=== PATIENT | female | born 1965 | race Caucasian/White ===

== ENCOUNTER 2022-08-28 08:54 | Outpatient (CLI) | payer OTHER, SELFPAY | END 2022-08-28 08:55 | disposition home or self-care (01) | LOC: AMB 09-09 13:42 | PROVIDERS: Visit Provider Family Medicine | DX: S09.90XA Unspecified injury of head, initial encounter (principal); S89.90XA Unspecified injury of unspecified lower leg, initial encounter; W01.0XXA Fall on same level from slipping, tripping and stumbling without subsequent striking against object, initial encounter | CPT/HCPCS: A0425; A0427 ==

== ENCOUNTER 2022-08-28 09:12 | Emergency (ER) | payer OTHER, SELFPAY ==
[2022-08-28] VITALS (8 sets, daily range): BP systolic 113–147; BP diastolic 84–103; PULSE 66–75; RESP 18; TEMP 36; O2SAT 93–97; BMI 40.2
--- NOTE | 2022-08-28 09:45 | ED_ITS ---
HPI - Fall General Time Seen by Provider: 09:45 Date Seen: 08/28/22 Chief Complaint: Fall/Minor Trauma Stated Complaint: fell, knee/hip pain Time Seen by Provider: 08/28/22 09:45 Source: patient and RN notes reviewed Mode of arrival: EMS Limitations: no limitations History of Present Illness HPI Narrative: Martine is a very pleasant 57-year-old female with history of traumatic brain injury, restless legs, obesity, fibromyalgia, chronic neck and back pain who comes to the emergency room for evaluation of right-sided body pain after a fall. Patient notes that she had just been to the dentist this morning. She notes that she and her son were going to go to breakfast and she was walking on the sidewalk without her walker and got her toe caught and fell forward. Her son states that he fell forward onto her knees and right side and her cane which she was using. He did not see her strike her head. She notes that after she fell forward she fell back onto her right buttock. EMS was called and she was given 25 mcg of fentanyl and brought here to the emergency room. Martine notes that she has had chronic concussions over her life and she does have hardware in the cervical spine. She notes no new pain with her head and neck today. He is not currently on any blood thinners. Initially she thought she must have hit her head and we discussed need for CT but her son states that she did not hit her head nor did she have any loss of consciousness. She is fine that we continue to monitor and do not put her through the CT scanner for head or neck. Martine complains of right elbow pain but is able to move her elbow without difficulty. She does not think it needs an x-ray. Martine complains of right hip pain but states that she is able to move her leg and does not think she needs an x-ray of her hip. Martine complains of right knee pain and states that hurts to flex and extend it. She has quite a big abrasion in this area. She thinks her tetanus is u p-to-date. She requests an x-ray. Martine come notes that she had an ankle injury when she tripped. She demonstrates with her ankle inversion as to will where it hurts mostly. She has not noted any swelling in this area but is worried that she has an underlying injury and request an x-ray. Upon her arrival Martine states she is a diabetic and has not had breakfast. When I enter the room she is eating her breakfast moving her right arm without difficulty. Related Data Home Medications Medication Instructions Recorded Confirmed albuterol sulfate 2.5 mg/3 mL 2.5 mg QID PRN 08/28/22 (0.083 %) solution for nebulization albuterol sulfate 90 mcg/actuation 2 puff inhalation Q6H PRN 08/28/22 08/28/22 aerosol inhaler budesonide 3 mg 9 mg PO DAILY 08/28/22 08/28/22 capsule,delayed,extended release buspirone 15 mg tablet 15 mg PO BID 08/28/22 08/28/22 cholecalciferol (vitamin D3) 50 50 mcg PO DAILY 08/28/22 08/28/22 mcg (2,000 unit) capsule cyclobenzaprine 10 mg tablet 10 mg PO BID PRN 08/28/22 08/28/22 docusate sodium 100 mg capsule 100 mg PO 3XD PRN 08/28/22 08/28/22 duloxetine 60 mg capsule,delayed 60 mg PO DAILY 08/28/22 08/28/22 release gabapentin 600 mg tablet 600 mg PO 3XD 08/28/22 08/28/22 meloxicam 15 mg tablet 15 mg PO DAILY 08/28/22 08/28/22 metformin 1,000 mg tablet 1,000 mg PO BID 08/28/22 08/28/22 mirtazapine 7.5 mg tablet 7.5 mg PO QPM 08/28/22 08/28/22 nicotine 10 mg inhalation inhalation 08/28/22 cartridge (Nicotrol) ondansetron HCl 4 mg tablet 4 mg PO Q8H PRN 08/28/22 08/28/22 pravastatin 40 mg tablet 40 mg PO DAILY 08/28/22 08/28/22 propranolol 60 mg capsule,24 60 mg PO DAILY 08/28/22 08/28/22 hr,extended release simvastatin 20 mg tablet 20 mg PO QPM 08/28/22 08/28/22 topiramate 100 mg tablet 100 mg PO BID 08/28/22 08/28/22 trazodone 100 mg tablet 100 mg PO QPM 08/28/22 08/28/22 Allergies Allergy/AdvReac Type Severity Reaction Status Date / Time latex Allergy Intermediate Hives Verified 08/28/22 09:30 adhesive Allergy Mild Rash Verified 08/28/22 09:30 Epideral Allergy Intermediate severe Uncoded 09/03/21 10:22 hives Erythromycin Allergy Intermediate severe Uncoded 09/03/21 10:22 rash, diarrhea Review of Systems Status of ROS: Reports: 10 or more systems reviewed and unremarkable except as noted in History and below Const: Denies: fever or chills Eyes: Denies: change in vision or blurry vision ENMT: Reports: neck pain (Chronic nothing new) Cardio: Denies: chest pain, swelling of feet/ankles or lightheadedness GI: Denies: nausea Musculo: Reports: neck pain (Chronic nothing new) and extremity pain (Right knee and ankle) Neuro: Denies: headache Psych: Reports: anxiety PFSH PFSH Surgical History History of total hysterectomy with bilateral salpingo-oophorectomy (BSO) (09/21/14) ?Z90.710 - Acquired absence of both cervix and uterus (ICD-10) ?Z90.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, bilateral (ICD-10) ?Z90.79 - Acquired absence of other genital organ(s) (ICD-10) History of section ?Z98.891 - History of uterine scar from previous surgery (ICD-10) History of cervical spinal arthrodesis (08/04/17) ?Z98.1 - Arthrodesis status (ICD-10) History of carpal tunnel release (08/2018) ?Z98.890 - Other specified postprocedural states (ICD-10) Family History Other Colon cancer Social History Smoking Status: Former smoker Do you use any of these nicotine containing products: None Second hand tobacco smoke exposure: No How often do you have a drink containing alcohol: 2-4 times a month How many standard drinks containing alcohol do you have on a typical day: 1 or 2 How often do you have six or more drinks on one occasion: Never AUDIT-C Alcohol total score: 2 Non-prescribed substance use: denies use service: No Exam Narrative: Exam Narrative: Martine is alert and oriented. She is very detailed in her history and appears to have good memory and recall. GCS of 15 EOM is full. Head is atraumatic normocephalic. Neck is with full range of motion in my observation. Upper extremity strength and motor is intact. Heart with a regular rate and rhythm and lungs are clear. Abdomen soft. Moving her upper extremities without difficulty. Examination of her right arm shows large bruise on the posterior lateral upper forearm. No pain with palpation over the olecranon or the radial head. Full flexion extension intact. Distally she has superficial scratches in various stages of healing. She notes this is from a pet. Examination of the right buttock and hip show no bruising at this time. Palpation over the greater trochanter without discomfort. Patient is able to flex extend at the hip without difficulty. She has a circular area of superficial abrasion on the right knee. She has really no lateral or medial joint pain. Distally she has has discomfort when moving her ankle but there is no evidence of edema. Const: Vital Signs, click to edit/add: Vital Signs - 24 hr 08/28/22 09:25 08/28/22 09:30 08/28/22 10:00 Temperature 96.8 F L Pulse Rate Pulse Rate [Right Pulse Oximeter] 66 73 Respiratory Rate 18 18 Blood Pressure Blood Pressure [Le ft Upper Arm] 147/94 H 131/103 H 113/88 Pulse Oximetry 95 95 Oxygen Delivery Me thod Room Air Room Air 08/28/22 10:30 08/28/22 10:50 08/28/22 11:00 Temperature Pulse Rate 70 75 Pulse Rate [Right Pulse Oximeter] Respiratory Rate Blood Pressure Blood Pressure [Le ft Upper Arm] 116/84 Pulse Oximetry 97 93 Oxygen Delivery Me thod 08/28/22 11:02 08/28/22 11:15 Temperature Pulse Rate 75 73 Pulse Rate [Right Pulse Oximeter] Respiratory Rate Blood Pressure 132/98 H Blood Pressure [Le ft Upper Arm] Pulse Oximetry 96 93 Oxygen Delivery Me thod Documenting provider has reviewed patient's vital signs: yes Course Course Hospital Course: At this time Martine son is sure that she did not strike her head. She really has no new complaints and she is not on a blood thinner and thus will continue to monitor but not have her go through with head or cervical spine CT at this time as she does not appear to have any new discomfort or symptoms. Patient initially thought that she would want a hip x-ray but there is no bruising and she is able to move this area and thus she is declining. She also declines an x-ray for her right arm. She is requesting x-ray of the right knee and right ankle which will be ordered. Vital Signs Vital signs: Initial Vital Signs Temperature 96.8 F L 08/28/22 09:25 Temperature Source Temporal Artery Scan 08/28/22 09:25 Pulse Rate 66 08/28/22 09:25 Respiratory Rate 18 08/28/22 09:25 Blood Pressure 147/94 H 08/28/22 09:25 Blood Pressure Mean 111 H 08/28/22 09:25 Blood Pressure Position Supine 08/28/22 09:25 Pulse Oximetry 95 08/28/22 09:25 Oxygen Delivery Method Room Air 08/28/22 09:25 Vital Signs Temperature 96.8 F L 08/28/22 09:25 Pulse Rate 66 08/28/22 09:25 Respiratory Rate 18 08/28/22 09:25 Blood Pressure 147/94 H 08/28/22 09:25 Pulse Oximetry 95 08/28/22 09:25 Oxygen Delivery Method Room Air 08/28/22 09:25 Temperature 96.8 F L 08/28/22 09:25 Pulse Rate 73 08/28/22 11:15 Respiratory Rate 18 08/28/22 09:30 Blood Pressure 132/98 H 08/28/22 11:02 Pulse Oximetry 93 08/28/22 11:15 Oxygen Delivery Method Room Air 08/28/22 09:30 MDM - Fall MDM Narrative Medical decision making narrative: 1. Right knee abrasion-no evidence of underlying fracture fortunately. Will cover with bacitracin after cleansing. Recommend monitoring for infection over the next few days. Use walker for assistance. Martine initially thought she would be able to obtain her walker which is stored at her ex-'s house but now is requesting prescription which I do give her. 2. Right ankle injury-no evidence of fracture-we put her in an Elias wrap for support. Her son did talk about a cam walker or boot but I feel that this would likely raise possibility of tripping or fall for this patient. Tylenol may be used for discomfort. Suggest icing of the area as well. 3. Disposition-home at this time. Return as needed. Light activity. Avoid prolonged bed rest or heavy activity. Return to the emergency room as needed. Medical Records Attestation: I reviewed the patient's medical records. Imaging Data Right knee x-ray: Attestation: I have reviewed the pertinent imaging results. My impression: I do not note any acute findings Radiologist's impression: : Alignment is normal. No fractures or bone lesions. Joint spaces: No joint effusion. Joint spaces are well maintained. No degenerative changes. Soft tissues: Unremarkable. Impression: No evidence of fracture. Right ankle x-ray: Attestation: I have reviewed the pertinent imaging results. My impression: I do not note any acute fractures. Radiologist's impression: Alignment is normal. No fractures or bone lesions. Small calcaneal bone spur. Joint spaces: Unremarkable. Soft tissues: Unremarkable. Impression: No evidence of right ankle fracture. Discharge Plan Discharge Clinical Impression: Fall Qualifiers: Encounter type: initial encounter Qualified Code(s): W19.XXXA - Unspecified fall, initial encounter Right ankle sprain Qualifiers: Encounter type: initial encounter Involved ligament of ankle: unspecified ligament Qualified Code(s): S93.401A - Sprain of unspecified ligament of right ankle, initial encounter Abrasion, knee Qualifiers: Encounter type: initial encounter Laterality: right Qualified Code(s): S80.211A - Abrasion, right knee, initial encounter Patient Disposition: Home, Self-Care Condition: Improved Additional Instructions: Tylenol as needed for discomfort. Ice to areas of discomfort. Use your walker when ambulating. Follow-up with your primary MD for ongoing problems. Elias wrap to right ankle. Recommend bacitracin and Band-Aid for right knee. Return to the emergency room for onset of new symptoms. Prescriptions: No Action cyclobenzaprine 10 mg tablet 10 mg PO BID PRN gabapentin 600 mg tablet 600 mg PO 3XD albuterol sulfate 2.5 mg /3 mL (0.083 %) solution for nebulization 2.5 mg QID PRN pravastatin 40 mg tablet 40 mg PO DAILY meloxicam 15 mg tablet 15 mg PO DAILY ondansetron HCl 4 mg tablet 4 mg PO Q8H PRN propranolol 60 mg capsule,extended release 24 hr 60 mg PO DAILY Nicotrol 10 mg cartridge inhalation trazodone 100 mg tablet 100 mg PO QPM simvastatin 20 mg tablet 20 mg PO QPM metformin 1,000 mg tablet 1,000 mg PO BID docusate sodium 100 mg capsule 100 mg PO 3XD PRN budesonide 3 mg capsule,delayed,extend.release 9 mg PO DAILY albuterol sulfate 90 mcg/actuation HFA aerosol inhaler 2 puff INHALATION Q6H PRN topiramate 100 mg tablet 100 mg PO BID buspirone 15 mg tablet 15 mg PO BID mirtazapine 7.5 mg tablet 7.5 mg PO QPM duloxetine 60 mg capsule,delayed release(DR/EC) 60 mg PO DAILY cholecalciferol (vitamin D3) 50 mcg (2,000 unit) capsule 50 mcg PO DAILY Follow Up/Referrals: Provider,Not a Local [Primary Care Provider] - Stand Alone Forms: [facility] Info Instructions
--- NOTE | 2022-08-28 10:19 | CRLHL7_ITS ---
For Patients: As a result of the Century Cures Act, medical imaging exams and procedure reports are released immediately into your electronic medical record. You may view this report before your referring provider. If you have questions, please contact your health care provider. Indication: INVERSION INJURY AFTER FALL Technique: Right ankle 3 views. Comparison: None. Findings: Bones: Alignment is normal. No fractures or bone lesions. Small calcaneal bone spur. Joint spaces: Unremarkable. Soft tissues: Unremarkable. Impression: No evidence of right ankle fracture. Dictated by Vance Hardwick MD @ 08/28/2022 11:00:28 AM (Electronically Signed)
--- NOTE | 2022-08-28 10:19 | CRLHL7_ITS ---
For Patients: As a result of the Cures Act, medical imaging exams and procedure reports are released immediately into your electronic medical record. You may view this report before your referring provider. If you have questions, please contact your health care provider. Indication: FALL Technique: Right knee 2 views Comparison: None Findings: Bones: Alignment is normal. No fractures or bone lesions. Joint spaces: No joint effusion. Joint spaces are well maintained. No degenerative changes. Soft tissues: Unremarkable. Impression: No evidence of fracture. Dictated by Vance Hardwick MD @ 08/28/2022 10:55:55 AM (Electronically Signed)
--- OUTSIDE RECORDS SUMMARY | 2022-08-28 10:39 | XMS_ITS ---
Author Name Unknown Organization [facility] Address [address] [facility] [address] [address] [place] [address]- Care Team Providers Care Tester [employer]ak[employer] Name Role Phone Jamie Whitehead DO Primary Care Physician Encounter Date(s): 05/27/22 - 05/27/22 [id number] [place] [address]- [phone] Encounter Diagnosis Head contusion(Discharge Diagnosis) - 05/27/22 Concussion(Discharge Diagnosis) - 05/27/22 Contusion of left wrist(Discharge Diagnosis) - 05/27/22 Ground-level fall(Discharge Diagnosis) - 05/27/22 Strain, dorsal(Discharge Diagnosis) - 05/27/22 Discharge Disposition: 01 Home or Self Care Attending Physician: PHYSICIAN , EMERGENCY Admitting Physician: PHYSICIAN , EMERGENCY Vital Signs Most recent to oldest [Reference Range]: 1 2 3 Heart Rate Monitored [60-100 bpm] 65 bpm (05/27/22 8:02 PM) Respiratory Rate [14-20 br/min] 17 br/min (05/27/22 8:02 PM) Blood Pressure [80-140/60-90 mmHg] 112/93mmHg (05/27/22 11:41 PM) 99/75mmHg (05/27/22 10:30 PM) 111/94mmHg (05/27/22 10:00 PM) Results Laboratory List Name Date POC Glucose Strip 05/27/22 Chemistry Panel 7 (CHEM7) 05/27/22 Glomerular Filtration Rate Calculation Hepatic Function Panel 05/27/22 PT 05/27/22 Most recent to oldest [Reference Range]: 1 eGFR CKD-EPI [>=60 mL/min/1.73m^2] >60 m L/min/1.73m^2 (05/27/22 7:44 PM) Creatinine [0.51-0.95 mg/dL] 0.62 mg/dL (05/27/22 7:44 PM) Albumin Level [3.97-4.94 g/dL] 4.08 g/dL (05/27/22 7:44 PM) Alk Phos [35-104 U/L] 83 U/L (05/27/22 7:44 PM) ALT [10-35 U/L] 50 U/L *HI* (05/27/22 7:44 PM) AST [10-35 U/L] 32 U/L (05/27/22 7:44 PM) Bili Total [<=1.1 mg/dL] 0.2 mg/dL (05/27/22 7:44 PM) BUN [6-20 mg/dL] 11 mg/dL (05/27/22 7:44 PM) Chloride Level [98-107 mmol/L] 105 mmol/ L (05/27/22 7:44 PM) CO2 [22-29 mmol/L] 22 mmol/L (05/27/22 7:44 PM) Glucose Level [74-106 mg/dL] 115 mg/dL *HI* (05/27/22 7:44 PM) INR 1.0 1 *NA* (05/27/22 7:44 PM) Potassium Level [3.5-5.1 mmol/L] 3.9 mmo l/L (05/27/22 7:44 PM) PT [10.2-12.9 second(s)] 11.5 second(s) (05/27/22:44 PM) Sodium Level [136-145 mmol/L] 141 mmol/L (05/27/22 7:44 PM) Total Protein [6.4-8.3 g/dL] 6.3 g/dL *LOW* (05/27/22 7:44 PM) Bili Direct [0.0-0.3 mg/dL] <0.2 mg/dL (05/27/22 7:44 PM) POC Glucose Strip [70-100 mg/dL] 131 mg/ dL 2 *HI* (05/27/22 10:37 PM) Anion Gap 15 *NA* (05/27/22 7:44 PM) 1Result Comment: Autoverified Result by Discern Rule 2Result Comment: Device #: [id number] CLIA: [id number] Radiology Reports * Exam Date Time Procedure Performing Provider Status 05/27/22 8:[address] SPINE CERVICAL WO CONTRAST Pusateri RT(R)(CT), Yasmin; Favio (Verified) Notes: (CT SPINE CERVICAL WO CONTRAST) Reason For Exam: Other-See Special Instructions ACC#: [id number] EXAMINATION: CT SPINE CERVICAL WO CONTRAST CLINICAL INDICATION: Trauma TECHNIQUE: Noncontrast axial CT imaging of the cervical spine was performed. Coronal and sagittal reformatted images were also reviewed. This CT exam was performed using one or more of the following dose reduction techniques: Automated exposure control, adjustment of the mA and/or kV according to patient size, or use of iterative reconstruction technique. COMPARISON: None. FINDINGS: The patient is undergone a previous anterior cervical disc fusion procedure from C5 through C7. Complete vertebral rings are seen at all levels of the cervical spine. Sagittal reformatted images do not demonstrate any acute compression fractures. No acute pathology is identified in the paraspinous soft tissues. IMPRESSION: No acute fracture or dislocation is seen in the cervical spine. Final Dictated: 05/27/2022 9:14 pm RAMAN STRATTON MD Signed (Electronic Signature): 05/27/2022 9:16 pm Signed by: RAMAN STRATTON MD * Exam Date Time Procedure Performing Provider Status 05/27/22 8:[address] HEAD WO CONTRAST Pusateri RT(R)(CT) , Yasmin; Auth (Verified) Notes: (CT HEAD WO CONTRAST) Reason For Exam: Other-See Special Instructions ACC#: [id number] EXAMINATION: CT HEAD WO CONTRAST CLINICAL INDICATION: Head trauma TECHNIQUE: Standard noncontrast CT imaging of the head and brain was performed. This CT exam was performed using one or more of the following dose reduction techniques: Automated exposure control, adjustment of the mA and/or kV according to patient size, or use of iterative reconstruction technique. COMPARISON: None. FINDINGS: Bones and sinuses: No acute fracture or acute bony pathology is seen. The visualized portions of the paranasal sinuses, mastoid air cells, and middle ears are well-aerated and unremarkable. Ventricles and extra-axial spaces: The ventricles, cisterns, sulci are normal in size, shape, and appearance without midline shift. A focal well-circumscribed area of extra-axial CSF attenuation is seen in the posterior fossa at the midline measuring 3.3 x 3.6 cm in its maximal axial dimensions. This is likely benign, likely representing an arachnoid cyst. Brain: No intracranial hemorrhage or mass lesion is seen. Soft tissues: No acute pathology is seen involving the globes, orbital structures, or visualized soft tissues. IMPRESSION: 1. No acute fracture or acute intracranial pathology is identified. 2. A 3.6 cm extra-axial CSF density collection or structure at the posterior inferior margin of theposterior fossa is likely benign, likely representing an incidental arachnoid cyst. Final Dictated: 05/27/2022 9:07 pm RAMAN STRATTON MD Signed (Electronic Signature): 05/27/2022 9:11 pm Signed by: RAMAN STRATTON MD * Exam Date Time Procedure Performing Provider Status 05/27/22 8:26 PM MILTON WRIST LEFT MINIM UM 3 VIEWS Sen RT(R), Tracy; Auth (Verified) Notes: (MILTON WRIST LEFT MINIMUM 3 VIEWS) Reason For Exam: Other-See Special Instructions ACC#: [id number] Examination: MILTON WRIST LEFT MINIMUM 3 VIEWS Clinical Indication: Trauma/Pain Findings: Bones: There are no displaced fractures. There are no focal lytic or sclerotic lesions. Joints: There is no subluxation or dislocation. Soft tissues: No significant edema or foreign body. Impression: No displaced fracture Final Dictated: 05/27/2022 8:51 pm DICKSON ROSE DO Signed (Electronic Signature): 05/27/2022 9:06 pm Signed by: DICKSON ROSE DO * Exam Date Time Procedure Performing Provider Status 05/27/22 8:26 PM MILTON SPINE LUMBAR ROUTINE Sen RT(R ), Tracy; Auth (Verified) Notes: (MILTON SPINE LUMBAR ROUTINE) Reason For Exam: Other-See Special Instructions ACC#: [id number] Examination: MILTON SPINE LUMBAR ROUTINE Clinical Indication: Trauma/Pain Findings: Vertebra: There is normal vertebral height and alignment. Moderate hypertrophic changes are present. There are no fractures or subluxations. Intervertebral disc spaces: Appear within normal limits. Soft tissues: Within normal limits. Radiopaque density overlies the left mid abdomen. Correlate clinically Impression: Lumbar spondylosis No spondylolisthesis Radiopaque density overlying the left mid abdomen Final Dictated: 05/27/2022 8:49 pm DICKSON ROSE DO Signed (Electronic Signature): 05/27/2022 8:50 pm Signed by: DICKSON ROSE DO * Exam Date Time Procedure Performing Provider Status 05/27/22 8:26 PM MILTON SPINE THORACIC I NC SWIMMERS VIEW Sen RT(R), Tracy; Auth (Verified) Notes: (MILTON SPINE [employer] INC SWIMMERS VIEW) Reason For Exam: Other-See Special Instructions ACC#: [id number] Examination: MILTON SPINE [employer] SWIMMERS VIEW Clinical Indication: Trauma Findings: Vertebra: There is normal vertebral height and alignment. There are no fractures or subluxations. Anterior fusion hardware in the lower cervical spine appreciated Intervertebral disc spaces: Appear within normal limits. Soft tissues: Within normal limits. Impression: No displaced fracture or subluxation Final Dictated: 05/27/2022 8:49 pm DICKSON ROSE DO Signed (Electronic Signature): 05/27/2022 8:49 pm Signed by: DICKSON ROSE DO Social History Social History Type Response Sex Female Mental Status 05/27/22 Barriers to Learning None evident Languages Moroccan Physician Emergency department Note * BRYON HART MD: MODIFY, PERFORM, MODIFY, SIGN, VERIFY Event Display: ED Note-Physician Authored Date: [id number] [facility] Patient: NELSON LUQUE Age: 56 years Sex: Female : 1965 Associated Diagnoses: Ground-level fall; Head contusion; Concussion; Contusion of left wrist; Strain, dorsal Author: BRYON HART MD Basic Information Time seen: Assigned Date/Time PROVIDER ROLE INITIATED UNASSIGNED BRYON HART MD ED Physician 05/27/2022 19:25 , Immediately upon arrival. History source: Patient, EMS. Arrival mode: Ambulance. History limitation: None. History of Present Illness The patient presents following Patient is a 56-year-old woman who comes in by ambulance for evaluation after having 2 falls at home. Patient was doing some work around the house. Sometime around 5:00she had a dizzy off-balance spinning sensation. She toppled over sideways without losing consciousness and hit furniture and items. She hit her head and neck and back. She stood up and then fell forward and her head hit the floor. There is no loss of consciousness. She is not on any antiplatelet oranticoagulant medications. Afterwards she vomited 10 times. She was unsteady after that and after 45 minutes agreed to come to the hospital by ambulance. She was given Zofran in route. She has not had the dizziness/falling before. She has some chronic neck and back pain. She has a history of Crohn's disease and chronic constipation. She had significant diarrhea yesterday. No chest pain shortness of breath, palpitations, or syncope.. Her biggest complaint at this time is head pain. Review of Systems Additional review of systems information: 10 point review of systems is negative except for elements of the history of present illness. Health Status Allergies: No active allergies have been recorded.. Past Medical/ Family/ Social History Surgical history: Surgical history No active procedure history items have been selected or recorded., Multiple C- sections and hysterectomy, left rotator cuff. Family history: Family history No family history items have been selected or recorded.. Medical history. Physical Examination Vital Signs Vital Signs 05/27/2022 20:02 EDT Heart Rate Monitored 65 bpm Normal Respiratory Rate 17 br/min Normal Systolic Blood Pressure 121 mmHg Normal Diastolic Blood Pressure 49 mmHg <LLOW . General: Alert, no acute distress. Skin: Warm, dry. Head: Occipital scalp tenderness. Small frontal abrasion. Neck: C-collar in place. Midline tenderness upper C-spine noted. C-collar left in place. Eye: Pupils are equal, round and reactive to light, extraocular movements are intact. Ears, nose, mouth and throat: Oral mucosa moist. Cardiovascular: Regular rate and rhythm, No murmur, Normal peripheral perfusion, No edema. Respiratory: Lungs are clear to auscultation, respirations are non-labored. Chest wall: No tenderness, No deformity. Back: Tenderness to percussion throughout the T and L-spine. Musculoskeletal: Normal ROM, normal strength, Minimal tenderness and a superficial abrasion on the medial aspect of the left wrist. Neurological: Alert and oriented to person, place, time, and situation, No focal neurological deficit observed. Psychiatric: Cooperative, appropriate mood & affect. Medical Decision Making Orders Launch Orders Laboratory: PT (Order Processing): Blood, 05/27/2022 19:41 EDT, Stat collect, Nurse collect Hepatic Function Panel (Order Processing): Blood, 05/27/2022 19:41 EDT, Routine collect, Nurse collect CHEM7 (Order Processing): Blood, 05/27/2022 19:41 EDT, Stat collect, Nurse collect CBC with Diff (Order Processing): Blood, 05/27/2022 19:41 EDT, LENIN collect, Nurse collect Pharmacy: morphine injection (Order Processing): 2 mg, IV Push, one time Radiology: MILTON WRIST LEFT MINIMUM 3 VIEWS (Order Processing): 05/27/2022 19:40 EDT, Stat, Reason: Other-See Special Instructions, once non-pharm, Trauma/Pain, 05/27/2022 19:40 EDT, 05/27/2022 19:40 EDT, Rad Type Perform based on Radiology guidelines MIL[employer] SPINE [employer] SWIMMERS VIEW (Order Processing): 05/27/2022 19:40 EDT, Stat, Reason: Other-See Special Instructions, once non-pharm, Trauma, 05/27/2022 19:40 EDT, 05/27/2022 19:40 EDT, Rad Type Perform based on Radiology guidelines CT SPINE CERVICAL WO CONTRAST (Order Processing): 05/27/2022 19:40 EDT, Stat, Reason: Other-See Special Instructions, once non-pharm, Trauma, 05/27/2022 19:40 EDT, 05/27/2022 19:40 EDT, Rad Type Performbased on Radiology guidelines CT HEAD WO CONTRAST (Order Processing): 05/27/2022 19:40 EDT, Stat, Reason: Other-See Special Instructions, once non-pharm, Head trauma, 05/27/2022 19:40 EDT, 05/27/2022 19:40 EDT, Rad Type Perform based on Radiology guidelines MILTON SPINE LUMBAR ROUTINE (Order Processing): 05/27/2022 19:40 EDT, Stat, Reason: Other-See Special Instructions, once non-pharm, Trauma/Pain, 05/27/2022 19:40 EDT, 05/27/2022 19:40 EDT, Rad Type Performbased on Radiology guidelines Cardiovascular: EKG (Order Processing): 05/27/2022 19:41 EDT, Stat, once non-pharm, 05/27/2022 19:41 EDT, Syncope. 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 Electrocardiogram: EKG Interpretation Results EKG interpreted by va shows sinus rhythm at 54 bpm, borderline first-degree AV block, normal axes, no ischemic changes. ABNORMAL ECG Signed by: BRYON HART MD 05/28/2022 01:02:59 . Results review: Lab results : Laboratory 05/27/2022 22:37 EDT POC Glucose Strip 131 mg/dL HI 05/27/2022 19:44 EDT PT 11.5 second(s) Normal INR 1.0 NA Glucose Level 115 mg/dL HI BUN 11 mg/dL Normal Creatinine 0.62 mg/dL Normal eGFR CKD-EPI >60 mL/min/1.73m^2 Normal Sodium Level 141 mmol/L Normal Potassium Level 3.9 mmol/L Normal Chloride Level 105 mmol/L Normal CO2 22 mmol/L Normal Anion Gap 15 NA Total Protein 6.3 g/dL LOW Albumin Level 4.08 g/dL Normal Bili Total 0.2 mg/dL Normal Bili Direct <0.2 mg/dL Normal Alk Phos 83 U/L Normal AST 32 U/L Normal ALT 50 U/L DE . Radiology results: ?? COMPLETED RADIOLOGY DIAGNOSTIC XRAY IMAGING STUDIES: MILTON WRIST LEFT MINIMUM 3 VIEWS (05/27/222029):no displaced fracture MILTON SPINE [employer]ORACIC INC SWIMMER (05/27/222025):no displaced fracture or subluxation MILTON SPINE LUMBAR ROUTINE (05/27/222026):lumbar spondylosis no spondylolisthesis radiopaque density overlying the left mid abdomen , ?? COMPLETED RADIOLOGY ULTRASOUND, MRI, AND CATSCAN IMAGING STUDIES: CT SPINE CERVICAL WO CONTRAST (05/27/222009):EXAMINATION: CT SPINE CERVICAL WO CONTRAST CLINICAL INDICATION: Trauma TECHNIQUE: Noncontrast axial CT imaging of the cervical spine was performed. Coronal and sagittal reformatted images were also reviewed. This CT exam was performed using one or more of the following dose reduction techniques: Automated exposure control, adjustment of the mA and/or kV according to patient size, or use of iterative reconstruction technique. COMPARISON: None. FINDINGS: The patient is undergone aprevious anterior cervical disc fusion procedure from C5 through C7. Complete vertebral rings are seen at all levels of the cervical spine. Sagittal reformatted images do not demonstrate any acute compression fractures. No acute pathology is identified in the paraspinous soft tissues. IMPRESSION: No acute fracture or dislocation is seen in the cervical spine. CT HEAD WO CONTRAST (05/27/222009):EXAMINATION: CT HEAD WO CONTRAST CLINICAL INDICATION: Head trauma TECHNIQUE: Standard noncontrast CT imaging of the head and brain was performed. This CT exam was performed using one or more of the following dose reduction techniques: Automated exposure control, adjustment of the mAand/or kV according to patient size, or use of iterative reconstruction technique. COMPARISON: None. FINDINGS: Bones and sinuses: No acute fracture or acute bony pathology is seen. The visualized portions of the paranasal sinuses, mastoid air cells, and middle ears are well-aerated and unremarkable. Ventricles and extra- axial spaces: The ventricles, cisterns, sulci are normal in size, shape, and a ppearance without midline shift. A focal well-circumscribed area of extra-axial CSF attenuation is seen in the posterior fossa at the midline measuring 3.3 x 3.6 cm in its maximal axial dimensions. This is likely benign, likely representing an arachnoid cyst. Brain: No intracranial hemorrhage or mass lesion is seen. Soft tissues: No acute pathology is seen involving the globes, orbital structures, or visualized soft tissues. IMPRESSION: 1. No acute fracture or acute intracranial pathology is identified. 2. A 3.6 cm extra-axial CSF density collection or structure at the posterior inferior margin of the posterior fossa is likely benign, likely representing an incidental arachnoid cyst. . Reexamination/ Reevaluation Vital signs results included from flowsheet : Vital Signs 05/27/2022 23:41 EDT Systolic Blood Pressure 112 mmHg Normal Diastolic Blood Pressure 93 mmHg HI Notes: Patient c-collar was removed and she felt better. She was given a Velcro wrist splint for the sprain/contusion of her left wrist. She was able to get up and ambulate with no significant assistance. She lives with family and states she feels comfortable going home. Her CBC could not be run and patient would like to go home now.. Patient left without discharge instructions Impression and Plan Ground-level fall : [id number] W18.30XA, Discharge, Medical Head contusion : [id number] S00.93XA, Discharge, Medical Concussion : [id number] S06.0XAA, Discharge, Medical Contusion of left wrist : [id number] S60.212A, Discharge, Medical Strain, dorsal : [id number] S29.012A, Discharge, Medical Plan Condition: Improved. Disposition: Discharged: to home. XR Thoracic spine Views and Swimmers * DICKSON ROSE DO: PERFORM, VERIFY, VERIFY Event Display: Report Authored Date: [id number] Examination: [facility] SPINE [employer] SWIMMERS VIEW Clinical Indication: Trauma Findings: Vertebra: There is normal vertebral height and alignment. There are no fractures or subluxations. Anterior fusion hardware in the lower cervical spine appreciated Intervertebral disc spaces: Appear within normal limits. Soft tissues: Within normal limits. Impression: No displaced fracture or subluxation Final Dictated: 05/27/2022 8:49 pm DICKSON ROSE DO Signed (Electronic Signature): 05/27/2022 8:49 pm Signed by: DICKSON ROSE DO Note * DICKSON ROSE DO: PERFORM, VERIFY, VERIFY Event Display: Report Authored Date: [id number] Examination: MILTON SPINE LUMBAR ROUTINE Clinical Indication: Trauma/Pain Findings: Vertebra: There is normal vertebral height and alignment. Moderate hypertrophic changes are present. There are no fractures or subluxations. Intervertebral disc spaces: Appear within normal limits. Soft tissues: Within normal limits. Radiopaque density overlies the left mid abdomen. Correlate clinically Impression: Lumbar spondylosis No spondylolisthesis Radiopaque density overlying the left mid abdomen Final Dictated: 05/27/2022 8:49 pm DICKSON ROSE DO Signed (Electronic Signature): 05/27/2022 8:50 pm Signed by: DICKSON ROSE DO * DICKSON ROSE DO: PERFORM, VERIFY, VERIFY Event Display: Report Authored Date: [id number] Examination: MILTON WRIST LEFT MINIMUM 3 VIEWS Clinical Indication: Trauma/Pain Findings: Bones: There are no displaced fractures. There are no focal lytic or sclerotic lesions. Joints: There is no subluxation or dislocation. Soft tissues: No significant edema or foreign body. Impression: No displaced fracture Final Dictated: 05/27/2022 8:51 pm DICKSON ROSE DO Signed (Electronic Signature): 05/27/2022 9:06 pm Signed by: DICKSON ROSE DO CT Head WO contrast * RAMAN STRATTON MD: PERFORM, VERIFY, VERIFY Event Display: Report Authored Date: [id number] EXAMINATION: CT HEAD WO CONTRAST CLINICAL INDICATION: Head trauma TECHNIQUE: Standard noncontrast CT imaging of the head and brain was performed. This CT exam was performed using one or more of the following dose reduction techniques: Automated exposure control, adjustment of the mA and/or kV according to patient size, or use of iterative reconstruction technique. COMPARISON: None. FINDINGS: Bones and sinuses: No acute fracture or acute bony pathology is seen. The visualized portions of the paranasal sinuses, mastoid air cells, and middle ears are well-aerated and unremarkable. Ventricles and extra-axial spaces: The ventricles, cisterns, sulci are normal in size, shape, and appearance without midline shift. A focal well-circumscribed area of extra-axial CSF attenuation is seen in the posterior fossa at the midline measuring 3.3 x 3.6 cm in its maximal axial dimensions. This is likely benign, likely representing an arachnoid cyst. Brain: No intracranial hemorrhage or mass lesion is seen. Soft tissues: No acute pathology is seen involving the globes, orbital structures, or visualized soft tissues. IMPRESSION: 1. No acute fracture or acute intracranial pathology is identified. 2. A 3.6 cm extra-axial CSF density collection or structure at the posterior inferior margin of theposterior fossa is likely benign, likely representing an incidental arachnoid cyst. Final Dictated: 05/27/2022 9:07 pm RAMAN STRATTON MD Signed (Electronic Signature): 05/27/2022 9:11 pm Signed by: RAMAN STRATTON MD CT Cervical spine WO contrast * RAMAN STRATTON MD: PERFORM, VERIFY, VERIFY Event Display: Report Authored Date: [id number] EXAMINATION: CT SPINE CERVICAL WO CONTRAST CLINICAL INDICATION: Trauma TECHNIQUE: Noncontrast axial CT imaging of the cervical spine was performed. Coronal and sagittal reformatted images were also reviewed. This CT exam was performed using one or more of the following dose reduction techniques: Automated exposure control, adjustment of the mA and/or kV according to patient size, or use of iterative reconstruction technique. COMPARISON: None. FINDINGS: The patient is undergone a previous anterior cervical disc fusion procedure from C5 through C7. Complete vertebral rings are seen at all levels of the cervical spine. Sagittal reformatted images do not demonstrate any acute compression fractures. No acute pathology is identified in the paraspinous soft tissues. IMPRESSION: No acute fracture or dislocation is seen in the cervical spine. Final Dictated: 05/27/2022 9:14 pm RAMAN STRATTON MD Signed (Electronic Signature): 05/27/2022 9:16 pm Signed by: RAMAN STRATTON MD Patient Care team information Care Team Personnel Name: Jamie Whitehead DO Position: Community Referral Member Role: Primary Care Physician Address: Address: [address] [place] [phone] Name: BRYON HART MD Position: Physician - Emergency Medicine Member Role: ED Physician Address: Address: [address] [place] [id number]
--- NOTE | 2022-08-28 10:41 | ED.NURSE ---
was asking for something to eat- I am diabetic and took all my meds this morning and I need to eat. dr Nieto was ok with her eating, did have scrambled eggs and toast.
--- NOTE | 2022-08-28 11:30 | ED.NURSE ---
did cleanse abrasions with shur cleanse. bacitracin, bandaids. right knee and right forearm.
--- NOTE | 2022-08-28 11:56 | ED.NURSE ---
was able to stand and ambulate with cane. was given an rx for a walker. son driving her home and will help her with ADL'S. .
== END 2022-08-28 11:40 | disposition home or self-care (01) ==
PROVIDERS: Emergency Provider Family Medicine
DX: M54.9 Dorsalgia, unspecified (principal); S93.401A Sprain of unspecified ligament of right ankle, initial encounter; S83.91XA Sprain of unspecified site of right knee, initial encounter; W19.XXXA Unspecified fall, initial encounter
CPT/HCPCS: 73560; 73610; 99283; 99284

== ENCOUNTER 2022-09-16 11:51 | Emergency (ER) | payer MEDICARE, SELFPAY ==
[2022-09-16 12:11] VITALS: BP 153/77; PULSE 56; RESP 18; TEMP 36.8; O2SAT 97; BMI 38.4
[2022-09-16 12:39] LABS: Appearance Urine Clear (Clear); Bilirubin Urine Negative (Negative); Blood Urine 3+ (Negative); Color Urine Yellow (Yellow); Glucose Urine Negative (Negative); Ketones Urine Negative (Negative); Leukocyte Esterase Urine Negative (Negative); Nitrite Urine Negative (Negative); Protein Urine 1+ (Negative); Specific Gravity Urine 1.025 (1.000-1.030); Urobilinogen Urine 0.2 (0.2-1.0); pH Urine 6.5 (5.0-8.5)
[2022-09-16 13:05] LABS: RBC Urine >100 (0-2)
--- NOTE | 2022-09-16 14:59 | ED_ITS ---
HPI - Abdominal Pain General Time Seen by Provider: 14:59 Date Seen: 09/16/22 Chief Complaint: Abdominal Pain Stated Complaint: back / stomach pain Time Seen by Provider: 09/16/22 14:58 Source: patient and RN notes reviewed Mode of arrival: ambulatory Limitations: no limitations History of Present Illness HPI narrative: Patient is a 57-year-old female coming into the ER with right-sided abdominal pain. It radiates up around into her right back in down into the right lower quadrant. It started this morning. She has some nausea but no vomiting, no fevers chills. She baseline has ulcerative colitis and states she does get a lot of stools with blood in them, states she has active ulcerative colitis. She had been living in [place], was up here for her mom. She states that she is going to need a accounting coordinator common many specialist. I reviewed with her that I would not be able to provide that through the ER. She is going to need to establish in the clinic. We certainly can evaluate her pain. Due to the volume in the acuity in the ED, patient did have to wait in we were able to see her urinalysis results. There is significant microscopic hematuria. She has never been diagnosed with kidney stone before but did review with her that that is a concern. She states her pain is severe, when question on pain management that has worked on her she did recollect that she had fentanyl in an ambulance ones with the fall. She states that worked quite well. She believes she can use Toradol as well. Would like to see her kidney function given her complexity and multiple medical issues before I give her a dose of Toradol. Certainly can treat her nausea with Zofran. elicited complaint: abdominal pain and flank pain Related Data Home Medications Medication Instructions Recorded Confirmed albuterol sulfate 2.5 mg/3 mL 2.5 mg QID PRN 08/28/22 (0.083 %) solution for nebulization albuterol sulfate 90 mcg/actuation 2 puff inhalation Q6H PRN 08/28/22 09/16/22 aerosol inhaler budesonide 3 mg 9 mg PO DAILY 08/28/22 09/16/22 capsule,delayed,extended release buspirone 15 mg tablet 15 mg PO BID 08/28/22 09/16/22 cholecalciferol (vitamin D3) 50 50 mcg PO DAILY 08/28/22 09/16/22 mcg (2,000 unit) capsule cyclobenzaprine 10 mg tablet 10 mg PO BID PRN 08/28/22 09/16/22 docusate sodium 100 mg capsule 100 mg PO 3XD PRN 08/28/22 09/16/22 duloxetine 60 mg capsule,delayed 60 mg PO DAILY 08/28/22 09/16/22 release gabapentin 600 mg tablet 600 mg PO 3XD 08/28/22 09/16/22 meloxicam 15 mg tablet 15 mg PO DAILY 08/28/22 09/16/22 metformin 1,000 mg tablet 1,000 mg PO BID 08/28/22 09/16/22 mirtazapine 7.5 mg tablet 7.5 mg PO QPM 08/28/22 09/16/22 nicotine 10 mg inhalation inhalation 08/28/22 cartridge (Nicotrol) ondansetron HCl 4 mg tablet 4 mg PO Q8H PRN 08/28/22 08/28/22 pravastatin 40 mg tablet 40 mg PO DAILY 08/28/22 09/16/22 propranolol 60 mg capsule,24 60 mg PO DAILY 08/28/22 09/16/22 hr,extended release simvastatin 20 mg tablet 20 mg PO QPM 08/28/22 08/28/22 topiramate 100 mg tablet 100 mg PO BID 08/28/22 09/16/22 trazodone 100 mg tablet 100 mg PO QPM 08/28/22 09/16/22 Previous Rx's Medication Instructions Recorded ketorolac 10 mg tablet 10 mg PO Q6H PRN pain 5 days #20 09/16/22 tabs oxycodone 5 mg tablet 5 mg PO Q6H PRN pain #10 tabs 09/16/22 tamsulosin 0.4 mg capsule (Flomax) 0.4 mg PO DAILY #14 caps 09/16/22 Allergies Allergy/AdvReac Type Severity Reaction Status Date / Time latex Allergy Intermediate Hives Verified 09/16/22 12:18 adhesive Allergy Mild Rash Verified 09/16/22 12:18 Epideral Allergy Intermediate severe Uncoded 09/03/21 10:22 hives Erythromycin Allergy Intermediate severe Uncoded 09/03/21 10:22 rash, diarrhea Review of Systems Status of ROS Reports: 6 or more systems reviewed and unremarkable except as noted in History and below PFSH [facility] Surgical History History of total hysterectomy with bilateral salpingo-oophorectomy (BSO) (09/21/14) ?Z90.710 - Acquired absence of both cervix and uterus (ICD-10) ?Z90.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, bilateral (ICD-10) ?Z90.79 - Acquired absence of other genital organ(s) (ICD-10) History of section ?Z98.891 - History of uterine scar from previous surgery (ICD-10) History of cervical spinal arthrodesis (08/04/17) ?Z98.1 - Arthrodesis status (ICD-10) History of carpal tunnel release (08/2018) ?Z98.890 - Other specified postprocedural states (ICD-10) Family History Other Colon cancer Social History Smoking Status: Former smoker Do you use any of these nicotine containing products: None Second hand tobacco smoke exposure: No How often do you have a drink containing alcohol: 2-4 times a month How many standard drinks containing alcohol do you have on a typical day: 1 or 2 How often do you have six or more drinks on one occasion: Never AUDIT-C Alcohol total score: 2 Non-prescribed substance use: denies use service: No Exam Const: Vital Signs, click to edit/add: Vital Signs - 24 hr 09/16/22 12:11 09/16/22 15:30 09/16/22 15:45 Temperature 98.2 F Pulse Rate [Right Pulse Oximeter] 56 L 59 L Respiratory Rate 18 16 Blood Pressure [Ri ght Upper Arm] 153/77 H 125/64 Pulse Oximetry 97 97 97 Oxygen Delivery Me thod Room Air Room Air 09/16/22 16:00 09/16/22 17:00 Temperature Pulse Rate [Right Pulse Oximeter] 57 L Respiratory Rate Blood Pressure [Ri ght Upper Arm] 138/79 132/70 Pulse Oximetry 97 Oxygen Delivery Me thod Room Air Documenting provider has reviewed patient's vital signs: yes Common normals: no apparent distress, oriented x3, no limitations and alert General appearance: cooperative, comfortable, well kempt and frail appearing Nutritional appearance: overweight HENMT: Common normals: normocephalic, head/scalp atraumatic, hearing grossly normal bilaterally and external ears normal Head and scalp: normocephalic and atraumatic Face and sinus: normal facial exam External ear: external ears normal Eye: Common normals: PERRL, EOMs intact bilaterally, conjunctivae normal and no scleral icterus Conjunctiva: conjunctiva(e) normal Pupil: PERRL Neck & C-Spine: Common normals: full ROM, no lymphadenopathy and supple Resp: Common normals: normal respiratory effort, no retractions, no use of accessory muscles and clear to auscultation bilaterally Effort & inspection: able to speak in complete sentences Auscultation: clear to auscultation bilaterally Cardio: Common normals: regular rate, regular rhythm, S1 normal heart sound, S2 normal heart sound, no gallops, no clicks and no murmurs Rate: regular rate Rhythm: regular rhythm Heart sounds: S1 normal and S2 normal GI: Common normals: Normal to inspection, nondistended, normoactive bowel sounds present, soft to palpation, non-tender, no hepatosplenomegaly and no masses Palpation: soft and no hepatosplenomegaly Neuro: Common normals: oriented x3 Sensorium/orientation: alert Psych: Appearance: well kempt Course Course Hospital Course: Will establish an IV, give 500 mL normal saline, 4 mg IV Zofran and 25 mcg IV fentanyl q.2 hours p.r.n.. Kidney function comes back normal can supplement pain management with Toradol if needed. Will get appropriate labs, proceed with CT abdomen noncontrast to further evaluate the concern for renal colic. She stated that you do not do anything for kidney stones but did review with her that there is pain management, need to see the size of the kidney stone to see if more urgent intervention might be needed. Certainly there could be other etiologies and really do believe we should proceed with imaging but will start with noncontrast given that it looks like it could be a kidney stone based on the urinalysis. Reevaluation(s) Time of Reevaluation #1: 15:59 Reevaluation #1: Patient is requesting Toradol, nursing staff did run a point of care creatinine on her as she really wants the Toradol. Her point of care creatinine was 0.9. I have subsequently ordered 15 mg IV Toradol. Time of Reevaluation #2: 17:51 Reevaluation #2: Reviewed with patient that there is a 3.8 mm kidney stone in the right UVJ, we discussed that this is very likely to pass. Did review with her that we would send her home with pain management. She was surprised that I was not going to send her to [place], wondered if urology can not just go in and remove this stone. I reviewed with her that we do not have Urology here, that this was a small stone in is very likely to pass on its own. She is advised that they would not do surgery emergently on her, there are risks with surgery that outweigh the benefit here. She will be given pain management to go home with. She did wonder if she could be admitted observation overnight. At this time she is not failed outpatient management and think she can go home with oral medicines. Did briefly review with the hospitalist who concurs that she really can try outpatient management initially. Have reviewed with the patient that this may take hours to days for the stone to pass. However, at 3.8 mm, it is likely that no urologist is going to do anything unless there is a complication or stone has not moved in over 2 weeks in my experience. Vital Signs Vital signs: Initial Vital Signs Temperature 98.2 F 09/16/22 12:11 Temperature Source Temporal Artery Scan 09/16/22 12:11 Pulse Rate 56 L 09/16/22 12:11 Respiratory Rate 18 09/16/22 12:11 Blood Pressure 153/77 H 09/16/22 12:11 Blood Pressure Mean 102 09/16/22 12:11 Blood Pressure Position Sitting 09/16/22 12:11 Pulse Oximetry 97 09/16/22 12:11 Oxygen Delivery Method Room Air 09/16/22 12:11 Vital Signs Temperature 98.2 F 09/16/22 12:11 Pulse Rate 56 L 09/16/22 12:11 Respiratory Rate 18 09/16/22 12:11 Blood Pressure 153/77 H 09/16/22 12:11 Pulse Oximetry 97 09/16/22 12:11 Oxygen Delivery Method Room Air 09/16/22 12:11 Temperature 98.2 F 09/16/22 12:11 Pulse Rate 57 L 09/16/22 16:00 Respiratory Rate 16 09/16/22 15:45 Blood Pressure 132/70 09/16/22 17:00 Pulse Oximetry 97 09/16/22 16:00 Oxygen Delivery Method Room Air 09/16/22 16:00 MDM - Abdominal Pain Lab Data Attestation: I reviewed the patient's lab results. Labs: Lab Results 09/16/22 09/16/22 09/16/22 Range/Units 12:26 15:25 15:58 WBC 11.59 H (4.50-11.00) K/uL RBC 4.81 (4.00-5.20) m/uL Hgb 15.0 (12.0-16.0) gm/dL Hct 45.8 (33.0-51.0) % MCV 95 (80-100) fL MCH 31 (26-34) pg MCHC 33 (32-36) gm/dL RDW Coeff of Maurice 12.0 (11.5-15.5) % Plt Count 244 (140-440) K/uL Neut % (Auto) 62.8 (42.0-72.0) % Lymph % (Auto) 23.0 (20-44) % [place] % (Auto) 11.1 H (0.0-11.0) % Eos % (Auto) 2.2 (0.0-7.0) % Baso % (Auto) 0.5 (0.0-3.0) % Neut # (Auto) 7.30 H (1.7-7.0) K/uL Lymph # (Auto) 2.70 (0.90-2.90) K/uL [place] # (Auto) 1.30 H (0.00-0.90) K/UL Eos # (Auto) 0.30 (0.00-0.50) K/uL Baso # (Auto) 0.10 (0.00-0.30) K/uL Abs Immat Gran (auto) 0.00 (0.00-0.30) K/uL Imm/Tot Granulo (auto) 0.4 % Sodium 140 (135-149) mmol/L Potassium 3.8 (3.6-5.1) mmol/L Chloride 108 (96-114) mmol/L Carbon Dioxide 23 (20-32) mmol/L BUN 24 (7-30) mg/dL Creatinine 0.8 (0.5-1.5) mg/dL Estimated Creat Clear 62.10 Estimated GFR 86 ml/min Glucose 78 (60-115) mg/dL Lactate 1.9 (0.5-1.9) mmol/L Calcium 9.6 (8.4-10.6) mg/dL Total Bilirubin 0.5 (0.1-1.5) mg/dL AST 25 (12-35) U/L ALT 36 H (4-35) U/L Alkaline Phosphatase 67 (40-150) U/L C-Reactive Protein < 0.5 L (0.5-1.0) mg/dL Total Protein 6.8 (6.0-8.3) g/dL Albumin 4.1 (3.3-5.0) g/dL Urine Color Yellow (Yellow) Urine Appearance Clear (Clear) Urine pH 6.5 (5.0-8.5) Ur Specific [place] 1.025 (1.000-1.030) Urine Protein 1+ A (Negative) Urine Glucose (UA) Negative (Negative) Urine Ketones Negative (Negative) Urine Blood 3+ A (Negative) Urine Nitrite Negative (Negative) Urine Bilirubin Negative (Negative) Urine Urobilinogen 0.2 (0.2-1.0) Ur Leukocyte Esterase Negative (Negative) Urine RBC >100 A (0-2) Urine WBC 2-5 (0-5) Ur Squamous Epith Cells None (None-Few) Urine Bacteria None (None) POC Creatinine 0.9 (0.6-1.3) mg/dl Imaging Data CT scan - abdomen: Attestation: I have reviewed the pertinent imaging results. Radiologist's impression: Patient: [facility] Facility:?[facility] Patient ID:?[id number] Site Patient ID:?[id number]. Site :?[id number] Study:?CT Abdomen/Pelvis WITHOUT-09/16/2022 4:26:36 PM Ordering Physician:Carito Jolly Final Report: Indication: Hematuria right-sided abdominal Pain Technique: Volumetric multidetector CT images of the abdomen and pelvis were without the administration of intravenous contrast. Comparison: None available. Findings: The lung bases are clear. The liver is normal in attenuation without intrahepatic biliary ductal dilatation. There are layering gallstones within the gallbladder lumen. There is no significant common biliary ductal dilatation or abrupt cut off. The spleen is normal in attenuation and size. The stomach and duodenum are grossly unremarkable. The pancreas is normal in attenuation without significant atrophy. The adrenal glands are unremarkable. There is nonspecific perinephric stranding with right-sided hydronephrosis and hydroureter with demonstration of a 3.8 millimeter calculus in the distal right ureter just above the level of the ureterovesicular junction. There is a mild amount of stool seen throughout the colon. There is mild distal colonic diverticulosis. The appendix is unremarkable. There is no significant mesenteric, retroperitoneal, or pelvic sidewall lymph nodes. The aorta is nonaneurysmal. There is no significant atherosclerotic disease appreciated. There is prior hysterectomy. There is no free fluid or free air. The anterior abdominal wall is intact without significant hernias. The lumbar vertebral body heights are grossly maintained mild straightening of the normal lumbar lordosis. There is no significant spondylolisthesis. Impression: Right-sided hydronephrosis and hydroureter with a 3.8 millimeter calculus in the distal right ureter just at the ureterovesicular junction. Moderate stool seen throughout the colon with minimal colonic diverticulosis without evidence of diverticulitis. Please note that all CT scans at this facility use dose modulation, iterative reconstruction, and/or weight-based dosing when appropriate to reduce radiation dose to as low as reasonably achievable. Dictated by Raghav Benítez MD @ 09/16/2022 5:29:42 PM (Electronic Signature) Discharge Plan Discharge Clinical Impression: Kidney stone on right side Patient Disposition: Home, Self-Care Condition: Stable Instructions: Kidney Stones (ED), Renal Colic (ED) Additional Instructions: Schedule clinic follow-up within the next week, sooner if you need more pain medications. If the stone is not passing, may need to be referred to Urology which can be done through your primary clinic. Drink plenty of fluids, including water, for goal of keeping urine clear looking. If you have not had previous kidney stones identified before, strain urine and collect stone to take to your primary care clinic for stone analysis. Tylenol a 1000 mg 3 times a day baseline for pain. Take Flomax daily until the stone has passed. Toradol 10 mg up to 4 times a day if needed for extra pain control. If you are getting a prescription for narcotics, they can be constipating and may need bowel management with MiraLax 17 g daily. If MiraLax is not enough, then senna 1-2 tablets once to twice daily can be used as well. Should your pain management be inadequate, develop vomiting, or have fever develop in the context of a kidney stone, need to return to the ER for further evaluation. Activity Level: Activity as Tolerated Prescriptions: New tamsulosin [Flomax] 0.4 mg capsule 0.4 mg PO DAILY Qty: 14 0RF ketorolac 10 mg tablet 10 mg PO Q6H PRN (Reason: pain) 5 Days Qty: 20 0RF oxycodone 5 mg tablet 5 mg PO Q6H PRN (Reason: pain) Qty: 10 0RF No Action cyclobenzaprine 10 mg tablet 10 mg PO BID PRN gabapentin 600 mg tablet 600 mg PO 3XD albuterol sulfate 2.5 mg /3 mL (0.083 %) solution for nebulization 2.5 mg QID PRN pravastatin 40 mg tablet 40 mg PO DAILY meloxicam 15 mg tablet 15 mg PO DAILY ondansetron HCl 4 mg tablet 4 mg PO Q8H PRN propranolol 60 mg capsule,extended release 24 hr 60 mg PO DAILY Nicotrol 10 mg cartridge inhalation trazodone 100 mg tablet 100 mg PO QPM simvastatin 20 mg tablet 20 mg PO QPM metformin 1,000 mg tablet 1,000 mg PO BID docusate sodium 100 mg capsule 100 mg PO 3XD PRN budesonide 3 mg capsule,delayed,extend.release 9 mg PO DAILY albuterol sulfate 90 mcg/actuation HFA aerosol inhaler 2 puff INHALATION Q6H PRN topiramate 100 mg tablet 100 mg PO BID buspirone 15 mg tablet 15 mg PO BID mirtazapine 7.5 mg tablet 7.5 mg PO QPM duloxetine 60 mg capsule,delayed release(DR/EC) 60 mg PO DAILY cholecalciferol (vitamin D3) 50 mcg (2,000 unit) capsule 50 mcg PO DAILY Follow Up/Referrals: Provider,Not a Local [Referring] - Stand Alone Forms: [facility] Info Instructions
--- NOTE | 2022-09-16 15:06 | CRLHL7_ITS ---
For Patients: As a result of the Century Cures Act, medical imaging exams and procedure reports are released immediately into your electronic medical record. You may view this report before your referring provider. If you have questions, please contact your health care provider. Indication: Hematuria right-sided abdominal Pain Technique: Volumetric multidetector CT images of the abdomen and pelvis were without the administration of intravenous contrast. Comparison: None available. Findings: The lung bases are clear. The liver is normal in attenuation without intrahepatic biliary ductal dilatation. There are layering gallstones within the gallbladder lumen. There is no significant common biliary ductal dilatation or abrupt cut off. The spleen is normal in attenuation and size. The stomach and duodenum are grossly unremarkable. The pancreas is normal in attenuation without significant atrophy. The adrenal glands are unremarkable. There is nonspecific perinephric stranding with right-sided hydronephrosis and hydroureter with demonstration of a 3.8 millimeter calculus in the distal right ureter just above the level of the ureterovesicular junction. There is a mild amount of stool seen throughout the colon. There is mild distal colonic diverticulosis. The appendix is unremarkable. There is no significant mesenteric, retroperitoneal, or pelvic sidewall lymph nodes. The aorta is nonaneurysmal. There is no significant atherosclerotic disease appreciated. There is prior hysterectomy. There is no free fluid or free air. The anterior abdominal wall is intact without significant hernias. The lumbar vertebral body heights are grossly maintained mild straightening of the normal lumbar lordosis. There is no significant spondylolisthesis. Impression: Right-sided hydronephrosis and hydroureter with a 3.8 millimeter calculus in the distal right ureter just at the ureterovesicular junction. Moderate stool seen throughout the colon with minimal colonic diverticulosis without evidence of diverticulitis. Please note that all CT scans at this facility use dose modulation, iterative reconstruction, and/or weight-based dosing when appropriate to reduce radiation dose to as low as reasonably achievable. Dictated by Raghav Benítez MD @ 09/16/2022 5:29:42 PM (Electronically Signed)
[2022-09-16 15:30] VITALS: O2SAT 97
[2022-09-16 15:34] LABS: Lactate* 1.9 mmol/L (0.5-1.9)
[2022-09-16] MEDS: 0.9 % SODIUM CHLORIDE 500 ML 500 ML IV (15:41)
[2022-09-16] MEDS: fentaNYL 100 MCG/2 ML inj 25 MCG IVP (15:44)
[2022-09-16] MEDS: ONDANSETRON 2 MG/ML inj 4 MG IVP (15:44)
[2022-09-16 15:45] VITALS: BP 125/64; PULSE 59; RESP 16; O2SAT 97
[2022-09-16 15:55] LABS: Basophils Percent Auto 0.5 % (0.0-3.0); Eosinophils Percent Auto 2.2 % (0.0-7.0); Hematocrit 45.8 % (33.0-51.0); Immature Granulocytes Pct Auto 0.4 %; Mean Corpuscular HGB Conc 33 gm/dL (32-36); Mean Corpuscular Hemoglobin 31 pg (26-34); Mean Corpuscular Volume 95 fL (80-100); Monocytes Percent Auto 11.1 % (0.0-11.0); Neutrophils Percent Auto 62.8 % (42.0-72.0); Platelet Count* 244 K/uL (140-440); Red Blood Count 4.81 m/uL (4.00-5.20); White Blood Count* 11.59 K/uL (4.50-11.00)
[2022-09-16 15:57] LABS: Albumin* 4.1 g/dL (3.3-5.0); Chloride* 108 mmol/L (96-114); Sodium* 140 mmol/L (135-149)
[2022-09-16 15:58] LABS: Potassium* 3.8 mmol/L (3.6-5.1)
[2022-09-16 16:00] VITALS: BP 138/79; PULSE 57; O2SAT 97
[2022-09-16 16:00] LABS: Creatinine, Point-of-Care* 0.9 mg/dl (0.6-1.3)
[2022-09-16 16:00] LABS: Bilirubin Total* 0.5 mg/dL (0.1-1.5); Carbon Dioxide* 23 mmol/L (20-32); Creatinine* 0.8 mg/dL (0.5-1.5); Estimated Glomerular Filt Rate 86 ml/min
[2022-09-16 16:01] LABS: Alanine Aminotransferase* 36 U/L (4-35); Alkaline Phosphatase* 67 U/L (40-150); Aspartate Amino Transferase* 25 U/L (12-35); Blood Urea Nitrogen* 24 mg/dL (7-30); Calcium* 9.6 mg/dL (8.4-10.6); Glucose* 78 mg/dL (60-115); Total Protein* 6.8 g/dL (6.0-8.3)
[2022-09-16 16:04] LABS: C Reactive Protein* < 0.5 mg/dL (0.5-1.0); Slide Review Reflex No
[2022-09-16] MEDS: KETOROLAC 15 MG/ML inj IVP (16:08)
[2022-09-16 17:00] VITALS: BP 132/70
--- NOTE | 2022-09-16 19:54 | ED.NURSE ---
Pt called to inquire about rx status due to pharmacy being closed. Pt advised to take OTC medication as recommended in DC instructions and crop picker rx first thing in the AM.
== END 2022-09-16 18:26 | disposition home or self-care (01) ==
PROVIDERS: Emergency Provider Family Medicine; PCP Internal Medicine
DX: N20.0 Calculus of kidney (principal)
CPT/HCPCS: 36415; 74176; 80053; 81003; 81015; 82565; 83605; 85025; 86140; 94761; 96374; 96375; 99284; J1885; J2405; J3010; J7120

== ENCOUNTER 2022-10-09 13:53 | Emergency (ER) | payer MEDICARE, SELFPAY ==
[2022-10-09] VITALS (9 sets, daily range): BP systolic 103; BP diastolic 58; PULSE 61–73; RESP 16; TEMP 36.9; O2SAT 92–97; BMI 40.2
--- NOTE | 2022-10-09 14:57 | CRLHL7_ITS ---
For Patients: As a result of the Century Cures Act, medical imaging exams and procedure reports are released immediately into your electronic medical record. You may view this report before your referring provider. If you have questions, please contact your health care provider. INDICATION: Abdominal pain. History of urolithiasis. COMPARISON: The most recent study of September 16, 2022 TECHNIQUE: CT examination of the abdomen and pelvis was performed without intravenous contrast. Thin section axial images were obtained from the lung bases through the pubic symphysis. Oral contrast was not administered. Please note that all CT scans at this facility use dose modulation, iterative reconstruction, and/or weight-based dosing when appropriate to reduce radiation dose to as low as reasonably achievable. FINDINGS: LUNG BASES: Bibasilar atelectasis or scarring. Evidence of remote granulomatous infection.The heart size is normal at the lung bases. LIVER/BILIARY SYSTEM:The liver is normal in size and configuration given the lack of intravenous contrast. There is no visible focal mass and there is no intra- or extra hepatic biliary ductal dilatation.Cholelithiasis but no indication of acute cholecystitis or common duct obstruction. Similar to the prior study. ADRENALS: Normal non-contrast appearance KIDNEYS, URETERS and BLADDER:Normal size kidneys. No intrarenal calculi on the right. There are intrarenal calculi on the left. No evidence of current or recent obstructive uropathy. The calculus noted in the distal right ureter on the prior study has passed. No calculi within the bladder. Bladder wall thickening which may be related to cystitis. Correlate with urinalysis. SPLEEN:Evidence of remote granulomatous infection. PANCREAS: Normal non-contrast appearance. RETROPERITONEUM and MESENTERY: There is no mass, adenopathy or aortic aneurysm. Atherosclerotic vascular calcifications GASTROINTESTINAL SYSTEM: There is no evidence of diverticulitis, colitis, mechanical obstruction, or appendicitis. The small bowel as visualized appears normal. PELVIS: No mass, adenopathy or free fluid. OSSEOUS STRUCTURES and ABDOMINAL WALL: No acute osseous abnormality.No significant abdominal wall defect. OTHER: No free fluid or free air. IMPRESSION: 1. The right distal ureteric calculus noted September 16, 2022 has passed. There is no evidence of current or recent obstructive uropathy on either side. No intrarenal calculi on the right. Intrarenal calculi on the left similar to the prior study. 2. Bladder wall thickening which may be related to cystitis. Correlate with urinalysis. 3. Cholelithiasis but no indication of acute cholecystitis or common duct obstruction. 4. Other nonacute appearing findings as discussed in the body of the report. Please review the comment. Please note that all CT scans at this facility use dose modulation, iterative reconstruction, and/or weight-based dosing when appropriate to reduce radiation dose to as low as reasonably achievable. Dictated by Edgar Cannon MD @ 10/09/2022 4:09:17 PM (Electronically Signed)
[2022-10-09 14:58] LABS: Appearance Urine Clear (Clear); Bilirubin Urine Negative (Negative); Blood Urine Negative (Negative); Color Urine Yellow (Yellow); Glucose Urine Negative (Negative); Ketones Urine Negative (Negative); Leukocyte Esterase Urine Negative (Negative); Nitrite Urine Negative (Negative); Protein Urine Negative (Negative); Specific Gravity Urine 1.015 (1.000-1.030); Urobilinogen Urine 0.2 (0.2-1.0)
--- NOTE | 2022-10-09 15:10 | CRLHL7_ITS ---
For Patients: As a result of the Century Cures Act, medical imaging exams and procedure reports are released immediately into your electronic medical record. You may view this report before your referring provider. If you have questions, please contact your health care provider. INDICATION: Chest pain TECHNIQUE: Chest 2 views. COMPARISON: July 23, 2017 FINDINGS: Cardiovascular and mediastinum: Heart size and vasculature are normal in caliber and appearance. Mediastinum is within normal limits. Lungs and pleural spaces: Lungs are clear. No sign of infiltrate or mass. No sign of pleural effusion. No pneumothorax. Bones and soft tissues: No acute findings. Internal fixation hardware in the lower cervical spine. IMPRESSION: No sign of acute disease. Dictated by Emmy Urbina MD @ 10/09/2022 4:30:38 PM (Electronically Signed)
[2022-10-09] MEDS: 0.9 % SODIUM CHLORIDE 1000 ml 1,000 ML IV (15:35)
--- NOTE | 2022-10-09 15:40 | ED_ITS ---
HPI - Chest Pain General Date Seen: 10/09/22 Chief Complaint: Flank Pain Stated Complaint: Kidney stone, spots on arms Time Seen by Provider: 10/09/22 14:38 Source: patient Mode of arrival: ambulatory Limitations: no limitations History of Present Illness HPI narrative: Patient is a 57-year-old female who presents here with 2 complaints 1. Is abdominal pain, she describes in her back, coming down to her right groin. She has had this now for 3-4 weeks. She was diagnosed with a right-sided urolithiasis, followed up with both and Dr. Agarwal, after being seen initially in the emergency room. She is placed initially on Percocet but then had the switched to hydrocodone she is now off that medication or ran out. She still having abdominal discomfort, she is having no blood in her urine, no dysuria associated with this some mild frequency. She also describes some chest discomfort last 2-3 days over anterior precordium, not worsening when she moves around twists or turns, and not all when she exerts herself. She does does have a history of a previous DVT, in the remote past, no history of any cardiac issues, is not currently on any anticoagulants. She recently moved back here from [place] complaint: chest pain Onset (ago): day(s) Timing of current episode: constant Prior episodes: Yes Onset: during rest Pain location: substernal Pain radiation: none Severity: moderate Quality: heaviness Relieving factors: nothing Exacerbating factors: nothing Context: recent illness Treatment prior to arrival: none Risk Factors Coronary artery disease risk factors: none Pulmonary embolism risk factors: history of deep vein thrombosis Related Data On Oral Contraceptives: No Home Medications Medication Instructions Recorded Confirmed albuterol sulfate 2.5 mg/3 mL 2.5 mg QID PRN 08/28/22 09/30/22 (0.083 %) solution for nebulization albuterol sulfate 90 mcg/actuation 2 puff inhalation Q6H PRN 08/28/22 09/30/22 aerosol inhaler budesonide 3 mg 9 mg PO DAILY 08/28/22 09/30/22 capsule,delayed,extended release buspirone 15 mg tablet 15 mg PO BID 08/28/22 09/30/22 cholecalciferol (vitamin D3) 50 50 mcg PO DAILY 08/28/22 09/30/22 mcg (2,000 unit) capsule cyclobenzaprine 10 mg tablet 10 mg PO BID PRN 08/28/22 09/30/22 docusate sodium 100 mg capsule 100 mg PO 3XD PRN 08/28/22 09/30/22 duloxetine 60 mg capsule,delayed 60 mg PO DAILY 08/28/22 09/30/22 release gabapentin 600 mg tablet 600 mg PO 3XD 08/28/22 09/30/22 metformin 1,000 mg tablet 1,000 mg PO BID 08/28/22 09/30/22 mirtazapine 7.5 mg tablet 7.5 mg PO QPM 08/28/22 09/30/22 nicotine 10 mg inhalation inhalation 08/28/22 09/30/22 cartridge (Nicotrol) pravastatin 40 mg tablet 40 mg PO DAILY 08/28/22 09/30/22 propranolol 60 mg capsule,24 60 mg PO DAILY 08/28/22 09/30/22 hr,extended release simvastatin 20 mg tablet 20 mg PO QPM 08/28/22 09/30/22 topiramate 100 mg tablet 100 mg PO BID 08/28/22 09/30/22 trazodone 100 mg tablet 100 mg PO QPM 08/28/22 09/30/22 Previous Rx's Medication Instructions Recorded oxycodone 5 mg tablet 5 mg PO Q6H PRN pain #10 tabs 09/16/22 tamsulosin 0.4 mg capsule (Flomax) 0.4 mg PO DAILY #14 caps 09/16/22 ondansetron HCl 4 mg tablet 4 mg PO Q8H PRN nausea and 09/23/22 vomiting #20 tabs hydrocodone 5 mg-acetaminophen 325 1 tab PO Q4-6H PRN pain #20 tabs 10/04/22 mg tablet ketorolac 10 mg tablet 10 mg PO Q6H PRN pain 5 days #20 10/04/22 tabs meloxicam 15 mg tablet 15 mg PO DAILY Pain #90 tabs 10/04/22 Allergies Allergy/AdvReac Type Severity Reaction Status Date / Time latex Allergy Intermediate Hives Verified 10/09/22 14:07 adhesive Allergy Mild Rash Verified 10/09/22 14:07 Epideral Allergy Intermediate severe Uncoded 09/30/22 10:06 hives Erythromycin Allergy Intermediate severe Uncoded 09/30/22 10:06 rash, diarrhea Review of Systems Status of ROS Reports: 10 or more systems reviewed and unremarkable except as noted in History and below [facility] Medical History Ulcerative colitis ?K51.90 - Ulcerative colitis, unspecified, without complications (ICD-10) Diabetes mellitus ?E11.9 - Type 2 diabetes mellitus without complications (ICD-10) Kidney stone ?N20.0 - Calculus of kidney (ICD-10) Myocardial infarction ?I21.9 - Acute myocardial infarction, unspecified (ICD-10) Surgical History History of total hysterectomy with bilateral salpingo-oophorectomy (BSO) (09/21/14) ?Z90.710 - Acquired absence of both cervix and uterus (ICD-10) ?Z90.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, bilateral (ICD-10) ?Z90.79 - Acquired absence of other genital organ(s) (ICD-10) History of section ?Z98.891 - History of uterine scar from previous surgery (ICD-10) History of cervical spinal arthrodesis (08/04/17) ?Z98.1 - Arthrodesis status (ICD-10) History of carpal tunnel release (08/2018) ?Z98.890 - Other specified postprocedural states (ICD-10) Family History Other Colon cancer Social History Smoking Status: Former smoker Do you use any of these nicotine containing products: None Second hand tobacco smoke exposure: No How often do you have a drink containing alcohol: 2-4 times a month How many standard drinks containing alcohol do you have on a typical day: 1 or 2 How often do you have six or more drinks on one occasion: Never AUDIT-C Alcohol total score: 2 Non-prescribed substance use: denies use Little interest or pleasure in doing things: not at all Feeling down, depressed, or hopeless: nearly every day service: No Exam Narrative Exam Narrative: On examination in room 5 she has a bit of pressured speech, alert and pleasant with normal vital signs, pupils equal round reactive to light there is no scleral icterus redness TMs are normal oropharynx normal there is no adenopathy anterior posterior chains her chest is clear bilaterally no wheezing crackles noted there is no splinting, heart sounds no clicks murmurs or gallops no reproducible pain noted over chest, with no bruising or injury noted. Her abdomen is soft, she has no tenderness to palpation bowel sounds are normal there is no organomegaly, no CVA tenderness noted, no tenderness noted over her back. Her lower extremity show no swelling no pitting edema. Const Vital Signs, click to edit/add: Vital Signs - 24 hr 10/09/22 13:57 10/09/22 15:35 10/09/22 15:51 Temperature 98.5 F Pulse Rate 67 Pulse Rate [Pulse Oximeter] 73 Respiratory Rate 16 Blood Pressure [Right Upper Arm] 103/58 L Pulse Oximetry 95 97 93 Oxygen Delivery Method Room Air 10/09/22 16:00 10/09/22 16:15 10/09/22 16:30 Temperature Pulse Rate 68 72 63 Pulse Rate [Pulse Oximeter] Respiratory Rate Blood Pressure [Right Upper Arm] Pulse Oximetry 93 93 93 Oxygen Delivery Method 10/09/22 16:45 10/09/22 16:48 10/09/22 16:49 Temperature Pulse Rate 69 61 64 Pulse Rate [Pulse Oximeter] Respiratory Rate Blood Pressure [Right Upper Arm] Pulse Oximetry 92 92 92 Oxygen Delivery Method Room Air Documenting provider has reviewed patient's vital signs: yes Course Course Hospital Course: Discussed with the patient I can see no evidence of any been going on relation to her abdominal pain, she does have the cholelithiasis, but no evidence of cholecystitis, I would watch this, if this relates more to eating then the further workup can be done with her primary care physician, of course if she develops acute pain that is worsened fevers chills nausea vomiting then she is t o come back and I will consider other possibilities. No evidence of renal stones, the 1 stone she had is passed. This was reassuring to her. In regards to her chest pain, I do not see any evidence of any issue associated with this. Her troponin her D-dimer were normal. Her chest x-ray showed no acute findings. She seemed comfortable this monitor this and follow up with her primary. Return as needed. Vital Signs Vital signs: Initial Vital Signs Temperature 98.5 F 10/09/22 13:57 Temperature Source Temporal Artery Scan 10/09/22 13:57 Pulse Rate 73 10/09/22 13:57 Pulse Rhythm Regular 10/09/22 13:57 Pulse Strength 3+ Normal 10/09/22 13:57 Respiratory Rate 16 10/09/22 13:57 Blood Pressure 103/58 L 10/09/22 13:57 Blood Pressure Mean 73 10/09/22 13:57 Blood Pressure Position Sitting 10/09/22 13:57 Pulse Oximetry 95 10/09/22 13:57 Oxygen Delivery Method Room Air 10/09/22 13:57 Vital Signs Temperature 98.5 F 10/09/22 13:57 Pulse Rate 73 10/09/22 13:57 Respiratory Rate 16 10/09/22 13:57 Blood Pressure 103/58 L 10/09/22 13:57 Pulse Oximetry 95 10/09/22 13:57 Oxygen Delivery Method Room Air 10/09/22 13:57 Temperature 98.5 F 10/09/22 13:57 Pulse Rate 64 10/09/22 16:49 Respiratory Rate 16 10/09/22 13:57 Blood Pressure 103/58 L 10/09/22 13:57 Pulse Oximetry 92 10/09/22 16:49 Oxygen Delivery Method Room Air 10/09/22 16:49 MDM - Chest Pain MDM Narrative Medical decision making narrative: During the evaluation of this patient I considered multiple differential diagnosis is. The life-threatening differential diagnosis include coronary disease/PA, pulmonary embolism, pneumothorax, pneumonia, and aortic dissection. Other differential diagnosis included but were not limited to pericarditis, myocarditis, chest wall pain, GERD, esophageal rupture, rib fracture contusion, pleurisy, as well as other etiologies. During the evaluation of this patient I considered multiple differential diagnosis including life-threatening differentials which are appendicitis, aortic aneurysm, mesenteric ischemia, bowel perforation, ectopic , volvulus and bowel obstruction, other differential diagnosis include but are not limited to inflammatory bowel disease, cholecystitis, pancreatitis, hepatitis, gastritis, GERD, diverticulitis, peptic ulcer disease, pyelonephritis/UTI, renal colic/stone, pelvic inflammatory disease, cervicitis, endometritis, intrauterine , dysfunctional uterine bleeding, ovarian cyst/torsion, spontaneous as well as other etiologies Medical Records Data Attestation: I reviewed the patient's medical records. Lab Data Attestation: I reviewed the patient's lab results. Labs: Lab Results 10/09/22 10/09/22 10/09/22 Range/Units 13:35 14:43 14:58 WBC (4.50-11.00) K/uL RBC (4.00-5.20) m/uL Hgb (12.0-16.0) gm/dL Hct (33.0-51.0) % MCV (80-100) fL MCH (26-34) pg MCHC (32-36) gm/dL RDW Coeff of Maurice (11.5-15.5) % Plt Count (140-440) K/uL Neut % (Auto) (42.0-72.0) % Lymph % (Auto) (20-44) % [place] % (Auto) (0.0-11.0) % Eos % (Auto) (0.0-7.0) % Baso % (Auto) (0.0-3.0) % Neut # (Auto) (1.7-7.0) K/uL Lymph # (Auto) (0.90-2.90) K/uL [place] # (Auto) (0.00-0.90) K/UL Eos # (Auto) (0.00-0.50) K/uL Baso # (Auto) (0.00-0.30) K/uL Abs Immat Gran (auto) (0.00-0.30) K/uL Imm/Tot Granulo (auto) % INR 0.93 (0.91-1.10) APTT 26 (23-33) Seconds D-Dimer Quant (PE/DVT) 0.37 (0.00-0.50) ug/ml Sodium (135-149) mmol/L Potassium (3.6-5.1) mmol/L Chloride (96-114) mmol/L Carbon Dioxide (20-32) mmol/L Anion Gap (7-15) mEq/L BUN (7-30) mg/dL Creatinine (0.5-1.5) mg/dL Estimated Creat Clear Estimated GFR ml/min Glucose (60-115) mg/dL Calcium (8.4-10.6) mg/dL NT-Pro-B Natriuret Pep pg/mL Urine Color Yellow (Yellow) Urine Appearance Clear (Clear) Urine pH 7.0 (5.0-8.5) Ur Specific [place] 1.015 (1.000-1.030) Urine Protein Negative (Negative) Urine Glucose (UA) Negative (Negative) Urine Ketones Negative (Negative) Urine Blood Negative (Negative) Urine Nitrite Negative (Negative) Urine Bilirubin Negative (Negative) Urine Urobilinogen 0.2 (0.2-1.0) Ur Leukocyte Esterase Negative (Negative) SARS-CoV-2 (PCR) (Negative) Influenza Type A (PCR) (Negative) Influenza Type B (PCR) (Negative) RSV (PCR) (Negative) POC Troponin I 0.00 L (0.01-0.04) ng/ml 10/09/22 Range/Units 15:35 WBC 8.81 (4.50-11.00) K/uL RBC 4.24 (4.00-5.20) m/uL Hgb 13.2 (12.0-16.0) gm/dL Hct 41.6 (33.0-51.0) % MCV 98 (80-100) fL MCH 31 (26-34) pg MCHC 32 (32-36) gm/dL RDW Coeff of Maurice 11.8 (11.5-15.5) % Plt Count 213 (140-440) K/uL Neut % (Auto) 53.7 (42.0-72.0) % Lymph % (Auto) 34.2 (20-44) % [place] % (Auto) 8.6 (0.0-11.0) % Eos % (Auto) 2.5 (0.0-7.0) % Baso % (Auto) 0.7 (0.0-3.0) % Neut # (Auto) 4.73 (1.7-7.0) K/uL Lymph # (Auto) 3.01 H (0.90-2.90) K/uL [place] # (Auto) 0.80 (0.00-0.90) K/UL Eos # (Auto) 0.22 (0.00-0.50) K/uL Baso # (Auto) 0.06 (0.00-0.30) K/uL Abs Immat Gran (auto) 0.03 (0.00-0.30) K/uL Imm/Tot Granulo (auto) 0.3 % INR (0.91-1.10) APTT (23-33) Seconds D-Dimer Quant (PE/DVT) Cancelled (0.00-0.50) ug/ml Sodium 140 (135-149) mmol/L Potassium 4.2 (3.6-5.1) mmol/L Chloride 107 (96-114) mmol/L Carbon Dioxide 28 (20-32) mmol/L Anion Gap 5 L (7-15) mEq/L BUN 24 (7-30) mg/dL Creatinine 0.8 (0.5-1.5) mg/dL Estimated Creat Clear 62.10 Estimated GFR 86 ml/min Glucose 121 H (60-115) mg/dL Calcium 9.4 (8.4-10.6) mg/dL NT-Pro-B Natriuret Pep 90 pg/mL Urine Color (Yellow) Urine Appearance (Clear) Urine pH (5.0-8.5) Ur Specific [place] (1.000-1.030) Urine Protein (Negative) Urine Glucose (UA) (Negative) Urine Ketones (Negative) Urine Blood (Negative) Urine Nitrite (Negative) Urine Bilirubin (Negative) Urine Urobilinogen (0.2-1.0) Ur Leukocyte Esterase (Negative) SARS-CoV-2 (PCR) Negative SARS-CoV-2 (Negative) Influenza Type A (PCR) Negative PCR FLU A (Negative) Influenza Type B (PCR) Negative PCR FLU B (Negative) RSV (PCR) Negative PCR RSV (Negative) POC Troponin I (0.01-0.04) ng/ml Imaging Data CT scan - abdomen: My impression: Patient: [facility]OURValerie Facility: [facility] . Site : 1965 Study: CT Abdomen/Pelvis w/o-10/09/2022 3:16:11 PM Ordering Physician: Jeannie Vega Final Report: INDICATION: Abdominal pain. History of urolithiasis. COMPARISON: The most recent study of September 16, 2022 TECHNIQUE: CT examination of the abdomen and pelvis was performed without intravenous contrast. Thin section axial images were obtained from the lung bases through the pubic symphysis. Oral contrast was not administered. Please note that all CT scans at this facility use dose modulation, iterative reconstruction, and/or weight-based dosing when appropriate to reduce radiation dose to as low as reasonably achievable. FINDINGS: LUNG BASES: Bibasilar atelectasis or scarring. Evidence of remote granulomatous infection.The heart size is normal at the lung bases. LIVER/BILIARY SYSTEM:The liver is normal in size and configuration given the lack of intravenous contrast. There is no visible focal mass and there is no intra- or extra hepatic biliary ductal dilatation.Cholelithiasis but no indication of acute cholecystitis or common duct obstruction. Similar to the prior study. ADRENALS: Normal non-contrast appearance KIDNEYS, URETERS and BLADDER:Normal size kidneys. No intrarenal calculi on the right. There are intrarenal calculi on the left. No evidence of current or recent obstructive uropathy. The calculus noted in the distal right ureter on the prior study has passed. No calculi within the bladder. Bladder wall thickening which may be related to cystitis. Correlate with urinalysis. SPLEEN:Evidence of remote granulomatous infection. PANCREAS: Normal non-contrast appearance. RETROPERITONEUM and MESENTERY: There is no mass, adenopathy or aortic aneurysm. Atherosclerotic vascular calcifications GASTROINTESTINAL SYSTEM: There is no evidence of diverticulitis, colitis, mechanical obstruction, or appendicitis. The small bowel as visualized appears normal. PELVIS: No mass, adenopathy or free fluid. OSSEOUS STRUCTURES and ABDOMINAL WALL: No acute osseous abnormality.No significant abdominal wall defect. OTHER: No free fluid or free air. IMPRESSION: 1. The right distal ureteric calculus noted September 16, 2022 has passed. There is no evidence of current or recent obstructive uropathy on either side. No intrarenal calculi on the right. Intrarenal calculi on the left similar to the prior study. 2. Bladder wall thickening which may be related to cystitis. Correlate with urinalysis. 3. Cholelithiasis but no indication of acute cholecystitis or common duct obstruction. 4. Other nonacute appearing findings as discussed in the body of the report. Please review the comment. Please note that all CT scans at this facility use dose modulation, iterative reconstruction, and/or weight-based dosing when appropriate to reduce radiation dose to as low as reasonably achievable. Dictated by Edgar Cannon MD @ 10/09/2022 4:09:17 PM (Electronic Signature) Patient: [facility] Facility: [facility] Site . Site : 1965 Study: XRay Chest 2 views-10/09/2022 3:33:20 PM Ordering Physician: Jeannie Vega Final Report: INDICATION: Chest pain TECHNIQUE: Chest 2 views. COMPARISON: July 23, 2017 FINDINGS: Cardiovascular and mediastinum: Heart size and vasculature are normal in caliber and appearance. Mediastinum is within normal limits. Lungs and pleural spaces: Lungs are clear. No sign of infiltrate or mass. No sign of pleural effusion. No pneumothorax. Bones and soft tissues: No acute findings. Internal fixation hardware in the lower cervical spine. IMPRESSION: No sign of acute disease. ECG Data Attestation: I personally reviewed and interpreted this ECG as follows: ECG interpretation date: 10/09/22 Interpretation: EKG shows normal sinus rhythm, ventricular rate of [address] wave changes, Q-waves inferiorly, and flattening noted laterally Discharge Plan Discharge Clinical Impression: Flank pain with history of urolithiasis, Rash, Abdominal pain, Chest pain Patient Disposition: Home w/ Parent or Adult Condition: Stable Instructions: Chest Pain (DC), Kidney Stones (ED), Acute Rash (ED), Abdominal Pain (ED) Additional Instructions: No evidence of any acute abnormality on abdominal CT, you definitely passed your kidney stone, there is no evidence of any heart issues, lung issues, with the testing we did. We will discharge home, you can follow up with primary care, I do not know with the rashes but definitely not an emergent thing. Strongly recommend follow-up with their primary care physician. May use acetaminophen for discomfort Prescriptions: No Action ondansetron HCl 4 mg tablet 4 mg PO Q8H PRN (Reason: nausea and vomiting) Qty: 20 1RF cyclobenzaprine 10 mg tablet 10 mg PO BID PRN gabapentin 600 mg tablet 600 mg PO 3XD albuterol sulfate 2.5 mg /3 mL (0.083 %) solution for nebulization 2.5 mg QID PRN pravastatin 40 mg tablet 40 mg PO DAILY propranolol 60 mg capsule,extended release 24 hr 60 mg PO DAILY Nicotrol 10 mg cartridge inhalation trazodone 100 mg tablet 100 mg PO QPM simvastatin 20 mg tablet 20 mg PO QPM metformin 1,000 mg tablet 1,000 mg PO BID docusate sodium 100 mg capsule 100 mg PO 3XD PRN budesonide 3 mg capsule,delayed,extend.release 9 mg PO DAILY albuterol sulfate 90 mcg/actuation HFA aerosol inhaler 2 puff INHALATION Q6H PRN topiramate 100 mg tablet 100 mg PO BID buspirone 15 mg tablet 15 mg PO BID mirtazapine 7.5 mg tablet 7.5 mg PO QPM duloxetine 60 mg capsule,delayed release(DR/EC) 60 mg PO DAILY cholecalciferol (vitamin D3) 50 mcg (2,000 unit) capsule 50 mcg PO DAILY tamsulosin [Flomax] 0.4 mg capsule 0.4 mg PO DAILY Qty: 14 0RF oxycodone 5 mg tablet 5 mg PO Q6H PRN (Reason: pain) Qty: 10 0RF meloxicam 15 mg tablet 15 mg PO DAILY Qty: 90 2RF ketorolac 10 mg tablet 10 mg PO Q6H PRN (Reason: pain) 5 Days Qty: 20 0RF hydrocodone-acetaminophen 5-325 mg tablet 1 tab PO Q4-6H PRN (Reason: pain) Qty: 20 0RF Follow Up/Referrals: Manan Beaulieu MD [Primary Care Provider] - Stand Alone Forms: [facility] Info Instructions
[2022-10-09 15:51] LABS: Basophils Absolute Auto 0.06 K/uL (0.00-0.30); Basophils Percent Auto 0.7 % (0.0-3.0); Eosinophils Absolute Auto 0.22 K/uL (0.00-0.50); Eosinophils Percent Auto 2.5 % (0.0-7.0); Hematocrit 41.6 % (33.0-51.0); Hemoglobin* 13.2 gm/dL (12.0-16.0); Immature Granulocytes Abs Auto 0.03 K/uL (0.00-0.30); Immature Granulocytes Pct Auto 0.3 %; Lymphocytes Absolute Auto 3.01 K/uL (0.90-2.90); Lymphocytes Percent Auto 34.2 % (20-44); Mean Corpuscular HGB Conc 32 gm/dL (32-36); Mean Corpuscular Hemoglobin 31 pg (26-34); Mean Corpuscular Volume 98 fL (80-100); Monocytes Percent Auto 8.6 % (0.0-11.0); Neutrophils Absolute Auto 4.73 K/uL (1.7-7.0); Neutrophils Percent Auto 53.7 % (42.0-72.0); Platelet Count* 213 K/uL (140-440); RDW Coefficient of Variation % 11.8 % (11.5-15.5); Red Blood Count 4.24 m/uL (4.00-5.20); White Blood Count* 8.81 K/uL (4.50-11.00)
[2022-10-09 15:54] LABS: Slide Review Reflex No
[2022-10-09] MEDS: MORPHINE 2 MG/ML inj IVP (16:04)
[2022-10-09 16:07] LABS: INR 0.93 (0.91-1.10); Prothrombin Time 13.1 Seconds
[2022-10-09 16:08] LABS: Partial Thromboplastin Time* 26 Seconds (23-33)
[2022-10-09 16:10] LABS: D Dimer Quantitative* 0.37 ug/ml (0.00-0.50)
[2022-10-09 16:11] LABS: Chloride* 107 mmol/L (96-114); Potassium* 4.2 mmol/L (3.6-5.1); Sodium* 140 mmol/L (135-149)
[2022-10-09 16:14] LABS: Anion Gap 5 mEq/L (7-15); Blood Urea Nitrogen* 24 mg/dL (7-30); Carbon Dioxide* 28 mmol/L (20-32); Creatinine* 0.8 mg/dL (0.5-1.5); Estimated Glomerular Filt Rate 86 ml/min
[2022-10-09 16:15] LABS: Calcium* 9.4 mg/dL (8.4-10.6); Glucose* 121 mg/dL (60-115)
[2022-10-09 16:24] LABS: NT Pro B Type NatriureticPept* 90 pg/mL
[2022-10-09 16:28] LABS: PCR FLU A Negative PCR FLU A (Negative); PCR FLU B Negative PCR FLU B (Negative); PCR RSV Negative PCR RSV (Negative)
[2022-10-09 17:19] LABS: SARS PCR* Negative SARS-CoV-2 (Negative)
== END 2022-10-09 17:27 | disposition home or self-care (01) ==
PROVIDERS: Emergency Provider Family Medicine; PCP Internal Medicine
DX: R07.9 Chest pain, unspecified (principal); R10.9 Unspecified abdominal pain; R21 Rash and other nonspecific skin eruption
CPT/HCPCS: 36415; 71046; 74176; 80048; 81003; 83880; 84484; 85025; 85379; 85610; 85730; 87631; 93005; 94761; 96361; 96374; 99284; 99285; J2270; J7030

== ENCOUNTER 2022-11-13 21:09 | Emergency (ER) | payer MEDICARE, SELFPAY ==
[2022-11-13 21:17] VITALS: BP 126/71; PULSE 77; RESP 14; TEMP 35.9; O2SAT 96; BMI 42.1
--- NOTE | 2022-11-13 21:47 | ED.FALL ---
HPI - Fall General Time Seen by Provider: 21:47 Date Seen: 11/13/22 Chief Complaint: Fall/Minor Trauma Stated Complaint: fell earlier today, headache, nauseous Time Seen by Provider: 11/13/22 21:45 Source: patient and RN notes reviewed Mode of arrival: ambulatory Limitations: no limitations History of Present Illness HPI Narrative: 57-year-old female who comes in today with multiple complaints. Patient says she had a fall backward earlier today, lost her balance, hit her head but denies loss of consciousness. Denies preceding chest pain or palpitations. Also had a right elbow and right hip. Subsequently she developed some pain in her left flank radiating to the left abdomen, but feels like prior kidney stones. Took called her usual pain medicine but still having pain. Did have some vomiting earlier. Related Data Home Medications Medication Instructions Recorded Confirmed albuterol sulfate 2.5 mg/3 mL 2.5 mg QID PRN 08/28/22 11/06/22 (0.083 %) solution for nebulization albuterol sulfate 90 mcg/actuation 2 puff inhalation Q6H PRN 08/28/22 11/13/22 aerosol inhaler budesonide 3 mg 9 mg PO DAILY 08/28/22 11/13/22 capsule,delayed,extended release buspirone 15 mg tablet 15 mg PO BID 08/28/22 11/06/22 cholecalciferol (vitamin D3) 50 50 mcg PO DAILY 08/28/22 11/13/22 mcg (2,000 unit) capsule cyclobenzaprine 10 mg tablet 10 mg PO BID PRN 08/28/22 11/06/22 docusate sodium 100 mg capsule 100 mg PO 3XD PRN 08/28/22 11/13/22 duloxetine 60 mg capsule,delayed 60 mg PO DAILY 08/28/22 11/13/22 release gabapentin 600 mg tablet 600 mg PO 3XD 08/28/22 11/13/22 metformin 1,000 mg tablet 1,000 mg PO BID 08/28/22 11/13/22 mirtazapine 7.5 mg tablet 7.5 mg PO QPM 08/28/22 11/13/22 nicotine 10 mg inhalation inhalation 08/28/22 11/06/22 cartridge (Nicotrol) pravastatin 40 mg tablet 40 mg PO DAILY 08/28/22 11/13/22 propranolol 60 mg capsule,24 60 mg PO DAILY 08/28/22 11/06/22 hr,extended release topiramate 100 mg tablet 100 mg PO BID 08/28/22 11/13/22 trazodone 100 mg tablet 100 mg PO QPM 08/28/22 11/13/22 Previous Rx's Medication Instructions Recorded oxycodone 5 mg tablet 5 mg PO Q6H PRN pain #10 tabs 09/16/22 tamsulosin 0.4 mg capsule (Flomax) 0.4 mg PO DAILY #14 caps 09/16/22 ondansetron HCl 4 mg tablet 4 mg PO Q8H PRN nausea and 09/23/22 vomiting #20 tabs hydrocodone 5 mg-acetaminophen 325 1 tab PO Q4-6H PRN pain #20 tabs 10/04/22 mg tablet ketorolac 10 mg tablet 10 mg PO Q6H PRN pain 5 days #20 10/04/22 tabs meloxicam 15 mg tablet 15 mg PO DAILY Pain #90 tabs 10/04/22 Allergies Allergy/AdvReac Type Severity Reaction Status Date / Time latex Allergy Intermediate Hives Verified 11/06/22 14:27 adhesive Allergy Mild Rash Verified 11/06/22 14:27 Epideral Allergy Intermediate severe Uncoded 11/06/22 14:27 hives Erythromycin Allergy Intermediate severe Uncoded 11/06/22 14:27 rash, diarrhea PFSH PFSH Medical History Ulcerative colitis ?K51.90 - Ulcerative colitis, unspecified, without complications (ICD-10) Diabetes mellitus ?E11.9 - Type 2 diabetes mellitus without complications (ICD-10) Kidney stone ?N20.0 - Calculus of kidney (ICD-10) Myocardial infarction ?I21.9 - Acute myocardial infarction, unspecified (ICD-10) Surgical History History of total hysterectomy with bilateral salpingo-oophorectomy (BSO) (09/21/14) ?Z90.710 - Acquired absence of both cervix and uterus (ICD-10) ?Z90.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, bilateral (ICD-10) ?Z90.79 - Acquired absence of other genital organ(s) (ICD-10) History of section ?Z98.891 - History of uterine scar from previous surgery (ICD-10) History of cervical spinal arthrodesis (08/04/17) ?Z98.1 - Arthrodesis status (ICD-10) History of carpal tunnel release (08/2018) ?Z98.890 - Other specified postprocedural states (ICD-10) Family History Other Colon cancer Social History Smoking Status: Former smoker Do you use any of these nicotine containing products: None Second hand tobacco smoke exposure: No How often do you have a drink containing alcohol: 2-4 times a month How many standard drinks containing alcohol do you have on a typical day: 1 or 2 How often do you have six or more drinks on one occasion: Never AUDIT-C Alcohol total score: 2 Non-prescribed substance use: denies use Little interest or pleasure in doing things: not at all Feeling down, depressed, or hopeless: nearly every day service: No Exam Const: Vital Signs, click to edit/add: Vital Signs - 24 hr 11/13/22 21:17 Temperature 96.6 F L Pulse Rate [Pulse Oximeter] 77 Respiratory Rate 14 Blood Pressure [Ri ght Upper Arm] 126/71 Pulse Oximetry 96 Oxygen Delivery Me thod Room Air Course Course ED Course: Patient seen examined, prior records reviewed. Patient with history of chronic pain complain of head pain and left flank pain. No external signs of head trauma, head CT is ordered. Left flank and left lower quadrant abdominal tenderness, patient has a history of kidney stones, CT scan and urinalysis ordered. Also complains of diffuse body pain. She complains of pain in the right elbow but no swelling, deformity, and full range of motion of the elbow. Also complains of some right hip pain but she is laying on that side so unlikely to represent acute bony injury. Toradol and Zofran ordered. Reevaluation(s) Time of Reevaluation #1: 23:04 Reevaluation #1: CT scan of the head independently interpreted by me does not demonstrate any acute findings. CT scan of the abdomen and pelvis demonstrates numerous gallstones as well as right hydronephrosis and hydroureter related to a 4 mm proximal ureteral stone. Labs independently interpreted by me with normal CBC. Time of Reevaluation #2: 23:20 Reevaluation #2: Updated patient on diagnosis and plan, she will be referred for Urology she did not follow-up after last own. Time of Reevaluation #3: 23:39 Reevaluation #3: Labs independently interpreted by me with reassuring basic panel and normal creatinine, urinalysis with blood but no evidence for infection. Patient is stable for discharge Vital Signs Vital signs: Initial Vital Signs Temperature 96.6 F L 11/13/22 21:17 Temperature Source Temporal Artery Scan 11/13/22 21:17 Pulse Rate 77 11/13/22 21:17 Pulse Rhythm Regular 11/13/22 21:17 Respiratory Rate 14 11/13/22 21:17 Blood Pressure 126/71 11/13/22 21:17 Blood Pressure Mean 89 11/13/22 21:17 Blood Pressure Position Sitting 11/13/22 21:17 Pulse Oximetry 96 11/13/22 21:17 Oxygen Delivery Method Room Air 11/13/22 21:17 Vital Signs Temperature 96.6 F L 11/13/22 21:17 Pulse Rate 77 11/13/22 21:17 Respiratory Rate 14 11/13/22 21:17 Blood Pressure 126/71 11/13/22 21:17 Pulse Oximetry 96 11/13/22 21:17 Oxygen Delivery Method Room Air 11/13/22 21:17 Temperature 96.6 F L 11/13/22 21:17 Pulse Rate 77 11/13/22 21:17 Respiratory Rate 14 11/13/22 21:17 Blood Pressure 126/71 11/13/22 21:17 Pulse Oximetry 96 11/13/22 21:17 Oxygen Delivery Method Room Air 11/13/22 21:17 MDM - Fall Lab Data Labs: Lab Results 11/13/22 11/13/22 Range/Units 22:43 23:10 WBC 9.91 (4.50-11.00) K/uL RBC 4.69 (4.00-5.20) m/uL Hgb 14.8 (12.0-16.0) gm/dL Hct 44.6 (33.0-51.0) % MCV 95 (80-100) fL MCH 32 (26-34) pg MCHC 33 (32-36) gm/dL RDW Coeff of Maurice 12.1 (11.5-15.5) % Plt Count 234 (140-440) K/uL Neut % (Auto) 56.7 (42.0-72.0) % Lymph % (Auto) 30.0 (20-44) % [place] % (Auto) 9.5 (0.0-11.0) % Eos % (Auto) 2.3 (0.0-7.0) % Baso % (Auto) 0.6 (0.0-3.0) % Neut # (Auto) 5.62 (1.7-7.0) K/uL Lymph # (Auto) 2.97 H (0.90-2.90) K/uL [place] # (Auto) 0.90 (0.00-0.90) K/UL Eos # (Auto) 0.23 (0.00-0.50) K/uL Baso # (Auto) 0.06 (0.00-0.30) K/uL Abs Immat Gran (auto) 0.09 (0.00-0.30) K/uL Imm/Tot Granulo (auto) 0.9 % Sodium 139 (135-149) mmol/L Potassium 3.8 (3.6-5.1) mmol/L Chloride 104 (96-114) mmol/L Carbon Dioxide 24 (20-32) mmol/L Anion Gap 11 (7-15) mEq/L BUN 28 (7-30) mg/dL Creatinine 1.2 (0.5-1.5) mg/dL Estimated Creat Clear 41.40 Estimated GFR 53 ml/min Glucose 129 H (60-115) mg/dL Calcium 9.4 (8.4-10.6) mg/dL Urine Color Yellow (Yellow) Urine Appearance Cloudy A (Clear) Urine pH 6.0 (5.0-8.5) Ur Specific [place] 1.020 (1.000-1.030) Urine Protein Negative (Negative) Urine Glucose (UA) Negative (Negative) Urine Ketones Trace A (Negative) Urine Blood 3+ A (Negative) Urine Nitrite Negative (Negative) Urine Bilirubin Negative (Negative) Urine Urobilinogen 0.2 (0.2-1.0) Ur Leukocyte Esterase Negative (Negative) Urine RBC 10-25 A (0-2) Urine WBC 2-5 (0-5) Ur Squamous Epith Cells Few (None-Few) Urine Bacteria Few A (None) Discharge Plan Discharge Clinical Impression: Concussion, Calculus of proximal left ureter Patient Disposition: Home w/ Parent or Adult Condition: Stable Instructions: Ureteral Stones (ED) Additional Instructions: Take Tylenol and ibuprofen or acute tore lack as needed for pain. Take oxycodone for severe pain. Take Zofran as needed for nausea and vomiting. Follow-up with Urology [facility] (Sherrie Waldron, Terri Powers, [place]) [phone] [facility] Activity Level: Activity as Tolerated Discharge Diet: Diabetic Prescriptions: No Action ondansetron HCl 4 mg tablet 4 mg PO Q8H PRN (Reason: nausea and vomiting) Qty: 20 1RF cyclobenzaprine 10 mg tablet 10 mg PO BID PRN gabapentin 600 mg tablet 600 mg PO 3XD albuterol sulfate 2.5 mg /3 mL (0.083 %) solution for nebulization 2.5 mg QID PRN pravastatin 40 mg tablet 40 mg PO DAILY propranolol 60 mg capsule,extended release 24 hr 60 mg PO DAILY Nicotrol 10 mg cartridge inhalation trazodone 100 mg tablet 100 mg PO QPM metformin 1,000 mg tablet 1,000 mg PO BID docusate sodium 100 mg capsule 100 mg PO 3XD PRN budesonide 3 mg capsule,delayed,extend.release 9 mg PO DAILY albuterol sulfate 90 mcg/actuation HFA aerosol inhaler 2 puff INHALATION Q6H PRN topiramate 100 mg tablet 100 mg PO BID buspirone 15 mg tablet 15 mg PO BID mirtazapine 7.5 mg tablet 7.5 mg PO QPM duloxetine 60 mg capsule,delayed release(DR/EC) 60 mg PO DAILY cholecalciferol (vitamin D3) 50 mcg (2,000 unit) capsule 50 mcg PO DAILY tamsulosin [Flomax] 0.4 mg capsule 0.4 mg PO DAILY Qty: 14 0RF oxycodone 5 mg tablet 5 mg PO Q6H PRN (Reason: pain) Qty: 10 0RF meloxicam 15 mg tablet 15 mg PO DAILY Qty: 90 2RF ketorolac 10 mg tablet 10 mg PO Q6H PRN (Reason: pain) 5 Days Qty: 20 0RF hydrocodone-acetaminophen 5-325 mg tablet 1 tab PO Q4-6H PRN (Reason: pain) Qty: 20 0RF Follow Up/Referrals: Manan Beaulieu MD [Primary Care Provider] - Stand Alone Forms: [facility] Info Instructions
--- NOTE | 2022-11-13 22:33 | CRLHL7_ITS ---
For Patients: As a result of the Century Cures Act, medical imaging exams and procedure reports are released immediately into your electronic medical record. You may view this report before your referring provider. If you have questions, please contact your health care provider. INDICATION: FALL LEFT FLANK PAIN TECHNIQUE: CT abdomen and pelvis without contrast. COMPARISON: None. FINDINGS: Limited evaluation of the intra-abdominal solid organs without IV contrast. Lower chest: Unremarkable. Liver: Normal in size and attenuation. No suspicious masses. Please note the dome of the liver is not completely included in the field of view. Gallbladder and bile ducts: Cholelithiasis without CT evidence of cholecystitis. Pancreas: Unremarkable. No mass or inflammation. Spleen: Normal in size. No masses. Adrenal glands: Normal in size. No nodules. Kidneys: 6 millimeter stone in the proximal left ureter with proximal mild hydroureteronephrosis. GI tract: Unremarkable. Normal in caliber. No sign of mass or inflammation. Normal appendix. Vasculature: Abdominal aorta is normal in caliber. Lymph nodes: No lymphadenopathy. Peritoneum/Abdominal Wall: Anterior abdominal wall fat and bowel containing hernia (5 07/22). No sign of mass or infiltration. No free air or significant free fluid. Pelvis: Mild circumferential bladder wall thickening may be related to incomplete distention. The uterus is absent. Bones: Unremarkable for age. IMPRESSION: A 6 millimeter stone in the proximal left ureter with proximal mild hydronephrosis. Please note that all CT scans at this facility use dose modulation, iterative reconstruction, and/or weight-based dosing when appropriate to reduce radiation dose to as low as reasonably achievable. Dictated by Janeth Hernandez MD @ 11/13/2022 11:29:13 PM (Electronically Signed)
--- NOTE | 2022-11-13 22:33 | CRLHL7_ITS ---
For Patients: As a result of the Century Cures Act, medical imaging exams and procedure reports are released immediately into your electronic medical record. You may view this report before your referring provider. If you have questions, please contact your health care provider. INDICATION: Fall, head pain.. TECHNIQUE: CT head without contrast. COMPARISON: None. FINDINGS: CSF spaces: Within normal limits for age. Brain parenchyma and extra-axial spaces: The roach-white differentiation is normal. Mild diffuse parenchymal atrophy. Posterior fossa cyst is noted. No sign of mass, hemorrhage, or midline shift. No extra-axial fluid collection. Skull base and calvarium: The visualized paranasal sinuses and mastoid air cells demonstrate no acute or significant findings. The visualized orbits are grossly unremarkable. No skull fractures. IMPRESSION: No acute intracranial hemorrhage identified. No skull fractures identified. Please note that all CT scans at this facility use dose modulation, iterative reconstruction, and/or weight-based dosing when appropriate to reduce radiation dose to as low as reasonably achievable. Dictated by Janeth Hernandez MD @ 11/13/2022 11:22:31 PM (Electronically Signed)
[2022-11-13 22:58] LABS: Basophils Absolute Auto 0.06 K/uL (0.00-0.30); Basophils Percent Auto 0.6 % (0.0-3.0); Eosinophils Absolute Auto 0.23 K/uL (0.00-0.50); Eosinophils Percent Auto 2.3 % (0.0-7.0); Hematocrit 44.6 % (33.0-51.0); Hemoglobin* 14.8 gm/dL (12.0-16.0); Immature Granulocytes Abs Auto 0.09 K/uL (0.00-0.30); Immature Granulocytes Pct Auto 0.9 %; Lymphocytes Absolute Auto 2.97 K/uL (0.90-2.90); Mean Corpuscular HGB Conc 33 gm/dL (32-36); Mean Corpuscular Hemoglobin 32 pg (26-34); Mean Corpuscular Volume 95 fL (80-100); Monocytes Percent Auto 9.5 % (0.0-11.0); Neutrophils Absolute Auto 5.62 K/uL (1.7-7.0); Neutrophils Percent Auto 56.7 % (42.0-72.0); Platelet Count* 234 K/uL (140-440); RDW Coefficient of Variation % 12.1 % (11.5-15.5); Red Blood Count 4.69 m/uL (4.00-5.20); White Blood Count* 9.91 K/uL (4.50-11.00)
[2022-11-13 23:04] LABS: Slide Review Reflex No
[2022-11-13 23:11] LABS: Chloride* 104 mmol/L (96-114); Sodium* 139 mmol/L (135-149)
[2022-11-13 23:12] LABS: Potassium* 3.8 mmol/L (3.6-5.1)
[2022-11-13 23:14] LABS: Creatinine* 1.2 mg/dL (0.5-1.5); Estimated Glomerular Filt Rate 53 ml/min
[2022-11-13 23:15] LABS: Anion Gap 11 mEq/L (7-15); Blood Urea Nitrogen* 28 mg/dL (7-30); Calcium* 9.4 mg/dL (8.4-10.6); Carbon Dioxide* 24 mmol/L (20-32); Glucose* 129 mg/dL (60-115)
[2022-11-13 23:23] LABS: Appearance Urine Cloudy (Clear); Bilirubin Urine Negative (Negative); Blood Urine 3+ (Negative); Color Urine Yellow (Yellow); Glucose Urine Negative (Negative); Ketones Urine Trace (Negative); Leukocyte Esterase Urine Negative (Negative); Nitrite Urine Negative (Negative); Protein Urine Negative (Negative); Urobilinogen Urine 0.2 (0.2-1.0)
[2022-11-13 23:33] LABS: Bacteria Urine Few; Squamous Epithelial Cell Urine Few (None-Few)
== END 2022-11-13 23:49 | disposition home or self-care (01) ==
PROVIDERS: Emergency Provider Family Medicine; PCP Internal Medicine
DX: S06.0X0A Concussion without loss of consciousness, initial encounter (principal); N20.1 Calculus of ureter; W18.39XA Other fall on same level, initial encounter
CPT/HCPCS: 36415; 70450; 74176; 80048; 81001; 85025; 87086; 96374; 96375; 99284; 99285

== ENCOUNTER 2022-12-02 12:24 | Outpatient (CLI) | payer MEDICARE, SELFPAY ==
--- NOTE | 2022-12-02 14:16 | W.ANESCHARGE ---
Anesthesia Charges Start Date/Time Anesthesia Start Date: 12/02/22 Anesthesia Start Time: 13:38 Stop Date/Time Anesthesia Stop Date: 12/02/22 Anesthesia Stop Time: 14:13
== END 2022-12-02 12:25 | disposition home or self-care (01) ==
PROVIDERS: PCP Internal Medicine; Visit Provider Internal Medicine
DX: Z12.11 Encounter for screening for malignant neoplasm of colon (principal); K57.30 Diverticulosis of large intestine without perforation or abscess without bleeding; Z80.0 Family history of malignant neoplasm of digestive organs
CPT/HCPCS: 00812; 45378; J2704

== ENCOUNTER 2023-03-20 10:44 | Outpatient (CLI) | payer MEDICARE, SELFPAY | END 2023-03-20 10:45 | disposition home or self-care (01) | PROVIDERS: PCP Internal Medicine; Visit Provider Family Medicine | DX: E11.9 Type 2 diabetes mellitus without complications (principal); I10 Essential (primary) hypertension; E78.2 Mixed hyperlipidemia; E55.9 Vitamin D deficiency, unspecified; E66.01 Morbid (severe) obesity due to excess calories | CPT/HCPCS: 80048; 80061; 82306; 84460; 85025 ==

== ENCOUNTER 2023-06-05 19:06 | Emergency (ER) | payer MEDICARE, MEDICAID, SELFPAY ==
[2023-06-05 19:25] VITALS: BP 132/73; PULSE 77; RESP 16; TEMP 36.7; O2SAT 98; BMI 41.2
--- NOTE | 2023-06-05 19:43 | XR_ITS ---
[facility] Patient ID:?[id number] Site Patient ID:?[id number] Site :?1965 Study:?XRay-Chest 2 VIEW-06/05/2023 8:15:00 PM Ordering Physician:?DR JOSEPH Final Report: INDICATION: Fall, pain. TECHNIQUE: Chest 2 views. COMPARISON: 10/09/2022. FINDINGS: Cardiovascular and mediastinum: Heart size and vasculature are normal in caliber and appearance. Lungs and pleural spaces: Lungs are clear. No sign of infiltrate or mass. No sign of pleural effusion. No pneumothorax. Bones and soft tissues: Anterior cervical fusion hardware. Otherwise, unremarkable age. No acute findings. IMPRESSION: No evidence of an acute pulmonary process. Dictated by Jc Mireles MD @ 06/05/2023 8:51:08 PM Signed by:?Jc Mireles MD @06/05/2023 8:51:08 PM (Electronic Signature)
--- NOTE | 2023-06-05 19:43 | CT_ITS ---
Patient: NELSON LUQUE [facility] Facility:?[facility] Patient ID:?[id number] Site Patient ID:?[id number] Site :?1965 Study:?CT-Spine Cervical WITHOUT-06/05/2023 8:18:35 PM Ordering Physician:?DR JOSEPH Final Report: INDICATION: Fall, neck pain. COMPARISON: MRI cervical spine 09/08/2019. TECHNIQUE: CT of the cervical spine without IV contrast. Coronal and sagittal reconstructions. FINDINGS: No acute fracture or traumatic malalignment of the cervical spine. Normal vertebral body alignment. Straightening of the normal cervical lordosis. Anterior instrumented fusion of C5-C7. Hardware appears intact. Mild to moderate spinal canal stenosis at C5-C6 and C6-C7. No prevertebral soft tissue swelling. Partially visualized arachnoid cyst in the posterior fossa. The thyroid gland is normal in appearance. The mastoid air cells are clear. The included lung apices are grossly clear. IMPRESSION: 1. No acute fracture or traumatic malalignment of the cervical spine. 2. Intact anterior instrumented fusion of C5-C7. Please note that all CT scans at this facility use dose modulation, iterative reconstruction, and/or weight-based dosing when appropriate to reduce radiation dose to as low as reasonably achievable. Dictated by Ashanti Ferrera MD @ 06/05/2023 9:21:37 PM Signed by:?Ashanti Ferrera MD @06/05/2023 9:21:37 PM (Electronic Signature)
--- NOTE | 2023-06-05 19:43 | CT_ITS ---
Patient: NELSON LUQUE [facility] Facility:?[facility] Patient ID:?[id number] Site Patient ID:?[id number] Site :?1965 Study:?CT-Head WITHOUT-06/05/2023 8:17:09 PM Ordering Physician:?DR JOSEPH Final Report: INDICATION: Fall, pain, hit head. COMPARISON: CT head 11/13/2022. TECHNIQUE: CT of the head without IV contrast. Coronal and sagittal reconstructions. FINDINGS: No intracranial hemorrhage, mass effect, or evidence of acute infarct. No midline shift. No abnormal extra-axial fluid collections. Normal caliber ventricular system. Stable arachnoid cyst in the posterior fossa. Orbits and extraocular muscles are symmetric. The visualized paranasal sinuses and mastoid air cells are clear. Soft tissues are unremarkable. No acute fracture identified. IMPRESSION: No acute intracranial findings. Please note that all CT scans at this facility use dose modulation, iterative reconstruction, and/or weight-based dosing when appropriate to reduce radiation dose to as low as reasonably achievable. Dictated by Ashanti Ferrera MD @ 06/05/2023 9:13:18 PM Signed by:?Ashanti Ferrera MD @06/05/2023 9:13:18 PM (Electronic Signature)
--- NOTE | 2023-06-05 19:43 | XR_ITS ---
Patient: NELSON LUQUE [facility] Facility:?[facility] Patient ID:?[id number] Site Patient ID:?[id number] Site :?1965 Study:?XRay-Pelvis ([place]) -06/05/2023 8:15:43 PM Ordering Physician:?DR JOSEPH Final Report: Indication: Fall. Pain. Technique: Single AP view of the pelvis. Comparison: None Findings/Impression: Cortical irregularity at the right sacroiliac joint, unclear whether this is artifactual due to positioning versus acute fracture. If this corresponds to patient`s area of pain, consider further evaluation with CT. No acute hip fracture identified. Mild degenerative changes of the bilateral hips. Large fecal burden noted within the visualized colon. Dictated by Emily Malcolm MD @ 06/05/2023 9:02:16 PM Signed by:?Emily Malcolm MD @06/05/2023 9:02:16 PM (Electronic Signature)
--- NOTE | 2023-06-05 19:47 | ED.FALL ---
HPI - Fall General Date Seen: 06/05/23 Chief Complaint: Fall/Minor Trauma Stated Complaint: Fell yesterday, neck/hip pain Time Seen by Provider: 06/05/23 19:36 Source: patient Mode of arrival: ambulatory Limitations: no limitations History of Present Illness HPI Narrative: fell 3 weeks ago and hurt R hip and low back, fell again yesterday , tripped over a rug. slid down 6 deck steps, denies hitting head, mostly hit R side and R hip again. denies weak/dizzy before fall. denies blood thinners. tried muscle relaxer around 1200 no relief.Patient is a 57-year-old female who presents here for evaluation of fall she has had 2 falls in the last 3 weeks, after the 1st when she called her regular physician who said he for her to come in if she felt unwell. She never did come in, excision of insurance she fell 1days ago she complains of pain in her neck, she has had previous neck surgery, pain in her right hip, but able to walk and bear weight, also with her 1st fall she had some pain in the mid part of her back which she says is also better, has not been able to get any relief of her pain, denies any numbness tingling weakness nausea vomiting, or any weakness in any of her extremities. She has not any blood thinners, but does have a history of chronic pain fibromyalgia. And previous falls. complaint: fall Related Data Home Medications Medication Instructions Recorded Confirmed albuterol sulfate 2.5 mg/3 mL 2.5 mg QID PRN 08/28/22 04/02/23 (0.083 %) solution for nebulization budesonide 3 mg 9 mg PO DAILY 08/28/22 04/02/23 capsule,delayed,extended release docusate sodium 100 mg capsule 100 mg PO 3XD PRN 08/28/22 04/02/23 aspirin 81 mg chewable tablet 1 tab PO DAILY 03/20/23 04/02/23 Previous Rx's Medication Instructions Recorded ondansetron HCl 4 mg tablet 4 mg PO Q8H PRN nausea and 09/23/22 vomiting #20 tabs buspirone 15 mg tablet 15 mg PO BID #90 tabs 02/19/23 epinephrine 0.3 mg/0.3 mL 0.3 mg (0.3 mL) IM ONCE #2 ea 02/19/23 injection, auto-injector gabapentin 600 mg tablet 600 mg PO 3XD #90 tabs 02/19/23 hydrocodone 5 mg-acetaminophen 325 1 tab PO Q4-6H pain #20 tabs 02/19/23 mg tablet meloxicam 15 mg tablet 15 mg PO DAILY Pain #90 tabs 02/19/23 metformin 1,000 mg tablet 1,000 mg PO BID #90 tabs 02/19/23 trazodone 100 mg tablet 100 mg PO QPM #90 tabs 02/19/23 cholecalciferol (vitamin D3) 1,250 1,250 mcg PO QWEEK #13 caps 03/20/23 mcg (50,000 unit) capsule duloxetine 60 mg capsule,delayed 60 mg PO DAILY #90 caps 03/20/23 release mirtazapine 7.5 mg tablet 7.5 mg PO QPM #90 tabs 03/20/23 pravastatin 40 mg tablet 40 mg PO DAILY #90 tabs 03/20/23 propranolol 60 mg capsule,24 60 mg PO DAILY #90 caps 03/20/23 hr,extended release topiramate 100 mg tablet 100 mg PO BID #60 tabs 03/20/23 ketorolac 10 mg tablet 10 mg PO Q6H PRN pain 5 days #20 04/02/23 tabs albuterol sulfate 90 mcg/actuation 2 puff inhalation Q6H PRN 04/18/23 aerosol inhaler bronchospasm #8.5 grams nebulizers #1 ea 04/18/23 cyclobenzaprine 10 mg tablet 10 mg PO BID PRN muscle spasm #30 05/06/23 tabs Allergies Allergy/AdvReac Type Severity Reaction Status Date / Time latex Allergy Intermediate Hives Verified 04/02/23 09:57 adhesive Allergy Mild Rash Verified 04/02/23 09:57 bee venom protein (honey bee) Allergy Verified 06/05/23 19:30 Epideral Allergy Intermediate severe Uncoded 04/02/23 09:57 hives Erythromycin Allergy Intermediate severe Uncoded 04/02/23 09:57 rash, diarrhea Review of Systems Status of ROS: Reports: 10 or more systems reviewed and unremarkable except as noted in History and below [facility] Medical History Abdominal pain ?R10.9 - Unspecified abdominal pain (ICD-10) Type 2 diabetes mellitus, without long-term current use of insulin ?E11.9 - Type 2 diabetes mellitus without complications (ICD-10) Primary hypertension ?I10 - Essential (primary) hypertension (ICD-10) Mixed hyperlipidemia ?E78.2 - Mixed hyperlipidemia (ICD-10) Ulcerative colitis ?K51.90 - Ulcerative colitis, unspecified, without complications (ICD-10) Kidney stone ?N20.0 - Calculus of kidney (ICD-10) Myocardial infarction ?I21.9 - Acute myocardial infarction, unspecified (ICD-10) Surgical History History of total hysterectomy with bilateral salpingo-oophorectomy (BSO) (09/21/14) ?Z90.710 - Acquired absence of both cervix and uterus (ICD-10) ?Z90.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, bilateral (ICD-10) ?Z90.79 - Acquired absence of other genital organ(s) (ICD-10) History of section ?Z98.891 - History of uterine scar from previous surgery (ICD-10) History of cervical spinal arthrodesis (08/04/17) ?Z98.1 - Arthrodesis status (ICD-10) History of carpal tunnel release (08/2018) ?Z98.890 - Other specified postprocedural states (ICD-10) Family History Other Colon cancer Social History Smoking Status: Former smoker Do you use any of these nicotine containing products: None Second hand tobacco smoke exposure: No How often do you have a drink containing alcohol: 2-4 times a month How many standard drinks containing alcohol do you have on a typical day: 1 or 2 How often do you have six or more drinks on one occasion: Never AUDIT-C Alcohol total score: 2 Non-prescribed substance use: denies use Little interest or pleasure in doing things: not at all Feeling down, depressed, or hopeless: not at all service: No Exam Narrative: Exam Narrative: On examination in room 5, with a nurse present, she appears in no distress sling on her left side she is able to sit on her back, and up with no problems at all her pupils are equal round reactive to light there is no scleral icterus redness or TMs are normal her neck is supple full range of motion there is no evidence any bruising over head or neck, her chest is good air entry bilateral with no wheezing crackles noted heart sounds are normal there is no palpable tenderness or T-spine on palpation percussion over her L-spine, she is tender a palpation over the lateral part of her right hip. But has full range of motion of her right hip including flexion extension a and internal external rotation her pelvis is normal stable to rocking, her abdomen shows no tenderness to palpation, very large abdomen no organomegaly, bowel sounds are normal she has absolutely no bruising I can see. I discussed with her that we will do a head CT and neck CT to rule out any abnormality will do some x-rays, but she seems to be doing very fine Const: Vital Signs, click to edit/add: Vital Signs - 24 hr 06/05/23 19:25 Temperature 98.0 F Pulse Rate [Pulse Oximeter] 77 Respiratory Rate 16 Blood Pressure [Ri ght Upper Arm] 132/73 Pulse Oximetry 98 Oxygen Delivery Me thod Room Air Documenting provider has reviewed patient's vital signs: yes Course Course ED Course: I had a long talk with the patient, she does have pain when I palpate over the right sacral area. This may be consistent with a small fracture that she sustained when she fell. I initially tried to give her just acetaminophen and Toradol, but she still was having discomfort I think a small supply of pain medications would be okay, and I referred her to be followed up with her regular physician I did review the [employer] and she does get small supply is a pain medications quite often due to falls. Given this likely is an acute fracture I think a small supply would be warranted I went over with her the signs symptoms with the medication and worsening. Vital Signs Vital signs: Initial Vital Signs Temperature 98.0 F 06/05/23 19:25 Temperature Source Temporal Artery Scan 06/05/23 19:25 Pulse Rate 77 06/05/23 19:25 Respiratory Rate 16 06/05/23 19:25 Blood Pressure 132/73 06/05/23 19:25 Blood Pressure Mean 92 06/05/23 19:25 Blood Pressure Position Sitting 06/05/23 19:25 Pulse Oximetry 98 06/05/23 19:25 Oxygen Delivery Method Room Air 06/05/23 19:25 Vital Signs Temperature 98.0 F 06/05/23 19:25 Pulse Rate 77 06/05/23 19:25 Respiratory Rate 16 06/05/23 19:25 Blood Pressure 132/73 06/05/23 19:25 Pulse Oximetry 98 06/05/23 19:25 Oxygen Delivery Method Room Air 06/05/23 19:25 Temperature 98.0 F 06/05/23 19:25 Pulse Rate 77 06/05/23 19:25 Respiratory Rate 16 06/05/23 19:25 Blood Pressure 132/73 06/05/23 19:25 Pulse Oximetry 98 06/05/23 19:25 Oxygen Delivery Method Room Air 06/05/23 19:25 Medications Administered Medications: Discontinued Medications Generic Name Dose Route Start Last Admin Trade Name Freq PRN Reason Stop Dose Admin Acetaminophen 1,000 mg 06/05/23 21:15 06/05/23 21:31 Acetaminophen 500 Mg Tablet PO 06/05/23 21:16 1,000 mg ONCE ONE Administration Ketorolac Tromethamine 15 mg 06/05/23 21:15 06/05/23 21:31 Ketorolac 30 Mg/Ml Inj IM 06/05/23 21:16 15 mg ONCE ONE Administration MDM - Fall MDM Narrative Medical decision making narrative: Life-threatening differential diagnosis include subarachnoid hemorrhage, meningitis, encephalitis, carbon monoxide poisoning, and intracerebral hemorrhage. Other differential diagnosis include but not limited to migraine, cluster headache, tension headache, [employer] vasculitis, mass lesion, temporal arteritis, click acute closed angle glaucoma, septal and trigeminal neuralgia, sinusitis, closed head injury, and stroke Medical Records Attestation: I reviewed the patient's medical records. Imaging Data CT scan - pelvis: Radiologist's impression: Patient: NELSON LUQUE [facility] Facility:?[facility] Patient ID:?[id number] Site Patient ID:?[id number] Site :?1965 Study:?CT-Spine Cervical WITHOUT-06/05/2023 8:18:35 PM Ordering Physician:?DR DENNIS Final Report: INDICATION: Fall, neck pain. COMPARISON: MRI cervical spine 09/08/2019. TECHNIQUE: CT of the cervical spine without IV contrast. Coronal and sagittal reconstructions. FINDINGS: No acute fracture or traumatic malalignment of the cervical spine. Normal vertebral body alignment. Straightening of the normal cervical lordosis. Anterior instrumented fusion of C5-C7. Hardware appears intact. Mild to moderate spinal canal stenosis at C5-C6 and C6-C7. No prevertebral soft tissue swelling. Partially visualized arachnoid cyst in the posterior fossa. The thyroid gland is normal in appearance. The mastoid air cells are clear. The included lung apices are grossly clear. IMPRESSION: 1. No acute fracture or traumatic malalignment of the cervical spine. 2. Intact anterior instrumented fusion of C5-C7. Please note that all CT scans at this facility use dose modulation, iterative reconstruction, and/or weight-based dosing when appropriate to reduce radiation dose to as low as reasonably achievable. Dictated by Ashanti Ferrera MD @ 06/05/2023 9:21:37 PM (Electronic Signature) Patient: NELSON HO Facility:?[facility] Patient ID:?[id number] Site Patient ID:?[id number] Site :?1965 Study:?CT-Head WITHOUT-06/05/2023 8:17:09 PM Ordering Physician:?DR DENNIS Final Report: INDICATION: Fall, pain, hit head. COMPARISON: CT head 11/13/2022. TECHNIQUE: CT of the head without IV contrast. Coronal and sagittal reconstructions. FINDINGS: No intracranial hemorrhage, mass effect, or evidence of acute infarct. No midline shift. No abnormal extra-axial fluid collections. Normal caliber ventricular system. Stable arachnoid cyst in the posterior fossa. Orbits and extraocular muscles are symmetric. The visualized paranasal sinuses and mastoid air cells are clear. Soft tissues are unremarkable. No acute fracture identified. IMPRESSION: No acute intracranial findings. Please note that all CT scans at this facility use dose modulation, iterative reconstruction, and/or weight-based dosing when appropriate to reduce radiation dose to as low as reasonably achievable. Dictated by Ashanti Ferrera MD @ 06/05/2023 9:13:18 PM (Electronic Signature) at[facility] Facility:?[facility] Patient ID:?[id number] Site Patient [id number]:?[id number] Site :?1965 Study:?XRay-Pelvis (Bony) -06/05/2023 8:15:43 PM Ordering Physician:?DR DENNIS Final Report: Indication: Fall. Pain. Technique: Single AP view of the pelvis. Comparison: None Findings/Impression: Cortical irregularity at the right sacroiliac joint, unclear whether this is artifactual due to positioning versus acute fracture. If this corresponds to patient`s area of pain, consider further evaluation with CT. No acute hip fracture identified. Mild degenerative changes of the bilateral hips. Large fecal burden noted within the visualized colon. Dictated by Emily Malcolm MD @ 06/05/2023 9:02:16 PM (Electronic Signature) [facility] Patient ID:?[id number] Site Patient ID:?[id number] Site :?1965 Study:?XRay-Chest 2 VIEW-06/05/2023 8:15:00 PM Ordering Physician:?DR DENNIS Final Report: INDICATION: Fall, pain. TECHNIQUE: Chest 2 views. COMPARISON: 10/09/2022. FINDINGS: Cardiovascular and mediastinum: Heart size and vasculature are normal in caliber and appearance. Lungs and pleural spaces: Lungs are clear. No sign of infiltrate or mass. No sign of pleural effusion. No pneumothorax. Bones and soft tissues: Anterior cervical fusion hardware. Otherwise, unremarkable age. No acute findings. IMPRESSION: No evidence of an acute pulmonary process. Dictated by Jc Mireles MD @ 06/05/2023 8:51:08 PM (Electronic Signature) [facility] Facility:?[facility] Patient ID:?[id number] Site Patient ID:?[id number] Site :?1965 Study:?CT-Pelvis (Bony) W/O-06/05/2023 9:28:32 PM Ordering Physician:BRENDEN Final Report: INDICATION: Cortical irregularity of sacroiliac on x-ray. TECHNIQUE: CT pelvis without contrast. COMPARISON: Pelvic radiograph 06/05/2023. FINDINGS: Bones: Subtle cortical irregularity of the anterior cortex of the S5 sacral segment, could represent a nondisplaced fracture. No other evidence for a fracture identified. Alignment is normal. Joints: Partial ankylosis of the left sacroiliac joint. Subtle sclerosis and erosive changes of the anterior inferior right sacroiliac joint. Soft tissues: Normal appendix. Small fat-containing left inguinal hernia. No free fluid in pelvis. The surrounding soft tissues are unremarkable. IMPRESSION: 1. Subtle cortical irregularity of the anterior cortex of the S5 sacral segment, could represent a nondisplaced fracture. Recommend correlation with site of focal tenderness. 2. Findings compatible with bilateral sacroiliitis with partial ankylosis of the left sacroiliac joint. Please note that all CT scans at this facility use dose modulation, iterative reconstruction, and/or weight-based dosing when appropriate to reduce radiation dose to as low as reasonably achievable. Dictated by Jc Mireles MD @ 06/05/2023 10:26:49 PM (Electronic Signature) Discharge Plan Discharge Clinical Impression: History of fusion of cervical spine, Elbow pain, right, Closed sacral fracture, Falls Patient Disposition: Home w/ Parent or Adult Condition: Stable Instructions: Fall Prevention for Older Adults (ED), Sacral Fracture (ED), Fall Prevention (ED), Arm Pain (ED) Additional Instructions: Home rest ice, by a foam donut, set on, as this will help, no evidence of any abnormality of your neck, on CT at least acutely, follow-up with your primary care physician, small supply of pain medications given he may continue to use ibuprofen Activity Level: Light activity Prescriptions: No Action aspirin 81 mg tablet,chewable 1 tab PO DAILY pravastatin 40 mg tablet 40 mg PO DAILY Qty: 90 3RF cholecalciferol (vitamin D3) 1,250 mcg (50,000 unit) capsule 1,250 mcg PO QWEEK Qty: 13 3RF duloxetine 60 mg capsule,delayed release(DR/EC) 60 mg PO DAILY Qty: 90 3RF mirtazapine 7.5 mg tablet 7.5 mg PO QPM Qty: 90 3RF Rx Instructions: 90 Day Supply propranolol 60 mg capsule,extended release 24 hr 60 mg PO DAILY Qty: 90 3RF topiramate 100 mg tablet 100 mg PO BID Qty: 60 0RF ondansetron HCl 4 mg tablet 4 mg PO Q8H PRN (Reason: nausea and vomiting) Qty: 20 1RF albuterol sulfate 2.5 mg /3 mL (0.083 %) solution for nebulization 2.5 mg QID PRN docusate sodium 100 mg capsule 100 mg PO 3XD PRN budesonide 3 mg capsule,delayed,extend.release 9 mg PO DAILY buspirone 15 mg tablet 15 mg PO BID Qty: 90 3RF gabapentin 600 mg tablet 600 mg PO 3XD Qty: 90 0RF hydrocodone-acetaminophen 5-325 mg tablet 1 tab PO Q4-6H Qty: 20 0RF meloxicam 15 mg tablet 15 mg PO DAILY Qty: 90 2RF metformin 1,000 mg tablet 1,000 mg PO BID Qty: 90 3RF trazodone 100 mg tablet 100 mg PO QPM Qty: 90 3RF epinephrine 0.3 mg/0.3 mL auto-injector 0.3 mg IM ONCE Qty: 2 0RF Rx Instructions: as a single dose; may repeat once ketorolac 10 mg tablet 10 mg PO Q6H PRN (Reason: pain) 5 Days Qty: 20 0RF albuterol sulfate 90 mcg/actuation HFA aerosol inhaler 2 puff INHALATION Q6H PRN (Reason: bronchospasm) Qty: 8.5 3RF (DME) nebulizers Misc See Rx Instructions .Route Qty: 1 3RF Rx Instructions: As directed cyclobenzaprine 10 mg tablet 10 mg PO BID PRN (Reason: muscle spasm) Qty: 30 0RF Follow Up/Referrals: Manan Beaulieu MD [Primary Care Provider] - Stand Alone Forms: [employer] Info Instructions
--- OUTSIDE RECORDS SUMMARY | 2023-06-05 19:56 | XMS_ITS | Data Portability ---
Author Name Unknown Address [address] [place] [address] Phone [phone] Organization [place] - Bruce Arenas & E Bruce Chaparro MD Address [address] [facility] [address] [facility] [place] [address] Care Team Providers Care Route Aide Name Role Phone STEPHAN NONA Primary Care Provider BRUCE ARENAS Die Barber Assessment Encounter Date Assessment Date Assessment LastModified by Organization Details LastModified Time 05/30/2020 05/30/2020 Patient presented for follow up of labs. Studies ordered as below. Discussed plan with , who expressed understanding . Follow up as noted below. Not available 05/25/2020 16:08:37 06/21/2020 06/21/2020 Patient presented for follow up of labs. Studies ordered as below. Discussed plan with , who expressed understanding . Follow up as noted below. Not available 06/20/2020 12:42:46 09/26/2020 09/26/2020 Patient presented for follow up of labs. Studies ordered as below. Discussed plan with , who expressed understanding . Follow up as noted below. Not available 09/26/2020 11:26:43 01/01/2021 01/01/2021 Patient presented for follow up of labs. Studies ordered as below. Discussed plan with , who expressed understanding . Follow up as noted below. sekici Not available 01/01/2021 14:33:32 04/03/2021 04/03/2021 Patient presented for follow up of labs. Studies ordered as below. Discussed plan with , who expressed understanding . Follow up as noted below. sekici Not available 04/03/2021 13:53:46 Plan of Treatment Reminders Order Date Submit Date Provider Last Modified By Organization Details Last Modified Time Details Appointments None recorded. Lab hepatitis C Ab, serum 2021 [facility], [address], [place], [address], 14:04:15 hepatitis B surface Ab, qualitative , serum 2021 [facility], [address], [place], [address], 14:38:12 C diff toxin A+B, qualitative , stool 2020 [facility], [address], [place], [address], 16:56:13 C diff toxin A+B, qualitative , stool 2020 [facility], [address], [place], [address], 16:56:13 culture, stool 2020 [facility], [address], [place], [address], 02:46:52 C diff toxin A+B, qualitative , stool 2020 [facility], [address], [place], [address], 16:13:32 Referral cardiologis t referral - Patient not on aspirin or Plavix etcetera she had a heart attack apparently last year 2021 criselda Colin MD ([facility] ), [address], [place], [address], 08:02:02 cardiologis t referral - Patient with coronary artery disease tells me she is not on aspirin etc.. She also tells me she had an MRI last week ??? 2020 Julieta Johnston MD ([facility] ), [address] [place], [address], 08:22:57 Procedures colonoscopy procedure (PROC) 2020 LES[facility] Not available 14:35:27 Surgeries None recorded. Imaging None recorded. Medication Orders Culturelle 10 billion cell capsule 2021 [facility], [address], [address], 14:03:[address] - ER 3 mg capsule,gagandeep angelo,extend ed release 2021 [facility], [address], [address], 14:04:01 Colace 100 mg capsule 2020 [facility], [address], [address], 14:39:48 Miralax 17 gram/dose oral powder 2020 [facility], [address], [address], 14:39:41 psyllium husk (bulk) 100 % powder 2020 [facility], [address], [address], 14:39:42 Culturelle 10 billion cell capsule 2020 021 [facility], [address] [place] [address], [address], 14:39:[address] - ER 3 mg capsule,del ayed,extend ed release 2020 021 [facility], [address] [place] [address], [address], 14:39:40 Colace 100 mg capsule 2020 021 [facility], [address] [place] [address], [address], 11:52:52 Miralax 17 gram/dose oral powder 2020 021 [facility], [address] [place] [address], [address], 11:52:[address] - ER 3 mg capsule,del ayed,extend ed release 2020 021 [facility], [address] [place] [address], [address], 11:52:53 Culturelle 10 billion cell capsule 2020 021 [facility], [address] [place] [address], [address], 11:52:[address] - ER 3 mg capsule,del ayed,extend ed release 2020 021 [facility], [address] [place] [address], [address], 1 18:29:33 Culturelle 10 billion cell capsule 2020 021 [facility], [address], [address], 16:55:39 peg 3350-electr olytes 236 gram-22.74 gram-6.74 gram-5.86 gram solution 2020 021 [facility], [address], [address], 10:27:31 Patient TargetsNo targets recorded. Patient Instructions Encounter Date Encounter Id Patient Instructions Last Modified By Organization Details Last Modified Time 04/03/2021 [id number] diarrhea: care instructions sekici Not available 04/03/2021 14:03:51 heart attack: care instructions sekici Not available 04/03/2021 14:03:51 constipation: care instructions sekici Not available 04/03/2021 14:03:51 body mass index: care instructions sekici Not available 04/03/2021 14:03:51 learning about healthy weight sekici Not available 04/03/2021 14:03:51 01/01/2021 [id number] diarrhea: care instructions sekici Not available 01/01/2021 14:39:31 heart attack: care instructions sekici Not available 01/01/2021 14:39:31 constipation: care instructions sekici Not available 01/01/2021 14:39:31 body mass index: care instructions sekici Not available 01/01/2021 14:39:31 learning about healthy weight sekici Not available 01/01/2021 14:39:31 09/26/2020 [id number] diarrhea: care instructions sekici Not available 09/26/2020 11:52:41 heart attack: care instructions sekici Not available 09/26/2020 11:52:41 constipation: care instructions sekici Not available 09/26/2020 11:52:41 body mass index: care instructions sekici Not available 09/26/2020 16:49:41 learning about healthy weight sekici Not available 09/26/2020 16:49:41 06/21/2020 [id number] diarrhea: care instructions sekici Not available 06/21/2020 16:55:33 body mass index: care instructions sekici Not available 06/21/2020 16:55:33 learning about healthy weight sekici Not available 06/21/2020 16:55:33 05/30/2020 [id number] diarrhea: care instructions sekici Not available 05/30/2020 16:12:54 body mass index: care instructions sekici Not available 05/30/2020 16:12:55 learning about healthy weight sekici Not available 05/30/2020 16:12:55 Reason for Referral Manager Care Management Referral for My ocardial infarction Patient with coronary artery disease tells me she is not on aspirin etc.. She also tells me she had an MRI last week ??? Referring Physician: [facility], Encounter Date: 09/26/2020 Manager Care Management Referral for My ocardial infarction Patient not on aspirin or Plavix etcetera she had a heart attack apparently last year Patient not on aspirin or Plavix etcetera she had a heart attack apparently last year Referring Physician: [facility], Encounter Date: 04/03/2021 Results Created Date Observation Date Name Description Value Unit Range Abnormal Flag LastModifiedBy Organization Detail LastModifiedTime 04/17/19 22 04/17/2021 HEPAT ITIS B SURFA CE ANTIB JEANNIE QL hepatitis B surface antibody ql non-re active non-re active normal Not Available [facility] [address] [place], [address], 04/17/2021 12:05:42 04/17/19 22 04/17/2021 HEPAT ITIS C AB W/REF L TO HCV RNA, QN, PCR hepatitis C antibody non-re active non-re active normal Not Available [facility] [address] [place], [address], 04/17/2021 12:05:42 04/17/19 22 04/17/2021 HEPAT ITIS C AB W/REF L TO HCV RNA, QN, PCR index 0.00 <1.00 normal Not Available [facility] [address], [place], [address], 04/17/2021 12:05:42 05/20/19 21 05/17/2020 CT, abdom en + pelvi s, w/ contr ast No observ ation record ed. Not Available 05/19/2020 14:27:58 04/13/19 22 03/26/2021 MAMMO , diagn ostic , bilat eral No observ ation record ed. [facility] [address] [place], [address], 04/12/2021 13:11:35 Result Notes None recorded. Procedures Surgical History Date Name Laterality Status Provider Name and Address Organization Details Recorded Time Hysterectomy completed Katiel Supervisor Mails o null, [place] - [facility] 05/30/2020 11:16:07 Carpal Tunnel Surgery completed Katiel Rosalee null, [place] - [facility] [address] [facility] 05/30/2020 11:16:07 colonoscopy completed Katiel Rosalee null, [place] - [facility] [address] [facility] 05/30/2020 11:28:28 Colonoscopy completed Katiel Rosalee null, [place] - [facility] [address] [facility] 04/03/2021 12:59:14 Imaging Results Imaging Date Name Status LastModified by Organiz ation Details LastModified Time 05/17/2020 CT, abdomen + pelvis, w/ contrast completed Information not available 05/19/2020 14:27:58 03/26/2021 MAMMO, diagnostic, bilateral completed [facility] [address] [place], [address], 04/12/2021 13:11:35 Procedure Notes None recorded. Medical Equipment None Reported. Allergies Allergen ID Allergen Name Allergen Category Reaction Reaction Severity Criticality Documentation Date Start Date Code Code System Note Provider Name and Address Organization Details Recorded Time 01546 Latex (substanc e) environme nt,medica tion itching nausea rash respirato ry distress Not available Not available Not available Not available Not available 05/30/2020 87388 [id number] SNOMED Kat Turk null, [place] - [facility] [address] [facility] 1 11:16:48 64712 erythromy eduardo medicatio n itching rash Not available Not available Not available 05/30/2020 4053 RxNorm Kat Turk null, [place] - [facility] [address] [facility] 1 11:17:00 01229 latex environme nt,medica tion itching nausea rash respirato ry distress vomiting Not available Not available Not available Not available Not available Not available 04/03/2021 76556 91 RxNorm Kat sanchez, [place] - [facility] [address] [facility] 2 12:59:02 Medications Name Sig Start Date Stop Date Status Note LastModified by Organization Details LastModified Time Prescriptio n - Renewal active Not Available Not Available Not Available multivitami n tablet Take 1 tablet every day by oral route. active Not Available Not Available No t Available Miralax 17 gram/dose oral powder Take 17 g twice a day by oral route for 1 day. 2020 active Not Available Not Available Not Avai lable metformin 500 mg tablet Take 1 tablet twice a day by oral route. active Not Available Not Available No t Available gabapentin 600 mg tablet Take 1 tablet 4 times a day by oral route. active Not Available Not Available No t Available albuterol sulfate 2.5 mg/3 mL (0.083 %) solution for nebulizatio n Inhale 3 mL 3 times a day by nebulizat ion route as directed. active Not Available Not Available No t Available trazodone 50 mg tablet Take 1.5 tablets every day by oral route at bedtime. active Not Available Not Available No t Available pravastatin 40 mg tablet Take 1 tablet every day by oral route. active Not Available Not Available No t Available hydrocodone 5 mg-acetamin ophen 325 mg tablet TAKE 1 TABLET BY MOUTH EVERY 8 HOURS NEEDED FOR PAIN active Not Available Not Available No t Available propranolol ER 60 mg capsule,24 hr,extended release Take 1 capsule every day by oral route at bedtime. active Not Available Not Available No t Available Zofran 4 mg tablet Take 1 tablet 4 times a day by oral route as needed. active Not Available Not Available No t Available Tessalon Perles 100 mg capsule Take 1 capsule twice a day by oral route. 04/03 completed Not Available Not Available Not Available Flagyl 500 mg tablet Take 1 tablet every 8 hours by oral route for 10 days. 09/26 completed Not Available Not Available Not Available cephalexin 500 mg capsule TAKE 1 CAPSULE BY MOUTH EVERY 12 HOURS FOR 5 DAYS active Not Available Not Available No t Available simvastatin 20 mg tablet Take 1 tablet every day by oral route at bedtime. 09/26 completed Not Available Not Available Not Available carbidopa 10 mg-levodopa 100 mg tablet Take 1 tablet twice a day by oral route. active Not Available Not Available No t Available docusate sodium 100 mg capsule Take 1 capsule by mouth three times daily with meals. active Not Available Not Available No t Available omeprazole 20 mg capsule,del ayed release Take 1 capsule every day by oral route. active Not Available Not Available No t Available Culturelle 10 billion cell capsule Take 1 capsule twice a day by oral route for 30 days. 2021 active Not Available Not Available Not Avai lable budesonide DR - ER 3 mg capsule,del ayed,extend ed release Take 1 capsule by mouth three times daily. 2021 active Not Available Not Available Not Avai lable carbidopa 25 mg-levodopa 100 mg tablet TAKE 1 TABLET BY MOUTH TWICE DAILY active Not Available Not Available No t Available topiramate 100 mg tablet TAKE 1 TABLET BY MOUTH TWICE DAILY active Not Available Not Available No t Available lamotrigine 100 mg tablet Take 2 tablets every day by oral route at bedtime. active Not Available Not Available No t Available amoxicillin 875 mg-potassiu m clavulanate 125 mg tablet Take 1 tablet every 12 hours by oral route for 10 days. 06/21 completed Not Available Not Available Not Available Flexeril 10 mg tablet Take 1 tablet 3 times a day by oral route as needed. active Not Available Not Available No t Available Ventolin HFA 90 mcg/actuati on aerosol inhaler Inhale 2 puffs every 4 hours by inhalatio n route as needed. active Not Available Not Available No t Available buspirone 15 mg tablet Take 1 tablet twice a day by oral route as directed. active Not Available Not Available No t Available Vitamin D3 25 mcg (1,000 unit) capsule Take 1 capsule every day by oral route. active Not Available Not Available No t Available topiramate 50 mg tablet Take 1 tablet twice a day by oral route. active Not Available Not Available No t Available duloxetine 60 mg capsule,del ayed release Take 1 capsule every day by oral route. active Not Available Not Available No t Available Ensure BID active Not Available Not Availa ble Not Available Arthritis Pain Reliever PRN active Not Available Not Available Not Available peg 3350-electr olytes 236 gram-22.74 gram-6.74 gram-5.86 gram solution Take 4000 mL by oral route. 06/21 completed Not Available Not Available Not Available Stool Softener 100 mg tablet Take 1 tablet every day by oral route. 04/03 completed Not Available Not Available Not Available psyllium husk (bulk) 100 % powder Take 3.4 g 3 times a day by miscell. route with meals for 30 days. 2020 active Not Available Not Available Not Avai lable Fish Oil 1,000 mg (120 mg-180 mg) capsule Take 1 capsule every day by oral route. active Not Available Not Available No t Available Vitals Date Recorded Body height Body mass index (BMI) Body weight Provider Name and Address Organization Details Last Updated DateTime 05/30/2020 157.48 cm 40.2 kg/m2 32193.32 g [facility] - [facility] [address] [facility] 05/30/2020 11:15:56 Date Recorded Body height Body mass index (BMI) Body weight Provider Name and Address Organization Details Last Updated DateTime 06/21/2020 157.48 cm 40.2 kg/m2 32924.32 g [facility]ade[facility] - [facility] [place] 06/21/2020 10:26:58 Date Recorded Body height Body mass index (BMI) Body weight Heart rate Body temperature Oxygen saturation Oxygen saturation in Arterial blood by Pulse oximetry Systolic blood pressure Diastolic blood pressure Provider Name and Address Organization Details Last Updated DateTime 157.48 cm 41.5 kg/m2 795702. 47 g 87 /min 98.4 [degF] 95 % 95 % 106 mm[Hg] 73 mm[Hg] Lyndsay Harris null, [place] - [facility] 1 11:08:41 Date Recorded Body height Body mass index (BMI) Body weight Heart rate Body temperature Oxygen saturation Oxygen saturation in Arterial blood by Pulse oximetry Systolic blood pressure Diastolic blood pressure Provider Name and Address Organization Details Last Updated DateTime 1 157.48 cm 41.5 kg/m2 125676. 47 g 107 /min 97.8 [degF] 96 % 96 % 120 mm[Hg] 64 mm[Hg] SHUN WONG null, [place] - [facility] [address] [facility] 1 13:50:13 Date Recorded Body height Body mass index (BMI) Body weight Heart rate Body temperature Oxygen saturation Oxygen saturation in Arterial blood by Pulse oximetry Systolic blood pressure Diastolic blood pressure Provider Name and Address Organization Details Last Updated DateTime 2 157.48 cm 41.5 kg/m2 361949. 47 g 106 /min 98 [degF] 94 % 94 % 122 mm[Hg] 70 mm[Hg] Kat Turk daniel, [place] - [facility] 2 12:57:53 Social History Question Answer Notes LastModified by Organizat ion Details LastModified Time Tobacco Smoking Status Former Smoker quit 1 month ago Kat Turk daniel, [place] - [facility] 05/30/2020 11:27:22 Do You Have An Advance Directive? No Information not available 05/30/2020 What Is Your Level Of Alcohol Consumption? None History Of Alcohol Abuse Information not available 05/30/2020 What Is Your Level Of Caffeine Consumption? Moderate Coffee And Tea Information not available 05/30/2020 Have You Been To An Area Known To Be High Risk For COVID-19? No Information not available 05/30/2020 What Is Your Relationship Status? Information not available 05/30/2020 Do You Use Any Illicit Or Recreational Drugs? No Information not available 05/30/2020 Do You Or Have You Ever Used Any Other Forms Of Tobacco Or Nicotine? No Information not available 05/30/2020 Sex: Female Functional Status Question Answer Note LastModified by Organization D etails LastModified Time Are you able to care for yourself? Yes Information n ot available 05/30/2020 Mental Status None recorded. Family History Relationship Description Onset Age of this Age Resolved Age Notes Paternal Grandfather Heart failure Paternal Grandfather Type 2 diabetes mellitus Maternal Grandmother Type 2 diabetes mellitus Maternal Grandmother Heart disease Father Kidney disease Father Type 2 diabetes mellitus Father Renal failure syndrome Father Heart disease Father Heart failure Father Dialysis finding Mother Type 2 diabetes mellitus Mother Dementia Mother Heart disease Mother Depressive disorder Sister Type 2 diabetes mellitus Sister Depressive disorder Brother Depressive disorder Medical History Condition Response Heart Problems Y Diarrhea Y Osteoarthritis Y Chronic Obstructive Pulmonary Disease Y Chest pain Y Migraines Y NSAID Use Y Depression Y COPD Y Constipation Y Nausea Y Heart Attack ([place]) Y Other Skin Condition Y Osteoperosis Y Diabetes Y Back pain Y Dizziness Y Muscle, Joint, or Bone Problems Y Hemorrhoids Y Obesity Y Arthritis Y Seizures/Epilepsy Y Acid Reflux (GERD) Y IBS Y Asthma Y Abdominal pain Y Sleep Apnea Y High Cholesterol Y Heart Disease Y Headaches Y Fibromyalgia Y Gynecological History Statement/Question Response HPV Vaccine N Obstetrics History GPAL:G 0 P 0 0 0 0 Immunizations Vaccine Type Date Status Provider Name and Address Organization Details Recorded Time SARS-COV-2 (COVID-19) vaccine, UNSPECIFIED 05/27/2020 completed [facility] - [facility] 05/30/2020 11:26:23 COVID-19, mRNA, LNP-S, PF, 100 mcg/0.5mL dose or 50 mcg/0.25mL dose 06/29/2020 completed Not Available [employer] 04/03/19 12:25:42 Past Encounters Encounter ID Performer Location Encounter Start Date Encounter Closed Date Diagnosis/Indication Diagnosis SNOMED-CT Code [id number] MD Bruce Mccain MD [address] [place] [id number] 05/30/2020 11:15:00 06/01/2020 14:31:33 Body mass index 40+ - severely obese 424365394 Colitis 57273403 Diarrhea 46578754 Diabetes mellitus 820106 09 [id number] MD Bruce Mccain MD [address] [place] [address] 06/21/2020 09:38:07 06/23/2020 09:35:49 Body mass index 40+ - severely obese 134350521 Colitis 68313869 Diarrhea 27879692 Diabetes mellitus 834844 09 [id number] MD Bruce Mccain MD [address] [place] [address] 09/26/2020 10:32:08 09/26/2020 11:55:51 Body mass index 40+ - severely obese 574367690 Constipation 55563816 Myocardial infarction 22 781920 Colitis 67295929 Diarrhea 27185663 Diabetes mellitus 547432 09 Post-disch arge follow-up [id number] MD Bruce Mccain MD [address] [place] [address] 01/01/2021 13:26:43 01/01/2021 15:12:37 Body mass index 40+ - severely obese 755232696 Weight gain 5586073 Constipation 16399404 Myocardial infarction 22 075916 Colitis 00395719 Diarrhea 80114832 Diabetes mellitus 474153 09 Post-disch arge follow-up [id number] MD Bruce Mccain MD [address] [place] [address] 04/03/2021 12:25:40 04/03/2021 14:06:58 Body mass index 40+ - severely obese 345820057 Constipation 27036609 Myocardial infarction 22 545600 Colitis 56709293 Diarrhea 17186493 Diabetes mellitus 314794 09 Post-disch arge follow-up 730321358 Viral screening 07664799 4 Health Concerns Section Related Observation LastModified by Organization Detai ls LastModified Time None Recorded Concern Status LastModified by Organization Details LastModified Time None Recorded Advance Directives Directive N: Payers Encounter Date Sequence Insurance Name Policy Number Policy Martin Covered Member ID Martin Member ID Guarantor Name 04/03/2021 2 [place] [facility] Emilee Lau [id number] Emilee Johnson 04/03/2021 1 [employer] - DUAL ELIGIBLE (MEDICARE REPLACEMENT /ADVANTAGE - PPO) [place] Mandi Patterson [place] [id number] Emilee Yesenia [place]ourt 01/01/2021 2 [place] [id number] Emilee Yesenia [place] [id number] Emilee Yesenia [place] 01/01/2021 1 [employer] [facility] - DUAL ELIGIBLE (MEDICARE REPLACEMENT /ADVANTAGE - PPO) [place] Mandi R [place] [id number] Emilee Yesenia [place] 09/26/2020 2 [place] [employer] Emilee R [place] [id number] Emilee Yesenia [place] 09/26/2020 1 [employer] - DUAL ELIGIBLE (MEDICARE REPLACEMENT /ADVANTAGE - PPO) [place] Mandi R [place] [id number] Emilee Yesenia [place] 06/21/2020 1 [employer] - DUAL ELIGIBLE (MEDICARE REPLACEMENT /ADVANTAGE - PPO) [employer] Mandi Patterson [place] [id number] Emilee Yesenia [place] 05/30/2020 1 [employer] - DUAL ELIGIBLE (MEDICARE REPLACEMENT /ADVANTAGE - PPO) [place] Mandi R [place] [id number] Emilee Yesenia B[place] Notes Date Note Type Note Provider Name and Address Organization Details Recorded Time 05/30/2020 text/html HPI Notes: Telehealth Reported by patient. Telehealth Consent I understand this appointment is going to be conducted by telephone or videoconferencing. ; I understand there are potential risks to this technology, including interruptions, unauthorized access and technical difficulties.; I understand that this appointment will be billed to my insurance and copay or deductibles apply.; I understand that, during the COVID-19 National Emergency, the [place] Department of Health and Human Services (? HHS? ) allows my Provider(s) to use smartphone and computer applications that may not be HIPAA compliant. While my Provider(s) will take every precaution in using these permitted technologies, there still may be a privacy risk in using them.; I hereby consent to allow my provider to continue my appointment via telephone. Diarrhea Reported by patient. Quality: frequent; intermittent; watery Severity: moderate Duration: present for 2-4 weeks Onset/Timing: no nocturnal symptoms Context: no one else with similar symptoms; no recent camping; no recent picnic; no possible food sources; no recent travel; colitis on CT scan Alleviating Factors: antibiotics Aggravating Factors: eating Associated Symptoms: no abdominal pain; no excess gas; no fever; no rash; no joint pain; no weight loss; no nausea; no vomiting; no heartburn; no blood in stool; no mucus in stool; no black or tarry stools; no weakness; no nutrient deficiency Bruce Arenas MD [address], [place], [address], [facility] - [address] 05/30/2020 16:13:01 06/21/2020 text/html HPI Notes: Telehealth Reported by patient. Telehealth Consent I understand this appointment is going to be conducted by telephone or videoconferencing. ; I understand there are potential risks to this technology, including interruptions, unauthorized access and technical difficulties.; I understand that this appointment will be billed to my insurance and copay or deductibles apply.; I understand that, during the COVID-19 National Emergency, the [place] Department of Health and Human Services (? HHS? ) allows my Provider(s) to use smartphone and computer applications that may not be HIPAA compliant. While my Provider(s) will take every precaution in using these permitted technologies, there still may be a privacy risk in using them.; I hereby consent to allow my provider to continue my appointment via telephone. Diarrhea Reported by patient. Quality: frequent; intermittent; watery Severity: moderate Duration: present for 2-4 weeks Onset/Timing: no nocturnal symptoms Context: no one else with similar symptoms; no recent camping; no recent picnic; no possible food sources; no recent travel; colitis on CT scan Alleviating Factors: antibiotics Aggravating Factors: eating Associated Symptoms: no abdominal pain; no excess gas; no fever; no rash; no joint pain; no weight loss; no nausea; no vomiting; no heartburn; no blood in stool; no mucus in stool; no black or tarry stools; no weakness; no nutrient deficiency Bruce Arenas MD [address], [place], [address], [facility] - [address] 06/27/2020 18:32:35 09/26/2020 text/html HPI Notes: Constipation Reported by patient. Quality: worsening; hard; dry Severity: severe Onset/Timing: once every three days Context no recent opiates; no recent surgery; no stress; no anemia; normal toileting ability; no history of IBS; no history of chronic idiopathic constipation; no history of Hirschsprung's; no family history of colon polyps or cancer; no history of colonoscopy; no history of Diverticulosis; no abnormal imaging Alleviating Factors: having bowel movement Aggravating Factors: eating Associated Symptoms: no abdominal pain; no excess gas; no fever; no rash; no joint pain; no weight loss; no nausea; no vomiting; no heartburn; no blood in stool; no mucus in stool; no black or tarry stools; no weakness; no nutrient deficiency Bruce Arenas MD [address] [place], [address], [facility] [address] 09/26/2020 11:52:47 01/01/2021 text/html HPI Notes: GI General HPI Reported by patient. Upper GI: normal appetite; food does not get stuck when swallowing; no awakening at night with heartburn; no heartburn; no nausea; no vomiting; no coughing while lying down; no coughing while eating Lower GI: feels fine after eating wheat; no constipation; no unexplained weight loss; no diarrhea; no change in bowel habits; no rectal bleeding in last year; no anemia in the last 6 months; no bloating; does not feel full after bowel movement; no ulcerative colitis; no Crohn's disease; no history of colon polyps; no history of colon cancer Hepatology: not frequently exhausted; no family history of liver disease; no liver disease; no history of pancreatitis; no yellowing of the skin; no Hepatitis C Co-morbidities: no diabetes; no heart disease; no lung disease; no fibromylagia; no depression; no frequent mouth ulcers; no inflammation of the eyes; no osteopenia; no osteoporosis; no arthritis Bruce Arenas MD [address] [place], [address], [facility] - [address] 01/01/2021 14:39:38 04/03/2021 text/html HPI Notes: GI General HPI Reported by patient. Upper GI: normal appetite; food does not get stuck when swallowing; no awakening at night with heartburn; no heartburn; no nausea; no vomiting; no coughing while lying down; no coughing while eating Lower GI: feels fine after eating wheat; no constipation; no unexplained weight loss; no diarrhea; no change in bowel habits; no rectal bleeding in last year; no anemia in the last 6 months; no bloating; does not feel full after bowel movement; no ulcerative colitis; no Crohn's disease; no history of colon polyps; no history of colon cancer Hepatology: not frequently exhausted; no family history of liver disease; no liver disease; no history of pancreatitis; no yellowing of the skin; no Hepatitis C Co-morbidities: no diabetes; no heart disease; no lung disease; no fibromylagia; no depression; no frequent mouth ulcers; no inflammation of the eyes; no osteopenia; no osteoporosis; no arthritis Bruce Arenas MD [address] [place], [address], [facility] [address] 04/03/2021 14:03:59 OBGyn Episode No OBEpisode recorded.
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
--- OUTSIDE RECORDS SUMMARY | 2023-06-05 19:56 | XMS_ITS | Clinical Summary ---
Author Name Unknown Organization [facility] Address [address] [place] [address] Care Team Providers Care Obstetrics And Gynecology Professor Name Role Phone Unavailable Primary Care Provider Unavailabl e Social History Tobacco Use Types Packs/Day Years Used Date Smoking Tobacco: Never Assessed Sex and Gender Information Value Date Recorded Sex Assigned at Female 05/27/2022 7:18 PM EDT Gender Identity Not on file Sexual Orientation Not on file Plan of Treatment Health Maintenance Due Date Last Done Comments CT Colonography 1966 Colonoscopy 1966 Colorectal Cancer Screening 1966 FIT-DNA 1966 FIT 1966 FOBT 1966 Hepatitis B Vaccines (1 of 3 - 3-dose series) 1966 Sigmoidoscopy 1966 Hepatitis C Screening 1984 DTaP/Tdap/Td Vaccines (1 - Tdap) 1985 Pap Smear 06/17/1987 Cervical Cancer Screening 1996 HPV/Cotest 1996 Mammogram 2006 Zoster Vaccines (1 of 2) 2016 Influenza Vaccine (Season Ended) 2023 HIB Vaccines Aged Out No longer eligi ble based on patient's age to complete this topic HPV Vaccines Aged Out No longer eligi ble based on patient's age to complete this topic Hepatitis A Vaccines Aged Out No long er eligible based on patient's age to complete this topic IPV Vaccines Aged Out No longer eligi ble based on patient's age to complete this topic Meningococcal Vaccine Aged Out No cristi bernabe eligible based on patient's age to complete this topic Pneumococcal Vaccine: Pediat rics (0 to 5 Years) and At-Risk Patients (6 to 64 Years) Aged Out No longer eligible b ased on patient's age to complete this topic Rotavirus Vaccines Aged Out No longer eligible based on patient's age to complete this topic
--- OUTSIDE RECORDS SUMMARY | 2023-06-05 19:56 | XMS_ITS | Data Portability ---
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 Based on history, physical exam, and prior treatments/diagn ostic studies, I recommend Right Lumbar LINDSEY L4, L5 today. Discussed treatment plan with patient. [email or web address] Not available 09/11/2021 16:16:32 07/23/2021 07/23/2021 Patient presents with chronic low back pain/ right sciatica pains. Based on history, physical exam, and prior treatments/diagn ostic studies, I recommend transforminal LINDSEY at L4-5, L5-M1epvno today. Discussed treatment plan with patient. [email or web address] Not available 08/29/2021 23:23:26 10/25/2021 10/25/2021 Patient presents with chronic low back/right leg pain. Based on history, physical exam, and prior treatments/diagn ostic studies, I recommend right sacroiliac joint injection. Discussed treatment plan with patient. Patient presents with chronic pelvic pain. Based on history and physical exam, I recommend X-ray evaluation of bilateral hip and pelvis. [email or web address] Not available 03/11/2022 15:28:40 Plan of Treatment Reminders Order Date Submit Date Provider Last Modified By Organization Details Last Modified Time Details Appointments None recorded. Lab None recorded. Referral None recorded. Procedures None recorded. Surgeries None recorded. Imaging MRI, shoulder, w/o contrast 2021 [facility], [address], [place], [address], 14:10:58 XR, hip + pelvis, bilateral 2021 [facility], [address], [address], [place], [address], 14:19:08 Medication Orders hydrocodone 5 mg-acetamin ophen 325 mg tablet 2021 [id number], [address], [place], [address], 11:53:04 Patient Targets Encounter Date Encounter Id Patient Goals Patient Target Last Modified By Organization Details Last Modified Time 1. Decrease pain levels.2. Increase function.3. Decrease narcotic dependence.4 . Increase physical activity.5. Continue weight loss efforts by walking ten to twenty minutes daily and reducing calorie intake. [email or web address] Not available 10/25/2021 11:15:20 1. Decrease pain levels.2. Increase function.3. Decrease narcotic dependence.4 . Increase physical activity.5. Continue weight loss efforts by walking ten to twenty minutes daily and reducing calorie intake. [email or web address] Not available 07/24/2021 18:03:42 1. Decrease pain levels.2. Increase function.3. Decrease narcotic dependence.4 . Increase physical activity.5. Continue weight loss efforts by walking ten to twenty minutes daily and reducing calorie intake. [email or web address] Not available 09/11/2021 16:18:54 Patient Instructions Encounter Date Encounter Id Patient Instructions Last Modified By Organization Details Last Modified Time 10/25/2021 [id number] leg pain: care instructions [email or web address] Not available 10/25/2021 11:52:53 lumbar spinal stenosis: care instructions [email or web address] Not available 10/25/2021 11:52:53 sacroiliac pain: exercises [email or web address] Not available 03/11/2022 15:29:30 chronic pelvic pain: care instructions [email or web address] Not available 10/25/2021 11:52:53 pelvic pain: car e instructions [email or web address] Not available 10/25/2021 11:52:52 Continue home exercise program, walking 10 - 20 minutes/day. Stretching exercises of the axial spine to maintain flexibility/ROM. Discussed diet, needs to consume more protein to maintain muscle mass. [email or web address] Not available 03/11/2022 15:27:38 Apply cold packs to treated area for 10 minutes on/ 10 minutes off over next 24 - 48 hours while awake. Continue present care. Provided written post injection care instructions. Follow up in 2 weeks. [email or web address] Not available 03/11/2022 15:26:59 07/23/2021 [id number] lumbar spinal stenosis: care instructions [email or web address] Not available 08/29/2021 23:21:21 Continue home exercise program, walking 10 - 20 minutes/day. Stretching exercises of the axial spine to maintain flexibility/ROM. Discussed diet, needs to consume more protein to maintain muscle mass. [email or web address] Not available 07/24/2021 18:03:48 Continue home exercise program, walking 10 - 20 minutes/day. Stretching exercises of the axial spine to maintain flexibility/ROM. Discussed diet, needs to consume more protein to maintain muscle mass. [email or web address] Not available 07/24/2021 18:08:04 06/25/2021 [id number] leg pain: care instructions [email or web address] Not available 09/11/2021 16:19:25 Continue home exercise program, walking 10 - 20 minutes/day. Stretching exercises of the axial spine to maintain flexibility/ROM. Discussed diet, needs to consume more protein to maintain muscle mass. [email or web address] Not available 09/11/2021 16:19:00 Apply cold packs to treated area for 10 minutes on/ 10 minutes off over next 24 - 48 hours while awake. Continue present care. Provided written post injection care instructions. Follow up in 2 weeks. [email or web address] Not available 09/11/2021 16:19:11 Reason for Referral Neurologist Referral for Par kinson's disease Evaluate Referring Physician: Cecil Zaldivar, Pain Management, Encounter Date: 09/27/2021 Psychologist Referral for Ch ronic pain syndrome Evaluate for DCS Referring Physician: Cecil Zaldivar, Pain Management, Encounter Date: 09/27/2021 Results Created Date Observation Date Name Description Value Unit Range Abnormal Flag LastModifiedBy Organization Detail LastModifiedTime 05/25/19 22 02/15/2021 CT, cervi valeriy spine , w/o contr ast No observ ation record ed. [email or web address] Not Available 05/24/2021 11:39:14 05/25/19 22 09/24/2020 CT, cervi valeriy spine , w/o contr ast No observ ation record ed. [email or web address] Not Available 05/24/2021 18:17:50 05/25/19 22 09/24/2020 XR, forea rm No observ ation record ed. [email or web address] Not Available 05/24/2021 18:16:47 05/25/19 22 09/24/2020 XR, humer us No observ ation record ed. [email or web address] Not Available 05/24/2021 18:17:06 05/25/19 22 09/24/2020 CT, lumba r spine , w/o contr ast No observ ation record ed. [email or web address] Not Available 05/24/2021 18:16:23 07/03/19 22 07/02/2021 MRI, lumba r spine , w/o contr ast No observ ation record ed. [email or web address] [facility] (Medical Records) [address], [place], [address], 07/11/2021 15:49:57 11/02/19 22 11/01/2021 MRI, shoul [place], w/o contr ast No observ ation record ed. [facility] [address], [place], [address], 11/01/2021 14:10:58 11/02/19 22 11/01/2021 XR, hip + pelvi s, bilat eral No observ ation record ed. [facility] [address], [place], [address], 11/01/2021 14:19:08 Result Notes None recorded. Problems Name Status Onset Date Resolution Date Notes Provider Name and Address Organization Details Recorded Time Ulcerative colitis Active Cecil Zaldivar MD [address], [place], [address] , [place] - Cecil Zaldivar MD 05/24/2021 10:53:50 Parkinson's disease Active Cecil Zaldivar MD [address], [place], [address] , [place] - Cecil Zaldivar MD 05/24/2021 10:53:57 Type 2 diabetes mellitus Active Cecil Zaldivar MD [address], [place], [address] , [facility] - Cecil Zaldivar MD 05/24/2021 10:54:18 Spinal stenosis in cervical region Active Cecil Zaldivar MD [address], [place], [address] , [facility] - Cecil Zaldivar MD 05/24/2021 10:54:49 Spinal stenosis of thoracic region Active Cecil Zaldivar MD [address], [place], [address] , [facility] - Cecil Zaldivar MD 05/24/2021 10:54:57 Chronic pain syndrome Active Cecil Zaldivar MD [address], [place], [address] , [place] - Cecil Zaldivar MD 05/24/2021 10:55:06 Sleep apnea Active Cecil Zaldivar MD [address], [place], [address] , [place] - Cecil Zaldivar MD 05/24/2021 10:55:17 Tremor Active Cecil Zaldivar MD [address], [place], [address] , [place] - Cecil Zaldivar MD 05/24/2021 10:55:23 Hypertensive disorder Active Cecil Zaldivar MD [address], [place], [address] , [place] Jose Zaldivar MD 05/24/2021 10:55:30 Rupture of rotator cuff of left shoulder Active Cecil Zaldivar MD [address], [place], [address] , [place] - Cecil Zaldivar MD 05/24/2021 11:02:10 Chronic obstructive lung disease Active Cecil Zaldivar MD [address], [place], [address] , [place] - Cecil Zaldivar MD 05/24/2021 11:07:27 Asthma Active Cecil Zaldivar MD [address], [place], [address] , [place] - Cecil Zaldivar MD 05/24/2021 11:07:33 Spinal stenosis of lumbar region Active 05/25/19 22 Cecil Zaldivar MD [address], [place], [address] , [place] - Cecil Zaldivar MD 05/24/2021 11:40:23 Degeneration of thoracolumbar intervertebral disc Active 05/25/19 22 Cecil Zaldivar MD [address], [place], [address] , [place] - Cecil Zaldivar MD 05/24/2021 11:40:50 Smoker Active 05/25/19 22 Cecil Zaldivar MD [address], [place], [address] , [place] Jose Zaldivar MD 05/24/2021 11:41:12 Arthritis of right sacroiliac joint Active 05/25/19 22 Cecil Zaldivar MD [address], [place], [address] , [place] - Cecil Zaldivar MD 05/24/2021 11:52:24 Injury of left rotator cuff Active 05/25/19 22 Cecil Zaldivar MD [address], [place], [address] , [place] Jose Zaldivar MD 05/24/2021 12:04:37 Neuropathy due to diabetes mellitus Active 05/25/19 22 Cecil Zaldivar MD [address], [place], [address] , [place] Jose Zaldivar MD 05/24/2021 12:04:52 Bilateral sciatica Active 08/30/19 22 Cecil Zaldivar MD [address], [place], [address] , [place] Jose Zaldivar MD 08/29/2021 23:07:12 Problem Notes None recorded. Procedures Surgical History Date Name Laterality Status Provider Name and Address Organization Details Recorded Time 10/26/19 22 SI JOINT INJECTION completed Cecil Zaldivar MD [address], [place], [address], [facility] Jose Zaldivar MD 10/25/2021 14:07:58 09/07/19 22 LUMBAR FACET JOINT INJECTION FLUOROSCOPIC-COCO DED active Cecil Zaldivar MD [address], [place], [address], [facility] Jose Zaldivar MD 09/06/2021 14:02:07 07/24/19 22 LUMBAR LINDSEY completed Cecil Zaldivar MD [address], [place], [address], [facility] Jose Zaldivar MD 08/29/2021 23:20:19 06/26/19 22 LUMBAR LINDSEY completed Cecil Zaldivar MD [address], [place], [address], [place] Jose Zaldivar MD 09/11/2021 16:15:23 05/31/19 22 LUMBAR LINDSEY active Cecil Zaldivar MD [address], [place], [address], [place] Jose Zaldivar MD 05/30/2021 18:05:28 section completed Cecil Zaldivar MD [address], [place], [address], [place] Jose Zaldivar MD 05/24/2021 10:58:24 Total hysterectomy completed Cecil Zaldivar MD [address], [place], [address], [place] Jose Zaldivar MD 05/24/2021 10:35:30 Neck Surgery completed Cecil Zaldivar MD [address], [place], [address], [place] Jose Zaldivar MD 05/24/2021 11:00:20 release of trigger finger completed Cecil Zaldivar MD [address], [place], [address], [place] Jose Zaldivar MD 05/24/2021 11:02:44 Carpal tunnel surgery completed Cecil Zaldivar MD [address], [place], [address], [facility] Jose Zaldivar MD 05/24/2021 11:03:04 Imaging Results Imaging Date Name Status LastModified by [facility] Details LastModified Time 02/15/2021 CT, cervical spine, w/o contrast completed Information not available 05/24/2021 11:39:14 09/24/2020 CT, cervical spine, w/o contrast completed Information not available 05/24/2021 18:17:50 09/24/2020 XR, forearm completed Information n ot available 05/24/2021 18:16:47 09/24/2020 XR, humerus completed Information n ot available 05/24/2021 18:17:06 09/24/2020 CT, lumbar spine, w/o contrast completed Information not available 05/24/2021 18:16:23 07/02/2021 MRI, lumbar spine, w/o contrast completed [email or web address] [facility] [place] (Medical Records) [address], [place], [address], 07/11/2021 15:49:57 11/01/2021 MRI, shoulder, w/o contrast active [facility] [address], [place], [address], 11/01/2021 14:10:58 11/01/2021 XR, hip + pelvis, bilateral active [facility] [address], [place], [address], 11/01/2021 14:19:08 Procedure Notes None recorded. Medical Equipment None Reported. Allergies Allergen ID Allergen Name Allergen Category Reaction Reaction Severity Criticality Documentation Date Start Date Code Code System Note Provider Name and Address Organization Details Recorded Time 4821 amoxicill in medicatio n diarrhea Not available high 05/24/2021 723 RxNorm Cecil Zaldivar MD [address], [place], [address], [facility] Jose Zaldivar MD 2 10:32:17 4822 latex environme nt,medica tion hives rash Not available Not available high 05/24/2021 64755 91 RxNorm Cecil Zaldivar MD [address], [place], [address], [facility] Jose Zaldivar MD 2 10:32:38 Medications Name Sig Start Date Stop Date Status Note LastModified by Organization Details LastModified Time stool [id number] cap TAKE 1 CAPSULE BY MOUTH THREE TIMES DAILY WITH MEALS FOR 90 DAYS active Not Available Not Available No t Available cyclobenzap rine 10 mg tablet TAKE 1 TABLET BY MOUTH THREE TIMES DAILY NEEDED FOR MUSCLE SPASM active Not Available Not Available No t Available fluconazole 100 mg tablet TAKE 1 TABLET BY MOUTH TWICE DAILY FOR 10 DAYS active Not Available Not Available No t Available metformin 500 mg tablet TAKE 1 TABLET BY MOUTH TWICE DAILY WITH MEALS 05/24 completed Not Available Not Available Not Available gabapentin 600 mg tablet TAKE 1 TABLET BY MOUTH 4 TIMES DAILY active Not Available Not Available No t Available albuterol sulfate 2.5 mg/3 mL (0.083 %) solution for nebulizatio n active Not Available Not Available Not Available pravastatin 40 mg tablet active Not Available Not Available Not Available carbidopa 25 mg-levodopa 250 mg tablet 08/29 completed Not Available Not Available Not Available hydrocodone 5 mg-acetamin ophen 325 mg tablet TAKE 1 TABLET BY MOUTH EVERY 8 HOURS NEEDED FOR PAIN x 30 days 2021 active Not Available Not Available Not Avai lable meloxicam 15 mg tablet TAKE 1 TABLET BY MOUTH ONCE DAILY active Not Available Not Available No t Available ondansetron HCl 4 mg tablet TAKE 1 TABLET BY MOUTH 4 TIMES DAILY NEEDED FOR NAUSEA active Not Available Not Available No t Available propranolol ER 60 mg capsule,24 hr,extended release TAKE 1 CAPSULE BY MOUTH AT BEDTIME active Not Available Not Available No t Available aspirin 81 mg tablet,johny yed release Take 1 tablet every day by oral route. active Not Available Not Available No t Available Nicotrol 10 mg inhalation cartridge active Not Available Not Available No t Available trazodone 100 mg tablet TAKE 1 TABLET BY MOUTH ONCE DAILY AT BEDTIME FOR 30 DAYS active Not Available Not Available No t Available [employer] Ultra Test strips USE STRIP TO CHECK GLUCOSE TWICE DAILY DX E11.9 active Not Available Not Available No t Available cephalexin 500 mg capsule 08/08 completed Not Available Not Available Not Available simvastatin 20 mg tablet TAKE 1 TABLET BY MOUTH ONCE DAILY IN THE EVENING FOR 90 DAYS active Not Available Not Available No t Available metformin 1,000 mg tablet active Not Available Not Available Not Available diclofenac sodium 75 mg tablet,johny yed release TAKE 1 TABLET BY MOUTH TWICE DAILY active Not Available Not Available No t Available budesonide DR - ER 3 mg capsule,del ayed,extend ed release TAKE 1 CAPSULE BY MOUTH TWICE DAILY DIRECTED active Not Available Not Available No t Available carbidopa 25 mg-levodopa 100 mg tablet active Not Available Not Available Not Available topiramate 100 mg tablet active Not Available Not Available Not Available lamotrigine 100 mg tablet TAKE 2 TABLETS BY MOUTH AT BEDTIME active Not Available Not Available No t Available buspirone 15 mg tablet TAKE 1 TABLET BY MOUTH TWICE DAILY active Not Available Not Available No t Available topiramate 50 mg tablet TAKE 1 TABLET BY MOUTH TWICE DAILY 05/24 completed Not Available Not Available Not Available mirtazapine 7.5 mg tablet TAKE 1 TABLET BY MOUTH ONCE DAILY AT BEDTIME FOR 30 DAYS active Not Available Not Available No t Available duloxetine 60 mg capsule,del ayed release TAKE 1 CAPSULE BY MOUTH ONCE DAILY FOR 90 DAYS active Not Available Not Available No t Available docusate sodium active Not Available Not Available Not Available ProAir HFA 90 mcg/actuati on aerosol inhaler INHALE 2 PUFFS BY MOUTH EVERY 4 HOURS NEEDED active Not Available Not Available No t Available diclofenac 1 % topical gel APPLY 2 GRAMS TO THE AFFECTED AREA(S) BY TOPICAL ROUTE 4 TIMES PER DAY active Not Available Not Available No t Available Suprep Bowel Prep Kit 17.5 gram-3.13 gram-1.6 gram oral solution USE DIRECTED 05/24 completed Not Available Not Available Not Available OneTouch Ultra2 Meter USE DIRECTED 05/24 completed Not Available Not Available Not Available OneTouch Delica Plus Lancet 33 gauge USE TO CHECK GLUCOSE TWICE DAILY DX E11.9 active Not Available Not Available No t Available Vitals Date Recorded Respiratory rate Body temperature Heart rate Body weight Body mass index (BMI) Body height Systolic blood pressure Diastolic blood pressure Provider Name and Address Organization Details Last Updated DateTime 2 16 /min 97.6 [degF] 84 /min 15968.3 2 g 40.2 kg/m2 157.48 cm 126 mm[Hg] 100 mm[Hg] Cecil Zaldivar MD [address], [place], [address], [place] Jose Zaldivar MD 2 10:42:48 Date Recorded Body height Respiratory rate Body mass index (BMI) Body weight Heart rate Body temperature Systolic blood pressure Diastolic blood pressure Provider Name and Address Organization Details Last Updated DateTime 2 157.48 cm 16 /min 40.2 kg/m2 08002.3 2 g 67 /min 98.2 [degF] 93 mm[Hg] 70 mm[Hg] Cecil Zaldivar MD [address], [place], [address], [place] Jose Zaldivar MD 2 15:22:39 Date Recorded Body height Respiratory rate Body mass index (BMI) Body weight Body temperature Provider Name and Address Organization Details Last Updated DateTime 06/13/2021 157.48 cm 17 /min 40.2 kg/m2 66166.3 2 g 97.8 [degF] Cecil Zaldivar MD [address], [place], [address], [place] Jose Zaldivar MD 2 16:53:18 Date Recorded Body height Heart rate Respiratory rate Body temperature Systolic blood pressure Diastolic blood pressure Provider Name and Address Organization Details Last Updated DateTime 2 157.48 cm 73 /min 14 /min 96.9 [degF] 108 mm[Hg] 93 mm[Hg] Cecil Zaldivar MD [address], [place], [address], [place] Jose Zaldivar MD 2 14:28:56 Date Recorded Body height Respiratory rate Body mass index (BMI) Body weight Body temperature Provider Name and Address Organization Details Last Updated DateTime 07/11/2021 157.48 cm 15 /min 40.2 kg/m2 35083.3 2 g 97.2 [degF] Cecil Zaldivar MD [address], [place], [address] [place] Jose Zaldivar MD 2 15:35:31 Date Recorded Body height Respiratory rate Heart rate Body mass index (BMI) Body weight Body temperature Systolic blood pressure Diastolic blood pressure Provider Name and Address Organization Details Last Updated DateTime 2 157.48 cm 16 /min 72 /min 40.2 kg/m2 01834.3 2 g 97.5 [degF] 105 mm[Hg] 87 mm[Hg] Cecil Zaldivar MD [address], [place], [address] [place] Jose Zaldivar MD 2 18:02:21 Date Recorded Body height Respiratory rate Heart rate Body mass index (BMI) Body weight Body temperature Systolic blood pressure Diastolic blood pressure Provider Name and Address Organization Details Last Updated DateTime 2 157.48 cm 15 /min 68 /min 40.2 kg/m2 55047.3 2 g 98 [degF] 119 mm[Hg] 78 mm[Hg] Cecil Zaldivar MD [address], [place], [address] [place] Jose Zaldivar MD 2 16:56:26 Date Recorded Body height Heart rate Respiratory rate Body mass index (BMI) Body weight Body temperature Systolic blood pressure Diastolic blood pressure Provider Name and Address Organization Details Last Updated DateTime 2 157.48 cm 70 /min 16 /min 40.2 kg/m2 54765.3 2 g 97.8 [degF] 108 mm[Hg] 76 mm[Hg] Cecil Zaldivar MD [address], [place], [address]ALTA MD 2 13:12:10 Date Recorded Body height Heart rate Respiratory rate Body mass index (BMI) Body weight Body temperature Systolic blood pressure Diastolic blood pressure Provider Name and Address Organization Details Last Updated DateTime 2 157.48 cm 72 /min 16 /min 40.2 kg/m2 81626.3 2 g 97.3 [degF] 108 mm[Hg] 76 mm[Hg] Cecil Zaldivar MD [address], [place], [address], ALTA Zaldivar MD 2 16:32:04 Date Recorded Body height Heart rate Respiratory rate Body mass index (BMI) Body weight Body temperature Systolic blood pressure Diastolic blood pressure Provider Name and Address Organization Details Last Updated DateTime 2 157.48 cm 65 /min 16 /min 40.2 kg/m2 20602.3 2 g 97 [degF] 124 mm[Hg] 98 mm[Hg] Cecil Zaldivar MD [address], [place], [address]ALTA MD 2 11:17:37 Social History Question Answer Notes LastModified by Organizat ion Details LastModified Time Tobacco Smoking Status Former Smoker quit in Feb 13, [address] MD [address], [place], [address], ALTA Zaldivar MD 05/24/2021 11:03:44 Do You Have An Advance Directive? No Information not available 08/29/2021 What Is Your Level Of Alcohol Consumption? None Information not available 05/24/2021 Are You Blind Or Do You Have Difficulty Seeing? No Information not available 08/29/2021 What Is Your Level Of Caffeine Consumption? Occasional Information not available 08/29/2021 In The 14 Days Before Symptom Onset, Have You Had Close Contact With A Laboratory-confir med COVID-19 While That Case Was Ill? No Information not available 08/29/2021 In The 14 Days Before Symptom Onset, Have You Had Close Contact With A Person Who Is Under Investigation For COVID-19 While That Person Was Ill? No Information not available 08/29/2021 Have You Been To An Area Known To Be High Risk For COVID-19? No Information not available 08/29/2021 Are You Currently Employed? No Information not available 08/29/2021 Are You Deaf Or Do You Have Serious Difficulty Hearing? No Information not available 08/29/2021 What Type Of Diet Are You Following? REGULAR Information not available 08/29/2021 Have You Processed Blood Or Body Fluids From An Ebola Virus Disease Patient Without Appropriate PPE? No Information not available 08/29/2021 Do You Reside In Or Have You Traveled To An Area Where Ebola Virus Transmission Is Active? No Information not available 08/29/2021 What Is The Highest Grade Or Level Of School You Have Completed Or The Highest Degree You Have Received? [id number] Information not available 08/29/2021 How Many Days Of Moderate To Strenuous Exercise, Like A Brisk Walk, Did You Do In The Last 7 Days? 0 Information not available 08/29/2021 Which Of Your Hands Is Dominant? Right Information not available 08/29/2021 What Was The Date Of Your Most Recent Tobacco Screening? 07/23/2021 Information not available 08/29/2021 What Is Your Relationship Status? Information not available 08/29/2021 Do You Use Your Seat Belt Or Car Seat Routinely? Yes Information not available 08/29/2021 Are You Sexually Active? No Information not available 08/29/2021 Do You Have Smoke And Carbon Monoxide Detectors In Your Home? No Information not available 08/29/2021 At What Age Did You Start Smoking Tobacco? 21 Information not available 08/29/2021 What Types Of Sporting Activities Do You Participate In? None Information not available 08/29/2021 Do You Feel Stressed (tense, Restless, Nervous, Or Anxious, Or Unable To Sleep At Night)? [id number] Information not available 08/29/2021 Do You Use Any Illicit Or Recreational Drugs? No Information not available 05/24/2021 Do You Use Sunscreen Routinely? No Information not available 08/29/2021 How Many Years Have You Smoked Tobacco? 32 Information not available 08/29/2021 Do You Or Have You Ever Used Any Other Forms Of Tobacco Or Nicotine? No Information not available 05/24/2021 Sex: Female Functional Status Question Answer Note LastModified by Organizat ion Details LastModified Time Do you have difficulty walking or climbing stairs? No Information not available 08/29/2021 Are you able to walk? YESWOREST Information not available 08/29/2021 Do you have difficulty doing errands alone? No Information not available 08/29/2021 Do you have difficulty dressing or bathing? No Information not available 08/29/2021 What is your exercise level? None Information not available 08/29/2021 Mental Status Question Answer Note LastModified by Organization D etails LastModified Time Do you have difficulty concentrating, remembering or making decisions? No Information no t available 08/29/2021 Family History Nothing Reported. Medical History Condition Response Coronary Artery Disease N Gout N Hernia N Head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
--- NOTE | 2023-06-05 21:08 | CT_ITS ---
Patient: NELSON LUQUE [facility] Facility:?[facility] Patient ID:?[id number] Site Patient ID:?[id number] Site :?[id number] Study:?CT-Pelvis (Bony) W/O-06/05/2023 9:28:32 PM Ordering Physician:BRENDNE Final Report: INDICATION: Cortical irregularity of sacroiliac on x-ray. TECHNIQUE: CT pelvis without contrast. COMPARISON: Pelvic radiograph 06/05/2023. FINDINGS: Bones: Subtle cortical irregularity of the anterior cortex of the S5 sacral segment, could represent a nondisplaced fracture. No other evidence for a fracture identified. Alignment is normal. Joints: Partial ankylosis of the left sacroiliac joint. Subtle sclerosis and erosive changes of the anterior inferior right sacroiliac joint. Soft tissues: Normal appendix. Small fat-containing left inguinal hernia. No free fluid in pelvis. The surrounding soft tissues are unremarkable. IMPRESSION: 1. Subtle cortical irregularity of the anterior cortex of the S5 sacral segment, could represent a nondisplaced fracture. Recommend correlation with site of focal tenderness. 2. Findings compatible with bilateral sacroiliitis with partial ankylosis of the left sacroiliac joint. Please note that all CT scans at this facility use dose modulation, iterative reconstruction, and/or weight-based dosing when appropriate to reduce radiation dose to as low as reasonably achievable. Dictated by Jc Mireles MD @ 06/05/2023 10:26:49 PM Signed by:?Jc Mireles MD @06/05/2023 10:26:49 PM (Electronic Signature)
[2023-06-05] MEDS: ACETAMINOPHEN 500 MG TABLET 1000 MG PO (21:31)
[2023-06-05] MEDS: KETOROLAC 30 MG/ML inj 15 MG IM (21:31)
== END 2023-06-05 23:18 | disposition home or self-care (01) ==
PROVIDERS: Emergency Provider Family Medicine; PCP Internal Medicine
DX: M25.521 Pain in right elbow (principal); S32.10XA Unspecified fracture of sacrum, initial encounter for closed fracture; W18.09XA Striking against other object with subsequent fall, initial encounter
CPT/HCPCS: 70450; 71046; 72125; 72170; 72192; 96372; 99284; A9270; J1885

== ENCOUNTER 2023-07-02 16:15 | Outpatient (CLI) | payer MEDICARE, SELFPAY ==
--- OUTSIDE RECORDS SUMMARY | 2023-07-02 16:18 | XMS_ITS | Clinical Summary ---
Author Organization [facility] Address [address] [place] [address] Care Team Providers Care Credit And Collections Representative Name Role Phone Unavailable Primary Care Provider [...]
--- OUTSIDE RECORDS SUMMARY | 2023-07-02 16:18 | XMS_ITS | Patient Health Record ---
Author Organization [facility] Billing Info Address [address] [place] [address] Care Team Providers Care Appliance Worker Name Role Phone DERRICK WHITING Unavailable [phone] STEPHAN CERRATO NONA Unavailable [phone] DELMIS WALTER Unavailable [phone] Allergies Allergen (clinical drug ingredient) Drug/Non Drug Allergy documented on EMR Reaction Allergy Type Onset Date Status amoxicillin Amoxicillin diarrhea Drug Allergy 02/24/2020 Ac tive Latex Latex rash/hives Allergy 02/24/2020 Active Reason For Referral No Information Medications Medication SIG (Take, Route, Frequency, Duration) Notes Start Date End Date Status Gabapentin 600 MG 1 tablet Orally QID for 90 day(s) Active BusPIRone HCl 15 MG 1 tablet Orally Twice a day for 90 days Active KabongoTouch Ultra Test Strips ---- as directed E11.9 test twice a day for 90 days 04/05/2021 Active Trazodone HCl 100 MG 1 tablet at bedtime Orally Once a day for 90 days Active Ondansetron HCl 4 MG 1 tablet Orally three times a day prn for 90 days 02/06/2022 Active Albuterol Sulfate (2.5 MG/3ML) 0.083% INHALE 3MLS VIA NEBULIZER FOUR TIMES DAILY NEEDED. for 30 Active EpiPen 2-Raymundo 0.3 MG/0.3ML as directed Injection as directed for 3 months dual pack 11/19/2021 Active Propranolol HCl ER 60 MG 1 capsule Orall y Once a day for 5 days Active Simvastatin 20 MG 1 tablet in the evening Orally Once a day for 5 days Active Zofran 4 MG 1 tablet Orally 3 times prn nausea for 5 days 04/28/2020 Active Colace 100 MG 1 capsule as needed Orally three times a day for 5 days Active Vitamin D 50 MCG (1999 UT) 1 capsule Orally Once a day for 5 days Active Mirtazapine 7.5 MG 1 tablet at bedtime Orally Once a day for 30 day(s) 04/11/2020 Active Lancets 33G - as directed E11.9 test twice a day for 90 days 04/05/2021 Active Oxycodone HCl 5 MG 1 tablet as needed Orally every 6 hrs for 30 days 02/14/2022 Active ProAir HFA 108 (90 Base) MCG/ACT 2 puff as needed Inhalation every 6 hrs for 30 day(s) Active Budesonide 3 MG TAKE ONE CAPSULE BY MOUTH EVERY 8 HOURS for 120 Active Mirtazapine 7.5 MG 1 tablet at bedtime Orally Once a day for 90 days Active Fish Oil 1200 MG 1 capsule Orally Once a day for 30 day(s) Active Metformin HCl 1000 MG 1 tablet with a meal Orally BID for 90 days Active Nicotrol 10 MG 1 cartridge as needed Inhalation 16 time(s) a day for 90 days 10/25/2020 Active Aspir-Low 81 MG 1 tablet Orally Once a day for 30 day(s) Active Blood Glucose Monitor System w/Device as directed E11.9 once a day for 90 days with lancets and test strips 90 day supply with 3 refills 03/27/2021 Active Tramadol HCl 50 MG 1 tablet as needed Orally TID prn non acute pain for 30 day(s) 04/05/2022 Active Culturelle - as directed Orally Active Pravastatin Sodium 40 MG 1 tablet Orally Once a day for 5 days 06/05/2021 Active Topiramate 100 MG 1 tablet Orally BID for 90 days Active Meloxicam 15 MG 1 tablet Orally Once a day for 90 days Active Cyclobenzaprine HCl 10 MG 1 tablet Orally BID prn for 5 days Active Gabapentin 600 MG 1 tablet Orally every 8 hrs for 90 days Active Duloxetine HCl 60 MG 1 capsule Orally Once a day for 90 days Active Vitamin D3 50 MCG (1999 UT) 1 tablet Orally Once a day for 90 days 10/04/2022 Active Immunizations Vaccine Route Administration Date Status Comme [facility] zCOVID-19 (Moderna) 12+yrs, NO PRES Unknown 05/27/2020 Administered zCOVID-19 (Moderna) 12+yrs, NO PRES Unknown 06/26/2020 Administered Social History Tobacco Use: Social History Observation Description Date Details (start date - stop date) Current Smoker NA - NA Tobacco Status: Question Answer Notes Patient is a current every day smoker Problems Problem Type SNOMED Code ICD Code Onset Dates Problem Status W/U Status Risk Notes Problem 70777903 Type 2 diabetes mellitus with other specified complication (E11.69) Active confirmed Problem 626721178 Morbid (severe) obesity due to excess calories (E66.01) Active confirmed Problem 380142975 Obesity, unspeci fied (E66.9) Active confirmed Problem 762038164 Chronic pain syn drome (G89.4) Active confirmed Problem Localized, primary osteoarthritis of the shoulder region (520088806) Primary osteoarthritis, left shoulder (M19.012) Active confirmed Problem Full thickness rotator cuff tear (870273361) Complete rotator cuff tear or rupture of unspecified shoulder, not specified as traumatic (M75.120) Active confirmed Problem Impingement syndrome of left shoulder region (248803350090298) Impingement syndrome of left shoulder (M75.42) Active confirmed Problem 260676937 Dietary counseli ng and surveillance (Z71.3) Active confirmed Problem 776276738 Body mass index [BMI] 40.0-44.9, adult (Z68.41) Active confirmed Problem 19796793 Parkinsons disea se (G20) Active confirmed Problem 352043378 Morbid obesity (E66.01) Active confirmed Problem 56222994 Essential hypert ension (I10) Active confirmed Problem Pre-procedure evaluation check (556894380) Pre-operative clearance (Z01.818) Active confirmed Problem Right shoulder pain (8485395757) Right shoulder pain (M25.511) Active confirmed Problem Left shoulder pain (0215243107) Left shoulder pain (M25.512) Active confirmed Problem 559397618562433 Trochanteric bur sitis of right hip (M70.61) Active confirmed Problem 49050283 Tobacco dependen ce (F17.200) Active confirmed Problem 8844376873825 S/P cervical spi nal fusion (Z98.1) Active confirmed Problem 74961060 Cervical spinal stenosis (M48.02) Active confirmed Problem 080941844067337 Gluteal tendinit is of right buttock (M76.01) Active confirmed Problem 723707099 Adult general me dical exam (Z00.00) Active confirmed Problem Long-term current use of 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 (369039048) 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.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) Active confirmed Problem 23922541 Thoracic spinal stenosis (M48.04) Active confirmed Problem 074711874 Disorder of left rotator cuff (M67.912) Active confirmed Problem 752872117 Biceps tendiniti s of left shoulder (M75.22) Active confirmed Problem 37020921 Iliotibial band tendinitis of right side (M76.31) Active confirmed Problem 9245203881260470 Osteoarthritis of left acromioclavicular joint (M19.012) Active confirmed Problem 755260486 Rotator cuff impingement syndrome of left shoulder (M75.42) Active confirmed Problem 68572663 Hypercholesterol emia (E78.00) Active confirmed Problem 527992628 Aftercare (Z51.89) Active confirmed Problem 076684353 Status post left rotator cuff repair (Z98.890) Active confirmed Problem 7040355504354026 Nontraumatic co mplete tear of left rotator cuff (M75.122) Active confirmed Problem 248432808 Frequent headach es (R51.9) Active confirmed Problem 766246157 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) Active confirm ed Encounters Encounter Location Date Provider Diagnosis [id number] [address] [facility] [address] [address] [place], [place] [id number] 07/04/2022 DELMIS WALTER Dietary counseling and surveillance Z71.3 [id number] [address] [facility] [address] [facility] [address] [place], [place] [id number] 08/16/2022 NONA ROTHMAN II [id number] [address] [facility] [address] [facility] [address] [place], [place] [id number] 09/04/2022 NONA ROTHMAN II Dietary counseling and surveillance Z71.3 [id number] [address] [facility] [address] [facility] [address] [place], [place] [id number] 09/05/2022 NONA ROTHMAN II Dietary counseling and surveillance Z71.3 [id number] [address] [facility] [address] [facility] [address] [place], [place] [id number] 10/04/2022 NONA ROTHMAN II [id number] [address] [facility] [address] [address] [place], [place] [id number] 11/04/2022 NONA ROTHMAN II Dietary counseling and surveillance Z71.3 [id number] [address] [facility] [address] [address] [place], [place] [id number] 01/06/2023 NONA ROTHMAN II Dietary counseling and surveillance Z71.3 [id number] [address] [facility] [address] [address] [place], [place] [id number] 04/07/2023 NONA ROTHMAN II Dietary counseling and surveillance Z71.3 Assessments Encounter Date Diagnosis (ICD Code) Assessment Notes Treat ment Notes Treatment Clinical Notes 07/04/2022 Dietary counseling and surveillance (ICD-10 - Z71.3) 09/04/2022 Dietary counseling and surveillance (ICD-10 - Z71.3) 09/05/2022 Dietary counseling and surveillance (ICD-10 - Z71.3) 11/04/2022 Dietary counseling and surveillance (ICD-10 - Z71.3) 01/06/2023 Dietary counseling and surveillance (ICD-10 - Z71.3) 04/07/2023 Dietary counseling and surveillance (ICD-10 - Z71.3) Plan Of Treatment Pending Test Test Name Order Date HEPATIC FUNCTION PANEL (02883) LIPID PANEL (70063) 03/16/2020 HEMOGLOBIN A1C (C114) 03/16/2020 Basic Metabolic Panel (8) 03/16/2020 Insurance Providers Payer Name Payer Address Payer Phone Subscriber Number Group Number Insured Name Patient Relationship to Insured Coverage Start Date Coverage End Date [facility] [employer] D[employer]PLETE [address] [address] [facility] [place] [place] [id number] Emilee Boyer Self - patient is the insured 2 2 Medications Administered Medication Instructions Date of Administration Dosage Notes MethylPREDNISolone Acetate 12/25/2021 80 mg Xylocaine 12/25/2021 2 mL Medical (General) History Medical History History ICD Code Anxiety/Depression Diabetes Mellitus Insomnia Parkinsons Disease- neurolog ist diagnosed in [place] associated with [facility] for 15 years Essential hypertension Poor wound healing from surgeries Morbid obesity Surgical History Surgery Date(Month/Year) LT RCR 01/31/2022 Colonoscopy 06/15/2020 Mammogram 2019 (R) CTR C5,C6,C7 fusion and replacment Hysterectomy-Full Uterine Ablation x2
--- OUTSIDE RECORDS SUMMARY | 2023-07-02 16:19 | XMS_ITS | Clinical Summary ---
Author Organization [facility] Address [place], [place] [address] Care Team Providers Care Dental Amalgam Processor Name Role Phone Manan Beaulieu MD Primary Care Provider Allergies Active Allergy Reactions Criticality Noted Date [...] agreement terminated 2016 Overview: Patient terminated from [facility]. DDD (degenerative disc disease), cervical 2016 Overview: Oct 2016: epidural steroid injection left interlaminar, Cervical Spine at [facility]. Oct 2016: 3rd epidural steroid injection to Cervical Spine at [facility]. Obesity, Class II, BMI 35-39.9 07/12/2016 Alteration [...] Department Care Team Description 05/15/2023 Orders Only [facility] [address] [id number] Jaren Byrd MD <No scans attached> from [...] Comments Blood Pressure 125/59 04/02/2019 12:17 PM TRANSITION NURSE Pulse 80 04/02/2019 12:18 PM TRANSITION NURSE Temperature 36.9 ??C (98.5 ??F) 04/02/2019 1 0:55 AM TRANSITION NURSE Respiratory Rate 18 04/02/2019 10:5 5 AM TRANSITION NURSE Oxygen Saturation 97% 04/02/2019 12: 18 PM TRANSITION NURSE Inhaled Oxygen Concentration - - Weight 112.8 kg (248 lb 10.9 oz) 08/04/2017 8:02 AM CDT Height 154.9 cm (5' 1) 04/02/2019 10:5 5 AM TRANSITION NURSE Body Mass Index 45.48 08/04/2017 8:02 AM [...] this topic Medical Devices Implanted Type Area Completion Supervisor Device Identifier Shelf Expiration Date Model / Serial / Lot Bone Matrix 1cc [employer] Puttydbm - [id number] Implanted:Qty: 1 on 08/04/2017 by J Carlos Donohue MD at [facility] N/A: Cervical Vertebrae Medtronic Spine/Ortho 12/30/2018 [id number]# / / [id number] Bone [id number] Corner[employer] Lasr Spacer - [id number] Implanted:Qty: 1 on 08/04/2017 by J Carlos Donohue MD at [facility] N/A: Cervical Vertebrae Medtronic Spine/Ortho 04/03/2020 [id number]# / / [id number] Bone [id number] [employer] Lasr Spacer - [id number] Implanted:Qty: 1 on 08/04/2017 by J Carlos Donohue MD at [facility] N/A: Cervical Vertebrae Medtronic Spine/Ortho 10/30/2019 [id number]# / [id number] / [id number] 2 Plate Cerv 2lvl 37.5mm [place] [employer] Elite Ant - [id number] Implanted:Qty: 1 on 08/04/2017 by J Carlos Donohue MD at [facility] N/A: Cervical Vertebrae Medtronic Spine/Ortho [id number] / / - Screw Cerv Ant 4x12mm [employer] Va Slf Drill - [id number] Implanted:Qty: 6 on 08/04/2017 by J Carlos Donohue MD at [facility] N/A: Cervical Vertebrae Medtronic Spine/Ortho [id number] / / - Procedures Procedure Name Priority Date/Time Associated Diagnosis Comments XR MAMMO BILAT SCREENING Routine 03/26/2016 11:44 AM TRANSITION NURSE Visit for screening mammogram LIPID PANEL Routine 03/06/2015 9:54 AM TRANSITION NURSE Hyperlipidemia ANTI HIV 1/2 Routine 05/12/2014 10:16 AM CDT Screen for STD (sexually transmitted disease) ANTI HCV Routine 05/12/2014 10:16 AM CDT Screen for STD (sexually transmitted disease) OIL FIELD RIG BUILDER THIN PREP PAP SCREEN IMAGED Routine 05/12/2014 10:16 AM CDT Pap smear for cervical cancer screening from Last 3 Months or Most Recently Relevant to Health Maintenance Results * XR MAMMO BILAT SCREENING (03/26/2016 11:44 AM TRANSITION NURSE) Anatomical Region Laterality Modality BREASTS, Breast Left, Breast Right Bilateral Mammography Impressions 03/27/2016 12:29 PM TRANSITION NURSE ??There is no radiographic evidence for malignancy. ??Recommend annual mammograms. A lay language report of this examination will be provided to the patient. MAMMOGRAM ASSESSMENT: ??ACR 2 Benign Narrative 03/27/2016 12:29 PM TRANSITION NURSE XR MAMMO BILAT SCREENING [[id number]] CLINICAL HISTORY: ??This is an asymptomatic 50 y.o. patient. INDICATION FOR EXAM: Mammogram Screening. TECHNIQUE: CC & MLO views were obtained. ??This digital study was evaluated with the assistance of Computer-Aided Detection. COMPARISON FILMS: Yes 06/30/12 [facility] 05/15/11 [facility] FINDINGS: ??Mammographically, the breast tissue has scattered fibroglandular densities. ??No suspicious masses or microcalcifications. ?? Benign appearing calcifications within both breasts. Arnel Peck MD MAMMO * (ABNORMAL) LIPID PANEL (03/06/2015 9:54 AM TRANSITION NURSE) Pathologist [facility] CHOLESTEROL,TOTAL 237(H) 100 - 199 mg/dL 03/06/2015 10:25 AM TRANSITION NURSE [facility] TRIGLYCERIDES 184(H) <150 mg/dL 03/06/2015 10:25 AM [facility] HDL CHOLESTEROL 57 >40 mg/dL 03/06/2015 10:25 AM TRANSITION NURSE [facility] NON-HDL CHOLESTEROL 180(H) <145 mg/dl 03/06/2015 10:25 AM TRANSITION NURSE [facility] CHOL/HDL RATIO 4.16 <4.50 03/06/2015 10:25 AM [facility] LDL CHOLESTEROL 143(H) <=130 mg/dL 03/06/2015 10:25 AM [facility] PATIENT STATUS NON-FASTI NG 03/06/2015 10:25 AM [facility] Blood specimen (specimen) BLOOD SPECIMEN / Unknown Venipuncture / Unknown 03/06/2015 9:54 AM TRANSITION NURSE 03/06/2015 9:54 AM TRANSITION NURSE Arnel Peck MD CHEMISTRY [facility] [address] [place] [address], [place] [phone] * OIL FIELD RIG BUILDER THIN PREP PAP SCREEN IMAGED (05/12/2014 10:16 AM CDT) [facility] OIL FIELD RIG BUILDER CYTOLOGY See Anatomic Pathology case 05/17/2014 11:00 AM CDT [facility] Specimen (specimen) (Cervical/Vagina l) Non-Blood / Unknown 05/12/2014 10:16 AM CDT 05/12/2014 10:16 AM CDT Arnel Peck MD PATHOLOGY/CYTOLOGY [facility] [address] [place] [address], [place] * ANTI HCV (05/12/2014 10:16 AM CDT) [facility] HEPATITIS C ANTIBODY Non-Reacti ve Non-Reacti ve 05/12/2014 4:59 PM CDT [facility] Blood specimen (specimen) BLOOD SPECIMEN / Unknown Venipuncture / Unknown 05/12/2014 10:16 AM CDT 05/12/2014 10:16 AM CDT Narrative [facility] - 05/12/2014 4:59 PM CDT Antibodies to HCV not detected; does not exclude the possibility of exposure to HCV. Arnel Peck MD SEND OUTS [facility] [address] [place] [address], * ANTI HIV 1/2 (05/12/2014 10:16 AM CDT) HIV-1/HIV-2 ANTIBODY Non-Reacti ve Non-Reacti ve 05/12/2014 3:27 PM CDT [facility] Blood specimen (specimen) BLOOD SPECIMEN / Unknown Venipuncture / Unknown 05/12/2014 10:16 AM CDT 05/12/2014 10:16 AM CDT Narrative [facility] - 05/12/2014 3:27 PM CDT HIV-1 p24 and HIV-1/HIV-2 Ab not detected Arnel Peck MD SEND OUTS [facility] [address] [place] [address], from Last 3 Months or Most Recently Relevant to Health Maintenance Advance Directives * Full Code (Latest Code Status on File) Date Activated Date Inactivated Comments 08/04/2017 1:43 PM 08/05/2017 3:46 PM Question Answer Comments Code Status Discussion: Per Existing Order Care Teams Dental Amalgam Processor Relationship Specialty Start Date End Date Manan Beaulieu MD [address] [place] [address] PCP - General Internal Medicine 07/30/17
--- OUTSIDE RECORDS SUMMARY | 2023-07-02 16:19 | XMS_ITS | Data Portability ---
Author Organization [facility] - Bruce Arenas & E Bruce Chaparro MD Address [address] [facility] [address] [place] [address] Care Team Providers Care Senior Quality Control Inspector Name Role Phone NONA ROTHMAN Primary Care Provider BRUCE ARENAS Director Of Vital Statistics Assessment Encounter Date Assessment Date Assessment LastModified [...] recorded. Lab hepatitis C Ab, serum 2021 022 [facility], [address], [place], [address], 14:04:15 hepatitis B surface Ab, qualitative , serum 2021 022 [facility], [address], [place], [address], 14:38:12 C diff toxin A+B, qualitative , stool 2020 [facility], [address], [place], [address], 16:56:13 C diff toxin A+B, qualitative , stool 2020 021 [facility], [address], [place], [address], 16:56:13 culture, stool 2020 021 [facility], [address], [place], [address], 02:46:52 C diff toxin A+B, qualitative , stool 2020 021 [email or web address], [address], [place], [address], 16:13:32 Referral cardiologis t referral - Patient not on aspirin or Plavix etcetera she had a heart attack apparently last year 2021 022 criselda Colin MD ([facility] ), [address], [place], [address], 2 08:02:02 cardiologis t referral - Patient with coronary artery disease tells me she is not on aspirin etc.. She also tells me she had an MRI last week ??? 2020 Julieta Johnston MD ([facility] ), [address] [place], [address], 08:22:57 Procedures colonoscopy procedure (PROC) 2020 [facility] Not available 14:35:27 Surgeries None recorded. Imaging None recorded. Medication Orders Culturelle 10 billion cell capsule 2021 [facility], [address] [place] [address], [address], 14:03:[address] - ER 3 mg capsule,del ig,extend ed release 2021 [facility], [address] [place] [address], [address], 14:04:01 Colace 100 mg capsule 2020 [facility], [address] [place] [address], [address], 14:39:48 Miralax 17 gram/dose oral powder 2020 [facility], [address] [place] [address], [address], 14:39:41 psyllium husk (bulk) 100 % powder 2020 [facility], [address] [place] [address], [address], 14:39:42 Culturelle 10 billion cell capsule 2020 [facility], [address], [address], 14:39:[address] - ER 3 mg capsule,del ayed,extend ed release 2020 021 [facility], [address] [place] [address], [address], 14:39:40 Colace 100 mg capsule 2020 021 [facility], [address] [place] [address], [address], 1 11:52:52 Miralax 17 gram/dose oral powder 2020 [facility], [address] [place] [address], [address], 1 11:52:[address] - ER 3 mg capsule,del ayed,extend ed release 2020 021 [facility], [address] [place] [address], [address], 1 11:52:53 Culturelle 10 billion cell capsule 2020 021 [facility], [address] [place] [address], [address], 11:52:[address] - ER 3 mg capsule,del ayed,extend ed release 2020 021 [facility], [address] [place] [address], [address], 18:29:33 Culturelle 10 billion cell capsule 2020 021 [facility], [address] [place] [address] [place], [address], 16:55:39 peg 3350-electr olytes 236 gram-22.74 gram-6.74 gram-5.86 gram solution 2020 021 [facility], [address], [address], 10:27:31 Patient TargetsNo targets recorded. Patient Instructions Encounter Date Encounter Id Patient Instructions Last Modified By Organization Details Last Modified Time 04/03/2021 [id number] diarrhea: care instructions sekici Not available 04/03/2021 14:03:51 heart attack: care instructions sekici Not available 04/03/2021 14:03:51 constipation: care instructions sekici Not available 04/03/2021 14:03:51 body mass index: care instructions sekici Not available 04/03/2021 14:03:51 learning about healthy weight sekici Not available 04/03/2021 14:03:51 01/01/2021 [id number] diarrhea: care instructions sekici Not available 01/01/2021 14:39:31 heart attack: care instructions sekici Not available 01/01/2021 14:39:31 constipation: care instructions sekici Not available 01/01/2021 14:39:31 body mass index: care instructions sekici Not available 01/01/2021 14:39:31 learning about healthy weight sekici Not available 01/01/2021 14:39:31 09/26/2020 [id number] diarrhea: care instructions sekici Not available 09/26/2020 11:52:41 heart attack: care instructions sekici Not available 09/26/2020 11:52:41 constipation: care instructions sekici Not available 09/26/2020 11:52:41 body mass index: care instructions sekici Not available 09/26/2020 16:49:41 learning about healthy weight sekici Not available 09/26/2020 16:49:41 06/21/2020 [id number] diarrhea: care instructions sekici Not available 06/21/2020 16:55:33 body mass index: care instructions sekici Not available 06/21/2020 16:55:33 learning about healthy weight sekici Not available 06/21/2020 16:55:33 05/30/2020 [id number] diarrhea: care instructions sekici Not available 05/30/2020 16:12:54 body mass index: care instructions sekici Not available 05/30/2020 16:12:55 learning about healthy weight sekici Not available 05/30/2020 16:12:55 Reason for Referral Carton Wrapper Referral for My ocardial infarction Patient with coronary artery disease tells me she is not on aspirin etc.. She also tells me she had an MRI last week ??? Referring Physician: [facility], Encounter Date: 09/26/2020 Carton Wrapper Referral for My ocardial infarction Patient not [...] JEANNIE QL hepatitis B surface antibody ql NON-RE ACTIVE non-re active normal Not Available [facility] [address], [place], [address], 04/17/2021 12:05:42 04/17/19 22 04/17/2021 HEPAT ITIS C AB W/REF L TO HCV RNA, QN, PCR hepatitis C antibody NON-RE ACTIVE non-re active normal Not Available [facility] [address], [place], [address], 04/17/2021 12:05:42 04/17/19 22 04/17/2021 HEPAT ITIS C AB W/REF L TO HCV RNA, QN, PCR index 0.00 <1.00 normal Not Available [facility] [address], [place], [address], 04/17/2021 12:05:42 05/20/19 21 05/17/2020 CT, abdom en + pelvi s, w/ contr ast No observ ation record ed. Not Available 05/19/2020 14:27:58 04/13/19 22 03/26/2021 MAMMO , diagn ostic , bilat eral No observ ation record ed. [facility] [address] [place], [address], 04/12/2021 13:11:35 Result Notes None recorded. Procedures Surgical History Date Name Laterality Status Provider Name and Address Organization Details Recorded Time Hysterectomy completed Katiel Reptile Keeper o null, [place] - [facility] [...] 14:27:58 03/26/2021 MAMMO, diagnostic, bilateral completed [facility] [address] [place], [address], 04/12/2021 13:11:35 Procedure Notes None recorded. Medical Equipment None Reported. Allergies Allergen ID Allergen Name Allergen Category Reaction Reaction Severity Criticality Documentation Date Start Date Code Code System Note Provider Name and Address Organization Details Recorded Time 08888 Latex (substanc e) environme nt,medica tion itching nausea rash respirato ry distress Not available Not available Not available Not available Not available 05/30/2020 30553 8007 SNOMED Katfred Simpsono null, [place] - [address] 1 11:16:48 05342 erythromy eduardo medicatio n itching rash Not available Not available Not available 05/30/2020 4053 RxNorm Katiel Rosalee null, [place] - [address] 1 11:17:00 93437 latex environme nt,medica tion itching nausea rash respirato ry distress vomiting Not available Not available Not available Not available Not available Not available 04/03/2021 96555 91 RxNorm Kat Simpsono null, [place] - [address] [...] Updated DateTime 05/30/2020 157.48 cm 40.2 kg/m2 67044.32 g Lizfred Rosalee [place] - [facility] 05/30/2020 11:15:56 Date Recorded Body height Body mass index (BMI) Body weight Provider Name and Address Organization Details Last Updated DateTime 06/21/2020 157.48 cm 40.2 kg/m2 91100.32 g Lyndsay Harris [place] - [address] 06/21/2020 10:26:58 Date Recorded Body height Body mass index (BMI) Body weight Heart rate Body temperature Oxygen saturation Oxygen saturation in Arterial blood by Pulse oximetry Systolic blood pressure Diastolic blood pressure Provider Name and Address Organization Details Last Updated DateTime 157.48 cm 41.5 kg/m2 870739. 47 g 87 /min 98.4 [degF] 95 % 95 % 106 mm[Hg] 73 mm[Hg] Lyndsay Harris [place] - [facility] [address] 1 11:08:41 Date Recorded Body height Body mass index (BMI) Body weight Heart rate Body temperature Oxygen saturation Oxygen saturation in Arterial blood by Pulse oximetry Systolic blood pressure Diastolic blood pressure Provider Name and Address Organization Details Last Updated DateTime 1 157.48 cm 41.5 kg/m2 941645. 47 g 107 /min 97.8 [degF] 96 % 96 % 120 mm[Hg] 64 mm[Hg] SHUN WONG [place] - [facility] [address] 1 13:50:13 Date Recorded Body height Body mass index (BMI) Body weight Heart rate Body temperature Oxygen saturation Oxygen saturation in Arterial blood by Pulse oximetry Systolic blood pressure Diastolic blood pressure Provider Name and Address Organization Details Last Updated DateTime 2 157.48 cm 41.5 kg/m2 770809. 47 g 106 /min 98 [degF] 94 % 94 % 122 mm[Hg] 70 mm[Hg] Lizfred Simpsono [place] - [facility] 2 12:57:53 Social History Question Answer Notes LastModified by Organizat ion Details LastModified Time Tobacco Smoking Status Former Smoker quit 1 month ago Kat sanchez [place] - [address] [...] Y Constipation Y Nausea Y Heart Attack ([place]) Y Other Skin Condition Y Osteoperosis Y [...] 50 mcg/0.25mL dose 06/29/2020 completed Not Available [facility] 04/03/19 12:25:42 Past Encounters Encounter ID Performer Location Encounter Start Date Encounter Closed Date Diagnosis/Indication Diagnosis SNOMED-CT Code [id number] MD Bruce Mccain MD [address] [place] [address] 05/30/2020 11:15:00 06/01/2020 14:31:33 Body mass index 40+ - severely obese 263378146 Colitis 72125570 Diarrhea 36564009 Diabetes mellitus 914059 09 [id number] MD Bruce Mccain MD [address] [place] [address] 06/21/2020 09:38:07 06/23/2020 09:35:49 Body mass index 40+ - severely obese 425744799 Colitis 34050372 Diarrhea 50975646 Diabetes mellitus 989779 09 [id number] MD Bruce Mccain MD [address] [place] [address] 09/26/2020 10:32:08 09/26/2020 11:55:51 Body mass index 40+ - severely obese 615951738 Constipation 21599468 Myocardial infarction 22 167626 Colitis 02802232 Diarrhea 17134208 Diabetes mellitus 411930 09 Post-disch arge follow-up [id number] MD Bruce Mccain MD [address] [place] [address] 01/01/2021 13:26:43 01/01/2021 15:12:37 Body mass index 40+ - severely obese 376710476 Weight gain 1527600 Constipation 28933989 Myocardial infarction 22 353753 Colitis 80177083 Diarrhea 31854681 Diabetes mellitus 093595 09 Post-disch arge follow-up [id number] MD Bruce Mccain MD [address] [place] [address] 04/03/2021 12:25:40 04/03/2021 14:06:58 Body mass index 40+ - severely obese 890404123 Constipation 85942302 Myocardial infarction 22 906438 Colitis 13012108 Diarrhea 49489159 Diabetes mellitus 335452 09 Post-disch arge follow-up 698156838 Viral screening 26548919 4 Health Concerns Section Related Observation LastModified by Organization Detai ls LastModified Time None Recorded Concern Status LastModified by Organization Details LastModified Time None Recorded Advance Directives Directive N: Payers Encounter Date Sequence Insurance Name Policy Number Policy Martin Covered Member ID Martni Member ID Guarantor Name 04/03/2021 2 [place] [employer] Emilee Lau [id number] Emilee Lopezlesjennifer 04/03/2021 1 [facility] - DUAL ELIGIBLE (MEDICARE REPLACEMENT /ADVANTAGE - PPO) FLDSMORAIMA Lau [id number] Emilee Patterson Bussertpleschourt 01/01/2021 2 [place] [employer] Emilee Yesenia Pleschourt [id number] Emilee Yesenia Bussertpleschourt 01/01/2021 1 [facility] - DUAL ELIGIBLE (MEDICARE REPLACEMENT /ADVANTAGE - PPO) FLDSNP Mandi R Bussert Pleschourt [id number] Emilee Yesenia Bussertpleschourt 09/26/2020 2 [place] [employer] Emilee Yesenia Pleschourt [id number] Emilee Yesenia Bussertpleschourt 09/26/2020 1 [facility] - DUAL ELIGIBLE (MEDICARE REPLACEMENT /ADVANTAGE - PPO) FLDSNP K R Bussert Pleschourt [id number] Emilee Yesenia Bussertpleschourt 06/21/2020 1 [facility] - DUAL ELIGIBLE (MEDICARE REPLACEMENT /ADVANTAGE - PPO) FLDSNP K R Bussert Pleschourt [id number] Emilee Yesenia Bussertpleschourt 05/30/2020 1 [facility] - DUAL ELIGIBLE (MEDICARE REPLACEMENT /ADVANTAGE - PPO) FLDSNP Mandi R Bussert Pleschourt [id number] Emilee Yesenia Bussertpleschourt Notes Date Note Type [...] nutrient deficiency Bruce Arenas MD [address] [facility] [address], [place], [address], [facility] - [address] 05/30/2020 16:13:01 06/21/2020 text/html [...] nutrient deficiency Bruce Arenas MD [address] [facility] [address], [place], [address], [facility] - [address] 06/27/2020 18:32:35 09/26/2020 text/html HPI Notes: Constipation [...] nutrient deficiency Bruce Arenas MD [address], [place], [address], [facility] Bruce A[address] 09/26/2020 11:52:47 01/01/2021 text/html HPI Notes: GI [...] no arthritis Bruce Arenas MD [address], [place], [address], [facility] [address] Aren[address] 01/01/2021 14:39:38 04/03/2021 [...] no osteoporosis; no arthritis Bruce Arenas MD [address] [facility] [address] [place], [address], [facility] - Bruce Arenas [address] 04/03/2021 14:03:59 OBGyn Episode No OBEpisode recorded.
--- NOTE | 2023-07-02 17:00 | CRLHL7_ITS ---
For Patients: As a result of the Century Cures Act, medical imaging exams and procedure reports are released immediately into your electronic medical record. You may view this report before your referring provider. If you have questions, please contact your health care provider. INDICATION: Unspecified abdominal pain COMPARISON: none TECHNIQUE: Real time roach scale imaging and color Doppler analysis was performed of the right upper quadrant. FINDINGS: The liver is diffusely echogenic without intrahepatic mass. The main portal vein is patent and measures 9 millimeters. The liver measures 14.2 cm. There is a normal appearance of the hepatic IVC and proximal abdominal aorta. There is no evidence of ascites. Echogenic stones are present within the gallbladder neck. The gallbladder wall measures 2 mm in thickness. The common bile duct is of normal size and measures 4 mm in diameter at the level of the hieu hepatis. The visualized pancreas appears normal. There is no evidence of a stone or hydronephrosis within the right kidney. The right kidney measures 10.4 cm in length. IMPRESSION: Diffuse hepatic steatosis. Cholelithiasis. Dictated by Wayne Urbina MD @ 07/03/2023 10:52:22 AM (Electronically Signed)
== END 2023-07-02 16:16 | disposition home or self-care (01) ==
PROVIDERS: PCP Internal Medicine; Visit Provider Internal Medicine
DX: R10.9 Unspecified abdominal pain (principal); K76.0 Fatty (change of) liver, not elsewhere classified; K80.20 Calculus of gallbladder without cholecystitis without obstruction
CPT/HCPCS: 76705

== ENCOUNTER 2023-07-07 14:28 | Emergency (ER) | payer MEDICARE, MEDICAID, SELFPAY ==
[2023-07-07 14:32] VITALS: BP 112/75; PULSE 83; RESP 16; TEMP 36.3; O2SAT 94
--- OUTSIDE RECORDS SUMMARY | 2023-07-07 15:05 | XMS_ITS | Patient Health Record ---
Author Organization [facility] Billing Info Address [address] [place] [address] Care Team Providers Care Night Order Selector Name Role Phone DERRICK WHITING Unavailable [phone] STEPHAN CERRATO NONA Unavailable [phone] Allergies Allergen (clinical drug ingredient) Drug/Non Drug [...] Twice a day for 90 days Active OneTouch Ultra Test Strips ---- as directed E11.9 test twice a day for 90 days 04/05/2021 Active Trazodone HCl 100 MG 1 tablet at bedtime Orally Once a day for 90 days Active Ondansetron HCl 4 MG 1 tablet Orally three times a day prn for 90 days 02/06/2022 Active EpiPen 2-Raymundo 0.3 MG/0.3ML as directed [...] 5 days Active Vitamin D 50 MCG (1999) 1 capsule Orally Once a day for 5 days Active Mirtazapine 7.5 MG 1 tablet at bedtime Orally Once a day for 30 day(s) 04/11/2020 Active Albuterol Sulfate (2.5 MG/3ML) 0.083% INHALE 3ML VIA NEBULIZER FOUR TIMES A DAY NEEDED for 30 Active Lancets 33G - as directed E11.9 [...] Immunizations Vaccine Route Administration Date Status Comme nts zCOVID-19 (Moderna) 12+yrs, NO PRES Unknown 05/27/2020 [...] Problem Status W/U Status Risk Notes Problem 29130900 Type 2 diabetes mellitus with other specified complication (E11.69) Active confirmed Problem 666758813 Morbid (severe) obesity due to excess calories (E66.01) Active confirmed Problem 559570778 Obesity, unspeci fied (E66.9) Active confirmed Problem 760141005 Chronic pain syn drome (G89.4) Active confirmed Problem Localized, primary osteoarthritis of the shoulder region (531367881) Primary osteoarthritis, left shoulder (M19.012) Active confirmed Problem Full thickness rotator cuff tear (890290364) Complete rotator cuff tear or rupture of unspecified shoulder, not specified as traumatic (M75.120) Active confirmed Problem Impingement syndrome of left shoulder region (705544158778809) Impingement syndrome of left shoulder (M75.42) Active confirmed Problem 794667669 Dietary counseli ng and surveillance (Z71.3) Active confirmed Problem 870083022 Body mass index [BMI] 40.0-44.9, adult (Z68.41) Active confirmed Problem 39347297 Parkinsons disea se (G20) Active confirmed Problem 766533410 Morbid obesity (E66.01) Active confirmed Problem 80358301 Essential hypert ension (I10) Active confirmed Problem Pre-procedure evaluation check (125019153) Pre-operative clearance (Z01.818) Active confirmed Problem Right shoulder pain (6199950250) Right shoulder pain (M25.511) Active confirmed Problem Left shoulder pain (3826309652) Left shoulder pain (M25.512) Active confirmed Problem 095551192528693 Trochanteric bur sitis of right hip (M70.61) Active confirmed Problem 13895371 Tobacco dependen ce (F17.200) Active confirmed Problem 1640909290184 S/P cervical spi nal fusion (Z98.1) Active confirmed Problem 70238885 Cervical spinal stenosis (M48.02) Active confirmed Problem 974191487249005 Gluteal tendinit is of right buttock (M76.01) Active confirmed Problem 780109735 Adult general me dical exam (Z00.00) Active confirmed Problem Long-term current use of 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 (389441940) superintendent container terminal use of drug (Z79.899) Active confirmed Problem 14263887 Thoracic spinal stenosis (M48.04) Active confirmed Problem 843319717 Disorder of left rotator cuff (M67.912) Active confirmed Problem 390493771 Biceps tendiniti s of left shoulder (M75.22) Active confirmed Problem 45338499 Iliotibial band tendinitis of right side (M76.31) Active confirmed Problem 3724170225311127 Osteoarthritis of left acromioclavicular joint (M19.012) Active confirmed Problem 653437722 Rotator cuff impingement syndrome of left shoulder (M75.42) Active confirmed Problem 78628469 Hypercholesterol emia (E78.00) Active confirmed Problem 801936431 Aftercare (Z51.89) Active confirmed Problem 732084077 Status post left rotator cuff repair (Z98.890) Active confirmed Problem 5318567206275631 Nontraumatic co mplete tear of left rotator cuff (M75.122) Active confirmed Problem 242722195 Frequent headach es (R51.9) Active confirmed Problem 248568606 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) Active confirm ed Encounters Encounter Location Date Provider Diagnosis [id number] [address] [facility] [address] [place] [id number] 08/16/2022 NONA ROTHMAN II [id number] [address] [facility] [address] [place] [id number] 09/04/2022 NONA ROTHMAN II Dietary counseling and surveillance Z71.3 [id number] [address] [facility] [address] [place] [phone] 09/05/2022 NONA ROTHMAN II Dietary counseling and surveillance Z71.3 [id number] [address] [facility] [address] [place], [place] [id number] 10/04/2022 NONA ROTHMAN II [id number] [address] [facility] [address] [place] [id number] 11/04/2022 NONA ROTHMAN II Dietary counseling and surveillance Z71.3 [id number] [address] [facility] [address] [facility] [address] [place] [phone] 01/06/2023 NONA ROTHMAN II Dietary counseling and surveillance Z71.3 [id number] [address] [facility] [address] [facility] [address] [place] [phone] 04/07/2023 NONA ROTHMAN II Dietary counseling and surveillance Z71.3 Assessments Encounter Date Diagnosis (ICD Code) Assessment Notes Treat ment Notes Treatment Clinical Notes 09/04/2022 Dietary counseling and surveillance (ICD-10 - Z71.3) 09/05/2022 Dietary counseling and surveillance (ICD-10 - Z71.3) 11/04/2022 Dietary counseling and surveillance (ICD-10 - Z71.3) 01/06/2023 Dietary counseling and surveillance (ICD-10 - Z71.3) 04/07/2023 Dietary counseling and surveillance (ICD-10 - Z71.3) Plan Of Treatment Pending Test Test Name Order Date HEPATIC FUNCTION PANEL (34599) LIPID PANEL (39456) 03/16/2020 HEMOGLOBIN A1C (C114) 03/16/2020 Basic Metabolic Panel (8) 03/16/2020 Insurance Providers Payer Name Payer Address Payer Phone Subscriber Number Group Number Insured Name Patient Relationship to Insured Coverage Start Date Coverage End Date [facility] [employer] DUAL COMPLETE [address] [address] [place], [place] [id number] Emilee Boyer Self - patient is the insured 2 2 Medications Administered Medication Instructions Date of Administration Dosage Notes MethylPREDNISolone Acetate 12/25/2021 80 mg Xylocaine 12/25/2021 2 mL Medical (General) History Medical History History ICD Code Anxiety/Depression Diabetes Mellitus Insomnia Parkinsons Disease- neurolog ist diagnosed in [facility] with [facility] on for 15 years Essential hypertension Poor wound healing from surgeries Morbid obesity Surgical History Surgery Date(Month/Year) LT RCR 01/31/2022 Colonoscopy 06/15/2020 Mammogram 2020 (R) CTR C5,C6,C7 fusion and replacment Hysterectomy-Full Uterine Ablation x2
--- OUTSIDE RECORDS SUMMARY | 2023-07-07 15:06 | XMS_ITS | Data Portability ---
Author Organization [facility] - Bruce Arenas & E Bruce Chaparro MD Address [address] [facility] [address] [facility] [place] [address] Care Team Providers Care Educational Sign Language Interpreter Name Role Phone NONA ROTHMAN Primary Care Provider BRUCE ARENAS Call Or Contact Centre Manager Assessment Encounter Date Assessment Date Assessment LastModified [...] Lab hepatitis C Ab, serum 2021 022 [facility], [address], [place], [address], 14:04:15 hepatitis B surface Ab, qualitative , serum 2021 022 [facility], [address], [place], [address], 14:38:12 C diff toxin A+B, qualitative , stool 2020 [facility], [address], [place], [address], 16:56:13 C diff toxin A+B, qualitative , stool 2020 021 [facility], [address], [place], [address], 16:56:13 culture, stool 2020 021 [facility], [address], [place], [address], 02:46:52 C diff toxin A+B, qualitative , stool 2020 021 [facility], [address], [place], [address], 16:13:32 Referral cardiologis t referral - Patient not on aspirin or Plavix etcetera she had a heart attack apparently last year 2021 022 criselda Colin MD ([facility] ), [address], [place], [address], 2 08:02:02 cardiologis t referral - Patient with coronary artery disease tells me she is not on aspirin etc.. She also tells me she had an MRI last week ??? 2020 Julieta Johnston MD ([facility] ), [address] [place], [address], 08:22:57 Procedures colonoscopy procedure (PROC) 2020 [facility] Not available 14:35:27 Surgeries None recorded. Imaging None recorded. Medication Orders Culturelle 10 billion cell capsule 2021 [facility], [address] [place] [address], [address], 14:03:[address] - ER 3 mg capsule,del gi,extend ed release 2021 [facility], [address] [place] [address], [address], 14:04:01 Colace 100 mg capsule 2020 [facility], [address] [place] [address], [address], 14:39:48 Miralax 17 gram/dose oral powder 2020 [facility], [address] [place] [address], [address], 14:39:41 psyllium husk (bulk) 100 % powder 2020 [facility], [address] [place] [address], [address], 14:39:42 Culturelle 10 billion cell capsule 2020 [facility] [address], [address], [address], 14:39:[address] - ER 3 mg capsule,del ayed,extend ed release 2020 021 [facility], [address] [place] [address], [address], 14:39:40 Colace 100 mg capsule 2020 021 [facility] [address], [address] [place] [address], [address], 1 11:52:52 Miralax 17 gram/dose oral powder 2020 [facility] [address], [address] [place] [address], [address], 1 11:52:[address] - ER 3 mg capsule,del ayed,extend ed release 2020 021 [facility] [address], [address] [place] [address], [address], 1 11:52:53 Culturelle 10 billion cell capsule 2020 021 [facility] [address], [address] [place] [address], [address], 11:52:[address] - ER 3 mg capsule,del ayed,extend ed release 2020 021 [facility] [address], [address] [place] [address], [address], 18:29:33 Culturelle 10 billion cell capsule 2020 021 [facility] [address], [address] [place] [address] [place], [address], 16:55:39 peg 3350-electr olytes 236 gram-22.74 gram-6.74 gram-5.86 gram solution 2020 021 [facility], [address], [address], 10:27:31 Patient TargetsNo targets recorded. Patient Instructions Encounter Date Encounter Id Patient Instructions Last Modified By Organization Details Last Modified Time 04/03/2021 [id number] diarrhea: care instructions sekici Not available 04/03/2021 14:03:51 heart attack: care instructions sekici Not available 04/03/2021 14:03:51 constipation: care instructions sekici Not available 04/03/2021 14:03:51 body mass index: care instructions sekici Not available 04/03/2021 14:03:51 learning about healthy weight sekici Not available 04/03/2021 14:03:51 01/01/2021 [id number] diarrhea: care instructions sekici Not available 01/01/2021 14:39:31 heart attack: care instructions sekici Not available 01/01/2021 14:39:31 constipation: care instructions sekici Not available 01/01/2021 14:39:31 body mass index: care instructions sekici Not available 01/01/2021 14:39:31 learning about healthy weight sekici Not available 01/01/2021 14:39:31 09/26/2020 [id number] diarrhea: care instructions sekici Not available 09/26/2020 11:52:41 heart attack: care instructions sekici Not available 09/26/2020 11:52:41 constipation: care instructions sekici Not available 09/26/2020 11:52:41 body mass index: care instructions sekici Not available 09/26/2020 16:49:41 learning about healthy weight sekici Not available 09/26/2020 16:49:41 06/21/2020 [id number] diarrhea: care instructions sekici Not available 06/21/2020 16:55:33 body mass index: care instructions sekici Not available 06/21/2020 16:55:33 learning about healthy weight sekici Not available 06/21/2020 16:55:33 05/30/2020 [id number] diarrhea: care instructions sekici Not available 05/30/2020 16:12:54 body mass index: care instructions sekici Not available 05/30/2020 16:12:55 learning about healthy weight sekici Not available 05/30/2020 16:12:55 Reason for Referral Yard Spotter Referral for My ocardial infarction Patient with coronary artery disease tells me she is not on aspirin etc.. She also tells me she had an MRI last week ??? Referring Physician: [facility], Encounter Date: 09/26/2020 Yard Spotter Referral for My ocardial infarction Patient not [...] ACTIVE non-re active normal Not Available [facility] [address], [place], [address], 04/17/2021 12:05:42 04/17/19 22 04/17/2021 HEPAT ITIS C AB W/REF L TO HCV RNA, QN, PCR hepatitis C antibody NON-RE ACTIVE non-re active normal Not Available [facility] [address], [place], [address], 04/17/2021 12:05:42 04/17/19 22 04/17/2021 HEPAT ITIS C AB W/REF L TO HCV RNA, QN, PCR index 0.00 <1.00 normal Not Available [facility] [address], [place], [address], 04/17/2021 12:05:42 05/20/19 21 05/17/2020 CT, abdom en + pelvi s, w/ contr ast No observ ation record ed. Not Available 05/19/2020 14:27:58 04/13/19 22 03/26/2021 MAMMO , diagn ostic , bilat eral No observ ation record ed. [facility] [address] [place], [address], 04/12/2021 13:11:35 Result Notes None recorded. Procedures Surgical History Date Name Laterality Status Provider Name and Address Organization Details Recorded Time Hysterectomy completed Katiel Feed Management Advisor o null, [place] - [facility] [...] 05/19/2020 14:27:58 03/26/2021 MAMMO, diagnostic, bilateral [facility] [address] [place], [address], 04/12/2021 13:11:35 Procedure Notes None recorded. Medical Equipment None Reported. Allergies Allergen ID Allergen Name Allergen Category Reaction Reaction Severity Criticality Documentation Date Start Date Code Code System Note Provider Name and Address Organization Details Recorded Time 04607 Latex (substanc e) environme nt,medica tion itching nausea rash respirato ry distress Not available Not available Not available Not available Not available 05/30/2020 46553 8007 SNOMED Katfred Simpsono null, [place] - [facility] [address] 1 11:16:48 08258 erythromy eduardo medicatio n itching rash Not available Not available Not available 05/30/2020 4053 RxNorm Katiel Rosalee null, [place] - [facility] [address] 1 11:17:00 69291 latex environme nt,medica tion itching nausea rash respirato ry distress vomiting Not available Not available Not available Not available Not available Not available 04/03/2021 47451 91 RxNorm Kat Sipmsono null, [place] - [facility] [address] [...] Updated DateTime 05/30/2020 157.48 cm 40.2 kg/m2 76399.32 g Lizfred Rosalee [place] - [facility] [address] 05/30/2020 11:15:56 Date Recorded Body height Body mass index (BMI) Body weight Provider Name and Address Organization Details Last Updated DateTime 06/21/2020 157.48 cm 40.2 kg/m2 90091.32 g Lyndsay Harris [place] - [facility] [address] [address] Maryr 06/21/2020 10:26:58 Date Recorded Body height Body mass index (BMI) Body weight Heart rate Body temperature Oxygen saturation Oxygen saturation in Arterial blood by Pulse oximetry Systolic blood pressure Diastolic blood pressure Provider Name and Address Organization Details Last Updated DateTime 157.48 cm 41.5 kg/m2 236629. 47 g 87 /min 98.4 [degF] 95 [...] Updated DateTime 1 157.48 cm 41.5 kg/m2 530066. 47 g 107 /min 97.8 [degF] 96 [...] Updated DateTime 2 157.48 cm 41.5 kg/m2 193593. 47 g 106 /min 98 [degF] 94 [...] Brother Depressive disorder Medical History Condition Response Diarrhea Y Depression Y COPD Y Osteoperosis Y Muscle, Joint, or Bone Problems Y Hemorrhoids Y Dizziness Y Obesity Y Arthritis Y Acid Reflux (GERD) Y IBS Y Abdominal pain Y High Cholesterol Y Headaches Y Fibromyalgia Y Heart Problems Y Osteoarthritis Y Chronic Obstructive Pulmonary Disease Y Chest pain Y Migraines Y NSAID Use Y Constipation Y Nausea Y Heart Attack ([place]) Y Other Skin Condition Y Back pain Y Diabetes Y Seizures/Epilepsy Y Asthma Y Sleep Apnea Y Heart Disease Y Gynecological History Statement/Question Response HPV Vaccine [...] Encounter Closed Date Diagnosis/Indication Diagnosis SNOMED-CT Code [id number] MD Bruce Mccain MD [address] [place] [address] 05/30/2020 11:15:00 06/01/2020 14:31:33 Body mass index 40+ - severely obese 857859974 Colitis 20951581 Diarrhea 04273702 Diabetes mellitus 079214 09 [id number] MD Bruce Mccain MD [address] [place] [address] 06/21/2020 09:38:07 06/23/2020 09:35:49 Body mass index 40+ - severely obese 723434016 Colitis 11868732 Diarrhea 97311525 Diabetes mellitus 454919 09 [id number] MD Bruce Mccain MD [address] [place] [address] 09/26/2020 10:32:08 09/26/2020 11:55:51 Body mass index 40+ - severely obese 224697039 Constipation 83206072 Myocardial infarction 22 362704 Colitis 39524844 Diarrhea 61389336 Diabetes mellitus 092640 09 Post-disch arge follow-up 576011051 [id number] MD Bruce Mccian MD [address] [place] [address] 01/01/2021 13:26:43 01/01/2021 15:12:37 Body mass index 40+ - severely obese 779982844 Weight gain 2032091 Constipation 15725509 Myocardial infarction 22 550486 Colitis 23403115 Diarrhea 52607877 Diabetes mellitus 362769 09 Post-disch arge follow-up 075000910 36024 MD Bruce Mccain MD [address] [place] [address] 04/03/2021 12:25:40 04/03/2021 14:06:58 Body mass index 40+ - severely obese 009685561 Constipation 30424194 Myocardial infarction 22 282663 Colitis 04971465 Diarrhea 28171075 Diabetes mellitus 548726 09 Post-disch arge follow-up 835811192 Viral screening 58881883 4 Health Concerns Section Related Observation LastModified by Organization Detai ls LastModified Time None Recorded Concern Status LastModified by Organization Details LastModified Time None Recorded Advance Directives Directive N: Payers Encounter Date Sequence Insurance Name Policy Number Policy Matrin Covered Member ID Martin Member ID Guarantor Name 04/03/2021 1 [facility] - DUAL ELIGIBLE (MEDICARE REPLACEMENT /ADVANTAGE - PPO) [employer] Mandi Lau [id number] Emilee Johnson 04/03/2021 2 [place] [facility] [employer] Emilee Lau [id number] Emilee Patterson [place] 01/01/2021 1 [facility] - DUAL ELIGIBLE (MEDICARE REPLACEMENT /ADVANTAGE - PPO) [place] Mandi R [place] [id number] Emilee Yesenia [place] 01/01/2021 2 [place] [employer] Emilee Yesenia [place] [id number] Emilee Yesenia [place] 09/26/2020 1 [facility] - DUAL ELIGIBLE (MEDICARE REPLACEMENT /ADVANTAGE - PPO) [place] Mandi R [place] [id number] Emilee Yesenia [place] 09/26/2020 2 [place] [employer] Emilee R [place] [id number] Emilee Yesenia [place] 06/21/2020 1 [facility] - DUAL ELIGIBLE (MEDICARE REPLACEMENT /ADVANTAGE - PPO) [place] Mandi R [place] [id number] Emilee Yesenia [place] 05/30/2020 1 [facility] - DUAL ELIGIBLE (MEDICARE REPLACEMENT /ADVANTAGE - PPO) [place] Mandi R [place] [id number] Emilee Yesenia [place] Notes Date Note Type [...] nutrient deficiency Bruce Arenas MD [address] [facility] [address], [place], [address], [facility] - [address] 05/30/2020 [...] nutrient deficiency Bruce Arenas MD [address] [facility] [address], [place], [address], [facility] - [address] 06/27/2020 [...] nutrient deficiency Bruce Arenas MD [address] [facility] [address], [employer], [address], [facility] [address] A[address] [...] no arthritis Bruce Arenas MD [address], [employer], [address], [facility] [address] Aren[address] [...] no osteoporosis; no arthritis Bruce Arenas MD [address] [facility] [address] [place], [address], [facility] - Bruce Arenas [address] 04/03/2021 14:03:59 OBGyn Episode No OBEpisode recorded.
--- OUTSIDE RECORDS SUMMARY | 2023-07-07 15:06 | XMS_ITS | Data Portability ---
Author Organization ALTA Zaldivar MD , [facility], [facility] Address [address] [place] [address] Care Team Providers Care Kiln Placer Name Role Phone NONA WHITEHEAD Referring Provider NONA WHITEHEAD Primary Care Provider Assessment Encounter Date Assessment Date Assessment LastModified [...] studies, I recommend transforminal LINDSEY at L4-5, L5-U6szplc today. Discussed treatment plan with patient. [email or web address] [...] recorded. Imaging MRI, shoulder, w/o contrast 2021 [facility], [address], [place], [address], 14:10:58 XR, hip + pelvis, bilateral 2021 [facility], [address], [address], [place], [address], 14:19:08 Medication Orders hydrocodone 5 mg-acetamin ophen 325 mg tablet 2021 [facility] 3887, [address], [address], 11:53:04 Patient Targets Encounter Date Encounter Id [...] By Organization Details Last Modified Time 10/25/2021 [id number] leg pain: care instructions [email or web address] Not available [...] weeks. [email or web address] Not available 03/11/2022 15:26:59 07/23/2021 [id number] lumbar spinal stenosis: care instructions [email or web address] Not [...] mass. [email or web address] Not available 07/24/2021 18:08:04 06/25/2021 [id number] leg pain: care instructions [email or web address] Not available [...] syndrome Evaluate for DCS Referring Physician: Cecil Jawahir, Pain Management, Encounter Date: 09/27/2021 Results Created [...] ast No observ ation record ed. [email or web address] [facility] (Medical Records) [address], [place], [address], 07/11/2021 15:49:57 11/02/19 22 11/01/2021 MRI, shoul alfonso, w/o contr ast No observ ation record ed. [facility] [address], [place], [address], 11/01/2021 14:10:58 11/02/19 22 11/01/2021 XR, hip + pelvi s, bilat eral No observ ation record ed. [facility] [address], [place], [address], 11/01/2021 14:19:08 Result Notes None recorded. Problems Name Status Onset Date Resolution Date Notes Provider Name and Address Organization Details Recorded Time Ulcerative colitis Active Cecil Zaldivar MD [address], [place], [address] , [facility] - Cecil Zaldivar MD 05/24/2021 10:53:50 Parkinson's disease Active Cecil Zaldivar MD [address], [place], [address] , [facility] - Cecil Zaldivar MD 05/24/2021 10:53:57 Type 2 diabetes mellitus Active Cecil Zaldivar MD [address], [place], [address] , [place] - Cecil Zaldivar MD 05/24/2021 10:54:18 Spinal stenosis in cervical region Active Cecil Zaldivar MD [address], [place], [address] , [place] - Cecil Zaldivar MD 05/24/2021 10:54:49 Spinal stenosis of thoracic region Active Cecil Zaldivar MD [address], [place], [address] , [facility] - Cecil Zaldivar MD 05/24/2021 10:54:57 Chronic pain syndrome Active Cecil Zaldivar MD [address], [place], [address] , [place] - Cecil Zaldivar MD 05/24/2021 10:55:06 Sleep apnea Active Cecil Zaldivar MD [address], [place], [address] , [facility] - Cecil Zaldivar MD 05/24/2021 10:55:17 Tremor Active Cecil Zaldivar MD [address], [place], [address] , [place] - Cecil Zaldivar MD 05/24/2021 10:55:23 Hypertensive disorder Active Cecil Zaldivar MD [address], [place], [address] , [place] - Cecil Zaldivar MD 05/24/2021 10:55:30 Rupture of rotator cuff of left shoulder Active Cecil Zaldivar MD [address], [place], [address] , [place] Cecil Zaldivar MD 05/24/2021 11:02:10 Chronic obstructive lung disease Active Cecil Zaldivar MD [address], [place], [address] , [place] Cecil Zaldivar MD 05/24/2021 11:07:27 Asthma Active Cecil Zaldivar MD [address], [place], [address] , [place] Cecil Zaldivar MD 05/24/2021 11:07:33 Spinal stenosis of lumbar region Active 05/25/19 22 Cecil Zaldivar MD [address], [place], [address] , [place] Cecil Zaldivar MD 05/24/2021 11:40:23 Degeneration of thoracolumbar intervertebral disc Active 05/25/19 22 Cecil Zaldivar MD [address], [place], [address] , [place] Cecil Zaldivar MD 05/24/2021 11:40:50 Smoker Active 05/25/19 22 Cecil Zaldivar MD [address], [place], [address] , [place] Cecil Zaldivar MD 05/24/2021 11:41:12 Arthritis of right sacroiliac joint Active 05/25/19 22 Cecil Zaldivar MD [address], [place], [address] , [place] - Cecil Zaldivar MD 05/24/2021 11:52:24 Injury of left rotator cuff Active 05/25/19 22 Cecil Zaldivar MD [address], [place], [address] , [place] Cecil Zaldivar MD 05/24/2021 12:04:37 Neuropathy due to diabetes mellitus Active 05/25/19 22 Cecil Zaldivar MD [address], [place], [address] , [place] Jose Zaldivar MD 05/24/2021 12:04:52 Bilateral sciatica Active 08/30/19 22 Cecil Zaldivar MD [address], [place], [address] , [facility] Jose Zaldivar MD 08/29/2021 23:07:12 Problem Notes None recorded. Procedures Surgical History Date Name Laterality Status Provider Name and Address Organization Details Recorded Time 10/26/19 22 SI JOINT INJECTION completed Cecil Zaldivar MD [address], [place], [address], [facility] Jose Zaldivar MD 10/25/2021 14:07:58 09/07/19 22 LUMBAR FACET JOINT INJECTION FLUOROSCOPIC-COCO DED active Cecil Zaldivar MD [address], [place], [address], [facility] Jose Zaldivar MD 09/06/2021 14:02:07 07/24/19 22 LUMBAR LINDSEY completed Cecil Zaldivar MD [address], [place], [address], [facility] Jose Zaldivar MD 08/29/2021 23:20:19 06/26/19 22 LUMBAR LINDSEY completed Cecil Zaldivar MD [address], [place], [address], [facility] Jose Zaldivar MD 09/11/2021 16:15:23 05/31/19 22 LUMBAR LINDSEY active Cecil Zaldivar MD [address], [place], [address], [facility] Jose Zaldivar MD 05/30/2021 18:05:28 section completed Cecil Zaldivar MD [address], [place], [address], [facility] Jsoe Zaldivar MD 05/24/2021 10:58:24 Total hysterectomy completed Cecil Zaldivar MD [address], [place], [address], [facility] Jose Zaldivar MD 05/24/2021 10:35:30 Neck Surgery completed Cecil Zaldivar MD [address], [place], [address], [place] - Cecil Zaldivar MD 05/24/2021 11:00:20 release of trigger finger completed Cecil Zaldivar MD [address], [place], [address], [place] - Cecil Zaldivar MD 05/24/2021 11:02:44 Carpal tunnel surgery completed Cecil Zaldivar MD [address], [place], [address], [place] - Cecil Zaldivar MD 05/24/2021 11:03:04 Imaging Results Imaging Date Name Status LastModified by Organiz atcounts include [facility] beds at [facility] Details LastModified Time 02/15/2021 CT, cervical spine, [...] MRI, lumbar spine, w/o contrast completed [email or web address] [facility] Alfonso (Medical Records) [address], [place], [address], 07/11/2021 15:49:57 11/01/2021 MRI, shoulder, w/o contrast active [facility] [address], [place], [address], 11/01/2021 14:10:58 11/01/2021 XR, hip + pelvis, bilateral active [facility] [address], [place], [address], 11/01/2021 14:19:08 Procedure Notes None recorded. Medical Equipment None Reported. Allergies Allergen ID Allergen Name Allergen Category Reaction Reaction Severity Criticality Documentation Date Start Date Code Code System Note Provider Name and Address Organization Details Recorded Time 4821 amoxicill in medicatio n diarrhea Not available high 05/24/2021 723 RxNorm Cecil Zaldivar MD [address], [place], [place], [address], [facility] Jose Zaldivar MD 2 10:32:17 4822 latex environme nt,medica tion hives rash Not available Not available high 05/24/2021 25501 91 RxNorm Cecil Zaldivar MD [address], [place], [place], [address], [facility] Jose Zaldivar MD 2 10:32:38 Medications Name Sig Start Date Stop Date Status Note LastModified by Organization Details LastModified Time stool [id number] cap TAKE 1 CAPSULE BY MOUTH THREE [...] Not Available Not Available No t Available [employer] Ultra Test strips USE STRIP TO CHECK [...] 2 16 /min 97.6 [degF] 84 /min 62598.3 2 g 40.2 kg/m2 157.48 cm 126 mm[Hg] 100 mm[Hg] Cecil Zaldivar MD [address], [place], [address], [place] Jose Zaldivar MD 2 10:42:48 Date Recorded Body height Respiratory rate Body mass index (BMI) Body weight Heart rate Body temperature Systolic blood pressure Diastolic blood pressure Provider Name and Address Organization Details Last Updated DateTime 2 157.48 cm 16 /min 40.2 kg/m2 69792.3 2 g 67 /min 98.2 [degF] 93 mm[Hg] 70 mm[Hg] Cecil Zaldivar MD [address], [place], [address], [place] Jose Zaldivar MD 2 15:22:39 Date Recorded Body height Respiratory rate Body mass index (BMI) Body weight Body temperature Provider Name and Address Organization Details Last Updated DateTime 06/13/2021 157.48 cm 17 /min 40.2 kg/m2 54089.3 2 g 97.8 [degF] Cecil Zaldivar MD [address], [place], [address], [place] Jose Zaldivar MD 2 16:53:18 Date Recorded Body height Heart rate Respiratory rate Body temperature Systolic blood pressure Diastolic blood pressure Provider Name and Address Organization Details Last Updated DateTime 2 157.48 cm 73 /min 14 /min 96.9 [degF] 108 mm[Hg] 93 mm[Hg] Cecil Zaldivar MD [address], [place], [address], [place] - Cecil Zaldivar MD 2 14:28:56 Date Recorded Body height Respiratory rate Body mass index (BMI) Body weight Body temperature Provider Name and Address Organization Details Last Updated DateTime 07/11/2021 157.48 cm 15 /min 40.2 kg/m2 04638.3 2 g 97.2 [degF] Cecil Zaldivar MD [address], [place], [address], [place] - Cecil Zaldivar MD 2 15:35:31 Date Recorded Body height Respiratory rate Heart rate Body mass index (BMI) Body weight Body temperature Systolic blood pressure Diastolic blood pressure Provider Name and Address Organization Details Last Updated DateTime 2 157.48 cm 16 /min 72 /min 40.2 kg/m2 11766.3 2 g 97.5 [degF] 105 mm[Hg] 87 mm[Hg] Cecil Zaldivar MD [address], [place], [address], [place] Jose Zaldivar MD 2 18:02:21 Date Recorded Body height Respiratory rate Heart rate Body mass index (BMI) Body weight Body temperature Systolic blood pressure Diastolic blood pressure Provider Name and Address Organization Details Last Updated DateTime 2 157.48 cm 15 /min 68 /min 40.2 kg/m2 50627.3 2 g 98 [degF] 119 mm[Hg] 78 mm[Hg] Cecil Zaldivar MD [address], [place], [address], [place] - Cecil Zaldivar MD 2 16:56:26 Date Recorded Body height Heart rate Respiratory rate Body mass index (BMI) Body weight Body temperature Systolic blood pressure Diastolic blood pressure Provider Name and Address Organization Details Last Updated DateTime 2 157.48 cm 70 /min 16 /min 40.2 kg/m2 96109.3 2 g 97.8 [degF] 108 mm[Hg] 76 mm[Hg] Cecil Zaldivar MD [address], [place], [address], ALTA Zaldivar MD 2 13:12:10 Date Recorded Body height Heart rate Respiratory rate Body mass index (BMI) Body weight Body temperature Systolic blood pressure Diastolic blood pressure Provider Name and Address Organization Details Last Updated DateTime 2 157.48 cm 72 /min 16 /min 40.2 kg/m2 20354.3 2 g 97.3 [degF] 108 mm[Hg] 76 mm[Hg] Cecil Zaldivar MD [address], [place], [address], ALTA Zaldivar MD 2 16:32:04 Date Recorded Body height Heart rate Respiratory rate Body mass index (BMI) Body weight Body temperature Systolic blood pressure Diastolic blood pressure Provider Name and Address Organization Details Last Updated DateTime 2 157.48 cm 65 /min 16 /min 40.2 kg/m2 79381.3 2 g 97 [degF] 124 mm[Hg] 98 mm[Hg] Cecil Zaldivar MD [address], [place], [address]ALTA MD 2 11:17:37 Social History Question Answer Notes LastModified by Organizat ion Details LastModified Time Tobacco Smoking Status Former Smoker quit in Feb 13, 2021 Cecil Zaldivar MD [address], [place], [address], ALTA Zaldivar MD 05/24/2021 11:03:44 Do You [...] Have You Had [facility] That [facility] Was Ill? No Information [...] Or The Highest Degree You Have Received? [id number] Information not available 08/29/2021 How Many Days [...] Anxious, Or Unable To Sleep At Night)? [id number] Information not available 08/29/2021 Do You Use [...] Y Anemia N Ulcers Y Heart Attack ([place]) Y Diabetes Y Anxiety Disorder Y Bleeding [...] Encounter Closed Date Diagnosis/Indication Diagnosis SNOMED-CT Code 00996 Cecil aZldivar MD MAIN OFFICE [address] [place] [address] 06/25/2021 10:18:11 06/25/2021 12:03:26 Bilateral sciatica 107365082191211 03 [id number] Cecil Zaldivar MD MAIN OFFICE [address] [place] [address] 07/23/2021 13:22:09 07/23/2021 14:56:08 Bilateral sciatica 928486329888909 03 Spinal karen nosis of lumbar region 76410953 05861 Cecil Zaldivar MD MAIN OFFICE [address] [place] [address] 10/25/2021 11:06:27 10/25/2021 12:59:54 Pain in pelvis 52487306 Chronic pain syndrome 37 4007289 Spinal karen nosis of lumbar region 21649080 Left rotat or cuff syndrome 415063338071059 Inflammati on of sacroiliac joint 97820299 Health Concerns Section Related Observation LastModified by Organization Detai ls LastModified Time None Recorded Concern Status LastModified by Organization Details LastModified Time None Recorded Advance Directives Directive N: Payers Encounter Date Sequence Insurance Name Policy Number Policy Martin Covered Member ID Martin Member ID Guarantor Name 10/25/2021 2 [place] [employer] Emilee R Pleschourt [id number] Emilee Bussert Pleschourt 10/25/2021 1 [employer] - DUAL ELIGIBLE (MEDICARE REPLACEMENT/ ADVANTAGE - PPO) [place] K R Bussert Pleschourt [id number] Emilee Bussert Pleschourt 07/23/2021 2 [place] [employer] Emilee R Pleschourt [id number] Emilee Bussert Pleschourt 07/23/2021 1 [employer] - DUAL ELIGIBLE (MEDICARE REPLACEMENT/ ADVANTAGE - PPO) [employer] K R Bussert Pleschourt [id number] Emilee Bussert Pleschourt 06/25/2021 2 [place] [employer] Emilee R Pleschourt [id number] Emilee Bussert Pleschourt 06/25/2021 1 [employer] - DUAL ELIGIBLE (MEDICARE REPLACEMENT/ ADVANTAGE - PPO) [place] K R Bussert Pleschourt [id number] Emilee Bussert Pleschourt Notes Date Note Type [...] none Previous Injections: LINDSEY; helped temporarily 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 Mendez at [facility] ( 2020, multiple injections [...] shoulder inj by Dr. Mendez, injections in [place] to the neck and back Current Disability [...] with CT scan 09/2020. 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 Mendez at [facility] ( 2020, multiple injections to the spine) in the past. She is seeking ongoing treatment. Current medications: Cyclobenzaprine, Gabapentin, Meloxicam, Topiramate Past medication: Cyclobenzaprine, Gabapentin, Meloxicam, Topiramate Denies recreational drug use. 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 Treatments received in the past: neck injection, thoracic spine inj, left shoulder inj by Dr. Cole Mendez, injections in [place] to the neck and back Current Disability Status: totally disabled Narx Scores 07/11/2021 Narcotic : 251 Sedative : 110 Stimulant : 000 Overdose Risk Score : 180 (Range 000-999) LABS: CT of cervical spine 02/2021: Anterior fusion C5-6. No soft tissue injury, hardware in good position, comparison with CT scan 09/2020. 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 Mendez at [facility] ( 2020, multiple injections [...] shoulder inj by Dr. Mendez, injections in [place] to the neck and back Current Disability [...] with CT scan 09/2020. Cecil Zaldivar MD [address] [facility], [address], [place], [address], [facility] - Cecil Zaldivar MD 03/11/2022 15:29:34 OBGyn Episode No OBEpisode recorded.
--- OUTSIDE RECORDS SUMMARY | 2023-07-07 15:06 | XMS_ITS | Clinical Summary ---
Author Organization [facility] [address] Address [place], [place] [address] Care Team Providers Care Induction Machine Setter Name Role Phone Manan Beaulieu MD Primary [...] agreement terminated 2016 Overview: Patient terminated from [facility]. DDD (degenerative disc disease), cervical 2016 Overview: Oct 2016: epidural steroid injection left interlaminar, Cervical Spine at [facility]. Oct 2016: 3rd epidural steroid injection to Cervical Spine at [facility]. Obesity, Class II, BMI 35-39.9 [...] Department Care Team Description 05/15/2023 Orders Only [facility] [address] [id number] Jaren Byrd MD <No scans attached> from [...] Comments Blood Pressure 125/59 04/02/2019 12:17 PM SINGER BACK TENDER Pulse 80 04/02/2019 12:18 PM SINGER BACK TENDER Temperature 36.9 ??C (98.5 ??F) 04/02/2019 1 0:55 AM SINGER BACK TENDER Respiratory Rate 18 04/02/2019 10:5 5 AM SINGER BACK TENDER Oxygen Saturation 97% 04/02/2019 12: 18 PM SINGER BACK TENDER Inhaled Oxygen Concentration - - Weight 112.8 kg (248 lb 10.9 oz) 08/04/2017 8:02 AM CDT Height 154.9 cm (5' 1) 04/02/2019 10:5 5 AM SINGER BACK TENDER Body Mass Index 45.48 08/04/2017 8:02 AM [...] this topic Medical Devices Implanted Type Area Cras Device Identifier Shelf Expiration Date Model / Serial / Lot Bone Matrix 1cc [employer] Puttydbm - [id number] Implanted:Qty: 1 on 08/04/2017 by J Carlos Donohue MD at [facility] N/A: Cervical Vertebrae Medtronic Spine/Ortho 12/30/2018 [id number]# / / [id number] Bone [id number] Cornerstone Lasr Spacer - [id number] Implanted:Qty: 1 on 08/04/2017 by J Carlos Donohue MD at [facility] N/A: Cervical Vertebrae Medtronic Spine/Ortho 04/03/2020 [id number]# / / [id number] Bone [id number] Cornerstone Lasr Spacer - [id number] Implanted:Qty: 1 on 08/04/2017 by J Carlos Donohue MD at [facility] N/A: Cervical Vertebrae Medtronic Spine/Ortho 10/30/2019 [id number]# / [id number] / [id number] 2 Plate Cerv 2lvl 37.5mm [employer] Vision Elite Ant - [id number] Implanted:Qty: 1 on 08/04/2017 by J Carlos Donohue MD at [facility] N/A: Cervical Vertebrae Medtronic Spine/Ortho [id number]# / / - Screw Cerv Ant 4x12mm [employer] Va Slf Drill - [id number] Implanted:Qty: 6 on 08/04/2017 by J Carlos Donohue MD at [facility] N/A: Cervical Vertebrae Medtronic Spine/Ortho [id number] / / - Procedures Procedure Name Priority Date/Time Associated Diagnosis Comments XR MAMMO BILAT SCREENING Routine 03/26/2016 11:44 AM SINGER BACK TENDER Visit for screening mammogram LIPID PANEL Routine 03/06/2015 9:54 AM SINGER BACK TENDER Hyperlipidemia ANTI HIV 1/2 Routine 05/12/2014 10:16 AM CDT Screen for STD (sexually transmitted disease) ANTI HCV Routine 05/12/2014 10:16 AM CDT Screen for STD (sexually transmitted disease) GLORY HOLE TENDER THIN PREP PAP SCREEN IMAGED Routine 05/12/2014 10:16 AM CDT Pap smear for cervical cancer screening from Last 3 Months or Most Recently Relevant to Health Maintenance Results * XR MAMMO BILAT SCREENING (03/26/2016 11:44 AM SINGER BACK TENDER) Anatomical Region Laterality Modality BREASTS, Breast Left, Breast Right Bilateral Mammography Impressions 03/27/2016 12:29 PM SINGER BACK TENDER ??There is no radiographic evidence for malignancy. ??Recommend annual mammograms. A lay language report of this examination will be provided to the patient. MAMMOGRAM ASSESSMENT: ??ACR 2 Benign Narrative 03/27/2016 12:29 PM SINGER BACK TENDER XR MAMMO BILAT SCREENING [[id number]] CLINICAL HISTORY: ??This is an asymptomatic 50 y.o. patient. INDICATION FOR EXAM: Mammogram Screening. TECHNIQUE: CC & MLO views were obtained. ??This digital study was evaluated with the assistance of Computer-Aided Detection. COMPARISON FILMS: Yes 06/30/12 [facility] 05/15/11 [facility] FINDINGS: ??Mammographically, the breast tissue has scattered fibroglandular densities. ??No suspicious masses or microcalcifications. ?? Benign appearing calcifications within both breasts. Arnel Peck MD MAMMO * (ABNORMAL) LIPID PANEL (03/06/2015 9:54 AM SINGER BACK TENDER) Pathologist [facility] CHOLESTEROL,TOTAL 237(H) 100 - 199 mg/dL 03/06/2015 10:25 AM SINGER BACK TENDER [facility] TRIGLYCERIDES 184(H) <150 mg/dL 03/06/2015 10:25 AM [facility] HDL CHOLESTEROL 57 >40 mg/dL 03/06/2015 10:25 AM SINGER BACK TENDER [facility] NON-HDL CHOLESTEROL 180(H) <145 mg/dl 03/06/2015 10:25 AM SINGER BACK TENDER [facility] CHOL/HDL RATIO 4.16 <4.50 03/06/2015 10:25 AM [facility] LDL CHOLESTEROL 143(H) <=130 mg/dL 03/06/2015 10:25 AM [facility] PATIENT STATUS NON-FASTI NG 03/06/2015 10:25 AM [facility] Blood specimen (specimen) BLOOD SPECIMEN / Unknown Venipuncture / Unknown 03/06/2015 9:54 AM SINGER BACK TENDER 03/06/2015 9:54 AM SINGER BACK TENDER Arnel Peck MD CHEMISTRY [facility] [address] [place] [address], [place] [phone] * GLORY HOLE TENDER THIN PREP PAP SCREEN IMAGED (05/12/2014 10:16 AM CDT) [facility] GLORY HOLE TENDER CYTOLOGY See Anatomic Pathology case 05/17/2014 11:00 AM CDT [facility] Specimen (specimen) (Cervical/Vagina l) Non-Blood / Unknown 05/12/2014 10:16 AM CDT 05/12/2014 10:16 AM CDT Arnel Peck MD PATHOLOGY/CYTOLOGY [facility] [address] [place] [address], [place] * ANTI HCV (05/12/2014 10:16 AM CDT) [facility] HEPATITIS C ANTIBODY Non-Reacti ve Non-Reacti ve 05/12/2014 4:59 PM CDT [facility] Blood specimen (specimen) BLOOD SPECIMEN / Unknown Venipuncture / Unknown 05/12/2014 10:16 AM CDT 05/12/2014 10:16 AM CDT Narrative [facility] - 05/12/2014 4:59 PM CDT Antibodies to HCV not detected; does not exclude the possibility of exposure to HCV. Arnel Peck MD SEND OUTS [facility] [address] [place] [address], * ANTI HIV 1/2 (05/12/2014 10:16 AM CDT) HIV-1/HIV-2 ANTIBODY Non-Reacti ve Non-Reacti ve 05/12/2014 3:27 PM CDT [facility] Blood specimen (specimen) BLOOD SPECIMEN / Unknown Venipuncture / Unknown 05/12/2014 10:16 AM CDT 05/12/2014 10:16 AM CDT Narrative [facility] - 05/12/2014 3:27 PM CDT HIV-1 p24 and HIV-1/HIV-2 Ab not detected Arnel Peck MD SEND OUTS [facility] [address] [place] [address], from Last 3 Months or Most Recently Relevant to Health Maintenance Advance Directives * Full Code (Latest Code Status on File) Date Activated Date Inactivated Comments 08/04/2017 1:43 PM 08/05/2017 3:46 PM Question Answer Comments Code Status Discussion: Per Existing Order Care Teams Induction Machine Setter Relationship Specialty Start Date End Date Manan Beaulieu MD [address] [place] [address] PCP - General Internal Medicine 07/30/17
--- OUTSIDE RECORDS SUMMARY | 2023-07-07 15:06 | XMS_ITS | Clinical Summary ---
Author Organization [facility] Address [address] [place] [address] Care Team Providers Care Certified Athletic Trainer Name Role Phone Unavailable Primary Care Provider [...]
--- NOTE | 2023-07-07 15:30 | ED.GENADULT ---
HPI - General Adult General Date Seen: 07/16/23 <Helen Metzger MD - Last Filed: 07/11/23 11:22> Chief complaint: Abdominal Pain <Helen Metzger MD - Last Filed: 07/11/23 11:22> Stated complaint: gallstones, abd and arm pain <Helen Metzger MD - Last Filed: 07/11/23 11:22> Time Seen by Provider: 07/07/23 14:36 <Helen Metzger MD - Last Filed: 07/11/23 11:22> Source: patient, RN notes reviewed and old records reviewed <Helen Metzger MD - Last Filed: 07/11/23 11:22> Mode of arrival: ambulatory <Helen Metzger MD - Last Filed: 07/11/23 11:22> Limitations: no limitations <Helen Metzger MD - Last Filed: 07/11/23 11:22> History of Present Illness HPI narrative: Patient is a 58-year-old woman here for evaluation of a couple different complaints. 1., she says she has been having abdominal pain for a while now, she was seen by her primary care doctor and an ultrasound was done on the . Her primary doctor is now out of town and she looked up the results and noted that she does have gallstones. She started having abdominal pain about an hour ago, she says she has been having pain on and off for days. She had some pasta earlier which she thinks set this off. She has not had fevers, nausea, vomiting, diarrhea, black or bloody stools. She has a history of hysterectomy, . She also notes that for a number of weeks she will wake and her arms will be asleep. Today she had a shooting pain from her hand up to her cheek on the left, she says she has a history of a heart attack back in [facility] a a couple of years ago, she says they did an angiogram but decided not to place a stent. Details on this are a little fuzzy. She says she saw cardiology here and they were going to get records from [place] but she has not heard anything since that visit which was in 2022. She has not had chest pain. The arm and cheek pain started this morning, are feeling better. She feels like that pain also radiated into the left shoulder blade a bit. She has not felt short of breath or had a cough. No lower extremity swelling or pain. She does have a history of chronic neck and back pain, had a CT of the cervical spine a month ago which showed diffusion, some mild to moderate cervical stenosis. She tells me she is currently smoking. Denies drug or alcohol history. <Helen Metzger MD - Last Filed: 07/11/23 11:22> Related Data Home medications: Previous Rx's ?Medication ?Instructions ?Recorded albuterol sulfate 2.5 mg/3 mL 2.5 mg (3 mL) continuous 06/19/23 (0.083 %) solution for nebulization nebulization QID PRN shortness of breath or wheezing #90 mL albuterol sulfate 90 mcg/actuation 2 puff inhalation Q6H PRN 06/19/23 aerosol inhaler bronchospasm #8.5 grams aspirin 81 mg chewable tablet 1 tab PO DAILY #90 tabs 06/19/23 budesonide 3 mg 9 mg (3 x 3 mg) PO DAILY #60 ea 06/19/23 capsule,delayed,extended release buspirone 15 mg tablet 15 mg PO BID #90 tabs 06/19/23 cholecalciferol (vitamin D3) 1,250 1,250 mcg PO QWEEK #13 caps 06/19/23 mcg (50,000 unit) capsule cyclobenzaprine 10 mg tablet 10 mg PO BID PRN muscle spasm #30 06/19/23 tabs docusate sodium 100 mg capsule 100 mg PO 3XD PRN diarrhea #30 caps 06/19/23 duloxetine 60 mg capsule,delayed 60 mg PO DAILY #90 caps 06/19/23 release epinephrine 0.3 mg/0.3 mL 0.3 mg (0.3 mL) IM ONCE #2 ea 06/19/23 injection, auto-injector gabapentin 600 mg tablet 600 mg PO 3XD #90 tabs 06/19/23 meloxicam 15 mg tablet 15 mg PO DAILY Pain #90 tabs 06/19/23 metformin 1,000 mg tablet 1,000 mg PO BID #90 tabs 06/19/23 mirtazapine 7.5 mg tablet 7.5 mg PO QPM #90 tabs 06/19/23 nebulizers #1 ea 06/19/23 ondansetron HCl 4 mg tablet 4 mg PO Q8H PRN nausea and 06/19/23 vomiting #20 tabs pravastatin 40 mg tablet 40 mg PO DAILY #90 tabs 06/19/23 propranolol 60 mg capsule,24 60 mg PO DAILY #90 caps 06/19/23 hr,extended release topiramate 100 mg tablet 100 mg PO BID #60 tabs 06/19/23 trazodone 100 mg tablet 100 mg PO QPM #90 tabs 06/19/23 hydrocodone 5 mg-acetaminophen 325 1 tab PO Q4-6H pain #20 tabs 07/09/23 mg tablet lorazepam 0.5 mg tablet (Ativan) 0.5 mg PO BID PRN anxiety #20 tabs 07/09/23 <Helen Metzger MD - Last Filed: 07/11/23 11:22> Allergies/adverse reactions: Allergies Allergy/AdvReac Type Severity Reaction Status Date / Time latex Allergy Intermediate Hives Verified 07/09/23 10:38 adhesive Allergy Mild Rash Verified 07/09/23 10:38 bee venom protein (honey bee) Allergy Verified 07/09/23 10:38 Epideral Allergy Intermediate severe Uncoded 07/09/23 10:38 hives Erythromycin Allergy Intermediate severe Uncoded 07/09/23 10:38 rash, diarrhea <Helen Metzger MD - Last Filed: 07/11/23 11:22> Review of Systems Status of ROS: Reports: 10 or more systems reviewed and unremarkable except as noted in History and below <Helen Metzger MD - Last Filed: 07/11/23 11:22> [facility] Medical History: Medical History Abdominal pain ?R10.9 - Unspecified abdominal pain (ICD-10) Type 2 diabetes mellitus, without long-term current use of insulin ?E11.9 - Type 2 diabetes mellitus without complications (ICD-10) Primary hypertension ?I10 - Essential (primary) hypertension (ICD-10) Mixed hyperlipidemia ?E78.2 - Mixed hyperlipidemia (ICD-10) Ulcerative colitis ?K51.90 - Ulcerative colitis, unspecified, without complications (ICD-10) Kidney stone ?N20.0 - Calculus of kidney (ICD-10) Myocardial infarction ?I21.9 - Acute myocardial infarction, unspecified (ICD-10) <Helen Metzger MD - Last Filed: 07/11/23 11:22> Surgical History: Surgical History History of total hysterectomy with bilateral salpingo-oophorectomy (BSO) (09/21/14) ?Z90.710 - Acquired absence of both cervix and uterus (ICD-10) ?Z90.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, bilateral (ICD-10) ?Z90.79 - Acquired absence of other genital organ(s) (ICD-10) History of section ?Z98.891 - History of uterine scar from previous surgery (ICD-10) History of cervical spinal arthrodesis (08/04/17) ?Z98.1 - Arthrodesis status (ICD-10) History of carpal tunnel release (08/2018) ?Z98.890 - Other specified postprocedural states (ICD-10) <Helen Metzger MD - Last Filed: 07/11/23 11:22> Family History: Family History Other Colon cancer <Helen Metzger MD - Last Filed: 07/11/23 11:22> Social History: Social History Smoking Status: Former smoker Do you use any of these nicotine containing products: None Second hand tobacco smoke exposure: No How often do you have a drink containing alcohol: 2-4 times a month How many standard drinks containing alcohol do you have on a typical day: 1 or 2 How often do you have six or more drinks on one occasion: Never AUDIT-C Alcohol total score: 2 Non-prescribed substance use: denies use Little interest or pleasure in doing things: not at all Feeling down, depressed, or hopeless: not at all service: No <Helen Metzger MD - Last Filed: 07/11/23 11:22> Exam Narrative: Exam Narrative: Vital signs as noted above. In general, an alert, comfortable appearing woman. She looks older than her stated age. Head: Normocephalic, atraumatic. Eyes: Pupils are equal reactive. Extraocular movements are full. Conjunctivae are normal. No icterus. ENT: Mucous membranes are moist. Neck: Supple without lymphadenopathy. Heart: Regular rate and rhythm. No murmur or rub. Lungs: Clear bilaterally. No increased work of breathing, crackles or wheezes. Abdomen: Soft and nondistended. Some right upper quadrant tenderness, no rebound guarding or rigidity, negative August's. Extremities: Well perfused. No edema. No calf tenderness. Pulses intact. Neurologic: Patient is alert and oriented to person and place. Speech is fluent. Face is symmetric. Moves all extremities equally, specifically strength is 5 of 5 in bilateral upper extremities and sensation is intact to light touch. Affect: Normal. Skin: Warm and dry. Well perfused. <Helen Metzger MD - Last Filed: 07/11/23 11:22> Const: Vital Signs, click to edit/add: Vital Signs - 24 hr 07/07/23 14:32 07/07/23 15:44 07/07/23 15:45 Temperature 97.3 F L Pulse Rate 76 74 Pulse Rate [Pulse Oximeter] 83 Respiratory Rate 16 Blood Pressure [Ri ght Upper Arm] 112/75 Pulse Oximetry 94 92 93 Oxygen Delivery Me thod Room Air 07/07/23 16:00 07/07/23 16:15 Temperature Pulse Rate 72 72 Pulse Rate [Pulse Oximeter] Respiratory Rate 18 Blood Pressure [Ri ght Upper Arm] Pulse Oximetry 92 91 Oxygen Delivery Me thod <Helen Metzger MD - Last Filed: 07/11/23 11:22> Vital Signs, click to edit/add: Vital Signs - 24 hr 07/07/23 14:32 07/07/23 15:44 07/07/23 15:45 Temperature 97.3 F L Pulse Rate 76 74 Pulse Rate [Pulse Oximeter] 83 Respiratory Rate 16 Blood Pressure [Ri ght Upper Arm] 112/75 Pulse Oximetry 94 92 93 Oxygen Delivery Me thod Room Air 07/07/23 16:00 07/07/23 16:15 Temperature Pulse Rate 72 72 Pulse Rate [Pulse Oximeter] Respiratory Rate 18 Blood Pressure [Ri ght Upper Arm] Pulse Oximetry 92 91 Oxygen Delivery Me thod <Jc Rivera MD - Last Filed: 07/07/23 21:19> Documenting provider has reviewed patient's vital signs: yes <Helen Metzger MD - Last Filed: 07/11/23 11:22> Course Course ED Course: Patient presents with a few different symptoms, none of which are new but are more bothersome today. She does have abdominal pain which could be attributed to biliary colic or cholecystitis, gastritis, peptic ulcer disease or another diagnosis such as diverticulitis, kidney stone, UTI, pyelonephritis, bowel obstruction among others. She presents with some ongoing paresthesias in her upper extremities which present after sleep, not currently present. Neurologic exam is normal, this symptom I think can be pursued as an outpatient. With regard to her left arm pain, this may be likewise related to cervical pathology, but also consider atypical cardiac symptomatology. EKG, troponin pending. Other labs including UA, place IV, alarm security or surveillance monitor. Records reviewed, her ultrasound from the shows gallstones without other significant findings, gallbladder wall at that time was 2 mm. Normal common bile duct. Will try some Toradol here and see if pain is improved. Patient's labs are overall reassuring, white blood cell count is normal, troponin is 0. She has not yet been able to provide a urine sample. Hemoglobin 14.4, LFTs are entirely within normal limits, CRP is 0.8, lipase 212. She says her abdominal pain however is unchanged. Therefore, have recommended that we repeat an ultrasound to make sure there are not signs of developing cholecystitis. I have also ordered a 2nd troponin at the 2 hour javed. Signed out to Dr. Rivera for final disposition and plan. <Helen Metzger MD - Last Filed: 07/11/23 11:22> Reevaluation(s) Reevaluation #1: Patient signed out to Dr. Rivera at 5:00 p.m.. Patient had presented with some abdominal pain in the right and mid abdomen. Has known gallstones with recurrent episodes ofpain over time. had another episode of pain this afternoon. Lab work for gallbladder is reassuring. White count normal. Lipase normal. Liver function tests normal. Dr. Metzger suspects probably an episode of biliary colic but has ordered a gallbladder ultrasound to be sure there is no signs of evolving cholecystitis or choledocholithiasis. Result-right upper quadrant ultrasound -6:07 p.m.. FINDINGS: Gallbladder: Multiple echogenic shadowing stones in the gallbladder neck. No wall thickening or pericholecystic fluid. Negative sonographic August sign. Bile ducts: The common bile duct measures 4 mm in diameter. IMPRESSION: Cholelithiasis without sonographic evidence of acute cholecystitis. Patient also had some pain from her left neck up into her left jaw. Suspicion it is is probably related to cervical spine disease but Dr. Metzger has ordered a cardiac workup to look for an atypical presentation of ACS. Initial EKG and initial i-STAT troponin are normal. Dr. Metzger is ordered a repeat i-STAT troponin to be drawn at 5:30 p.m.. If it remains undetectable, this would be sufficient to rule out active ACS. Clinical suspicion is low. Repeat point of care troponin came back 0.00. Discussed the results of the patient's cardiac workup and gallbladder workup in detail. At this point she is not having any active pain. No signs of active ACS. No signs of cholecystitis, choledocholithiasis, hepatitis, pancreatitis. No acute medical or surgical emergency. I think she is safe to discharge home. She will follow up outpatient with primary care for a recheck and likely will need a preop history and physical. Also will have her follow up outpatient with the general surgery clinic for biliary colic. Discussed need to stick to a low-fat diet, risk of recurrent biliary colic or worsening cholecystitis. Return precautions reviewed. Also discussed risk ACS and return precautions. She will also follow up with her doctors because of her ongoing cervical spine problems. <Jc Rivera MD - Last Filed: 07/07/23 21:19> Vital Signs Vital signs: Initial Vital Signs Temperature 97.3 F L 07/07/23 14:32 Temperature Source Temporal Artery Scan 07/07/23 14:32 Pulse Rate 83 07/07/23 14:32 Respiratory Rate 16 07/07/23 14:32 Blood Pressure 112/75 07/07/23 14:32 Blood Pressure Mean 87 07/07/23 14:32 Blood Pressure Position Sitting 07/07/23 14:32 Pulse Oximetry 94 07/07/23 14:32 Oxygen Delivery Method Room Air 07/07/23 14:32 Vital Signs Temperature 97.3 F L 07/07/23 14:32 Pulse Rate 83 07/07/23 14:32 Respiratory Rate 16 07/07/23 14:32 Blood Pressure 112/75 07/07/23 14:32 Pulse Oximetry 94 07/07/23 14:32 Oxygen Delivery Method Room Air 07/07/23 14:32 Temperature 97.3 F L 07/07/23 14:32 Pulse Rate 72 07/07/23 16:15 Respiratory Rate 18 07/07/23 16:15 Blood Pressure 112/75 07/07/23 14:32 Pulse Oximetry 91 07/07/23 16:15 Oxygen Delivery Method Room Air 07/07/23 14:32 <Helen Metzger MD - Last Filed: 07/11/23 11:22> Initial Vital Signs Temperature 97.3 F L 07/07/23 14:32 Temperature Source Temporal Artery Scan 07/07/23 14:32 Pulse Rate 83 07/07/23 14:32 Respiratory Rate 16 07/07/23 14:32 Blood Pressure 112/75 07/07/23 14:32 Blood Pressure Mean 87 07/07/23 14:32 Blood Pressure Position Sitting 07/07/23 14:32 Pulse Oximetry 94 07/07/23 14:32 Oxygen Delivery Method Room Air 07/07/23 14:32 Vital Signs Temperature 97.3 F L 07/07/23 14:32 Pulse Rate 83 07/07/23 14:32 Respiratory Rate 16 07/07/23 14:32 Blood Pressure 112/75 07/07/23 14:32 Pulse Oximetry 94 07/07/23 14:32 Oxygen Delivery Method Room Air 07/07/23 14:32 Temperature 97.3 F L 07/07/23 14:32 Pulse Rate 72 07/07/23 16:15 Respiratory Rate 18 07/07/23 16:15 Blood Pressure 112/75 07/07/23 14:32 Pulse Oximetry 91 07/07/23 16:15 Oxygen Delivery Method Room Air 07/07/23 14:32 <Jc Rivera MD - Last Filed: 07/07/23 21:19> Medications Administered Medications: Discontinued Medications Generic Name Dose Route Start Last Admin Trade Name Freq PRN Reason Stop Dose Admin Ketorolac Tromethamine 15 mg 07/07/23 15:37 07/07/23 15:58 Ketorolac 15 Mg/Ml Inj IVP 07/07/23 15:38 15 mg ONCE ONE Administration <Helen Metzger MD - Last Filed: 07/11/23 11:22> Discontinued Medications Generic Name Dose Route Start Last Admin Trade Name Sawyer PRN Reason Stop Dose Admin Ketorolac Tromethamine 15 mg 07/07/23 15:37 07/07/23 15:58 Ketorolac 15 Mg/Ml Inj IVP 07/07/23 15:38 15 mg ONCE ONE Administration <Jc Rivera MD - Last Filed: 07/07/23 21:19> Medical Decision Making Lab Data Labs: Lab Results 07/07/23 07/07/23 07/07/23 Range/Units 15:01 15:22 17:28 WBC 10.43 (4.50-11.00) K/uL RBC 4.49 (4.00-5.20) m/uL Hgb 14.4 (12.0-16.0) gm/dL Hct 44.4 (33.0-51.0) % MCV 99 (80-100) fL MCH 32 (26-34) pg MCHC 32 (32-36) gm/dL RDW Coeff of Maurice 12.4 (11.5-15.5) % Plt Count 230 (140-440) K/uL Neut % (Auto) 58.6 (42.0-72.0) % Lymph % (Auto) 29.1 (20-44) % [place] % (Auto) 8.2 (0.0-11.0) % Eos % (Auto) 3.0 (0.0-7.0) % Baso % (Auto) 0.8 (0.0-3.0) % Neut # (Auto) 6.11 (1.7-7.0) K/uL Lymph # (Auto) 3.04 H (0.90-2.90) K/uL [place] # (Auto) 0.90 (0.00-0.90) K/UL Eos # (Auto) 0.31 (0.00-0.50) K/uL Baso # (Auto) 0.08 (0.00-0.30) K/uL Abs Immat Gran (auto) 0.03 (0.00-0.30) K/uL Imm/Tot Granulo (auto) 0.3 % Sodium 141 (135-149) mmol/L Potassium 4.8 (3.6-5.1) mmol/L Chloride 111 (96-114) mmol/L Carbon Dioxide 26 (20-32) mmol/L Anion Gap 4 L (7-15) mEq/L BUN 30 (7-30) mg/dL Creatinine 0.8 (0.5-1.5) mg/dL Estimated GFR 86 ml/min Glucose 114 (60-115) mg/dL Lactate 1.9 (0.5-1.9) mmol/L Calcium 9.5 (8.4-10.6) mg/dL Total Bilirubin 0.6 (0.1-1.5) mg/dL Direct Bilirubin 0.5 (0.0-0.5) mg/dL AST 27 (12-35) U/L ALT 29 (4-35) U/L Alkaline Phosphatase 59 (40-150) U/L C-Reactive Protein 0.8 (0.5-1.0) mg/dL Total Protein 6.8 (6.0-8.3) g/dL Albumin 4.2 (3.3-5.0) g/dL Lipase 212 (23-300) U/L POC Troponin I 0.00 L 0.00 L (0.01-0.04) ng/ml <Helen Metzger MD - Last Filed: 07/11/23 11:22> Lab Results 07/07/23 07/07/23 07/07/23 Range/Units 15:01 15:22 17:28 WBC 10.43 (4.50-11.00) K/uL RBC 4.49 (4.00-5.20) m/uL Hgb 14.4 (12.0-16.0) gm/dL Hct 44.4 (33.0-51.0) % MCV 99 (80-100) fL MCH 32 (26-34) pg MCHC 32 (32-36) gm/dL RDW Coeff of Maurice 12.4 (11.5-15.5) % Plt Count 230 (140-440) K/uL Neut % (Auto) 58.6 (42.0-72.0) % Lymph % (Auto) 29.1 (20-44) % [place] % (Auto) 8.2 (0.0-11.0) % Eos % (Auto) 3.0 (0.0-7.0) % Baso % (Auto) 0.8 (0.0-3.0) % Neut # (Auto) 6.11 (1.7-7.0) K/uL Lymph # (Auto) 3.04 H (0.90-2.90) K/uL [place] # (Auto) 0.90 (0.00-0.90) K/UL Eos # (Auto) 0.31 (0.00-0.50) K/uL Baso # (Auto) 0.08 (0.00-0.30) K/uL Abs Immat Gran (auto) 0.03 (0.00-0.30) K/uL Imm/Tot Granulo (auto) 0.3 % Sodium 141 (135-149) mmol/L Potassium 4.8 (3.6-5.1) mmol/L Chloride 111 (96-114) mmol/L Carbon Dioxide 26 (20-32) mmol/L Anion Gap 4 L (7-15) mEq/L BUN 30 (7-30) mg/dL Creatinine 0.8 (0.5-1.5) mg/dL Estimated GFR 86 ml/min Glucose 114 (60-115) mg/dL Lactate 1.9 (0.5-1.9) mmol/L Calcium 9.5 (8.4-10.6) mg/dL Total Bilirubin 0.6 (0.1-1.5) mg/dL Direct Bilirubin 0.5 (0.0-0.5) mg/dL AST 27 (12-35) U/L ALT 29 (4-35) U/L Alkaline Phosphatase 59 (40-150) U/L C-Reactive Protein 0.8 (0.5-1.0) mg/dL Total Protein 6.8 (6.0-8.3) g/dL Albumin 4.2 (3.3-5.0) g/dL Lipase 212 (23-300) U/L POC Troponin I 0.00 L 0.00 L (0.01-0.04) ng/ml <Jc Rivera MD - Last Filed: 07/07/23 21:19> Discharge Plan Discharge Clinical Impression: Pain in left arm, Biliary colic <Helen Metzger MD - Last Filed: 07/11/23 11:22> Patient Disposition: Home, Self-Care <Helen Metzger MD - Last Filed: 07/11/23 11:22> Condition: Stable <Helen Metzger MD - Last Filed: 07/11/23 11:22> Instructions: Biliary Colic (ED) <Helen Metzger MD - Last Filed: 07/11/23 11:22> Additional Instructions: I would recommend you follow-up in the surgery clinic for further discussion of iron gallstones. You can schedule this appointment at [phone]. With regard to your arm pain, your EKG and heart tests are normal. It does not look as if cardiology has commented on any paperwork obtained from [place]. I would recommend discussing this further with Dr. Beaulieu. If you have severe uncontrolled pain, new symptoms such as vomiting, shortness of breath, etcetera, return to the emergency department. Please call the [facility] at [phone] for her tomorrow morning to schedule an appointment with Dr. Beaulieu and to schedule a consultation about your gallstoneswith 1 of the general surgeons <Helen Metzger MD - Last Filed: 07/11/23 11:22> Prescriptions: No Action hydrocodone-acetaminophen 5-325 mg tablet 1 tab PO Q4-6H Qty: 20 0RF lorazepam [Ativan] 0.5 mg tablet 0.5 mg PO BID PRN (Reason: anxiety) Qty: 20 0RF albuterol sulfate 90 mcg/actuation HFA aerosol inhaler 2 puff INHALATION Q6H PRN (Reason: bronchospasm) Qty: 8.5 3RF albuterol sulfate 2.5 mg /3 mL (0.083 %) solution for nebulization 2.5 mg continuous nebulization QID PRN (Reason: shortness of breath or wheezing) Qty: 90 2RF aspirin 81 mg tablet,chewable 1 tab PO DAILY Qty: 90 2RF budesonide 3 mg capsule,delayed,extend.release 9 mg PO DAILY Qty: 60 3RF buspirone 15 mg tablet 15 mg PO BID Qty: 90 3RF cholecalciferol (vitamin D3) 1,250 mcg (50,000 unit) capsule 1,250 mcg PO QWEEK Qty: 13 3RF cyclobenzaprine 10 mg tablet 10 mg PO BID PRN (Reason: muscle spasm) Qty: 30 0RF docusate sodium 100 mg capsule 100 mg PO 3XD PRN (Reason: diarrhea) Qty: 30 2RF duloxetine 60 mg capsule,delayed release(DR/EC) 60 mg PO DAILY Qty: 90 3RF epinephrine 0.3 mg/0.3 mL auto-injector 0.3 mg IM ONCE Qty: 2 0RF Rx Instructions: as a single dose; may repeat once gabapentin 600 mg tablet 600 mg PO 3XD Qty: 90 0RF meloxicam 15 mg tablet 15 mg PO DAILY Qty: 90 2RF metformin 1,000 mg tablet 1,000 mg PO BID Qty: 90 3RF mirtazapine 7.5 mg tablet 7.5 mg PO QPM Qty: 90 3RF Rx Instructions: 90 Day Supply (DME) nebulizers Misc See Rx Instructions .Route Qty: 1 3RF Rx Instructions: As directed ondansetron HCl 4 mg tablet 4 mg PO Q8H PRN (Reason: nausea and vomiting) Qty: 20 1RF pravastatin 40 mg tablet 40 mg PO DAILY Qty: 90 3RF propranolol 60 mg capsule,extended release 24 hr 60 mg PO DAILY Qty: 90 3RF topiramate 100 mg tablet 100 mg PO BID Qty: 60 0RF trazodone 100 mg tablet 100 mg PO QPM Qty: 90 3RF <Helen Metzger MD - Last Filed: 07/11/23 11:22> Follow Up/Referrals: Manan Beaulieu MD [Primary Care Provider] - <Helen Metzger MD - Last Filed: 07/11/23 11:22> Stand Alone Forms: [employer] Info Instructions <Helen Metzger MD - Last Filed: 07/11/23 11:22>
[2023-07-07 15:44] VITALS: PULSE 76; O2SAT 92
[2023-07-07 15:45] VITALS: PULSE 74; O2SAT 93
[2023-07-07 15:47] LABS: Basophils Absolute Auto 0.08 K/uL (0.00-0.30); Basophils Percent Auto 0.8 % (0.0-3.0); Eosinophils Absolute Auto 0.31 K/uL (0.00-0.50); Hematocrit 44.4 % (33.0-51.0); Hemoglobin* 14.4 gm/dL (12.0-16.0); Immature Granulocytes Abs Auto 0.03 K/uL (0.00-0.30); Immature Granulocytes Pct Auto 0.3 %; Lymphocytes Absolute Auto 3.04 K/uL (0.90-2.90); Lymphocytes Percent Auto 29.1 % (20-44); Mean Corpuscular HGB Conc 32 gm/dL (32-36); Mean Corpuscular Hemoglobin 32 pg (26-34); Mean Corpuscular Volume 99 fL (80-100); Monocytes Percent Auto 8.2 % (0.0-11.0); Neutrophils Absolute Auto 6.11 K/uL (1.7-7.0); Neutrophils Percent Auto 58.6 % (42.0-72.0); Platelet Count* 230 K/uL (140-440); RDW Coefficient of Variation % 12.4 % (11.5-15.5); Red Blood Count 4.49 m/uL (4.00-5.20); White Blood Count* 10.43 K/uL (4.50-11.00)
[2023-07-07 15:52] LABS: Slide Review Reflex No
[2023-07-07 15:53] LABS: Lactate Sepsis w/Reflex* 1.9 mmol/L (0.5-1.9)
[2023-07-07] MEDS: KETOROLAC 15 MG/ML inj IVP (15:58)
[2023-07-07 16:00] VITALS: PULSE 72; O2SAT 92
[2023-07-07 16:05] LABS: Albumin* 4.2 g/dL (3.3-5.0); Chloride* 111 mmol/L (96-114)
[2023-07-07 16:06] LABS: Potassium* 4.8 mmol/L (3.6-5.1); Sodium* 141 mmol/L (135-149)
[2023-07-07 16:08] LABS: Anion Gap 4 mEq/L (7-15); Aspartate Amino Transferase* 27 U/L (12-35); Bilirubin Direct* 0.5 mg/dL (0.0-0.5); Bilirubin Total* 0.6 mg/dL (0.1-1.5); Carbon Dioxide* 26 mmol/L (20-32); Creatinine* 0.8 mg/dL (0.5-1.5); Estimated Glomerular Filt Rate 86 ml/min; Total Protein* 6.8 g/dL (6.0-8.3)
[2023-07-07 16:09] LABS: Alanine Aminotransferase* 29 U/L (4-35); Alkaline Phosphatase* 59 U/L (40-150); Blood Urea Nitrogen* 30 mg/dL (7-30); Calcium* 9.5 mg/dL (8.4-10.6); Glucose* 114 mg/dL (60-115); Lipase* 212 U/L (23-300)
[2023-07-07 16:11] LABS: C Reactive Protein* 0.8 mg/dL (0.5-1.0)
[2023-07-07 16:15] VITALS: PULSE 72; RESP 18; O2SAT 91
--- NOTE | 2023-07-07 16:29 | CRLHL7_ITS ---
For Patients: As a result of the Century Cures Act, medical imaging exams and procedure reports are released immediately into your electronic medical record. You may view this report before your referring provider. If you have questions, please contact your health care provider. INDICATION: Known gallstones, right upper quadrant pain. COMPARISON: Abdominal ultrasound 07/02/2023. TECHNIQUE: Ultrasound abdomen limited gallbladder with real time roach scale imaging and color Doppler analysis. FINDINGS: Gallbladder: Multiple echogenic shadowing stones in the gallbladder neck. No wall thickening or pericholecystic fluid. Negative sonographic August sign. Bile ducts: The common bile duct measures 4 mm in diameter. IMPRESSION: Cholelithiasis without sonographic evidence of acute cholecystitis. Dictated by Ashanti Luque MD @ 07/07/2023 6:07:36 PM (Electronically Signed)
== END 2023-07-07 19:05 | disposition home or self-care (01) ==
PROVIDERS: Emergency Medicine; Emergency Provider Emergency Medicine; PCP Internal Medicine
DX: M79.602 Pain in left arm (principal); K80.51 Calculus of bile duct without cholangitis or cholecystitis with obstruction
CPT/HCPCS: 36415; 76705; 80048; 80076; 81001; 83605; 83690; 84484; 85025; 86140; 93005; 94761; 99284; 99285; J1885

== ENCOUNTER 2023-07-17 13:36 | Outpatient (CLI) | payer MEDICARE, MEDICAID, SELFPAY ==
--- OUTSIDE RECORDS SUMMARY | 2023-07-17 13:40 | XMS_ITS | Patient Health Record ---
Author Organization [facility] Billing Info Address [address] [place] [address] Care Team Providers Care Residential Solar Sales Consultant Name Role Phone DERRICK WHITING Unavailable [phone] STEPHAN CERRATO NONA Unavailable [phone] Allergies Allergen (clinical drug ingredient) Drug/Non Drug [...] Problem Status W/U Status Risk Notes Problem 45337837 Type 2 diabetes mellitus with other specified complication (E11.69) Active confirmed Problem 279702918 Morbid (severe) obesity due to excess calories (E66.01) Active confirmed Problem 752930552 Obesity, unspeci fied (E66.9) Active confirmed Problem 652145708 Chronic pain syn drome (G89.4) Active confirmed Problem Localized, primary osteoarthritis of the shoulder region (489431356) Primary osteoarthritis, left shoulder (M19.012) Active confirmed Problem Full thickness rotator cuff tear (151828087) Complete rotator cuff tear or rupture of unspecified shoulder, not specified as traumatic (M75.120) Active confirmed Problem Impingement syndrome of left shoulder region (550819557700548) Impingement syndrome of left shoulder (M75.42) Active confirmed Problem 443420222 Dietary counseli ng and surveillance (Z71.3) Active confirmed Problem 057700506 Body mass index [BMI] 40.0-44.9, adult (Z68.41) Active confirmed Problem 86907090 Parkinsons disea se (G20) Active confirmed Problem 149017235 Morbid obesity (E66.01) Active confirmed Problem 60784273 Essential hypert ension (I10) Active confirmed Problem Pre-procedure evaluation check (068396784) Pre-operative clearance (Z01.818) Active confirmed Problem Right shoulder pain (1866175988) Right shoulder pain (M25.511) Active confirmed Problem Left shoulder pain (8686550086) Left shoulder pain (M25.512) Active confirmed Problem 079691896619560 Trochanteric bur sitis of right hip (M70.61) Active confirmed Problem 95912438 Tobacco dependen ce (F17.200) Active confirmed Problem 7939355988579 S/P cervical spi nal fusion (Z98.1) Active confirmed Problem 01246402 Cervical spinal stenosis (M48.02) Active confirmed Problem 285600855432819 Gluteal tendinit is of right buttock (M76.01) Active confirmed Problem 213787151 Adult general me dical exam (Z00.00) Active confirmed Problem Long-term current use of 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 (983383751) meterman use of drug (Z79.899) Active confirmed Problem 75428855 Thoracic spinal stenosis (M48.04) Active confirmed Problem 564753098 Disorder of left rotator cuff (M67.912) Active confirmed Problem 362787642 Biceps tendiniti s of left shoulder (M75.22) Active confirmed Problem 73578813 Iliotibial band tendinitis of right side (M76.31) Active confirmed Problem 7110379004370253 Osteoarthritis of left acromioclavicular joint (M19.012) Active confirmed Problem 820574220 Rotator cuff impingement syndrome of left shoulder (M75.42) Active confirmed Problem 10559320 Hypercholesterol emia (E78.00) Active confirmed Problem 386949368 Aftercare (Z51.89) Active confirmed Problem 167826497 Status post left rotator cuff repair (Z98.890) Active confirmed Problem 1716961472256524 Nontraumatic co mplete tear of left rotator cuff (M75.122) Active confirmed Problem 195686675 Frequent headach es (R51.9) Active confirmed Problem 316926297 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) Active confirm ed Encounters Encounter Location Date Provider Diagnosis [id number] [address] [facility] [address] [address] [address] [employer] [place] [id number] 08/16/2022 NONA ROTHMAN II [id number] [address] [facility] [address] [employer] [id number] 09/04/2022 NONA ROTHMAN II Dietary counseling and surveillance Z71.3 [id number] [address] [facility] [address] [address] [address] [place] [id number] 09/05/2022 NONA ROTHMAN II Dietary counseling and surveillance Z71.3 [id number] [address] [facility] [address] [place] [id number] 10/04/2022 NONA ROTHMAN II [id number] [address] [facility] [address] [place] [id number] 11/04/2022 NONA ROTHMAN II Dietary counseling and surveillance Z71.3 [id number] [address] [facility] [address] [facility] [address] [place] [id number] 01/06/2023 NONA ROTHMAN II Dietary counseling and surveillance Z71.3 [id number] [address] [facility] [address] [facility] [address] [place] [id number] 04/07/2023 NONA ROTHMAN II Dietary counseling and [...] Test Name Order Date HEPATIC FUNCTION PANEL (27144) LIPID PANEL (84835) 03/16/2020 HEMOGLOBIN A1C (C114) 03/16/2020 Basic Metabolic Panel (8) 03/16/2020 Insurance Providers Payer Name Payer Address Payer Phone Subscriber Number Group Number Insured Name Patient Relationship to Insured Coverage Start Date Coverage End Date [facility] [employer] [employer] [address] [address] [place], [place] [id number] Emilee Boyer Self - patient is the insured 2 2 Medications Administered Medication Instructions Date of Administration Dosage Notes MethylPREDNISolone Acetate 12/25/2021 80 mg Xylocaine 12/25/2021 2 mL Medical (General) History Medical History History ICD Code Anxiety/Depression Diabetes Mellitus Insomnia Parkinsons Disease- neurolog ist diagnosed in [facility] associated with [facility] on for 15 years Essential hypertension Poor wound healing from surgeries Morbid obesity Surgical History Surgery Date(Month/Year) LT RCR 01/31/2022 Colonoscopy 06/15/2020 Mammogram 2020 (R) CTR C5,C6,C7 fusion and replacment Hysterectomy-Full Uterine Ablation x2
--- OUTSIDE RECORDS SUMMARY | 2023-07-17 13:40 | XMS_ITS | Clinical Summary ---
Author Organization [facility] Address [place], [place] [address] Care Team Providers Care Echocardiography Radiology Technologist Name Role Phone Manan Beaulieu MD Primary [...] agreement terminated 2016 Overview: Patient terminated from [facility]. DDD (degenerative disc disease), cervical 2016 Overview: Oct 2016: epidural steroid injection left interlaminar, Cervical Spine at [facility]. Oct 2016: 3rd epidural steroid injection to Cervical Spine at [facility]. Obesity, Class II, BMI 35-39.9 07/12/2016 [...] Department Care Team Description 05/15/2023 Orders Only [facility] [address] [id number] Jaren Byrd MD <No scans attached> from [...] Comments Blood Pressure 125/59 04/02/2019 12:17 PM DOOR CORE ASSEMBLER Pulse 80 04/02/2019 12:18 PM DOOR CORE ASSEMBLER Temperature 36.9 ??C (98.5 ??F) 04/02/2019 1 0:55 AM DOOR CORE ASSEMBLER Respiratory Rate 18 04/02/2019 10:5 5 AM DOOR CORE ASSEMBLER Oxygen Saturation 97% 04/02/2019 12: 18 PM DOOR CORE ASSEMBLER Inhaled Oxygen Concentration - - Weight 112.8 kg (248 lb 10.9 oz) 08/04/2017 8:02 AM CDT Height 154.9 cm (5' 1) 04/02/2019 10:5 5 AM DOOR CORE ASSEMBLER Body Mass Index 45.48 08/04/2017 8:02 AM [...] this topic Medical Devices Implanted Type Area Shoer Device Identifier Shelf Expiration Date Model / Serial / Lot Bone Matrix 1cc [employer] Puttydbm - [id number] Implanted:Qty: 1 on 08/04/2017 by J Carlos Donohue MD at [facility] N/A: Cervical Vertebrae Medtronic Spine/Ortho 12/30/2018 [id number]# / / [id number] Bone [id number] Cornerstone Lasr Spacer - [id number] Implanted:Qty: 1 on 08/04/2017 by J Carlos Donohue MD at [facility] N/A: Cervical Vertebrae Medtronic Spine/Ortho 04/03/2020 [id number]# / / [id number] Bone [id number] Cornerstone Lasr Spacer - [id number] Implanted:Qty: 1 on 08/04/2017 by J Carlos Donohue MD at [facility] N/A: Cervical Vertebrae Medtronic Spine/Ortho 10/30/2019 [id number]# / [id number] / [id number] 2 Plate Cerv 2lvl 37.5mm [place] Vision Elite Ant - [id number] Implanted:Qty: 1 on 08/04/2017 by J Carlos Donohue MD at [facility] N/A: Cervical Vertebrae Medtronic Spine/Ortho [id number]# / / - Screw Cerv Ant 4x12mm [employer] Slf [employer]ill - [id number] Implanted:Qty: 6 on 08/04/2017 by J Carlos Donohue MD at [facility] N/A: Cervical Vertebrae Medtronic Spine/Ortho [id number] / / - Procedures Procedure Name Priority Date/Time Associated Diagnosis Comments XR MAMMO BILAT SCREENING Routine 03/26/2016 11:44 AM DOOR CORE ASSEMBLER Visit for screening mammogram LIPID PANEL Routine 03/06/2015 9:54 AM DOOR CORE ASSEMBLER Hyperlipidemia ANTI HIV 1/2 Routine 05/12/2014 10:16 AM CDT Screen for STD (sexually transmitted disease) ANTI HCV Routine 05/12/2014 10:16 AM CDT Screen for STD (sexually transmitted disease) [employer] SALES ENGINEER THIN PREP PAP SCREEN IMAGED Routine 05/12/2014 10:16 AM CDT Pap smear for cervical cancer screening from Last 3 Months or Most Recently Relevant to Health Maintenance Results * XR MAMMO BILAT SCREENING (03/26/2016 11:44 AM DOOR CORE ASSEMBLER) Anatomical Region Laterality Modality BREASTS, Breast Left, Breast Right Bilateral Mammography Impressions 03/27/2016 12:29 PM DOOR CORE ASSEMBLER ??There is no radiographic evidence for malignancy. ??Recommend annual mammograms. A lay language report of this examination will be provided to the patient. MAMMOGRAM ASSESSMENT: ??ACR 2 Benign Narrative 03/27/2016 12:29 PM DOOR CORE ASSEMBLER XR MAMMO BILAT SCREENING [[id number]] CLINICAL HISTORY: ??This is an asymptomatic 50 y.o. patient. INDICATION FOR EXAM: Mammogram Screening. TECHNIQUE: CC & MLO views were obtained. ??This digital study was evaluated with the assistance of Computer-Aided Detection. COMPARISON FILMS: Yes 06/30/12 [facility] 05/15/11 [facility] FINDINGS: ??Mammographically, the breast tissue has scattered fibroglandular densities. ??No suspicious masses or microcalcifications. ?? Benign appearing calcifications within both breasts. Arnel Peck MD MAMMO * (ABNORMAL) LIPID PANEL (03/06/2015 9:54 AM DOOR CORE ASSEMBLER) Pathologist [facility] CHOLESTEROL,TOTAL 237(H) 100 - 199 mg/dL 03/06/2015 10:25 AM DOOR CORE ASSEMBLER [facility] TRIGLYCERIDES 184(H) <150 mg/dL 03/06/2015 10:25 AM [facility] HDL CHOLESTEROL 57 >40 mg/dL 03/06/2015 10:25 AM DOOR CORE ASSEMBLER [facility] NON-HDL CHOLESTEROL 180(H) <145 mg/dl 03/06/2015 10:25 AM DOOR CORE ASSEMBLER [facility] CHOL/HDL RATIO 4.16 <4.50 03/06/2015 10:25 AM [facility] LDL CHOLESTEROL 143(H) <=130 mg/dL 03/06/2015 10:25 AM [facility] PATIENT STATUS NON-FASTI NG 03/06/2015 10:25 AM [facility] Blood specimen (specimen) BLOOD SPECIMEN / Unknown Venipuncture / Unknown 03/06/2015 9:54 AM DOOR CORE ASSEMBLER 03/06/2015 9:54 AM DOOR CORE ASSEMBLER Arnel Peck MD CHEMISTRY [facility] [address] [place] [address], [place] [phone] * [employer] SALES ENGINEER THIN PREP PAP SCREEN IMAGED (05/12/2014 10:16 AM CDT) [facility] [employer] SALES ENGINEER CYTOLOGY See Anatomic Pathology case 05/17/2014 11:00 AM CDT [facility] Specimen (specimen) (Cervical/Vagina l) Non-Blood / Unknown 05/12/2014 10:16 AM CDT 05/12/2014 10:16 AM CDT Arnel Peck MD PATHOLOGY/CYTOLOGY [facility] [address] [place] [address], [place] * ANTI HCV (05/12/2014 10:16 AM CDT) [facility] HEPATITIS C ANTIBODY Non-Reacti ve Non-Reacti ve 05/12/2014 4:59 PM CDT [facility] Blood specimen (specimen) BLOOD SPECIMEN / Unknown Venipuncture / Unknown 05/12/2014 10:16 AM CDT 05/12/2014 10:16 AM CDT Narrative [facility] - 05/12/2014 4:59 PM CDT Antibodies to HCV not detected; does not exclude the possibility of exposure to HCV. Arnel Peck MD SEND OUTS [facility] [address] [place] [id number], * ANTI HIV 1/2 (05/12/2014 10:16 AM CDT) HIV-1/HIV-2 ANTIBODY Non-Reacti ve Non-Reacti ve 05/12/2014 3:27 PM CDT [facility] Blood specimen (specimen) BLOOD SPECIMEN / Unknown Venipuncture / Unknown 05/12/2014 10:16 AM CDT 05/12/2014 10:16 AM CDT Narrative [facility] - 05/12/2014 3:27 PM CDT HIV-1 p24 and HIV-1/HIV-2 Ab not detected Arnel Peck MD SEND OUTS [facility] [address] [place] [address], from Last 3 Months or Most Recently Relevant to Health Maintenance Advance Directives * Full Code (Latest Code Status on File) Date Activated Date Inactivated Comments 08/04/2017 1:43 PM 08/05/2017 3:46 PM Question Answer Comments Code Status Discussion: Per Existing Order Care Teams Echocardiography Radiology Technologist Relationship Specialty Start Date End Date Manan Beaulieu MD [address] [place] [address] PCP - General Internal Medicine 07/30/17
--- OUTSIDE RECORDS SUMMARY | 2023-07-17 13:40 | XMS_ITS | Clinical Summary ---
Author Organization [facility] Address [address] [place] [address] Care Team Providers Care Early Childhood Specialist Name Role Phone Unavailable Primary Care Provider [...]
--- OUTSIDE RECORDS SUMMARY | 2023-07-17 13:40 | XMS_ITS | Data Portability ---
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 Assessment Encounter Date Assessment Date Assessment LastModified [...] Lab hepatitis C Ab, serum 2021 022 [email or web address], [address], [place], [address], 14:04:15 hepatitis B surface Ab, qualitative , serum 2021 022 [email or web address], [address], [place], [address], 14:38:12 C diff toxin A+B, qualitative , stool 2020 [email or web address], [address], [place], [address], 16:56:13 C diff toxin A+B, qualitative , stool 2020 021 [facility], [address], [place], [address], 16:56:13 culture, stool 2020 021 [facility], [address], [place], [address], 02:46:52 C diff toxin A+B, qualitative , stool 2020 021 [facility], [address], [place], [address], 16:13:32 Referral cardiologis t referral - Patient not on aspirin or Plavix etcetera she had a heart attack apparently last year 2021 022 criselda Colin MD ([facility] ), [address], [place], [address], 2 08:02:02 cardiologis t referral - Patient with coronary artery disease tells me she is not on aspirin etc.. She also tells me she had an MRI last week ??? 2020 Julieta Johnston MD ([facility] ), [address] [place], [address], 08:22:57 Procedures colonoscopy procedure (PROC) 2020 [facility] Not available 14:35:27 Surgeries None recorded. Imaging None recorded. Medication Orders Culturelle 10 billion cell capsule 2021 [facility], [address] [place] [address], [address], 14:03:[address] - ER 3 mg capsule,del gi,extend ed release 2021 [facility], [address] [place] [address], [address], 14:04:01 Colace 100 mg capsule 2020 [facility], [address] [place] [address], [address], 14:39:48 Miralax 17 gram/dose oral powder 2020 [facility], [address] [place] [address], [address], 14:39:41 psyllium husk (bulk) 100 % powder 2020 [facility], [address] [place] [address], [address], 14:39:42 Culturelle 10 billion cell capsule 2020 [facility], [address], [address], 14:39:[address] - ER 3 mg capsule,del ayed,extend ed release 2020 021 [facility], [address] [place] [address], [address], 14:39:40 Colace 100 mg capsule 2020 021 [facility], [address] [place] [address], [address], 1 11:52:52 Miralax 17 gram/dose oral powder 2020 [facility], [address] [place] [address], [address], 1 11:52:[address] - ER 3 mg capsule,del ayed,extend ed release 2020 021 [facility], [address] [place] [address], [address], 1 11:52:53 Culturelle 10 billion cell capsule 2020 021 [facility], [address] [place] [address], [address], 11:52:[address] - ER 3 mg capsule,del ayed,extend ed release 2020 021 [facility], [address] [place] [address], [address], 18:29:33 Culturelle 10 billion cell capsule 2020 021 [facility], [address] [place] [address] [place], [address], 16:55:39 peg 3350-electr olytes 236 gram-22.74 gram-6.74 gram-5.86 gram solution 2020 021 [facility], [address], [address], 10:27:31 Patient TargetsNo targets recorded. Patient Instructions Encounter Date Encounter Id Patient Instructions Last Modified By Organization Details Last Modified Time 04/03/2021 [id number] diarrhea: care instructions sekici Not available 04/03/2021 14:03:51 heart attack: care instructions sekici Not available 04/03/2021 14:03:51 constipation: care instructions sekici Not available 04/03/2021 14:03:51 body mass index: care instructions sekici Not available 04/03/2021 14:03:51 learning about healthy weight sekici Not available 04/03/2021 14:03:51 01/01/2021 [id number] diarrhea: care instructions sekici Not available 01/01/2021 14:39:31 heart attack: care instructions sekici Not available 01/01/2021 14:39:31 constipation: care instructions sekici Not available 01/01/2021 14:39:31 body mass index: care instructions sekici Not available 01/01/2021 14:39:31 learning about healthy weight sekici Not available 01/01/2021 14:39:31 09/26/2020 [id number] diarrhea: care instructions sekici Not available 09/26/2020 11:52:41 heart attack: care instructions sekici Not available 09/26/2020 11:52:41 constipation: care instructions sekici Not available 09/26/2020 11:52:41 body mass index: care instructions sekici Not available 09/26/2020 16:49:41 learning about healthy weight sekici Not available 09/26/2020 16:49:41 06/21/2020 [id number] diarrhea: care instructions sekici Not available 06/21/2020 16:55:33 body mass index: care instructions sekici Not available 06/21/2020 16:55:33 learning about healthy weight sekici Not available 06/21/2020 16:55:33 05/30/2020 [id number] diarrhea: care instructions sekici Not available 05/30/2020 16:12:54 body mass index: care instructions sekici Not available 05/30/2020 16:12:55 learning about healthy weight sekici Not available 05/30/2020 16:12:55 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 She also tells me she had an MRI last week ??? 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 Referral for My ocardial infarction Patient not [...] ACTIVE non-re active normal Not Available [facility] [address], [place], [address], 04/17/2021 12:05:42 04/17/19 22 04/17/2021 HEPAT ITIS C AB W/REF L TO HCV RNA, QN, PCR hepatitis C antibody NON-RE ACTIVE non-re active normal Not Available [facility] [address], [place], [address], 04/17/2021 12:05:42 04/17/19 22 04/17/2021 HEPAT ITIS C AB W/REF L TO HCV RNA, QN, PCR index 0.00 <1.00 normal Not Available [facility] [address], [place], [address], 04/17/2021 12:05:42 05/20/19 21 05/17/2020 CT, abdom en + pelvi s, w/ contr ast No observ ation record ed. Not Available 05/19/2020 14:27:58 04/13/19 22 03/26/2021 MAMMO , diagn ostic , bilat eral No observ ation record ed. [facility] [address] [place], [address], 04/12/2021 13:11:35 Result Notes None recorded. 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 Medical Equipment None Reported. Allergies Allergen ID Allergen Name Allergen Category Reaction Reaction Severity Criticality Documentation Date Start Date Code Code System Note Provider Name and Address Organization Details Recorded Time 05033 Latex (substanc e) environme nt,medica tion itching nausea rash respirato ry distress Not available Not available Not available Not available Not available 05/30/2020 49297 8007 SNOMED Katfred Simpsono null, [place] - [address] 1 11:16:48 [address]8940 erythromy eduardo medicatio n itching rash Not available Not available Not available 05/30/2020 4053 RxNorm Katiel Rosalee null, [place] - [facility] 1 11:17:00 77689 latex environme nt,medica tion itching nausea rash respirato ry distress vomiting Not available Not available Not available Not available Not available Not available 04/03/2021 08148 91 RxNorm Kat Simpsono null, [place] - [...] Updated DateTime 05/30/2020 157.48 cm 40.2 kg/m2 16299.32 g Lizfred Rosalee [place] - [facility] [address] 05/30/2020 11:15:56 Date Recorded Body height Body mass index (BMI) Body weight Provider Name and Address Organization Details Last Updated DateTime 06/21/2020 157.48 cm 40.2 kg/m2 27249.32 g Lyndsay Harris [place] - [address] 06/21/2020 10:26:58 Date Recorded Body height Body mass index (BMI) Body weight Heart rate Body temperature Oxygen saturation Oxygen saturation in Arterial blood by Pulse oximetry Systolic blood pressure Diastolic blood pressure Provider Name and Address Organization Details Last Updated DateTime 157.48 cm 41.5 kg/m2 185169. 47 g 87 /min 98.4 [degF] 95 [...] Updated DateTime 1 157.48 cm 41.5 kg/m2 802663. 47 g 107 /min 97.8 [degF] 96 [...] Updated DateTime 2 157.48 cm 41.5 kg/m2 961053. 47 g 106 /min 98 [degF] 94 [...] Y Depression Y COPD Y Osteoperosis Y Dizziness Y Muscle, Joint, or Bone Problems Y Hemorrhoids Y Obesity Y Arthritis Y Acid Reflux (GERD) Y IBS Y Abdominal pain Y High Cholesterol Y Headaches Y Fibromyalgia Y Heart Problems Y Osteoarthritis Y Chest pain Y Chronic Obstructive Pulmonary Disease Y Migraines Y NSAID Use Y Constipation Y Nausea Y Heart Attack (PR) Y Other Skin Condition Y Diabetes Y Back pain Y Seizures/Epilepsy Y Asthma Y Sleep Apnea [...] Encounter Closed Date Diagnosis/Indication Diagnosis SNOMED-CT Code [id number] MD Bruce Mccain MD [address] [place] [address] 05/30/2020 11:15:00 06/01/2020 14:31:33 Body mass index 40+ - severely obese 888158034 Colitis 56763612 Diarrhea 97237680 Diabetes mellitus 524963 09 [id number] MD Bruce Mccain MD [address] [place] [address] 06/21/2020 09:38:07 06/23/2020 09:35:49 Body mass index 40+ - severely obese 233204496 Colitis 71526185 Diarrhea 72718188 Diabetes mellitus 551792 09 45012 MD Bruce Mccain MD [address] [place] [address] 09/26/2020 10:32:08 09/26/2020 11:55:51 Body mass index 40+ - severely obese 627969533 Constipation 27799026 Myocardial infarction 22 027574 Colitis 92032312 Diarrhea 79642688 Diabetes mellitus 373854 09 Post-disch arge follow-up 687989296 83912 MD Bruce Mccain MD [address] [place] [address] 01/01/2021 13:26:43 01/01/2021 15:12:37 Body mass index 40+ - severely obese 425142066 Weight gain 5959817 Constipation 15777298 Myocardial infarction 22 934838 Colitis 56294213 Diarrhea 80661436 Diabetes mellitus 526639 09 Post-disch arge follow-up 542636236 04811 MD Bruce Mccain MD [address] [place] [address] 04/03/2021 12:25:40 04/03/2021 14:06:58 Body mass index 40+ - severely obese 519269816 Constipation 48581550 Myocardial infarction 22 708750 Colitis 57653863 Diarrhea 89989282 Diabetes mellitus 957445 09 Post-disch arge follow-up 287084689 Viral screening 25983027 4 Health Concerns Section Related Observation LastModified by Organization Detai ls LastModified Time None Recorded Concern Status LastModified by Organization Details LastModified Time None Recorded Advance Directives Directive N: Payers Encounter Date Sequence Insurance Name Policy Number Policy Martin Covered Member ID Martin Member ID Guarantor Name 04/03/2021 2 [place] [employer] Emilee Lau [id number] Emilee Lopezlesjennifer 04/03/2021 1 [facility] - DUAL ELIGIBLE (MEDICARE REPLACEMENT /ADVANTAGE - PPO) FLDSMORAIMA Lau [id number] Emilee Patterson [place] 01/01/2021 2 [place] [employer] Emilee Yesenia Pleschourt [id number] Emilee Yesenia Bussertpleschourt 01/01/2021 1 [facility] - DUAL ELIGIBLE (MEDICARE REPLACEMENT /ADVANTAGE - PPO) FLDSNP Mandi R Bussert P[place] [id number] Emilee Yesenia Bussert[place]ourt 09/26/2020 2 [place] [employer] Emilee Yesenia P[place]ourt [id number] Emilee Yesenia [place] 09/26/2020 1 [facility] - DUAL ELIGIBLE (MEDICARE REPLACEMENT /ADVANTAGE - PPO) FLDSNP K R Bussert [place] [id number] Emilee Yesenia [place] 06/21/2020 1 [facility] - DUAL ELIGIBLE (MEDICARE REPLACEMENT /ADVANTAGE - PPO) FLDSNP K R Bussert [place] [id number] Emilee Yesenia [place] 05/30/2020 1 [facility] - DUAL ELIGIBLE (MEDICARE REPLACEMENT /ADVANTAGE - PPO) FLDSNP Mandi R Bussert [place] [id number] Emilee Yesenia Bussertples[place]ourt Notes Date Note Type [...] tarry stools; no weakness; no nutrient deficiency Burce Arenas MD [address] [facility] [address], [place], [address], [facility] - [address] [...] nutrient deficiency Bruce Arenas MD [address] [facility] [address], [place], [address], [facility] - [address] [...] nutrient deficiency Bruce Arenas MD [address] [facility] [address], [place], [address], [facility] Bruce A[address] 09/26/2020 11:52:47 [...] no arthritis Bruce Arenas MD [address], [place], [address], [facility] [address]ita Aren[address] 01/01/2021 14:39:38 [...] no osteoporosis; no arthritis Bruce Arenas MD [address] [facility] [address] [place], [address], [facility] - Bruce Aren[address] 04/03/2021 14:03:59 OBGyn Episode No OBEpisode recorded.
--- OUTSIDE RECORDS SUMMARY | 2023-07-17 13:40 | XMS_ITS | Data Portability ---
Author Organization ALTA Zaldivar MD , [facility], [facility] Address [address] [place] [address] Care Team Providers Care Cheese Weigher Name Role Phone NONA WHITEHEAD Referring Provider [...] studies, I recommend transforminal LINDSEY at L4-5, L5-F7tbtjq today. Discussed treatment plan with patient. [email or web address] [...] recorded. Imaging MRI, shoulder, w/o contrast 2021 [facility], [address], [place], [address], 14:10:58 XR, hip + pelvis, bilateral 2021 [facility], [address], [place], [address], 14:19:08 Medication Orders hydrocodone 5 mg-acetamin ophen 325 mg tablet 2021 [facility] 3887, [address], [address], 11:53:04 Patient Targets Encounter Date Encounter Id [...] By Organization Details Last Modified Time 10/25/2021 [id number] leg pain: care instructions [email or web address] Not available [...] weeks. [email or web address] Not available 03/11/2022 15:26:59 07/23/2021 [id number] lumbar spinal stenosis: care instructions [email or web address] Not [...] mass. mjawahir Not available 07/24/2021 18:08:04 06/25/2021 [id number] leg pain: care instructions [email or web address] Not available [...] ast No observ ation record ed. [email or web address] [facility] (Medical Records) [address] [facility], [place], [address], 07/11/2021 15:49:57 11/02/19 22 11/01/2021 MRI, shoul alfonso, w/o contr ast No observ ation record ed. [facility] [address], [place], [address], 11/01/2021 14:10:58 11/02/19 22 11/01/2021 XR, hip + pelvi s, bilat eral No observ ation record ed. [facility] [address], [place], [address], 11/01/2021 14:19:08 Result Notes None recorded. Problems Name Status Onset Date Resolution Date Notes Provider Name and Address Organization Details Recorded Time Ulcerative colitis Active Cecil Zaldivar MD [address], [place], [address] , [facility] - Cecil Zaldivar MD 05/24/2021 10:53:50 Parkinson's disease Active Cecil Zaldivar MD [address], [place], [address] , [facility] - Cecil Zaldivar MD 05/24/2021 10:53:57 Type 2 diabetes mellitus Active Cecil Zaldivar MD [address], [place], [address] , [place] - Cecil Zaldivar MD 05/24/2021 10:54:18 Spinal stenosis in cervical region Active Cecil Zaldivar MD [address], [place], [address] , [place] - Cecil Zaldivar MD 05/24/2021 10:54:49 Spinal stenosis of thoracic region Active Cecil Zaldivar MD [address], [place], [address] , [facility] - Cecil Zaldivar MD 05/24/2021 10:54:57 Chronic pain syndrome Active Cecil Zaldivar MD [address], [place], [address] , [place] - Cecil Zaldivar MD 05/24/2021 10:55:06 Sleep apnea Active Cecil Zaldivar MD [address], [place], [address] , [facility] - Cecil Zaldivar MD 05/24/2021 10:55:17 Tremor Active Cecil Zaldivar MD [address], [place], [address] , [place] - Cecil Zaldivar MD 05/24/2021 10:55:23 Hypertensive disorder Active Cecil Zaldivar MD [address], [place], [address] , [place] - Cecil Zaldivar MD 05/24/2021 10:55:30 Rupture of rotator cuff of left shoulder Active eCcil Zaldivar MD [address], [place], [address] , [place] Cecil Zaldivar MD 05/24/2021 11:02:10 Chronic obstructive lung disease Active Cecil Zaldivar MD [address], [place], [address] , [place] Cecil Zaldivar MD 05/24/2021 11:07:27 Asthma Active Cecil Zaldivar MD [address], [place], [address] , [place] Cecil Zaldivar MD 05/24/2021 11:07:33 Spinal stenosis of lumbar region Active 05/25/19 22 Cecil Zaldivar MD [address], [place], [address] , [place] Cecil Zaldivar MD 05/24/2021 11:40:23 Degeneration of thoracolumbar intervertebral disc Active 05/25/19 22 Cecil Zaldivar MD [address], [place], [address] , [place] Cecil Zaldivar MD 05/24/2021 11:40:50 Smoker Active 05/25/19 22 Cecil Zaldivar MD [address], [place], [address] , [place] Cecil Zaldivar MD 05/24/2021 11:41:12 Arthritis of right sacroiliac joint Active 05/25/19 22 Cecil Zaldivar MD [address], [place], [address] , [place] - Cecil Zaldivar MD 05/24/2021 11:52:24 Injury of left rotator cuff Active 05/25/19 22 Cecil Zaldivar MD [address], [place], [address] , [place] Cecil Zaldivar MD 05/24/2021 12:04:37 Neuropathy due to diabetes mellitus Active 05/25/19 22 Cecil Zaldivar MD [address], [place], [address] , [place] Jose Zaldivar MD 05/24/2021 12:04:52 Bilateral sciatica Active 08/30/19 22 Cecil Zaldivar MD [address], [place], [address] , [facility] Jose Zaldivar MD 08/29/2021 23:07:12 Problem Notes None recorded. Procedures Surgical History Date Name Laterality Status Provider Name and Address Organization Details Recorded Time 10/26/19 22 SI JOINT INJECTION completed Cecil Zaldivar MD [address], [place], [address], [facility] Jose Zaldivar MD 10/25/2021 14:07:58 09/07/19 22 LUMBAR FACET JOINT INJECTION FLUOROSCOPIC-COCO DED active Cecil Zaldivar MD [address], [place], [address], [facility] Jose Zaldivar MD 09/06/2021 14:02:07 07/24/19 22 LUMBAR LINDSEY completed Cecil Zaldivar MD [address], [place], [address], [facility] Jose Zaldivar MD 08/29/2021 23:20:19 06/26/19 22 LUMBAR LINDSEY completed Cecil Zaldivar MD [address], [place], [address], [facility] Jose Zaldivar MD 09/11/2021 16:15:23 05/31/19 22 LUMBAR LINDSEY active Cecil Zaldivar MD [address], [place], [address], [facility] Jose Zaldivar MD 05/30/2021 18:05:28 section completed Cecil Zaldivar MD [address], [place], [address], [facility] Jose Zaldivar MD 05/24/2021 10:58:24 Total hysterectomy completed Cecil Zaldivar MD [address], [place], [address], [facility] Jose Zaldivar MD 05/24/2021 10:35:30 Neck Surgery completed Cecil Zaldivar MD [address], [place], [address], [place] - Cecil Zaldivar MD 05/24/2021 11:00:20 release of trigger finger completed Cecil Zaldivar MD [address], [place], [address], [place] - Cecil Zaldivar MD 05/24/2021 11:02:44 Carpal tunnel surgery completed Cecil Zaldivar MD [address], [place], [address], [place] - Cecil Zaldivar MD 05/24/2021 11:03:04 Imaging Results Imaging Date Name Status LastModified by Organiz [facility] Details LastModified Time 02/15/2021 CT, cervical spine, [...] MRI, lumbar spine, w/o contrast completed [email or web address] [facility] (Medical Records) [address], [place], [address], 07/11/2021 15:49:57 11/01/2021 MRI, shoulder, w/o contrast active [facility] [address], [place], [address], 11/01/2021 14:10:58 11/01/2021 XR, hip + pelvis, bilateral active [facility] [address], [place], [address], 11/01/2021 14:19:08 Procedure Notes None recorded. Medical Equipment None Reported. Allergies Allergen ID Allergen Name Allergen Category Reaction Reaction Severity Criticality Documentation Date Start Date Code Code System Note Provider Name and Address Organization Details Recorded Time 4821 amoxicill in medicatio n diarrhea Not available high 05/24/2021 723 RxNorm Cecil Zaldivar MD [address], [place], [place], [address], [facility] Jose Zaldivar MD 2 10:32:17 4822 latex environme nt,medica tion hives rash Not available Not available high 05/24/2021 54862 91 RxNorm Cecil Zaldivar MD [address], [address], [place], [address], [facility] Jose Zaldivar MD 2 10:32:38 Medications Name Sig Start Date Stop Date Status Note LastModified by Organization Details LastModified Time stool [id number] cap TAKE 1 CAPSULE BY MOUTH THREE [...] Not Available Not Available No t Available [employer] Ultra Test strips USE STRIP TO [...] 2 16 /min 97.6 [degF] 84 /min 43235.3 2 g 40.2 kg/m2 157.48 cm 126 mm[Hg] 100 mm[Hg] Cecil Zaldivar MD [address], [place], [address], [place] Jose Zaldivar MD 2 10:42:48 Date Recorded Body height Respiratory rate Body mass index (BMI) Body weight Heart rate Body temperature Systolic blood pressure Diastolic blood pressure Provider Name and Address Organization Details Last Updated DateTime 2 157.48 cm 16 /min 40.2 kg/m2 68284.3 2 g 67 /min 98.2 [degF] 93 mm[Hg] 70 mm[Hg] Cecil Zaldivar MD [address], [place], [address], [place] Jose Zaldivar MD 2 15:22:39 Date Recorded Body height Respiratory rate Body mass index (BMI) Body weight Body temperature Provider Name and Address Organization Details Last Updated DateTime 06/13/2021 157.48 cm 17 /min 40.2 kg/m2 80503.3 2 g 97.8 [degF] Cecil Zaldivar MD [address], [place], [address], [place] Jose Zaldivar MD 2 16:53:18 Date Recorded Body height Heart rate Respiratory rate Body temperature Systolic blood pressure Diastolic blood pressure Provider Name and Address Organization Details Last Updated DateTime 2 157.48 cm 73 /min 14 /min 96.9 [degF] 108 mm[Hg] 93 mm[Hg] Cecil Zaldivar MD [address], [place], [address], [place] - Cecil Zaldivar MD 2 14:28:56 Date Recorded Body height Respiratory rate Body mass index (BMI) Body weight Body temperature Provider Name and Address Organization Details Last Updated DateTime 07/11/2021 157.48 cm 15 /min 40.2 kg/m2 18661.3 2 g 97.2 [degF] Cecil Zaldivar MD [address], [place], [address], [place] - Cecil Zaldivar MD 2 15:35:31 Date Recorded Body height Respiratory rate Heart rate Body mass index (BMI) Body weight Body temperature Systolic blood pressure Diastolic blood pressure Provider Name and Address Organization Details Last Updated DateTime 2 157.48 cm 16 /min 72 /min 40.2 kg/m2 22986.3 2 g 97.5 [degF] 105 mm[Hg] 87 mm[Hg] Cecil Zaldivar MD [address], [place], [address], [place] Jose Zaldivar MD 2 18:02:21 Date Recorded Body height Respiratory rate Heart rate Body mass index (BMI) Body weight Body temperature Systolic blood pressure Diastolic blood pressure Provider Name and Address Organization Details Last Updated DateTime 2 157.48 cm 15 /min 68 /min 40.2 kg/m2 72552.3 2 g 98 [degF] 119 mm[Hg] 78 mm[Hg] Cecil Zaldivar MD [address], [place], [address], [place] - Cecil Zaldivar MD 2 16:56:26 Date Recorded Body height Heart rate Respiratory rate Body mass index (BMI) Body weight Body temperature Systolic blood pressure Diastolic blood pressure Provider Name and Address Organization Details Last Updated DateTime 2 157.48 cm 70 /min 16 /min 40.2 kg/m2 73632.3 2 g 97.8 [degF] 108 mm[Hg] 76 mm[Hg] Cecil Zaldivar MD [address], [place], [address], ALTA Zaldivar MD 2 13:12:10 Date Recorded Body height Heart rate Respiratory rate Body mass index (BMI) Body weight Body temperature Systolic blood pressure Diastolic blood pressure Provider Name and Address Organization Details Last Updated DateTime 2 157.48 cm 72 /min 16 /min 40.2 kg/m2 62587.3 2 g 97.3 [degF] 108 mm[Hg] 76 mm[Hg] Cecil Zaldivar MD [address], [place], [address], ALTA Zaldivar MD 2 16:32:04 Date Recorded Body height Heart rate Respiratory rate Body mass index (BMI) Body weight Body temperature Systolic blood pressure Diastolic blood pressure Provider Name and Address Organization Details Last Updated DateTime 2 157.48 cm 65 /min 16 /min 40.2 kg/m2 23726.3 2 g 97 [degF] 124 mm[Hg] 98 mm[Hg] Cecil Zaldivar MD [address], [place], [address] 0ALTA MD 2 11:17:37 Social History Question Answer Notes LastModified by Organizat ion Details LastModified Time Tobacco Smoking Status Former Smoker quit in Feb 13, 2021 Cecil Zaldivar MD [address], [place], [address], ALTA Zaldivar MD 05/24/2021 11:03:44 Do You [...] Have You Had Close [facility] Was [facility]? No Information [...] Or The Highest Degree You Have Received? [id number] Information not available 08/29/2021 How Many Days [...] Anxious, Or Unable To Sleep At Night)? [id number] Information not available 08/29/2021 Do You Use [...] Response Coronary Artery Disease N Gout N Head Trauma/Injury Y Hernia N Thyroid Problems N Depression Y COPD Y Anemia N Ulcers Y Heart Attack (MD) Y Diabetes Y Anxiety Disorder Y Bleeding Disorder N Arthritis Y Tuberculosis N AIDS/HIV N Acid Reflux (GERD) Y Cancer N Stroke N Asthma Y Substance Abuse Y Back Injury Y High Cholesterol N Hepatitis N Liver Disease N Heart Disease N Fibromyalgia Y Headaches Y Hypertension Y Osteoporosis N Kidney Disease N Gynecological HistoryNo gynecological history recorded. Obstetrics History GPAL:G 0 P 0 0 0 0 Past Encounters Encounter ID Performer Location Encounter Start Date Encounter Closed Date Diagnosis/Indication Diagnosis SNOMED-CT Code [id number] Cecil Zaldivar MD MAIN OFFICE [address] [place] [address] 06/25/2021 10:18:11 06/25/2021 12:03:26 Bilateral sciatica 204133776260876 03 [id number] Cecil Zaldivar MD MAIN OFFICE [address] [place] [address] 07/23/2021 13:22:09 07/23/2021 14:56:08 Bilateral sciatica 109681212524463 03 Spinal karen nosis of lumbar region 45100111 [id number] Cecil Zaldivar MD MAIN OFFICE [address] [place] [address] 10/25/2021 11:06:27 10/25/2021 12:59:54 Pain in pelvis 91903432 Chronic pain syndrome 37 7986321 Spinal karen nosis of lumbar region 01271246 Left rotat or cuff syndrome 927387549383150 Inflammati on of sacroiliac joint 25811141 Health Concerns Section Related Observation LastModified by Organization Detai ls LastModified Time None Recorded Concern Status LastModified by Organization Details LastModified Time None Recorded Advance Directives Directive N: Payers Encounter Date Sequence Insurance Name Policy Number Policy Martin Covered Member ID Martin Member ID Guarantor Name 10/25/2021 2 [place] [employer] Emilee R Pleschourt [id number] Emilee Bussert Pleschourt 10/25/2021 1 [employer] - DUAL ELIGIBLE (MEDICARE REPLACEMENT/ ADVANTAGE - PPO) FLDSNP K R Bussert Pleschourt [id number] Emilee Bussert Pleschourt 07/23/2021 2 [place] [employer] Emilee R Pleschourt [id number] Emilee Bussert Pleschourt 07/23/2021 1 [employer] - DUAL ELIGIBLE (MEDICARE REPLACEMENT/ ADVANTAGE - PPO) [place]DSNP K R Bussert Pleschourt [id number] Emilee Bussert Pleschourt 06/25/2021 2 [place] [employer] Emilee R Pleschourt [id number] Emilee Bussert Pleschourt 06/25/2021 1 [employer] [facility] - DUAL ELIGIBLE (MEDICARE REPLACEMENT/ ADVANTAGE - PPO) FLDSNP K R Bussert Pleschourt [id number] Emilee Bussert Pleschourt Notes Date Note Type [...] none Previous Injections: LINDSEY; helped temporarily Previous Industrial Psychologist: none Patient presents for lumbar LIDNSEY injection (L4, L5) RT side #2. 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 Mendez at [facility] ( 2020, multiple injections [...] with CT scan 09/2020. 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 Mendez at [facility] ( 2020, multiple injections [...] with CT scan 09/2020. 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 Mendez at [facility] ( 2020, multiple injections [...] with CT scan 09/2020. Cecil Zaldivar MD [address] [facility] [address], [place], [address], [facility] - Cecil Zaldivar MD 03/11/2022 15:29:34 OBGyn Episode No OBEpisode recorded.
== END 2023-07-17 13:37 | disposition home or self-care (01) ==
LOC: NM 13:37
PROVIDERS: PCP Internal Medicine; Visit Provider Internal Medicine
DX: K80.50 Calculus of bile duct without cholangitis or cholecystitis without obstruction (principal)
CPT/HCPCS: 78227; A9537

== ENCOUNTER 2023-07-31 13:10 | Outpatient (CLI) | payer MEDICARE, MEDICAID, SELFPAY ==
--- OUTSIDE RECORDS SUMMARY | 2023-07-31 13:12 | XMS_ITS | Patient Health Record ---
Author Organization [facility] Billing Info Address [address] [place] [address] Care Team Providers Care Research Subject Name Role Phone DERRICK WHITING Unavailable [phone] STEPHAN CERRATO NONA Unavailable [phone] Allergies Allergen (clinical drug ingredient) Drug/Non Drug [...] times a day for 5 days Active Albuterol Sulfate (2.5 MG/3ML) 0.083% INHALE 3ML VIA NEBULIZER FOUR TIMES A DAY NEEDED for 30 Active Vitamin D 50 MCG (1999 [place]) [...] Problem Status W/U Status Risk Notes Problem 53950419 Type 2 diabetes mellitus with other specified complication (E11.69) Active confirmed Problem 661826681 Morbid (severe) obesity due to excess calories (E66.01) Active confirmed Problem 244339932 Obesity, unspeci fied (E66.9) Active confirmed Problem 602854395 Chronic pain syn drome (G89.4) Active confirmed Problem Localized, primary osteoarthritis of the shoulder region (292141678) Primary osteoarthritis, left shoulder (M19.012) Active confirmed Problem Full thickness rotator cuff tear (095534155) Complete rotator cuff tear or rupture of unspecified shoulder, not specified as traumatic (M75.120) Active confirmed Problem Impingement syndrome of left shoulder region (721954111656199) Impingement syndrome of left shoulder (M75.42) Active confirmed Problem 198605843 Dietary counseli ng and surveillance (Z71.3) Active confirmed Problem 143023377 Body mass index [BMI] 40.0-44.9, adult (Z68.41) Active confirmed Problem 14059941 Parkinsons disea se (G20) Active confirmed Problem 215591530 Morbid obesity (E66.01) Active confirmed Problem 30741694 Essential hypert ension (I10) Active confirmed Problem Pre-procedure evaluation check (393634591) Pre-operative clearance (Z01.818) Active confirmed Problem Right shoulder pain (9401783184) Right shoulder pain (M25.511) Active confirmed Problem Left shoulder pain (2011166787) Left shoulder pain (M25.512) Active confirmed Problem 620128920265224 Trochanteric bur sitis of right hip (M70.61) Active confirmed Problem 15827816 Tobacco dependen ce (F17.200) Active confirmed Problem 4761522969768 S/P cervical spi nal fusion (Z98.1) Active confirmed Problem 79900394 Cervical spinal stenosis (M48.02) Active confirmed Problem 374311469400418 Gluteal tendinit is of right buttock (M76.01) Active confirmed Problem 843089567 Adult general me dical exam (Z00.00) Active confirmed Problem Long-term current use of 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 (581107576) 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.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) Active confirmed Problem 25557429 Thoracic spinal stenosis (M48.04) Active confirmed Problem 711505021 Disorder of left rotator cuff (M67.912) Active confirmed Problem 578609932 Biceps tendiniti s of left shoulder (M75.22) Active confirmed Problem 42413512 Iliotibial band tendinitis of right side (M76.31) Active confirmed Problem 7946152549308314 Osteoarthritis of left acromioclavicular joint (M19.012) Active confirmed Problem 789393736 Rotator cuff impingement syndrome of left shoulder (M75.42) Active confirmed Problem 91142539 Hypercholesterol emia (E78.00) Active confirmed Problem 611605355 Aftercare (Z51.89) Active confirmed Problem 871455582 Status post left rotator cuff repair (Z98.890) Active confirmed Problem 4807377117914558 Nontraumatic co mplete tear of left rotator cuff (M75.122) Active confirmed Problem 171161900 Frequent headach es (R51.9) Active confirmed Problem 527897768 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) Active confirm ed Encounters Encounter Location Date Provider Diagnosis [id number] [address] [facility] [address] [place] [id number] 08/16/2022 NONA ROTHMAN II [id number] [address] [facility] [address] [place] [id number] 09/04/2022 NONA ROTHMAN II Dietary counseling and surveillance Z71.3 [id number] [address] [facility] [address] [address] [employer] [id number] 09/05/2022 NONA ROTHMAN II Dietary counseling and surveillance Z71.3 [id number] [address] [facility] [address] [address] [place] [id number] 10/04/2022 NONA ROTHMAN II [id number] [address] [facility] [address] [place] [id number] 11/04/2022 NONA ROTHMAN II Dietary counseling and surveillance Z71.3 [id number] 234[address] [facility] [address] [facility] [address] [place] [id number] 01/06/2023 NONA ROTHMAN II Dietary counseling and surveillance Z71.3 [id number] 234[address] [facility] [address] [facility] [address] [place] [id number] 04/07/2023 NONA ROTHMAN II Dietary counseling and [...] Test Name Order Date HEPATIC FUNCTION PANEL (93178) LIPID PANEL (11708) 03/16/2020 HEMOGLOBIN A1C (C114) 03/16/2020 Basic Metabolic Panel (8) 03/16/2020 Insurance Providers Payer Name Payer Address Payer Phone Subscriber Number Group Number Insured Name Patient Relationship to Insured Coverage Start Date Coverage End Date [facility] [facility] DUAL COMPLETE [address] [address] [place], [place] [id number] Emilee Boyer Self - patient is the insured 2 2 Medications Administered Medication Instructions Date of Administration Dosage Notes MethylPREDNISolone Acetate 12/25/2021 80 mg Xylocaine 12/25/2021 2 mL Medical (General) History Medical History History ICD Code Anxiety/Depression Diabetes Mellitus Insomnia Parkinsons Disease- neurolog ist diagnosed in [facility] associated with [facility] on for 15 years Essential hypertension Poor wound healing from surgeries Morbid obesity Surgical History Surgery Date(Month/Year) LT RCR 01/31/2022 Colonoscopy 06/15/2020 Mammogram 2020 (R) CTR C5,C6,C7 fusion and replacment Hysterectomy-Full Uterine Ablation x2
--- OUTSIDE RECORDS SUMMARY | 2023-07-31 13:13 | XMS_ITS | Data Portability ---
Author Organization ALTA Zaldivar MD , [facility], [facility] Address [address] [place] [address] Care Team Providers Care Director Of People Name Role Phone NONA WHITEHEAD Referring Provider [phone] NONA WHITEHEAD Primary Care Provider Assessment Encounter [...] studies, I recommend transforminal LINDSEY at L4-5, L5-D0qhlol today. Discussed treatment plan with patient. [email or web address] [...] recorded. Imaging MRI, shoulder, w/o contrast 2021 [facility], [address], [place], [address], 14:10:58 XR, hip + pelvis, bilateral 2021 [facility], [address], [address], [place], [address], 14:19:08 Medication Orders hydrocodone 5 mg-acetamin ophen 325 mg tablet 2021 [facility] 3887, [address], [address], 11:53:04 Patient Targets Encounter Date Encounter Id [...] By Organization Details Last Modified Time 10/25/2021 [id number] leg pain: care instructions [email or web address] Not available [...] weeks. [email or web address] Not available 03/11/2022 15:26:59 07/23/2021 [id number] lumbar spinal stenosis: care instructions [email or web address] Not [...] mass. [email or web address] Not available 07/24/2021 18:08:04 06/25/2021 [id number] leg pain: care instructions [email or web address] Not available [...] observ ation record ed. [email or web address] [facility] (Medical Records) [address] [facility], [place], [address], 07/11/2021 15:49:57 11/02/19 22 11/01/2021 MRI, shoul alfonso, w/o contr ast No observ ation record ed. [facility] [address], [place], [address], 11/01/2021 14:10:58 11/02/19 22 11/01/2021 XR, hip + pelvi s, bilat eral No observ ation record ed. [facility] [address], [place], [address], 11/01/2021 14:19:08 Result Notes None recorded. Problems Name Status Onset Date Resolution Date Notes Provider Name and Address Organization Details Recorded Time Ulcerative colitis Active Cecil Zaldivar MD [address], [place], [address] , [facility] - Cecil Zaldivar MD 05/24/2021 10:53:50 Parkinson's disease Active Cecil Zaldivar MD [address], [place], [address] , [facility] - Cecil Zaldivar MD 05/24/2021 10:53:57 Type 2 diabetes mellitus Active Cecil Zaldivar MD [address], [place], [address] , [place] - Cecil Zaldivar MD 05/24/2021 10:54:18 Spinal stenosis in cervical region Active Cecil Zaldivar MD [address], [place], [address] , [place] - Cecil Zaldivar MD 05/24/2021 10:54:49 Spinal stenosis of thoracic region Active Cecil Zaldivar MD [address], [place], [address] , [facility] - Cecil Zaldivar MD 05/24/2021 10:54:57 Chronic pain syndrome Active Cecil Zaldivar MD [address], [place], [address] , [place] - Cecil Zaldivar MD 05/24/2021 10:55:06 Sleep apnea Active Cecil Zaldivar MD [address], [place], [address] , [facility] - Cecil Zaldivar MD 05/24/2021 10:55:17 Tremor Active Cecil Zaldivar MD [address], [place], [address] , [place] - Cecil Zaldivar MD 05/24/2021 10:55:23 Hypertensive disorder Active Cecil Zaldivar MD [address], [place], [address] , [place] - Cecil Zaldivar MD 05/24/2021 10:55:30 Rupture of rotator cuff of left shoulder Active Cecil Zaldivar MD [address], [place], [address] , [place] - Cecil Zaldivar MD 05/24/2021 11:02:10 Chronic obstructive pulmonary disease Active Cecil Zaldivar MD [address], [place], [address] , [place] - Cecil Zaldivar MD 05/24/2021 11:07:27 Asthma Active Cecil Zaldivar MD [address], [place], [address] , [place] Cecil Zaldivar MD 05/24/2021 11:07:33 Spinal stenosis of lumbar region Active 05/25/19 22 Cecil Zaldivar MD [address], [place], [address] , [place] Cecil Zaldivar MD 05/24/2021 11:40:23 Degeneration of thoracolumbar intervertebral disc Active 05/25/19 22 Cecil Zaldivar MD [address], [place], [address] , [place] Cecil Zaldivar MD 05/24/2021 11:40:50 Smoker Active 05/25/19 22 Cecil Zaldivar MD [address], [place], [address] , [place] Cecil Zaldivar MD 05/24/2021 11:41:12 Arthritis of right sacroiliac joint Active 05/25/19 22 Cecil Zaldivar MD [address], [place], [address] , [place] - Cecil Zaldivar MD 05/24/2021 11:52:24 Injury of left rotator cuff Active 05/25/19 22 Cecil Zaldivar MD [address], [place], [address] , [place] Cecil Zaldivar MD 05/24/2021 12:04:37 Neuropathy due to diabetes mellitus Active 05/25/19 22 Cecil Zaldivar MD [address], [place], [address] , [place] Jose Zaldivar MD 05/24/2021 12:04:52 Bilateral sciatica Active 08/30/19 22 Cecil Zaldivar MD [address], [place], [address] , [facility] Jose Zaldivar MD 08/29/2021 23:07:12 Problem Notes None recorded. Procedures Surgical History Date Name Laterality Status Provider Name and Address Organization Details Recorded Time 10/26/19 22 SI JOINT INJECTION completed Cecil Zaldivar MD [address], [place], [address], [facility] Jose Zaldivar MD 10/25/2021 14:07:58 09/07/19 22 LUMBAR FACET JOINT INJECTION FLUOROSCOPIC-COCO DED active Cecil Zaldivar MD [address], [place], [address], [facility] Jose Zaldivar MD 09/06/2021 14:02:07 07/24/19 22 LUMBAR LINDSEY completed Cecil Zaldivar MD [address], [place], [address], [facility] Jose Zaldivar MD 08/29/2021 23:20:19 06/26/19 22 LUMBAR LINDSEY completed Cecil Zaldivar MD [address], [place], [address], [facility] Jose Zaldivar MD 09/11/2021 16:15:23 05/31/19 22 LUMBAR LINDSEY active Cecil Zaldivar MD [address], [place], [address], [facility] Jose Zaldivar MD 05/30/2021 18:05:28 section completed Cecil Zaldivar MD [address], [place], [address], [facility] Jose Zaldivar MD 05/24/2021 10:58:24 Total hysterectomy completed Cecil Zaldivar MD [address], [place], [address], [facility] Jose Zaldivar MD 05/24/2021 10:35:30 Neck Surgery completed Cecil Zaldivar MD [address], [place], [address], [place] - Cecil Zaldivar MD 05/24/2021 11:00:20 release of trigger finger completed Cecil Zaldivar MD [address], [place], [address], [place] - Cecil Zaldivar MD 05/24/2021 11:02:44 Carpal tunnel surgery completed Cecil Zaldivar MD [address], [place], [address], [place] - Cecil Zaldivar MD 05/24/2021 11:03:04 Imaging Results Imaging Date Name Status LastModified by Organiz [facility] Details LastModified Time 02/15/2021 CT, cervical [...] spine, w/o contrast completed [email or web address] [facility] (Medical Records) [address], [place], [address], 07/11/2021 15:49:57 11/01/2021 MRI, shoulder, w/o contrast active [facility] [address], [place], [address], 11/01/2021 14:10:58 11/01/2021 XR, hip + pelvis, bilateral active [facility] [address], [place], [address], 11/01/2021 14:19:08 Procedure Notes None recorded. Medical Equipment None Reported. Allergies Allergen ID Allergen Name Allergen Category Reaction Reaction Severity Criticality Documentation Date Start Date Code Code System Note Provider Name and Address Organization Details Recorded Time 4821 amoxicill in medicatio n diarrhea Not available high 05/24/2021 723 RxNorm Cecil Zaldivar MD [address], [place], [place], [address], [facility] Jose Zaldivar MD 2 10:32:17 4822 latex environme nt,medica tion hives rash Not available Not available high 05/24/2021 37886 91 RxNorm Cecil Zaldivar MD [address], [place], [place], [address], [facility] Jose Zaldivar MD 2 10:32:38 Medications Name Sig Start Date Stop Date Status Note LastModified by Organization Details LastModified Time stool [id number] cap TAKE 1 CAPSULE BY MOUTH THREE [...] Not Available Not Available No t Available [employer] Ultra Test strips USE STRIP TO CHECK [...] 2 16 /min 97.6 [degF] 84 /min 32587.3 2 g 40.2 kg/m2 157.48 cm 126 mm[Hg] 100 mm[Hg] Cecil Zaldivar MD [address], [place], [address], [place] Jose Zaldivar MD 2 10:42:48 Date Recorded Body height Respiratory rate Body mass index (BMI) Body weight Heart rate Body temperature Systolic blood pressure Diastolic blood pressure Provider Name and Address Organization Details Last Updated DateTime 2 157.48 cm 16 /min 40.2 kg/m2 83744.3 2 g 67 /min 98.2 [degF] 93 mm[Hg] 70 mm[Hg] Cecil Zaldivar MD [address], [place], [address], [place] Jose Zaldivar MD 2 15:22:39 Date Recorded Body height Respiratory rate Body mass index (BMI) Body weight Body temperature Provider Name and Address Organization Details Last Updated DateTime 06/13/2021 157.48 cm 17 /min 40.2 kg/m2 20556.3 2 g 97.8 [degF] Cecil Zaldivar MD [address], [place], [address], [place] Jose Zaldivar MD 2 16:53:18 Date Recorded Body height Heart rate Respiratory rate Body temperature Systolic blood pressure Diastolic blood pressure Provider Name and Address Organization Details Last Updated DateTime 2 157.48 cm 73 /min 14 /min 96.9 [degF] 108 mm[Hg] 93 mm[Hg] Cecil Zaldivar MD [address], [place], [address], [place] - Cecil Zaldivar MD 2 14:28:56 Date Recorded Body height Respiratory rate Body mass index (BMI) Body weight Body temperature Provider Name and Address Organization Details Last Updated DateTime 07/11/2021 157.48 cm 15 /min 40.2 kg/m2 75660.3 2 g 97.2 [degF] Cecil Zaldivar MD [address], [place], [address], [place] - Cecil Zaldivar MD 2 15:35:31 Date Recorded Body height Respiratory rate Heart rate Body mass index (BMI) Body weight Body temperature Systolic blood pressure Diastolic blood pressure Provider Name and Address Organization Details Last Updated DateTime 2 157.48 cm 16 /min 72 /min 40.2 kg/m2 36623.3 2 g 97.5 [degF] 105 mm[Hg] 87 mm[Hg] Cecil Zaldivar MD [address], [place], [address], [place] Jose Zaldivar MD 2 18:02:21 Date Recorded Body height Respiratory rate Heart rate Body mass index (BMI) Body weight Body temperature Systolic blood pressure Diastolic blood pressure Provider Name and Address Organization Details Last Updated DateTime 2 157.48 cm 15 /min 68 /min 40.2 kg/m2 87105.3 2 g 98 [degF] 119 mm[Hg] 78 mm[Hg] Cecil Zaldivar MD [address], [place], [address], [place] - Cecil Zaldivar MD 2 16:56:26 Date Recorded Body height Heart rate Respiratory rate Body mass index (BMI) Body weight Body temperature Systolic blood pressure Diastolic blood pressure Provider Name and Address Organization Details Last Updated DateTime 2 157.48 cm 70 /min 16 /min 40.2 kg/m2 91277.3 2 g 97.8 [degF] 108 mm[Hg] 76 mm[Hg] Cecil Zaldivar MD [address], [place], [address], ALTA Zaldivar MD 2 13:12:10 Date Recorded Body height Heart rate Respiratory rate Body mass index (BMI) Body weight Body temperature Systolic blood pressure Diastolic blood pressure Provider Name and Address Organization Details Last Updated DateTime 2 157.48 cm 72 /min 16 /min 40.2 kg/m2 87313.3 2 g 97.3 [degF] 108 mm[Hg] 76 mm[Hg] Cecil Zaldivar MD [address], [place], [address], ALTA Zaldivar MD 2 16:32:04 Date Recorded Body height Heart rate Respiratory rate Body mass index (BMI) Body weight Body temperature Systolic blood pressure Diastolic blood pressure Provider Name and Address Organization Details Last Updated DateTime 2 157.48 cm 65 /min 16 /min 40.2 kg/m2 20695.3 2 g 97 [degF] 124 mm[Hg] 98 mm[Hg] Cecil Zaldivar MD [address], [place], [address]ALTA MD 2 11:17:37 Social History Question Answer Notes LastModified by Organizat ion Details LastModified Time Tobacco Smoking Status Former Smoker quit in Feb 13, 2021 Cecil Zaldivar MD [address], [place], [address], ALTA Zaldivar MD 05/24/2021 11:03:44 Do You [...] Have You Had [facility] Was [facility]? No [...] Or The Highest Degree You Have Received? AX08044-6 Information not available 08/29/2021 How Many Days [...] Anxious, Or Unable To Sleep At Night)? [id number] Information not available 08/29/2021 Do You Use [...] Encounter Closed Date Diagnosis/Indication Diagnosis SNOMED-CT Code 07121 Cecil Zaldivar MD MAIN OFFICE [address] [place] [address] 06/25/2021 10:18:11 06/25/2021 12:03:26 Bilateral sciatica 383840423969451 03 [address] Cecil Zaldivar MD MAIN OFFICE [address] [place] [address] 07/23/2021 13:22:09 07/23/2021 14:56:08 Bilateral sciatica 331096866553765 03 Spinal karen nosis of lumbar region 47731961 [id number] Cecil Zaldivar MD MAIN OFFICE [address] [place] [address] 10/25/2021 11:06:27 10/25/2021 12:59:54 Pain in pelvis 02349290 Chronic pain syndrome 37 1547568 Spinal karen nosis of lumbar region 03811660 Left rotat or cuff syndrome 042170496868076 Inflammati on of sacroiliac joint 50463693 Health Concerns Section Related Observation LastModified by Organization Detai ls LastModified Time None Recorded Concern Status LastModified by Organization Details LastModified Time None Recorded Advance Directives Directive N: Payers Encounter Date Sequence Insurance Name Policy Number Policy Martin Covered Member ID Martin Member ID Guarantor Name 10/25/2021 2 [place] [employer] Emilee R Pleschourt [id number] Emilee Bussert Pleschourt 10/25/2021 1 [employer] - DUAL [employer]IGIBLE (MEDICARE REPLACEMENT/ ADVANTAGE - PPO) [employer] K R Bussert Pleschourt [id number] Emilee Bussert Pleschourt 07/23/2021 2 [place] [employer] Emilee R Pleschourt [id number] Emilee Bussert Pleschourt 07/23/2021 1 [employer] - DUAL [employer]IG[employer] (MEDICARE REPLACEMENT/ ADVANTAGE - PPO) [employer] K R Bussert Pleschourt [id number] Emilee Bussert Pleschourt 06/25/2021 2 [place] [employer] Emilee R Pleschourt [id number] Emilee Bussert Pleschourt 06/25/2021 1 [employer] - DUAL [employer]IG[employer] (MEDICARE REPLACEMENT/ ADVANTAGE - PPO) [employer] K R Bussert Pleschourt [id number] Emilee Bussert Pleschourt Notes Date Note Type [...] none Previous Injections: LINDSEY; helped temporarily Previous Finishing Area Operator: none Patient presents for lumbar LINDSEY injection [...] 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 Mendez at [facility] ( 2020, multiple injections [...] shoulder inj by Dr. Mendez, injections in [place] to the neck and back Current Disability [...] with CT scan 09/2020. 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 Mendez at [facility] ( 2020, multiple injections to the spine) in the past. She is seeking ongoing treatment. Current medications: Cyclobenzaprine, Gabapentin, Meloxicam, Topiramate Past medication: Cyclobenzaprine, Gabapentin, Meloxicam, Topiramate Denies recreational drug use. 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 Treatments received in the past: neck injection, thoracic spine inj, left shoulder inj by Dr. Cole Mendez, injections in [place] to the neck and back Current Disability Status: totally disabled Narx Scores 07/11/2021 Narcotic : 251 Sedative : 110 Stimulant : 000 Overdose Risk Score : 180 (Range 000-999) LABS: CT of cervical spine 02/2021: Anterior fusion C5-6. No soft tissue injury, hardware in good position, comparison with CT scan 09/2020. 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 Mendez at [facility] ( 2020, multiple injections [...] shoulder inj by Dr. Mendez, injections in [place] to the neck and back Current Disability [...] with CT scan 09/2020. Cecil Zaldivar MD [address] [facility] [address], [place], [address], [facility] - Cecil Zaldivar MD 03/11/2022 15:29:34 OBGyn Episode No OBEpisode recorded.
--- OUTSIDE RECORDS SUMMARY | 2023-07-31 13:13 | XMS_ITS | Clinical Summary ---
Author Organization [employer] [facility] Address [place], [place] [address] Care Team Providers Care Field Hockey Coach Name Role Phone Manan Beaulieu MD Primary Care Provider [phone] Allergies Active Allergy Reactions Criticality Noted Date [...] agreement terminated 2016 Overview: Patient terminated from [facility]. DDD (degenerative disc disease), cervical 2016 Overview: Oct 2016: epidural steroid injection left interlaminar, Cervical Spine at [facility]. Oct 2016: 3rd epidural steroid injection to Cervical Spine at [facility]. Obesity, Class II, BMI 35-39.9 07/12/2016 [...] Department Care Team Description 05/15/2023 Orders Only [facility] [address] [id number] Jaren Byrd MD <No scans attached> from [...] Outcome GA Total Labor Labor/2nd/3rd Weight Sex Type Anes PTL Winnie A1 A5 Name Clin Para Para Last Filed Vital Signs Vital Sign Reading Time Taken Comments Blood Pressure 125/59 04/02/2019 12:17 PM SECURITY MESSENGER Pulse 80 04/02/2019 12:18 PM SECURITY MESSENGER Temperature 36.9 ??C (98.5 ??F) 04/02/2019 1 0:55 AM SECURITY MESSENGER Respiratory Rate 18 04/02/2019 10:5 5 AM SECURITY MESSENGER Oxygen Saturation 97% 04/02/2019 12: 18 PM SECURITY MESSENGER Inhaled Oxygen Concentration - - Weight 112.8 kg (248 lb 10.9 oz) 08/04/2017 8:02 AM CDT Height 154.9 cm (5' 1) 04/02/2019 10:5 5 AM SECURITY MESSENGER Body Mass Index 45.48 08/04/2017 8:02 AM [...] this topic Medical Devices Implanted Type Area Beef Specialist Device Identifier Shelf Expiration Date Model / Serial / Lot Bone Matrix 1cc [employer] Puttydbm - [id number] Implanted:Qty: 1 on 08/04/2017 by J Carlos Donohue MD at N/A: Cervical Vertebrae [employer] Spine/Ortho 12/30/2018 [id number]# / / [id number] 96 Bone [id number] Cornerstone Lasr Spacer - [id number] Implanted:Qty: 1 on 08/04/2017 by J Carlos Donohue MD at N/A: Cervical Vertebrae [employer] Spine/Ortho 04/03/2020 [id number]# / / [id number] Cornerstone Lasr Spacer - [id number] Implanted:Qty: 1 on 08/04/2017 by J Carlos Donohue MD at N/A: Cervical Vertebrae Medtronic Spine/Ortho 10/30/2019 [id number]# / [id number] / [id number] 2 Plate Cerv 2lvl 37.5mm Eros Vision Elite Ant - [id number] Implanted:Qty: 1 on 08/04/2017 by J Carlos Donohue MD at N/A: Cervical Vertebrae Medtronic Spine/Ortho [id number]# / / - Screw Cerv Ant 4x12mm [employer]f [employer] - [id number] Implanted:Qty: 6 on 08/04/2017 by J Carlos Donohue MD at N/A: Cervical Vertebrae [employer]tronic Spine/Ortho [id number] / / - Procedures Procedure Name Priority Date/Time Associated Diagnosis Comments XR MAMMO BILAT SCREENING Routine 03/26/2016 11:44 AM SECURITY MESSENGER Visit for screening mammogram LIPID PANEL Routine 03/06/2015 9:54 AM SECURITY MESSENGER Hyperlipidemia ANTI HIV 1/2 Routine 05/12/2014 10:16 AM CDT Screen for STD (sexually transmitted disease) ANTI HCV Routine 05/12/2014 10:16 AM CDT Screen for STD (sexually transmitted disease) TOBACCO PACKING MACHINE OPERATOR THIN PREP PAP SCREEN IMAGED Routine 05/12/2014 10:16 AM CDT Pap smear for cervical cancer screening from Last 3 Months or Most Recently Relevant to Health Maintenance Results * XR MAMMO BILAT SCREENING (03/26/2016 11:44 AM SECURITY MESSENGER) Anatomical Region Laterality Modality BREASTS, Breast Left, Breast Right Bilateral Mammography Impressions 03/27/2016 12:29 PM SECURITY MESSENGER ??There is no radiographic evidence for malignancy. ??Recommend annual mammograms. A lay language report of this examination will be provided to the patient. MAMMOGRAM ASSESSMENT: ??ACR 2 Benign Narrative 03/27/2016 12:29 PM SECURITY MESSENGER XR MAMMO BILAT SCREENING [[id number]] CLINICAL HISTORY: ??This is an asymptomatic 50 y.o. patient. INDICATION FOR EXAM: Mammogram Screening. TECHNIQUE: CC & MLO views were obtained. ??This digital study was evaluated with the assistance of Computer-Aided Detection. COMPARISON FILMS: Yes 06/30/12 [facility] 05/15/11 [facility] FINDINGS: ??Mammographically, the breast tissue has scattered fibroglandular densities. ??No suspicious masses or microcalcifications. ?? Benign appearing calcifications within both breasts. Arnel Peck MD MAMMO * (ABNORMAL) LIPID PANEL (03/06/2015 9:54 AM SECURITY MESSENGER) [facility] CHOLESTEROL,TOTAL 237(H) 100 - 199 mg/dL 03/06/2015 10:25 AM SECURITY MESSENGER [facility] TRIGLYCERIDES 184(H) <150 mg/dL 03/06/2015 10:[address] [facility] HDL CHOLESTEROL 57 >40 mg/dL 03/06/2015 10:[address] [facility] NON-HDL CHOLESTEROL 180(H) <145 mg/dl 03/06/2015 10:[address] [facility] CHOL/HDL RATIO 4.16 <4.50 03/06/2015 10:[address] [facility] LDL CHOLESTEROL 143(H) <=130 mg/dL 03/06/2015 10:[address] [facility] PATIENT STATUS NON-FASTI NG 03/06/2015 10:[address] [facility] Blood specimen (specimen) BLOOD SPECIMEN / Unknown Venipuncture / Unknown 03/06/2015 9:54 AM SECURITY MESSENGER 03/06/2015 9:54 AM SECURITY MESSENGER Arnel Peck MD CHEMISTRY [facility] [address] [place] [address], * TOBACCO PACKING MACHINE OPERATOR THIN PREP PAP SCREEN IMAGED (05/12/2014 10:16 AM CDT) [facility] TOBACCO PACKING MACHINE OPERATOR CYTOLOGY See Anatomic Pathology case 05/17/2014 11:00 AM CDT [facility] Specimen (specimen) (Cervical/Vagina l) Non-Blood / Unknown 05/12/2014 10:16 AM CDT 05/12/2014 10:16 AM CDT Arnel Peck MD PATHOLOGY/CYTOLOGY [facility] [address] [place] [address], [place] * ANTI HCV (05/12/2014 10:16 AM CDT) [facility] HEPATITIS C ANTIBODY Non-Reacti ve Non-Reacti ve 05/12/2014 4:59 PM CDT [facility] Blood specimen (specimen) BLOOD SPECIMEN / Unknown Venipuncture / Unknown 05/12/2014 10:16 AM CDT 05/12/2014 10:16 AM CDT Narrative [facility] - 05/12/2014 4:59 PM CDT Antibodies to HCV not detected; does not exclude the possibility of exposure to HCV. Arnel Peck MD SEND OUTS [facility] [address] [place] [address], * ANTI HIV 1/2 (05/12/2014 10:16 AM CDT) HIV-1/HIV-2 ANTIBODY Non-Reacti ve Non-Reacti ve 05/12/2014 3:27 PM CDT [facility] Blood specimen (specimen) BLOOD SPECIMEN / Unknown Venipuncture / Unknown 05/12/2014 10:16 AM CDT 05/12/2014 10:16 AM CDT Narrative [facility] - 05/12/2014 3:27 PM CDT HIV-1 p24 and HIV-1/HIV-2 Ab not detected Arnel Peck MD [facility] [address] [place] [address], from Last 3 Months or Most Recently Relevant to Health Maintenance Advance Directives * Full Code (Latest Code Status on File) Date Activated Date Inactivated Comments 08/04/2017 1:43 PM 08/05/2017 3:46 PM Question Answer Comments Code Status Discussion: Per Existing Order Care Teams Field Hockey Coach Relationship Specialty Start Date End Date Manan Beaulieu MD [address] [place] [address] PCP - General Internal Medicine 07/30/17
--- OUTSIDE RECORDS SUMMARY | 2023-07-31 13:13 | XMS_ITS | Clinical Summary ---
Author Organization [facility] Address [address] [place] [address] Care Team Providers Care Material Expeditor Name Role Phone Unavailable Primary Care Provider [...]
--- NOTE | 2023-07-31 13:30 | CRLHL7_ITS ---
For Patients: As a result of the Century Cures Act, medical imaging exams and procedure reports are released immediately into your electronic medical record. You may view this report before your referring provider. If you have questions, please contact your health care provider. Indication: Biliary colic, right upper abdominal pain, multiple gallstones within the gallbladder neck. Technique: Nuclear medicine hepatobiliary scan with gallbladder ejection fraction/Kinevac injection. Comparison: Gallbladder ultrasound dated 07/07/2023. Findings: Dose: 5.44 millicuries technetium 99 M Mebrofenin and 2.07 micrograms of Kinevac. The uptake and excretion of radiotracer by the liver is normal with visualization of the gallbladder by 2.5 minutes and visualization of the small bowel by 7 minutes. Upon intravenous administration of 2.07 micrograms of Kinevac there is a gallbladder ejection fraction calculated at 14 percent which is below the lower limit of normal (approximately 35 percent). The patient`s symptoms were mildly replicated with Kinevac administration. Impression: 1. Reduced gallbladder ejection fraction of 14 percent is compatible with scintigraphic evidence for gallbladder dyskinesia/functional gallbladder disease. 2. The patient`s symptoms were mildly replicated with Kinevac injection. Dictated by Wayne Toure MD @ 07/31/2023 4:21:59 PM (Electronically Signed)
== END 2023-07-31 13:11 | disposition home or self-care (01) ==
LOC: NM 13:11
PROVIDERS: PCP Internal Medicine; Visit Provider Internal Medicine
DX: K80.50 Calculus of bile duct without cholangitis or cholecystitis without obstruction (principal); R10.11 Right upper quadrant pain
CPT/HCPCS: 78227; A9537; J2805

== ENCOUNTER 2023-08-25 06:14 | Day surgery (SDC) | payer MEDICARE, MEDICAID, SELFPAY ==
[2023-08-25] VITALS (13 sets, daily range): BP systolic 105–156; BP diastolic 67–102; PULSE 74–82; RESP 12–16; TEMP 36.2–36.6; O2SAT 92–96
--- OUTSIDE RECORDS SUMMARY | 2023-08-25 06:18 | XMS_ITS | Data Portability ---
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 Based on history, physical exam, and prior treatments/diagn ostic studies, I recommend transforminal LINDSEY at L4-5, L5-M1hmjzz today. Discussed treatment plan with patient. mjawahir [...] recorded. Imaging MRI, shoulder, w/o contrast 2021 022 [facility], [address], [place], [address], 14:10:58 XR, hip + pelvis, bilateral 2021 022 [facility], [address] [place] [address], [address], 14:19:08 Medication Orders hydrocodone 5 mg-acetamin ophen 325 mg tablet 2021 022 [facility], [address] [place], [place], [address], 11:53:04 Patient Targets Encounter Date Encounter Id [...] calorie intake. mjawahir Not available 10/25/2021 11:15:20 Patient Instructions Encounter Date Encounter Id Patient Instructions Last Modified By Organization Details Last Modified Time 07/23/2021 [id number] lumbar spinal stenosis: care instructions mjawahir Not [...] muscle mass. mjawahir Not available 07/24/2021 18:08:04 10/25/2021 [id number] leg pain: care instructions mjawahir Not available 10/25/2021 11:52:53 lumbar spinal stenosis: care instructions mjawahir Not available 10/25/2021 11:52:53 sacroiliac pain: exercises mjawahir Not available 03/11/2022 15:29:30 chronic pelvic pain: care instructions jamie Not available 10/25/2021 11:52:53 pelvic pain: car e instructions goldjaime Not available 10/25/2021 11:52:52 Continue home exercise program, walking 10 - 20 minutes/day. Stretching exercises of the axial spine to maintain flexibility/ROM. Discussed diet, needs to consume more protein to maintain muscle mass. jamie Not available 03/11/2022 15:27:38 Apply cold packs to treated area for 10 minutes on/ 10 minutes off over next 24 - 48 hours while awake. Continue present care. Provided written post injection care instructions. Follow up in 2 weeks. jamie Not available 03/11/2022 15:26:59 Reason for Referral Neurologist Referral for Par kinson's disease Evaluate Referring Physician: Cecil Zaldivar, Pain Management, Encounter Date: 09/27/2021 Psychologist Referral for Ch ronic pain syndrome Evaluate for DCS Referring Physician: Cecil Zaldivar Pain Management, Encounter Date: 09/27/2021 Results Created Date Observation Date Name Description Value Unit Range Abnormal Flag LastModifiedBy Organization Detail LastModifiedTime 07/03/19 22 07/02/2021 MRI, lumba r spine , w/o contr ast No observ ation record ed. [facility] ([facility] [address] [place], [place], [address], 07/11/2021 15:49:57 11/02/19 22 11/01/2021 MRI, shoul [place], w/o contr ast No observ ation record ed. [facility] [address], [place], [address], 11/01/2021 14:10:58 11/02/19 22 11/01/2021 XR, hip + pelvi s, bilat eral No observ ation record ed. [facility] [address], [place], [address], 11/01/2021 14:19:08 Result Notes None recorded. Problems Name Status Onset Date Resolution Date Notes Provider Name and Address Organization Details Recorded Time Ulcerative colitis Active Cecil Zaldivar MD [address], [place], [address] , [facility] Jose Zaldivar MD 05/24/2021 10:53:50 Parkinson's disease Active Cecil Zaldivar MD [address], [place], [address] , [facility] - Cecil Zaldivar MD 05/24/2021 10:53:57 Type 2 diabetes mellitus Active Cecil Zaldivar MD [address], [place], [address] , [facility] - Cecil Zaldivar MD 05/24/2021 10:54:18 Spinal stenosis in cervical region Active Cecil Zaldivar MD [address], [place], [address] , [place] - Cecil Zaldivar MD 05/24/2021 10:54:49 Spinal stenosis of thoracic region Active Cecil Zaldivar MD [address], [place], [address] , [facility] - Cecil Zaldivar MD 05/24/2021 10:54:57 Chronic pain syndrome Active Cecil Zaldivar MD [address], [place], [address] , [place] - Cecil Zaldivar MD 05/24/2021 10:55:06 Sleep apnea Active Cecil Zaldivar MD [address], [place], [address] , [facility] - Cecil Zaldivar MD 05/24/2021 10:55:17 Tremor Active Cecil Zaldivar MD [address], [place], [address] , [place] - Cecil Zaldivar MD 05/24/2021 10:55:23 Hypertensive disorder Active Cecil Zaldivar MD [address], [place], [address] , [place] - Cecil Zaldivar MD 05/24/2021 10:55:30 Rupture of rotator cuff of left shoulder Active Cecil Zaldivar MD [address], [place], [address] , [place] Cecil Zaldivar MD 05/24/2021 11:02:10 Chronic obstructive pulmonary disease Active Cecil Zaldivar MD [address], [place], [address] , [place] Cecil Zaldivar MD 05/24/2021 11:07:27 Asthma Active Cecil Zaldivar MD [address], [place], [address] , [place] Cecil Zaldivar MD 05/24/2021 11:07:33 Spinal stenosis of lumbar region Active 05/25/19 22 Cecil Zaldivar MD [address], [place], [address] , [place] - Cecil Zaldivar MD 05/24/2021 11:40:23 Degeneration of thoracolumbar intervertebral disc Active 05/25/19 22 Cecil Zaldivar MD [address], [place], [address] , [place] - Cecil Zaldivar MD 05/24/2021 11:40:50 Smoker Active 05/25/19 22 Cecil Zaldivar MD [address], [place], [address] , [place] - Cecil Zaldivar MD 05/24/2021 11:41:12 Arthritis of right sacroiliac joint Active 05/25/19 22 Cecil Zaldivar MD [address], [place], [address] , [place] - Cecil Zaldivar MD 05/24/2021 11:52:24 Injury of left rotator cuff Active 05/25/19 Cecil Zaldivar MD [address], [place], [address] , [place] - Cecil Zaldivar MD 05/24/2021 12:04:37 Neuropathy due to diabetes mellitus Active 05/25/19 22 Cecil Zaldivar MD [address], [place], [address] , [place] - Cecil Jawahir MD 05/24/2021 12:04:52 Bilateral sciatica Active 08/30/19 22 Cecil Zaldivar MD [address], [place], [address] , [place] Jose Zaldivar MD 08/29/2021 23:07:12 Problem Notes None recorded. Procedures Surgical History Date Name Laterality Status Provider Name and Address Organization Details Recorded Time 10/26/19 22 SI JOINT INJECTION completed Cecil Zaldivar MD [address], [place], [address], [place] Jose Zaldivar MD 10/25/2021 14:07:58 09/07/19 22 LUMBAR FACET JOINT INJECTION FLUOROSCOPIC-COCO DED active Cecil Zaldivar MD [address], [place], [address], [place] Jose Zaldivar MD 09/06/2021 14:02:07 07/24/19 22 LUMBAR LINDSEY completed Cecil Zaldivar MD [address], [place], [address], [facility] Jose Zaldivar MD 08/29/2021 23:20:19 06/26/19 22 LUMBAR LINDSEY completed Cecil Zaldivar MD [address], [place], [address], [place] Jose Zaldivar MD 09/11/2021 16:15:23 05/31/19 22 LUMBAR LINDSEY active Cecil Zaldivar MD [address], [place], [address], [place] Jose Zaldivar MD 05/30/2021 18:05:28 section completed Cecil Zaldivar MD [address], [place], [address], [place] Jose Zaldivar MD 05/24/2021 10:58:24 Total hysterectomy completed Cecil Zaldivar MD [address], [place], [address], [place] Jose Zaldivar MD 05/24/2021 10:35:30 Neck Surgery completed Cecil Zaldivar MD [address], [place], [address], [facility] oJse Zaldivar MD 05/24/2021 11:00:20 release of trigger finger completed Cecil Zaldivar MD [address], [place], [address], [place] Jose Zaldivar MD 05/24/2021 11:02:44 Carpal tunnel surgery completed Cecil Zaldivar MD [address], [place], [address], [place] Jose Zaldivar MD 05/24/2021 11:03:04 Imaging Results Imaging Date Name Status LastModified by Organiz ation Details LastModified Time 07/02/2021 MRI, lumbar spine, w/o contrast completed [facility] [place] (Medical Records) [address], [place], [address], 07/11/2021 15:49:57 11/01/2021 MRI, shoulder, w/o contrast active [facility] [address], [place], [address], 11/01/2021 14:10:58 11/01/2021 XR, hip + pelvis, bilateral active [facility] [address], [place], [address], 11/01/2021 14:19:08 Procedure Notes None recorded. Medical Equipment None Reported. Allergies Allergen ID Allergen Name Allergen Category Reaction Reaction Severity Criticality Documentation Date Start Date Code Code System Note Provider Name and Address Organization Details Recorded Time 4821 amoxicill in medicatio n diarrhea Not available high 05/24/2021 723 RxNorm [place]divar [place] [address], [place], [address], [facility] Jose Zaldivar MD 10:32:17 4822 latex environme nt,medica tion hives rash Not available Not available high 05/24/2021 25547 91 RxNorm Cecil Zaldivar MD [address] [facility] [address], [place], [address], [facility] - Cecil Zaldivar MD 2 10:32:38 Medications Name Sig Start Date Stop Date Status Note LastModified by Organization Details LastModified Time stool [id number] cap TAKE 1 CAPSULE BY MOUTH THREE [...] Not Available Not Available No t Available OneTouch Ultra Test strips USE STRIP TO CHECK [...] t Available Vitals Date Recorded Body height Respiratory rate Heart rate Body mass index (BMI) Body weight Body temperature Systolic blood pressure Diastolic blood pressure Provider Name and Address Organization Details Last Updated DateTime 2 157.48 cm 16 /min 72 /min 40.2 kg/m2 00569.3 2 g 97.5 [degF] 105 mm[Hg] 87 mm[Hg] Cecil Zaldivar MD [address], [place], [address], [place] - Cecil Zaldivar MD 2 18:02:21 Date Recorded Body height Respiratory rate Heart rate Body mass index (BMI) Body weight Body temperature Systolic blood pressure Diastolic blood pressure Provider Name and Address Organization Details Last Updated DateTime 2 157.48 cm 15 /min 68 /min 40.2 kg/m2 24904.3 2 g 98 [degF] 119 mm[Hg] 78 mm[Hg] Cecil Zaldivar MD [address], [place], [address], [place] - Cecil Zaldivar MD 2 16:56:26 Date Recorded Body height Heart rate Respiratory rate Body mass index (BMI) Body weight Body temperature Systolic blood pressure Diastolic blood pressure Provider Name and Address Organization Details Last Updated DateTime 2 157.48 cm 70 /min 16 /min 40.2 kg/m2 19833.3 2 g 97.8 [degF] 108 mm[Hg] 76 mm[Hg] Cecil Zaldivar MD [address], [place], [address], [place] Jose Zaldivar MD 2 13:12:10 Date Recorded Body height Heart rate Respiratory rate Body mass index (BMI) Body weight Body temperature Systolic blood pressure Diastolic blood pressure Provider Name and Address Organization Details Last Updated DateTime 2 157.48 cm 72 /min 16 /min 40.2 kg/m2 84153.3 2 g 97.3 [degF] 108 mm[Hg] 76 mm[Hg] Cecil Zaldivar MD [address], [place], [address], [place] Jose Zaldivar MD 2 16:32:04 Date Recorded Body height Heart rate Respiratory rate Body mass index (BMI) Body weight Body temperature Systolic blood pressure Diastolic blood pressure Provider Name and Address Organization Details Last Updated DateTime 2 157.48 cm 65 /min 16 /min 40.2 kg/m2 96706.3 2 g 97 [degF] 124 mm[Hg] 98 mm[Hg] Cecil Zaldivar MD [address], [place], [address], [place] Zaldivar MD 11:17:37 Social History Question Answer Notes LastModified by Organizat ion Details LastModified Time Tobacco Smoking Status Former Smoker quit in Feb 13, 2021 [place]divar [place] [address], [place], [address], [place] Zaldivar MD 05/24/2021 11:03:44 Do You [...] Or The Highest Degree You Have Received? [id number] Information not available 08/29/2021 How Many Days [...] Anxious, Or Unable To Sleep At Night)? [id number] Information not available 08/29/2021 Do You Use [...] N Depression Y COPD Y Anemia N Heart Attack ([place]) Y Ulcers Y Anxiety Disorder Y Diabetes Y Bleeding Disorder N Arthritis Y Tuberculosis [...] Encounter Closed Date Diagnosis/Indication Diagnosis SNOMED-CT Code [id number] Cecil Zaldivar MD MAIN OFFICE [address] [facility] [address] [place] [address] 06/25/2021 10:18:11 06/25/2021 12:03:26 Bilateral sciatica 345157643540442 03 [id number] Cecil Zaldivar MD MAIN OFFICE [address] [place] [address] 07/23/2021 13:22:09 07/23/2021 14:56:08 Bilateral sciatica 540004259510877 03 Spinal bruce nosis of lumbar region 37299406 [id number] Cecil Zaldivar MD MAIN OFFICE [address] [facility] [address] [place] [address] 10/25/2021 11:06:27 10/25/2021 12:59:54 Pain in pelvis 45746373 Chronic pain syndrome 37 1627918 Spinal bruce nosis of lumbar region 93489078 Left rotat or cuff syndrome [id number] Inflammati on of sacroiliac joint 81003849 Health Concerns Section Related Observation LastModified by Organization Detai ls LastModified Time None Recorded Concern Status LastModified by Organization Details LastModified Time None Recorded Advance Directives Directive N: Payers Encounter Date Sequence Insurance Name Policy Number Policy Martin Covered Member ID Martin Member ID Guarantor Name 07/23/2021 2 [place] [employer] Emilee Condonschourt [id number] Emilee Burtsert Pleschourt 07/23/2021 1 [employer] - DUAL ELIGIBLE (MEDICARE REPLACEMENT/ ADVANTAGE - PPO) [employer] Mandi Patterson Bussert Pleschourt [id number] Emilee Bussert Pleschourt 10/25/2021 2 [place] [employer] Emilee R Pleschourt [id number] Emilee Bussert Pleschourt 10/25/2021 1 [employer] - DUAL ELIGIBLE (MEDICARE REPLACEMENT/ ADVANTAGE - PPO) [employer] Mandi R Bussert Pleschourt [id number] Emilee Bussert Pleschourt Notes Date Note Type Note Provider Name and Address Organization Details Recorded Time 07/23/2021 text/html HPI Notes: Pain Management C-spine [...] 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 Mendez at [facility] ( 2020, multiple injections to the spine) in the past. She is seeking ongoing treatment. Current medications: Cyclobenzaprine, Gabapentin, Meloxicam, Topiramate Past medication: Cyclobenzaprine, Gabapentin, Meloxicam, Topiramate Denies recreational drug use. 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 Treatments received in the past: neck injection, thoracic spine inj, left shoulder inj by Dr. Cole Mendez, injections in [place] to the neck and back Current Disability Status: totally disabled Narx Scores 07/11/2021 Narcotic : 251 Sedative : 110 Stimulant : 000 Overdose Risk Score : 180 (Range 000-999) LABS: CT of cervical spine 02/2021: Anterior fusion C5-6. No soft tissue injury, hardware in good position, comparison with CT scan 09/2020. 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 Mendez at [facility] ( 2020, multiple injections [...] shoulder inj by Dr. Mendez, injections in [place] to the neck and back Current Disability [...] with CT scan 09/2020. Cecil Zaldivar MD [address] [facility] [address], [place], [address], [facility] - Cecil Zaldivar MD 03/11/2022 15:29:34 OBGyn Episode No OBEpisode recorded.
--- OUTSIDE RECORDS SUMMARY | 2023-08-25 06:18 | XMS_ITS | Clinical Summary ---
Author Organization [facility] Address [place], [place] [address] Care Team Providers Care Building Services Engineer Name Role Phone Manan Beaulieu MD Primary Care Provider Allergies Active Allergy Reactions Criticality Noted Date Comments Adhesive Tape-Silicones Rash Low 08/01/2017 Erythromycin Diarrhea,Rash 09/08/2006 Latex Hives Medium 09/29/2014 Unlisted Allergen (Include D etail In Comments) Hives 11/05/2022 Epideral Medications Medication Sig Dispensed Refills Start Date End Date Status propranolol (INDERAL LA) 60 mg Cs24 Sustained-Releas e capsuleIndicatio ns:HTN (hypertension) Take 1 capsule by mouth once daily. 90 capsule 3 03/26/2016 Active gabapentin (NEURONTIN) 600 mg tabletIndication s:Fibromyalgia Take 1 tablet by mouth 3 times daily. 180 tablet 3 07/16/2016 Active VENTOLIN HFA 90 mcg/actuation inhalerIndicatio ns:Bronchitis INHALE 2 PUFFS BY MOUTH FOUR TIMES DAILY NEEDED 18 g 1 10/31/2016 Active mirtazapine (REMERON) 7.5 mg tabletIndication s:Insomnia, idiopathic Take 1 tablet by mouth at bedtime. 30 tablet 01/22/2017 Active DULoxetine (CYMBALTA) 60 mg Delayed-release capsuleIndicatio ns:Other depression Take 1 capsule by mouth once daily. 30 capsule 02/11/2017 Active cyclobenzaprine (FLEXERIL) 10 mg tablet Take 10 mg by mouth 3 times daily if needed. 07/21/2017 Active HYDROcodone-acet aminophen, 5-325 mg, (NORCO) per tabletIndication s:Cervical spondylosis with radiculopathy,HN P (herniated nucleus pulposus), cervical,Cervica l spinal stenosis Take 1-2 tablets by mouth [...] by mouth once daily. 0 11/05/2022 Active topiramate (TOPAMAX) 100 mg tabletIndication s:Other headache syndrome Take 1 Tablet (100 mg) by mouth two times daily. 11/05/2022 Active traZODone (DESYREL) 100 mg tabletIndication s:Insomnia, unspecified type Take 1 Tablet (100 mg) by mouth at bedtime. 25-50 mg at night as needed for sleep. 11/05/2022 Active pravastatin (PRAVACHOL) 40 mg tablet Take 40 mg by mouth once daily. 08/28/2022 Active aspirin (ECOTRIN) 81 mg enteric coated tablet Take 81 mg by mouth once daily. ON HOLD Active simvastatin (ZOCOR) 20 mg tablet Take 1 Tablet (20 mg) by mouth once daily. 0 11/05/2022 4 Discontinue d(*Patient states no longer taking) tamsulosin (Flomax) 0.4 mg capsule Take 1 Capsule (0.4 mg) by mouth once daily after a meal. 0 11/05/2022 4 Discontinue d(*Patient states no longer taking) Active Problems Problem Noted Date Diagnosed Date Cervical spinal stenosis 08/04/2017 HNP (herniated nucleus pulposus), cervical 08/04 Cervical spondylosis with radiculopathy 08/05/19 18 Chronic cough 08/04/2017 Chronic cough 08/04/2017 Controlled substance agreement terminated 2016 Overview: Patient terminated from [facility]. DDD (degenerative disc disease), cervical 2016 Overview: Oct 2016: epidural steroid injection left interlaminar, Cervical Spine at [facility]. Oct 2016: 3rd epidural steroid injection to Cervical Spine at [facility]. Obesity, Class II, BMI 35-39.9 07/12/2016 Alteration [...] Encounters Date Type Department Care Team Description 08/21/2023 8:00 AM CDT Office Visit [facility] [address] [place] [address] Ari Rosado MD Cardiac Clearance 08/21/2023 Orders Only [facility] [address] [place] [address] Ari Rosado MD <No scans attached> 08/21/2023 Travel 08/18/2023 Transcribe Orders [facility] [address] [place] [address] Angelica Potter MD 07/31/2023 Orders Only [facility] Staff, Other Clinical 1 scan: (1-Ord) [facility] 07/07/2023 Orders Only [facility] Staff, Other Clinical 1 scan: (1-Ord) [facility] from Last 3 Months Immunizations Name Administration [...] Types Packs/Day Years Used Date Smoking Tobacco: Every Day Cigarettes Last attempted to quit: 09/24/2016 Smokeless Tobacco: Never Tobacco Cessation:Ready to Q uit: Not Asked; Counseling Given: Not Answered Alcohol Use Standard Drinks/Week Comments No 0 [...] Sign Reading Time Taken Comments Blood Pressure 106/75 08/21/2023 7:59 AM CDT Pulse 85 08/21/2023 7:59 AM CDT Temperature 36.9 ??C (98.5 ??F) 04/02/2019 10:[address] Respiratory Rate 18 04/02/2019 10:55 AM HEADER OPERATOR Oxygen Saturation 94% 08/21/2023 7:59 AM CDT Inhaled Oxygen Concentration - - Weight 105.7 kg (233 lb) 08/21/2023 7:59 AM CDT Height 157.9 cm (5' 2.17) 08/21/2023 7:59 AM CD T Body Mass Index 42.39 08/21/2023 7:59 AM CDT Plan of Treatment Health Maintenance Due Date Last Done Comments Pneumococcal series for age 6-64 (1 of 2 - PCV) 1972 Colonoscopy through age 75 06/17/2011 Zoster (shingles) series for age 50+ (1 of 2) 2016 Mammogram for age 45-75 03/26/2017 03/26/19 17, 06/30/2012, 06/30/2012, Additional history exists Pap test for age 21-65 05/12/2017 5, 08/22/2010, 09/28/2009, Additional history exists Depression screening for age 12+ 02/11/2018 02/11/2017, 09/16/2016, 06/14/2016, Additional history exists Lipids for age 45-75 03/06/2020 03/06/2015, 08/18/2014, 05/12/2014, Additional history exists Tetanus booster 07/10/2023 07/09/2013 Influenza for age 50-64 10/12/2023 11/05/19 15, 02/09/2013, 11/18/2011, Additional history exists BMI (ht and wt on same day) for age 18+ 08/20/2024 08/21/2023, 10/01/2016, 08/06/2016, Additional history exists Tdap Completed 07/09/2013 HIV for age 15-65 Completed 05/12/2014, 08/28/2009 Hepatitis C screening for ag e 18-79 Completed 05/12/2014, 08/28/2009 COVID-19 vaccine series Completed 01/21/2023 Medical Devices Implanted Type Area Privacy Specialist Device Identifier Shelf Expiration Date Model / Serial / Lot Bone Matrix 1cc [employer] Vision Puttydbm - [id number] Implanted:Qty: 1 on 08/04/2017 by J Carlos Donohue MD at [facility] N/A: Cervical Vertebrae Med[employer]onic Spine/Ortho 12/30/2018 [id number]# / / [id number] Bone [id number] Cornerstone Lasr Spacer - [id number] Implanted:Qty: 1 on 08/04/2017 by J Carlos Donohue MD at [facility] N/A: Cervical Vertebrae Medtronic Spine/Ortho 04/03/2020 [id number]# / / [id number] Cornerstone Lasr Spacer - [id number] Implanted:Qty: 1 on 08/04/2017 by J Carlos Donohue MD at [facility] N/A: Cervical Vertebrae Medtronic Spine/Ortho 10/30/2019 [id number]# / [id number] / [id number] 2 Plate Cerv 2lvl 37.5mm [place] Vision Elite Ant - [id number] Implanted:Qty: 1 on 08/04/2017 by JCarlos Donohue MD at [facility] N/A: Cervical Vertebrae Medtronic Spine/Ortho [id number] / / - Screw Cerv Ant 4x12mm [employer] Va Slf Drill - [id number] Implanted:Qty: 6 on 08/04/2017 by J Carlos Donohue MD at [facility] N/A: Cervical Vertebrae Medtronic Spine/Ortho [id number] / / - Procedures Procedure Name Priority Date/Time Associated Diagnosis Comments EKG 12 LEAD Routine 08/21/2023 8:10 AM CDT Atherosclerotic heart disease of [place] coronary artery without angina pectoris [facility] 08/18/2023 3:01 PM CDT [facility] 08/18/2023 3:01 PM CDT XR MAMMO BILAT SCREENING Routine 03/26/2016 11:44 AM HEADER OPERATOR Visit for screening mammogram LIPID PANEL Routine 03/06/2015 9:54 AM HEADER OPERATOR Hyperlipidemia ANTI HIV 1/2 Routine 05/12/2014 10:16 AM CDT Screen for STD (sexually transmitted disease) ANTI HCV Routine 05/12/2014 10:16 AM CDT Screen for STD (sexually transmitted disease) A R COLLECTIONS REP THIN PREP PAP SCREEN IMAGED Routine 05/12/2014 10:16 AM CDT Pap smear for cervical cancer screening from Last 3 Months or Most Recently Relevant to Health Maintenance Results * [facility] (08/18/2023 3:01 PM CDT) Narrative 08/18/2023 3:01 PM CDT Ordered by an unspecified provider. Other Clinical Staff OTHER * [facility] (08/18/2023 3:01 PM CDT) Narrative 08/18/2023 3:01 PM CDT Ordered by an unspecified provider. Other Clinical Staff OTHER * XR MAMMO BILAT SCREENING (03/26/2016 11:44 AM HEADER OPERATOR) Anatomical Region Laterality Modality BREASTS, Breast Left, Breast Right Bilateral Mammography Impressions 03/27/2016 12:29 PM HEADER OPERATOR ??There is no radiographic evidence for malignancy. ??Recommend annual mammograms. A lay language report of this examination will be provided to the patient. MAMMOGRAM ASSESSMENT: ??ACR 2 Benign Narrative 03/27/2016 12:29 PM HEADER OPERATOR XR MAMMO BILAT SCREENING [[id number]] CLINICAL HISTORY: ??This is an asymptomatic 50 y.o. patient. INDICATION FOR EXAM: Mammogram Screening. TECHNIQUE: CC & MLO views were obtained. ??This digital study was evaluated with the assistance of Computer-Aided Detection. COMPARISON FILMS: Yes 06/30/12 [facility] 05/15/11 [facility] FINDINGS: ??Mammographically, the breast tissue has scattered fibroglandular densities. ??No suspicious masses or microcalcifications. ?? Benign appearing calcifications within both breasts. Arnel Peck MD MAMMO * (ABNORMAL) LIPID PANEL (03/06/2015 9:54 AM HEADER OPERATOR) CHOLESTEROL,TOTAL 237(H) 100 - 199 mg/dL 03/06/2015 10:25 AM HEADER OPERATOR [facility] TRIGLYCERIDES 184(H) <150 mg/dL 03/06/2015 10:25 AM HEADER OPERATOR [facility] HDL CHOLESTEROL 57 >40 mg/dL 03/06/2015 10:25 AM HEADER OPERATOR [facility] NON-HDL CHOLESTEROL 180(H) <145 mg/dl 03/06/2015 10:25 AM HEADER OPERATOR [facility] CHOL/HDL RATIO 4.16 <4.50 03/06/2015 10:25 AM [facility] LDL CHOLESTEROL 143(H) <=130 mg/dL 03/06/2015 10:25 AM HEADER OPERATOR [facility] PATIENT STATUS NON-FASTI NG 03/06/2015 10:25 AM [facility] Blood specimen (specimen) BLOOD SPECIMEN / Unknown Venipuncture / Unknown 03/06/2015 9:54 AM HEADER OPERATOR 03/06/2015 9:54 AM HEADER OPERATOR Arnel Peck MD CHEMISTRY [facility] [address] [place] [address], [place] [phone] * A R COLLECTIONS REP THIN PREP PAP SCREEN IMAGED (05/12/2014 10:16 AM CDT) A R COLLECTIONS REP CYTOLOGY See Anatomic Pathology case 05/17/2014 11:00 AM CDT [facility] Specimen (specimen) (Cervical/Vagina l) Non-Blood / Unknown 05/12/2014 10:16 AM CDT 05/12/2014 10:16 AM CDT Arnel Peck MD PATHOLOGY/CYTOLOGY [facility] [address] [place] [address], [place] * ANTI HCV (05/12/2014 10:16 AM CDT) HEPATITIS C ANTIBODY Non-Reacti ve Non-Reacti ve 05/12/2014 4:59 PM CDT [facility] Blood specimen (specimen) BLOOD SPECIMEN / Unknown Venipuncture / Unknown 05/12/2014 10:16 AM CDT 05/12/2014 10:16 AM CDT Narrative [facility] - 05/12/2014 4:59 PM CDT Antibodies to HCV not detected; does not exclude the possibility of exposure to HCV. Arnel Peck MD SEND OUTS [facility] [address] [place] [address], * ANTI HIV 1/2 (05/12/2014 10:16 AM CDT) HIV-1/HIV-2 ANTIBODY Non-Reacti ve Non-Reacti ve 05/12/2014 3:27 PM CDT [facility] Blood specimen (specimen) BLOOD SPECIMEN / Unknown Venipuncture / Unknown 05/12/2014 10:16 AM CDT 05/12/2014 10:16 AM CDT Narrative [facility] - 05/12/2014 3:27 PM CDT HIV-1 p24 and HIV-1/HIV-2 Ab not detected Arnel Peck MD [facility] [address] [place] [address], from Last 3 Months or Most Recently Relevant to Health Maintenance Advance Directives * Full Code (Latest Code Status on File) Date Activated Date Inactivated Comments 08/04/2017 1:43 PM 08/05/2017 3:46 PM Question Answer Comments Code Status Discussion: Per Existing Order Care Teams Building Services Engineer Relationship Specialty Start Date End Date Manan Beaulieu MD [address] [place] [address] PCP - General Internal Medicine 07/30/17
--- OUTSIDE RECORDS SUMMARY | 2023-08-25 06:18 | XMS_ITS | Patient Health Record ---
Author Organization [facility] Billing Info Address [address] [place] [address] Care Team Providers Care Solar Field Service Technician Name Role Phone DERRICK WHITING Unavailable [phone] STEPHAN CERRATO NONA Unavailable [phone] Allergies Allergen (clinical drug ingredient) Drug/Non Drug [...] Problem Status W/U Status Risk Notes Problem 49896219 Type 2 diabetes mellitus with other specified complication (E11.69) Active confirmed Problem 742009400 Morbid (severe) obesity due to excess calories (E66.01) Active confirmed Problem 346734835 Obesity, unspeci fied (E66.9) Active confirmed Problem 000330232 Chronic pain syn drome (G89.4) Active confirmed Problem Localized, primary osteoarthritis of the shoulder region (428500660) Primary osteoarthritis, left shoulder (M19.012) Active confirmed Problem Full thickness rotator cuff tear (077309909) Complete rotator cuff tear or rupture of unspecified shoulder, not specified as traumatic (M75.120) Active confirmed Problem Impingement syndrome of left shoulder region (066687801871675) Impingement syndrome of left shoulder (M75.42) Active confirmed Problem 170867940 Dietary counseli ng and surveillance (Z71.3) Active confirmed Problem 148135131 Body mass index [BMI] 40.0-44.9, adult (Z68.41) Active confirmed Problem 33819101 Parkinsons disea se (G20) Active confirmed Problem 176279048 Morbid obesity (E66.01) Active confirmed Problem 64340391 Essential hypert ension (I10) Active confirmed Problem Pre-procedure evaluation check (623008940) Pre-operative clearance (Z01.818) Active confirmed Problem Right shoulder pain (6383297613) Right shoulder pain (M25.511) Active confirmed Problem Left shoulder pain (1502920035) Left shoulder pain (M25.512) Active confirmed Problem 369471367924844 Trochanteric bur sitis of right hip (M70.61) Active confirmed Problem 80362206 Tobacco dependen ce (F17.200) Active confirmed Problem 0086805125338 S/P cervical spi nal fusion (Z98.1) Active confirmed Problem 04379739 Cervical spinal stenosis (M48.02) Active confirmed Problem 083192585580089 Gluteal tendinit is of right buttock (M76.01) Active confirmed Problem 776475125 Adult general me dical exam (Z00.00) Active confirmed Problem Long-term current use of 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 (078738137) assistant terminal manager use of drug (Z79.899) Active confirmed Problem 17778275 Thoracic spinal stenosis (M48.04) Active confirmed Problem 183739483 Disorder of left rotator cuff (M67.912) Active confirmed Problem 948980542 Biceps tendiniti s of left shoulder (M75.22) Active confirmed Problem 23229216 Iliotibial band tendinitis of right side (M76.31) Active confirmed Problem 9526209185000735 Osteoarthritis of left acromioclavicular joint (M19.012) Active confirmed Problem 103900671 Rotator cuff impingement syndrome of left shoulder (M75.42) Active confirmed Problem 40735465 Hypercholesterol emia (E78.00) Active confirmed Problem 855430570 Aftercare (Z51.89) Active confirmed Problem 554879380 Status post left rotator cuff repair (Z98.890) Active confirmed Problem 7307659465992298 Nontraumatic co mplete tear of left rotator cuff (M75.122) Active confirmed Problem 110375737 Frequent headach es (R51.9) Active confirmed Problem 471569271 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) Active confirm ed Encounters Encounter Location Date Provider Diagnosis [id number] [address] [facility] [address] [address] [place], [place] [id number] 09/04/2022 NONA ROTHMAN II Dietary counseling and surveillance Z71.3 [id number] [address] [facility] [address] [place], [place] [id number] 09/05/2022 NONA ROTHMAN II Dietary counseling and surveillance Z71.3 [id number] [address] [facility] [address] [address] [place], [place] [id number] 10/04/2022 NONA ROTHMAN II [id number] [address] [facility] [address] [address] [place], [place] [id number] 11/04/2022 NONA ROTHMAN II Dietary counseling and surveillance Z71.3 [id number] [address] [facility] [address] [address] [place], [place] [id number] 01/06/2023 NONA ROTHMAN II Dietary counseling and surveillance Z71.3 [id number] [address] [facility] [address] [place] [id number] 04/07/2023 NONA ROTHMAN II Dietary counseling and [...] Test Name Order Date HEPATIC FUNCTION PANEL (09772) LIPID PANEL (64978) 03/16/2020 HEMOGLOBIN A1C (C114) 03/16/2020 Basic Metabolic Panel (8) 03/16/2020 Insurance Providers Payer Name Payer Address Payer Phone Subscriber Number Group Number Insured Name Patient Relationship to Insured Coverage Start Date Coverage End Date [facility] [employer] D[employer]PLETE [address] [address] [facility] [place] [place] [id number] Emilee Boyer Self - patient is the insured 2 2 Medications Administered Medication Instructions Date of Administration Dosage Notes MethylPREDNISolone Acetate 12/25/2021 80 mg Xylocaine 12/25/2021 2 mL Medical (General) History Medical History History ICD Code Anxiety/Depression Diabetes Mellitus Insomnia Parkinsons Disease- neurolog ist diagnosed in [facility] on for 15 years Essential hypertension Poor wound healing from surgeries Morbid obesity Surgical History Surgery Date(Month/Year) LT RCR 01/31/2022 Colonoscopy 06/15/2020 Mammogram 2020 (R) CTR C5,C6,C7 fusion and replacment Hysterectomy-Full Uterine Ablation x2
--- OUTSIDE RECORDS SUMMARY | 2023-08-25 06:18 | XMS_ITS | Clinical Summary ---
Author Organization [facility] Address [address] [place] [address] Care Team Providers Care Document Scanner Name Role Phone Unavailable Primary Care Provider [...] Vaccines (1 of 2) 2016 Influenza Vaccine (#1) 2023 HIB Vaccines Aged Out No longer [...]
--- OUTSIDE RECORDS SUMMARY | 2023-08-25 06:19 | XMS_ITS | Data Portability ---
Author Organization [facility] - Bruce Arenas & E Bruce Chaparro MD Address [address] [facility] [address] [place] [address] Care Team Providers Care Warehouse Director Name Role Phone NONA ROTHMAN Primary Care Provider BRUCE ARENAS Sap Business Intelligence Consultant [phone] Assessment Encounter Date Assessment Date Assessment LastModified [...] Modified Time Details Appointments None recorded. Lab culture, stool 2020 [facility], [address], [place], [address], 02:46:52 C diff toxin A+B, qualitative , stool 2020 [facility], [address], [place], [address], 16:13:32 C diff toxin A+B, qualitative , stool 2020 [facility], [address], [place], [address], 16:56:13 C diff toxin A+B, qualitative , stool 2020 [facility], [address], [place], [address], 16:56:13 hepatitis C Ab, serum 2021 [facility], [address], [place], [address], 2 14:04:15 hepatitis B surface Ab, qualitative , serum 2021 [facility], [address], [place], [address], 2 14:38:12 Referral cardiologis t referral - Patient with coronary artery disease tells me she is not on aspirin etc.. She also tells me she had an MRI last week ??? 2020 Julieta Johnston MD ([facility] ), [address], [place], [address], 08:22:57 cardiologis t referral - Patient not on aspirin or Plavix etcetera she had a heart attack apparently last year 2021 022 criselda Colin MD ([facility] ), [address] [place], [address], 2 08:02:02 Procedures colonoscopy procedure (PROC) 2020 021 LESLIE Not available 14:35:27 Surgeries None recorded. Imaging None recorded. Medication Orders peg 3350-electr olytes 236 gram-22.74 gram-6.74 gram-5.86 gram solution [address] [place] [address] Pharmacy 3887, [address], [address], 10:27:[address] - ER 3 mg capsule,del ayed,extend ed release 2020 [facility], [address] [place] [address], [address], 18:29:33 Culturelle 10 billion cell capsule 2020 [facility], [address], [address], 16:55:39 Colace 100 mg capsule 2020 [facility], [address], [address], 11:52:52 Miralax 17 gram/dose oral powder 2020 [facility], [address], [address], 11:52:[address] - ER 3 mg capsule,del ayed,extend ed release 2020 [facility], [address] [place] [address], [address], 11:52:53 Culturelle 10 billion cell capsule 2020 [facility], [address] [place] [address], [address], 11:52:51 Colace 100 mg capsule 2020 [facility], [address] [place] [address], [address], 14:39:48 Miralax 17 gram/dose oral powder 2020 [facility], [address] [place] [address], [address], 14:39:41 psyllium husk (bulk) 100 % powder 2020 [facility], [address] [place] [address], [address], 14:39:42 Culturelle 10 billion cell capsule 2020 [facility], [address] [place] [address], [address], 14:39:[address] - ER 3 mg capsule,del ayed,extend ed release 2020 [facility], [address] [place] [address], [address], 14:39:40 Culturelle 10 billion cell capsule 2021 022 [facility], [address], [address], 14:03:[address] - ER 3 mg capsule,del ayed,extend ed release 2021 022 [facility], [address], [address], 14:04:01 Patient TargetsNo targets recorded. Patient Instructions Encounter Date Encounter Id Patient Instructions Last Modified By Organization Details Last Modified Time 05/30/2020 [id number] diarrhea: care instructions sekici Not available 05/30/2020 16:12:54 body mass index: care instructions sekici Not available 05/30/2020 16:12:55 learning about healthy weight sekici Not available 05/30/2020 16:12:55 06/21/2020 [id number] diarrhea: care instructions sekici Not available 06/21/2020 16:55:33 body mass index: care instructions sekici Not available 06/21/2020 16:55:33 learning about healthy weight sekici Not available 06/21/2020 16:55:33 09/26/2020 [id number] diarrhea: care instructions sekici Not available 09/26/2020 11:52:41 heart attack: care instructions sekici Not available 09/26/2020 11:52:41 constipation: care instructions sekici Not available 09/26/2020 11:52:41 body mass index: care instructions sekici Not available 09/26/2020 16:49:41 learning about healthy weight sekici Not available 09/26/2020 16:49:41 01/01/2021 [id number] diarrhea: care instructions sekici Not available 01/01/2021 14:39:31 heart attack: care instructions sekici Not available 01/01/2021 14:39:31 constipation: care instructions sekici Not available 01/01/2021 14:39:31 body mass index: care instructions sekici Not available 01/01/2021 14:39:31 learning about healthy weight sekici Not available 01/01/2021 14:39:31 04/03/2021 [id number] diarrhea: care instructions sekici Not available 04/03/2021 14:03:51 heart attack: care instructions sekici Not available 04/03/2021 14:03:51 constipation: care instructions sekici Not available 04/03/2021 14:03:51 body mass index: care instructions sekici Not available 04/03/2021 14:03:51 learning about healthy weight sekici Not available 04/03/2021 14:03:51 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 She also tells me she had an MRI last week ??? Referring Physician: [facility], Encounter Date: 09/26/2020 Cable Hooker Referral for My ocardial infarction Patient not [...] NON-RE ACTIVE non-re active normal Not Available [email or web address] [facility] [address], [place], [address], 04/17/2021 12:05:42 04/17/19 22 04/17/2021 HEPAT ITIS C AB W/REF L TO HCV RNA, QN, PCR hepatitis C antibody NON-RE ACTIVE non-re active normal Not Available [facility] [address], [place], [address], 04/17/2021 12:05:42 04/17/19 22 04/17/2021 HEPAT ITIS C AB W/REF L TO HCV RNA, QN, PCR index 0.00 <1.00 normal Not Available [facility] [address], [place], [address], 04/17/2021 12:05:42 05/20/19 21 05/17/2020 CT, abdom en + pelvi s, w/ contr ast No observ ation record ed. Not Available 05/19/2020 14:27:58 04/13/19 22 03/26/2021 MAMMO , diagn ostic , bilat eral No observ ation record ed. [facility] [address] [place], [address], 04/12/2021 13:11:35 Result Notes None recorded. Procedures Surgical History Date Name Laterality Status Provider Name and Address Organization Details Recorded Time Hysterectomy completed Katiel Ice Cream Freezer Assistant o null, [place] - [facility] [...] 05/19/2020 14:27:58 03/26/2021 MAMMO, diagnostic, bilateral completed [facility] [address] [place], [address], 04/12/2021 13:11:35 Procedure Notes None recorded. Medical Equipment None Reported. Allergies Allergen ID Allergen Name Allergen Category Reaction Reaction Severity Criticality Documentation Date Start Date Code Code System Note Provider Name and Address Organization Details Recorded Time 00405 Latex (substanc e) environme nt,medica tion itching nausea rash respirato ry distress Not available Not available Not available Not available Not available 05/30/2020 14550 8007 SNOMED Katfred Simpsono null, [place] - [facility] 1 11:16:48 33245 erythromy eduardo medicatio n itching rash Not available Not available Not available 05/30/2020 4053 RxNorm Katiel Rosalee null, [place] - [facility] 1 11:17:00 67060 latex environme nt,medica tion itching nausea rash respirato ry distress vomiting Not available Not available Not available Not available Not available Not available 04/03/2021 40307 91 RxNorm Kat Simpsono null, [place] - [...] Updated DateTime 05/30/2020 157.48 cm 40.2 kg/m2 03674.32 g Lizfred Rosalee [place] - [facility] [address] 05/30/2020 11:15:56 Date Recorded Body height Body mass index (BMI) Body weight Provider Name and Address Organization Details Last Updated DateTime 06/21/2020 157.48 cm 40.2 kg/m2 22585.32 g Lyndsay Harris [place] - [address] 06/21/2020 10:26:58 Date Recorded Body height Body mass index (BMI) Body weight Heart rate Body temperature Oxygen saturation Oxygen saturation in Arterial blood by Pulse oximetry Systolic blood pressure Diastolic blood pressure Provider Name and Address Organization Details Last Updated DateTime 157.48 cm 41.5 kg/m2 363294. 47 g 87 /min 98.4 [degF] 95 [...] Updated DateTime 1 157.48 cm 41.5 kg/m2 307711. 47 g 107 /min 97.8 [degF] 96 [...] Updated DateTime 2 157.48 cm 41.5 kg/m2 817781. 47 g 106 /min 98 [degF] 94 [...] Nicotine? No Information not available 05/30/2020 Sex: Unknown Functional Status Question Answer Note LastModified by [...] Medical History Condition Response Heart Problems Y Osteoarthritis Y Diarrhea Y Chest pain Y Chronic Obstructive Pulmonary Disease Y Migraines Y NSAID Use Y COPD Y Depression Y Constipation Y Nausea Y Heart Attack (LA) Y Other Skin Condition Y Osteoperosis Y Diabetes Y Back pain Y Muscle, Joint, or Bone Problems Y Hemorrhoids Y Dizziness Y Obesity Y Seizures/Epilepsy Y Arthritis Y Acid Reflux (GERD) Y IBS Y Asthma Y Sleep Apnea Y Abdominal pain Y High Cholesterol Y Heart Disease Y [...] Encounter Closed Date Diagnosis/Indication Diagnosis SNOMED-CT Code [id number] MD Bruce Mccain MD [address] [place] [address] 05/30/2020 11:15:00 06/01/2020 14:31:33 Body mass index 40+ - severely obese 534746350 Colitis 44095908 Diarrhea 67486445 Diabetes mellitus 365230 09 [id number] MD Burce Mccain MD [address] [place] [address] 06/21/2020 09:38:07 06/23/2020 09:35:49 Body mass index 40+ - severely obese 500554699 Colitis 98543696 Diarrhea 81522130 Diabetes mellitus 491488 09 [id number] MD Bruce Mccain MD [address] [place] [address] 09/26/2020 10:32:08 09/26/2020 11:55:51 Body mass index 40+ - severely obese 286225944 Constipation 42323281 Myocardial infarction 22 788219 Colitis 37869781 Diarrhea 82717972 Diabetes mellitus 100437 09 Post-disch arge follow-up 794405670 [id number] MD Bruce Mccain MD [address] [place] [address] 01/01/2021 13:26:43 01/01/2021 15:12:37 Body mass index 40+ - severely obese 447820486 Weight gain 8302307 Constipation 76338788 Myocardial infarction 22 650941 Colitis 21135768 Diarrhea 06722895 Diabetes mellitus 162854 09 Post-disch arge follow-up 033908192 [id number] MD Bruce Mccain MD [address] [place] [address] 04/03/2021 12:25:40 04/03/2021 14:06:58 Body mass index 40+ - severely obese 326474260 Constipation 13731138 Myocardial infarction 22 552874 Colitis 01023376 Diarrhea 52115743 Diabetes mellitus 858811 09 Post-disch arge follow-up 477784138 Viral screening 52899133 4 Health Concerns Section Related Observation LastModified by Organization Detai ls LastModified Time None Recorded Concern Status LastModified by Organization Details LastModified Time None Recorded Advance Directives Directive N: Payers Encounter Date Sequence Insurance Name Policy Number Policy Martin Covered Member ID Martin Member ID Guarantor Name 05/30/2020 1 [employer] - DUAL ELIGIBLE (MEDICARE REPLACEMENT /ADVANTAGE - PPO) THEO Lau [id number] Emilee Johnson 06/21/2020 1 [employer] - DUAL ELIGIBLE (MEDICARE REPLACEMENT /ADVANTAGE - PPO) THEO Condonschourt [id number] Emilee Yesenia Bussertpleschourt 09/26/2020 2 [place] [employer] Emilee R Pleschourt [id number] Emilee Yesenia Bussertpleschourt 09/26/2020 1 [employer] - DUAL ELIGIBLE (MEDICARE REPLACEMENT /ADVANTAGE - PPO) FLDSNP K R Bussert Pleschourt [id number] Emilee R Bussertpleschourt 01/01/2021 2 [place] [employer] Emilee R Pleschourt [id number] Emilee R Bussertpleschourt 01/01/2021 1 [employer] - DUAL ELIGIBLE (MEDICARE REPLACEMENT /ADVANTAGE - PPO) FLDSNP K R Bussert Pleschourt [id number] Emilee R Bussertpleschourt 04/03/2021 2 [place] [employer] Emilee R Pleschourt [id number] Emilee R Bussertpleschourt 04/03/2021 1 [employer] - DUAL ELIGIBLE (MEDICARE REPLACEMENT /ADVANTAGE - PPO) FLDSNP K R Bussert Pleschourt [id number] Emilee R Bussertpleschourt Notes Date Note Type Note Provider [...] nutrient deficiency Bruce Arenas MD [address] [facility] [address], [place], [address], [place] - [facility] 05/30/2020 [...] nutrient deficiency Bruce Arenas MD [address] [facility] [address], [place], [address], [place] - [facility] 06/27/2020 [...] nutrient deficiency Bruce Arenas MD [address], [place], [address], [facility] Bruce Arenas [address] 09/26/2020 [...] no arthritis Bruce Arenas MD [address], [place], [address], [facility] Sed[address]elita Arenas [address] 01/01/2021 [...] no osteoporosis; no arthritis Bruce Arenas MD [address] [facility] [address] [place], [address], [place] - Bruce Arenas [address] 04/03/2021 14:03:59 OBGyn Episode No OBEpisode recorded.
[2023-08-25] MEDS: LACTATED RINGERS 1000 ML 1,000 ML 100 ML IV (12:30)
[2023-08-25] MEDS: SODIUM CHLORIDE 0.9 % (FLUSH) 10 ML SYRINGE IVF (12:31)
--- NOTE | 2023-08-25 13:07 | W.PM.H&PU ---
History & Physical Update History & Physical Update H&P Reviewed and patient assessed: No changes noted H&P Updates: Patient was cleared by Cardiology for surgery.
--- NOTE | 2023-08-25 13:07 | PM.GSPRC ---
Operative Note Date of procedure: 08/25/23 Pre-op diagnosis: Biliary dyskinesia, cholelithiasis Post-op diagnosis: Same Type of Procedure: Laparoscopic cholecystectomy Indications: The patient is a 58-year-old female who had been having abdominal pain in her right upper abdomen. Workup revealed cholelithiasis, but a HIDA scan was obtained which also showed a reduced ejection fraction of 14%. She presented to surgery clinic. We discussed options and she elected to proceed to cholecystectomy. Procedure Description: After discussing the risks and benefits of the procedure, the patient signed informed consent.? The operative site was marked and the patient was brought to the operating room and placed on the operating table in supine position.? Care was taken to pad the patient's pressure points.?? The patient was then intubated by anesthesia.?? The operative site was then prepped and draped in the usual sterile fashion.? A time-out was then performed. Entrance to the abdomen was gained via a 5 mm Visiport in the left upper quadrant. The abdomen was insufflated and briefly surveyed for signs of injury. There was none. She did have a number of adhesions between the omentum and the anterior abdominal wall in various parts of her abdomen. I was able to place a 10 mm umbilical port. I then, using a Metzenbaum scissors took down the adhesions between the omentum and the anterior abdominal wall the right upper quadrant. This exposed the gallbladder. Along the right costal margin, 2 working ports were then placed under direct vision. The patient was then placed in reverse Trendelenburg position with the right side up. The gallbladder fundus was grasped and retracted cephalad. A small amount of dissection was needed to free omental adhesions from the gallbladder. The infundibulum was grasped. A combination of hook cautery and blunt dissection was used to carefully dissect out the cystic duct and artery until they could clearly be seen entering the gallbladder without any intervening structures. The gallbladder was dissected off the cystic plate to achieve the critical view. Once this was achieved the cystic duct and artery were each clipped with 2 clips proximally and 1 clip distally and transected with the scissors. The gallbladder was then taken off of the liver bed. There were small vessels along either side of the gallbladder which were also clipped for hemostasis. The gallbladder was then removed from the abdomen using an Endo-Catch bag. The gallbladder bed was surveyed for hemostasis which appeared adequate. A small amount of bile which had spilled was suctioned from the abdomen. The umbilical port fascia was closed with 0 Vicryl using a Dominik-Marilyn device. The abdomen was desufflated and remaining ports were then removed. The skin was closed with absorbable subcuticular suture. Instrument sponge and needle counts were correct at the end of the case. The patient was then woken and transferred to the PACU in stable condition. ? The patient tolerated the procedure well. Findings: Gallbladder with adhesions noted to the omentum. Multiple intra-abdominal adhesions between omentum and anterior abdominal wall Anesthesia: GETA Surgeon: Vesna Potter MD Estimated blood loss (mL): 10 Specimen: Gallbladder Condition: stable Disposition: PACU
[2023-08-25] MEDS: CEFAZOLIN 2 GM INJ IVP (13:15)
[2023-08-25] MEDS: BUPIVACAINE 0.25% 30 ML INJECTION (13:40)
--- NOTE | 2023-08-25 14:41 | W.ANESCHARGE ---
Anesthesia Charges Start Date/Time Anesthesia Start Date: 08/25/23 Anesthesia Start Time: 13:05 Stop Date/Time Anesthesia Stop Date: 08/25/23 Anesthesia Stop Time: 14:42
--- NOTE | 2023-08-25 14:46 | W.ANESCHARGE ---
Anesthesia Charges Start Date/Time Anesthesia Start Date: 08/25/23 Anesthesia Start Time: 13:05 Stop Date/Time Anesthesia Stop Date: 08/25/23 Anesthesia Stop Time: 14:42
[2023-08-25] MEDS: ACETAMINOPHEN 325 MG TABLET 650 MG PO (14:48)
[2023-08-25] MEDS: fentaNYL 100 MCG/2 ML inj 50 MCG IVP (15:00)
[2023-08-25] MEDS: OXYCODONE 5 MG TABLET PO (15:48)
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
== END 2023-08-25 16:45 | disposition home or self-care (01) ==
PROVIDERS: PCP Internal Medicine; Visit Provider Surgery
PROC: 0FT44ZZ Resection of Gallbladder, Percutaneous Endoscopic Approach (ICD-10-PCS; CPT 47562; principal; 2023-08-25 12:45)
DX: K80.20 Calculus of gallbladder without cholecystitis without obstruction (principal); E11.9 Type 2 diabetes mellitus without complications; I10 Essential (primary) hypertension; K82.8 Other specified diseases of gallbladder
CPT/HCPCS: 47562; 790; 82962; 88304; A9270; J0330; J0665; J0690; J1100; J1885; J2405; J2704; J2710; J3010; J7120

== ENCOUNTER 2023-09-20 13:16 | Emergency (ER) | payer MEDICARE, MEDICAID, SELFPAY ==
[2023-09-20] VITALS (28 sets, daily range): BP systolic 103–118; BP diastolic 61–93; PULSE 62–74; RESP 20; TEMP 36.3; O2SAT 92–97; BMI 43.5
--- NOTE | 2023-09-20 13:23 | CRLHL7_ITS ---
For Patients: As a result of the Cures Act, medical imaging exams and procedure reports are released immediately into your electronic medical record. You may view this report before your referring provider. If you have questions, please contact your health care provider. EXAM: CT OF THE PELVIS, WITHOUT CONTRAST CLINICAL INDICATION: Pain following fall. COMPARISON STUDIES: 11/13/2022 CT abdomen pelvis. TECHNICAL: Non-contrast CT of the pelvis with axial images. Sagittal oblique and coronal oblique reformatted images were created. FINDINGS: OSSEOUS STRUCTURES: Fracture at the sacrococcygeal junction is new in the interval. No additional fractures are evident. No osseous lesion. No evidence for chronic avascular necrosis. JOINT SPACES: Right Hip: No effusion. Mild hypertrophic change without joint space narrowing. Left Hip: No effusion. Mild hypertrophic change without joint space narrowing. SI Joints: Advanced degenerative changes in the right SI joint. Bridging anterior osteophytes and partial fusion of the left SI joint consistent with degenerative changes. Lumbar Spine: Unremarkable. MUSCLES AND TENDONS: No intramuscular mass or hematoma. No muscle atrophy. No retracted tendon tear. SOFT TISSUES: No subcutaneous edema, fluid collection or hematoma. INTRAPELVIC CONTENTS: No free fluid or hematoma. No inguinal hernia. Hysterectomy. NEUROVASCULAR STRUCTURES: No abnormality of the neurovascular structures. IMPRESSION: 1. Fracture at the sacrococcygeal junction is new in the interval. 2. Mild hypertrophic changes in the hips. 3. Degenerative changes in the SI joints with partial fusion of the left SI joint. 4. Hysterectomy. Please note that all CT scans at this facility use dose modulation, iterative reconstruction, and/or weight-based dosing when appropriate to reduce radiation dose to as low as reasonably achievable. Dictated by Mikal Duke MD @ 09/22/2023 8:56:24 AM (Electronically Signed)
--- NOTE | 2023-09-20 13:23 | CRLHL7_ITS ---
For Patients: As a result of the Century Cures Act, medical imaging exams and procedure reports are released immediately into your electronic medical record. You may view this report before your referring provider. If you have questions, please contact your health care provider. INDICATION: Low back pain. TECHNIQUE: Non-contrast axial CT of the lumbar spine with coronal and sagittal reconstructions. Compared to prior study from September 04, 2017 FINDINGS: The overall stature and alignment of the lumbar spine is within normal limits. No evidence of bony fragments narrowing the central canal or visualized neural foramina. Mild degenerative changes at L3-4, L4-5 that appear to have slightly progressed since the prior study. IMPRESSION: 1. No radiographic evidence of acute osseous injury Please note that all CT scans at this facility use dose modulation, iterative reconstruction, and/or weight-based dosing when appropriate to reduce radiation dose to as low as reasonably achievable. Dictated by Hamzah Gil MD @ 09/20/2023 2:00:33 PM (Electronically Signed)
--- NOTE | 2023-09-20 13:23 | CRLHL7_ITS ---
For Patients: As a result of the Century Cures Act, medical imaging exams and procedure reports are released immediately into your electronic medical record. You may view this report before your referring provider. If you have questions, please contact your health care provider. INDICATION: Headache. Trauma. TECHNIQUE: Non-contrast CT of the head is submitted. Compared to report from prior study from November 13, 2022 FINDINGS: Again seen is a 3.2 centimeter CSF density lesion dorsal to the cerebellum likely represents an incidental arachnoid cyst. The ventricles, sulci and gyri are of normal size, shape and contour. Midline structures are centrally located. No convincing evidence of intra- or extra-axial fluid collections. Mild soft tissue swelling overlying left parietal calvarium likely representing scalp hematoma. IMPRESSION: 1. No radiographic evidence of acute intracranial abnormalities. 2. Mild soft tissue swelling overlying left parietal calvarium likely representing scalp hematoma. Please note that all CT scans at this facility use dose modulation, iterative reconstruction, and/or weight-based dosing when appropriate to reduce radiation dose to as low as reasonably achievable. Dictated by Hamzah Gil MD @ 09/20/2023 1:57:00 PM (Electronically Signed)
--- NOTE | 2023-09-20 13:23 | CRLHL7_ITS ---
For Patients: As a result of the Century Cures Act, medical imaging exams and procedure reports are released immediately into your electronic medical record. You may view this report before your referring provider. If you have questions, please contact your health care provider. Indication: Neck pain. Trauma. Technique: Noncontrast axial CT of the cervical spine with coronal and sagittal reformats are provided. No comparisons. Findings: Postoperative changes compatible with anterior screw and plate fixation of C5-7 with anterior interbody graft that demonstrates solid integration. The overall stature, alignment of the cervical spine is within normal limits. No convincing evidence of suspicious bony fragments narrowing the central canal or neural foramina. Prevertebral soft tissues, cervical airway, dens and lateral masses are within normal limits. Mild scattered degenerative changes of the cervical spine. Impression: 1. No convincing radiographic evidence of acute osseous injury. 2. Mild scattered degenerative changes of the cervical spine. Please note that all CT scans at this facility use dose modulation, iterative reconstruction, and/or weight-based dosing when appropriate to reduce radiation dose to as low as reasonably achievable. Dictated by Hamzah Gil MD @ 09/20/2023 1:58:36 PM (Electronically Signed)
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
--- NOTE | 2023-09-20 13:33 | CRLHL7_ITS ---
For Patients: As a result of the Cures Act, medical imaging exams and procedure reports are released immediately into your electronic medical record. You may view this report before your referring provider. If you have questions, please contact your health care provider. INDICATION: Elbow injury from Fall TECHNIQUE: Elbow radiograph 3 views left COMPARISON: None FINDINGS: Bone: No acute fractures or aggressive bone lesions are identified. Joint: The elbow joint is unremarkable. No significant displacement of the anterior or posterior fat pads noted to suggest an effusion. Soft tissue: Unremarkable. No radiopaque foreign bodies are seen. IMPRESSION: 1. No acute osseous injuries or abnormalities are noted. Dictated by: Rafi Schmitz MD @ 09/20/2023 14:17:34 (Electronically Signed)
[2023-09-20 13:55] LABS: Basophils Absolute Auto 0.04 K/uL (0.00-0.30); Basophils Percent Auto 0.4 % (0.0-3.0); Eosinophils Absolute Auto 0.24 K/uL (0.00-0.50); Eosinophils Percent Auto 2.5 % (0.0-7.0); Hematocrit 43.6 % (33.0-51.0); Hemoglobin* 13.8 gm/dL (12.0-16.0); Immature Granulocytes Abs Auto 0.05 K/uL (0.00-0.30); Immature Granulocytes Pct Auto 0.5 %; Lymphocytes Absolute Auto 2.69 K/uL (0.90-2.90); Lymphocytes Percent Auto 28.3 % (20-44); Mean Corpuscular HGB Conc 32 gm/dL (32-36); Mean Corpuscular Hemoglobin 32 pg (26-34); Mean Corpuscular Volume 100 fL (80-100); Monocytes Percent Auto 9.5 % (0.0-11.0); Neutrophils Absolute Auto 5.57 K/uL (1.7-7.0); Neutrophils Percent Auto 58.8 % (42.0-72.0); Platelet Count* 227 K/uL (140-440); RDW Coefficient of Variation % 12.4 % (11.5-15.5); Red Blood Count 4.35 m/uL (4.00-5.20); White Blood Count* 9.49 K/uL (4.50-11.00)
[2023-09-20 13:56] LABS: Slide Review Reflex No
[2023-09-20 14:11] LABS: Albumin* 4.1 g/dL (3.3-5.0); Chloride* 108 mmol/L (96-114)
[2023-09-20 14:12] LABS: Potassium* 4.1 mmol/L (3.6-5.1); Sodium* 139 mmol/L (135-149)
[2023-09-20 14:14] LABS: Alkaline Phosphatase* 62 U/L (40-150); Anion Gap 6 mEq/L (7-15); Aspartate Amino Transferase* 26 U/L (12-35); Bilirubin Total* 0.4 mg/dL (0.1-1.5); Blood Urea Nitrogen* 23 mg/dL (7-30); Carbon Dioxide* 25 mmol/L (20-32); Creatinine* 0.8 mg/dL (0.5-1.5); Est. Creatinine Clearance* 61.36; Estimated Glomerular Filt Rate 86 ml/min; Glucose* 97 mg/dL (60-115); Total Protein* 6.5 g/dL (6.0-8.3)
[2023-09-20 14:15] LABS: Alanine Aminotransferase* 27 U/L (4-35); Calcium* 9.3 mg/dL (8.4-10.6); Ethanol* < 0.01 % (0.01-0.03)
[2023-09-20] MEDS: 0.9 % SODIUM CHLORIDE 500 ML 500 ML IV (14:19)
[2023-09-20] MEDS: OXYCODONE 5 MG TABLET PO (14:20)
[2023-09-20] MEDS: ONDANSETRON ODT 4 MG TAB PO (14:26)
[2023-09-20 15:14] LABS: Appearance Urine Cloudy (Clear); Bilirubin Urine Negative (Negative); Blood Urine Negative (Negative); Color Urine Yellow (Yellow); Glucose Urine Negative (Negative); Ketones Urine Negative (Negative); Leukocyte Esterase Urine Negative (Negative); Nitrite Urine Negative (Negative); Protein Urine Negative (Negative); Urobilinogen Urine 0.2 (0.2-1.0)
[2023-09-20 15:28] LABS: Amorphous Sediment Urine Few; RBC Urine 0-2 (0-2); Squamous Epithelial Cell Urine Few (None-Few); WBC Urine 0-2 (0-5)
== END 2023-09-20 16:17 | disposition home or self-care (01) ==
LOC: ED 14:49
PROVIDERS: Emergency Provider Family Medicine; PCP Internal Medicine
DX: S09.90XA Unspecified injury of head, initial encounter (principal); S16.1XXA Strain of muscle, fascia and tendon at neck level, initial encounter; M25.521 Pain in right elbow; M54.50 Low back pain, unspecified; W05.1XXA Fall from non-moving nonmotorized scooter, initial encounter
CPT/HCPCS: 36415; 70450; 72125; 72131; 72192; 73080; 80053; 81001; 82077; 85025; 99285; 99291; A9270; G0390; J7030

== ENCOUNTER 2023-10-24 16:08 | Outpatient (RCR) | payer MEDICARE, MEDICAID, SELFPAY | END 2024-02-21 23:59 | disposition home or self-care (01) | PROVIDERS: PCP Internal Medicine; Visit Provider Internal Medicine | DX: S49.90XA Unspecified injury of shoulder and upper arm, unspecified arm, initial encounter (principal); M25.511 Pain in right shoulder; Z51.89 Encounter for other specified aftercare | CPT/HCPCS: 97110; 97162 ==

== ENCOUNTER 2023-12-20 14:15 | Emergency (ER) | payer MEDICARE, MEDICAID, SELFPAY ==
[2023-12-20 14:35] VITALS: BP 128/75; PULSE 85; RESP 18; TEMP 36.5; O2SAT 96; BMI 43.0
--- NOTE | 2023-12-20 14:51 | ED_ITS ---
HPI - General Adult General Chief complaint: Headache/Migraine Stated complaint: headache, poss shingles Time Seen by Provider: 12/20/23 14:23 Source: patient Mode of arrival: ambulatory Limitations: no limitations History of Present Illness HPI narrative: 58-year-old female presenting today with shingles. Rash has been present for 2 and half weeks. It has been uncomfortable. She has been using antifungal crea ms. Patient wants to know what all she can take for her discomfort. She already takes gabapentin, cyclobenzaprine, duloxetine, hydrocodone, lorazepam and meloxicam. She is requesting to increase her doses of lorazepam, [place] and gabapentin. No fevers or chills. No vomiting. Related Data Previous Rx's ?Medication ?Instructions ?Recorded albuterol sulfate 2.5 mg/3 mL 2.5 mg (3 mL) continuous 06/19/23 (0.083 %) solution for nebulization nebulization QID PRN shortness of breath or wheezing #90 mL aspirin 81 mg chewable tablet 1 tab PO DAILY #90 tabs 06/19/23 buspirone 15 mg tablet 15 mg PO BID #90 tabs 06/19/23 cholecalciferol (vitamin D3) 1,250 1,250 mcg PO QWEEK #13 caps 06/19/23 mcg (50,000 unit) capsule docusate sodium 100 mg capsule 100 mg PO 3XD PRN diarrhea #30 caps 06/19/23 duloxetine 60 mg capsule,delayed 60 mg PO DAILY #90 caps 06/19/23 release epinephrine 0.3 mg/0.3 mL 0.3 mg (0.3 mL) IM ONCE #2 ea 06/19/23 injection, auto-injector meloxicam 15 mg tablet 15 mg PO DAILY Pain #90 tabs 06/19/23 metformin 1,000 mg tablet 1,000 mg PO BID #90 tabs 06/19/23 mirtazapine 7.5 mg tablet 7.5 mg PO QPM #90 tabs 06/19/23 nebulizers #1 ea 06/19/23 pravastatin 40 mg tablet 40 mg PO DAILY #90 tabs 06/19/23 propranolol 60 mg capsule,24 60 mg PO DAILY #90 caps 06/19/23 hr,extended release trazodone 100 mg tablet 100 mg PO QPM #90 tabs 06/19/23 sennosides 8.6 mg capsule (senna) 8.6 mg PO QHS #30 caps 07/28/23 albuterol sulfate 90 mcg/actuation 2 puff inhalation Q6H PRN 07/29/23 aerosol inhaler bronchospasm #8.5 grams topiramate 100 mg tablet 100 mg PO BID #60 tabs 09/03/23 budesonide 3 mg 9 mg (3 x 3 mg) PO DAILY #60 ea 09/22/23 capsule,delayed,extended release nystatin 100,000 unit/gram topical 1 applic topical TID #30 grams 10/18/23 powder hydrocodone 5 mg-acetaminophen 325 1 tab PO Q4-6H pain #20 tabs 10/23/23 mg tablet gabapentin 600 mg tablet 600 mg PO 3XD #90 tabs 10/29/23 cyclobenzaprine 10 mg tablet 10 mg PO BID PRN for muscle spasm 12/09/23 #30 tabs lorazepam 0.5 mg tablet (Ativan) 0.5 mg PO BID PRN anxiety #20 tabs 12/09/23 cefadroxil 500 mg capsule 500 mg PO BID 7 days #14 caps 12/20/23 Allergies Allergy/AdvReac Type Severity Reaction Status Date / Time latex Allergy Intermediate Hives Verified 10/23/23 15:29 adhesive Allergy Mild Rash Verified 10/23/23 15:29 bee venom protein (honey bee) Allergy Verified 10/23/23 15:29 Epideral Allergy Intermediate severe Uncoded 10/23/23 15:29 hives Erythromycin Allergy Intermediate severe Uncoded 10/23/23 15:29 rash, diarrhea Review of Systems Status of ROS: Reports: 6 or more systems reviewed and unremarkable except as noted in History and below [facility] Medical History COPD (chronic obstructive pulmonary disease) ?J44.9 - Chronic obstructive pulmonary disease, unspecified (ICD-10) Fibromyalgia ?M79.7 - Fibromyalgia (ICD-10) Bipolar II disorder ?F31.81 - Bipolar II disorder (ICD-10) Restless legs syndrome ?G25.81 - Restless legs syndrome (ICD-10) Recurrent falls ?R29.6 - Repeated falls (ICD-10) Obstructive sleep apnea syndrome ?G47.33 - Obstructive sleep apnea (adult) (pediatric) (ICD-10) Morbid obesity ?E66.01 - Morbid (severe) obesity due to excess calories (ICD-10) Constipation ?K59.00 - Constipation, unspecified (ICD-10) Abdominal pain ?R10.9 - Unspecified abdominal pain (ICD-10) Type 2 diabetes mellitus, without long-term current use of insulin ?E11.9 - Type 2 diabetes mellitus without complications (ICD-10) Primary hypertension ?I10 - Essential (primary) hypertension (ICD-10) Mixed hyperlipidemia ?E78.2 - Mixed hyperlipidemia (ICD-10) Ulcerative colitis ?K51.90 - Ulcerative colitis, unspecified, without complications (ICD-10) Kidney stone ?N20.0 - Calculus of kidney (ICD-10) Myocardial infarction ?I21.9 - Acute myocardial infarction, unspecified (ICD-10) Surgical History History of total hysterectomy with bilateral salpingo-oophorectomy (BSO) (09/21/14) ?Z90.710 - Acquired absence of both cervix and uterus (ICD-10) ?Z90.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, bilateral (ICD-10) ?Z90.79 - Acquired absence of other genital organ(s) (ICD-10) History of section ?Z98.891 - History of uterine scar from previous surgery (ICD-10) History of cervical spinal arthrodesis (08/04/17) ?Z98.1 - Arthrodesis status (ICD-10) History of carpal tunnel release (08/2018) ?Z98.890 - Other specified postprocedural states (ICD-10) Family History Other Colon cancer Social History Narrative: lives with son and ex-. Has home health. Disabled. Smoking Status: Current some day smoker What tobacco products do you use: cigarettes Do you use any of these nicotine containing products: None Second hand tobacco smoke exposure: No How often do you have a drink containing alcohol: monthly or less How many standard drinks containing alcohol do you have on a typical day: 1 or 2 How often do you have six or more drinks on one occasion: Never AUDIT-C Alcohol total score: 1 Non-prescribed substance use: denies use Caffeine: Yes Little interest or pleasure in doing things: not at all Feeling down, depressed, or hopeless: not at all service: No Exam Narrative: Exam Narrative: Well-nourished well-developed patient in no acute distress. Alert and oriented x3. Answers questions appropriately. Patient appears to be under the influence of her multiple medications. Her speech is slurred. She frequently closes her eyes. HEENT: Normocephalic atraumatic. Pupils are equally round reactive to light. Extraocular muscles are intact. Conjunctivae are moist without any icterus noted. Moist mucous membranes. Skin: Patient has a classic shingles rash starting at the midline of her back wrapping around to under the right breast. Does not cross the midline. All lesions appear to be crusted, I do not see any new lesions. She does have, under the right breast, very moist and macerated rash with surrounding erythema consistent with a developing cellulitis. Const: Vital Signs, click to edit/add: Vital Signs - 24 hr 12/20/23 14:35 Temperature 97.7 F Pulse Rate [Pulse Oximeter] 85 Respiratory Rate 18 Blood Pressure [Ri ght Upper Arm] 128/75 Pulse Oximetry 96 Oxygen Delivery Me thod Room Air Course Course ED Course: Discussed with the patient that she will need oral antibiotics. I told her that she should not increase any of her medications unless she speaks gets a clear go ahead from her primary care doctor. Vital Signs Vital signs: Initial Vital Signs Temperature 97.7 F 12/20/23 14:35 Temperature Source Temporal Artery Scan 12/20/23 14:35 Pulse Rate 85 12/20/23 14:35 Pulse Rhythm Regular 12/20/23 14:35 Respiratory Rate 18 12/20/23 14:35 Blood Pressure 128/75 12/20/23 14:35 Blood Pressure Mean 92 12/20/23 14:35 Blood Pressure Position Supine 12/20/23 14:35 Pulse Oximetry 96 12/20/23 14:35 Oxygen Delivery Method Room Air 12/20/23 14:35 Vital Signs Temperature 97.7 F 12/20/23 14:35 Pulse Rate 85 12/20/23 14:35 Respiratory Rate 18 12/20/23 14:35 Blood Pressure 128/75 12/20/23 14:35 Pulse Oximetry 96 12/20/23 14:35 Oxygen Delivery Method Room Air 12/20/23 14:35 Temperature 97.7 F 12/20/23 14:35 Pulse Rate 85 12/20/23 14:35 Respiratory Rate 18 12/20/23 14:35 Blood Pressure 128/75 12/20/23 14:35 Pulse Oximetry 96 12/20/23 14:35 Oxygen Delivery Method Room Air 12/20/23 14:35 Medical Decision Making MDM Narrative Medical decision making narrative: 58-year-old female with shingles and started 2 and half weeks ago, developing cellulitis. Will treat with cefadroxil b.i.d.. Of note, patient did not drive herself here. She does have a ride home. Discharge Plan Discharge Clinical Impression: Shingles, Cellulitis Patient Disposition: Home, Self-Care Condition: Stable Instructions: Cellulitis (ED) Additional Instructions: Take all antibiotics as prescribed. You can try calamine lotion, Benadryl cream or [id number] to help with the itching/discomfort. All of these can be purchased [id number]. Keep the skin under the right breast clean and dry. Pat dry frequently throughout the day to decrease the amount of moisture present. Do not increase the dosing or frequency of any of your medications at this time. Follow-up with your primary care provider this coming week. Prescriptions: New cefadroxil 500 mg capsule 500 mg PO BID 7 Days Qty: 14 0RF No Action hydrocodone-acetaminophen 5-325 mg tablet 1 tab PO Q4-6H Qty: 20 0RF albuterol sulfate 2.5 mg /3 mL (0.083 %) solution for nebulization 2.5 mg continuous nebulization QID PRN (Reason: shortness of breath or wheezing) Qty: 90 2RF aspirin 81 mg tablet,chewable 1 tab PO DAILY Qty: 90 2RF buspirone 15 mg tablet 15 mg PO BID Qty: 90 3RF cholecalciferol (vitamin D3) 1,250 mcg (50,000 unit) capsule 1,250 mcg PO QWEEK Qty: 13 3RF docusate sodium 100 mg capsule 100 mg PO 3XD PRN (Reason: diarrhea) Qty: 30 2RF duloxetine 60 mg capsule,delayed release(DR/EC) 60 mg PO DAILY Qty: 90 3RF epinephrine 0.3 mg/0.3 mL auto-injector 0.3 mg IM ONCE Qty: 2 0RF Rx Instructions: as a single dose; may repeat once meloxicam 15 mg tablet 15 mg PO DAILY Qty: 90 2RF metformin 1,000 mg tablet 1,000 mg PO BID Qty: 90 3RF mirtazapine 7.5 mg tablet 7.5 mg PO QPM Qty: 90 3RF Rx Instructions: 90 Day Supply (DME) nebulizers [facility] [place] See Rx Instructions .Route Qty: 1 3RF Rx Instructions: As directed pravastatin 40 mg tablet 40 mg PO DAILY Qty: 90 3RF propranolol 60 mg capsule,extended release 24 hr 60 mg PO DAILY Qty: 90 3RF trazodone 100 mg tablet 100 mg PO QPM Qty: 90 3RF senna 8.6 mg capsule 8.6 mg PO QHS Qty: 30 0RF albuterol sulfate 90 mcg/actuation HFA aerosol inhaler 2 puff INHALATION Q6H PRN (Reason: bronchospasm) Qty: 8.5 3RF topiramate 100 mg tablet 100 mg PO BID Qty: 60 5RF budesonide 3 mg capsule,delayed,extend.release 9 mg PO DAILY Qty: 60 3RF nystatin 100,000 unit/gram powder 1 applic topical TID Qty: 30 0RF gabapentin 600 mg tablet 600 mg PO 3XD Qty: 90 0RF cyclobenzaprine 10 mg tablet 10 mg PO BID PRN (Reason: for muscle spasm) Qty: 30 0RF lorazepam [Ativan] 0.5 mg tablet 0.5 mg PO BID PRN (Reason: anxiety) Qty: 20 0RF Follow Up/Referrals: Manan Beaulieu MD [Primary Care Provider] - Stand Alone Forms: [facility] Info Instructions
== END 2023-12-20 15:37 | disposition home or self-care (01) ==
LOC: ED 15:07
PROVIDERS: Emergency Provider Family Medicine; PCP Internal Medicine
DX: B02.9 Zoster without complications (principal); L03.319 Cellulitis of trunk, unspecified
CPT/HCPCS: 99283

== ENCOUNTER 2024-04-23 16:11 | Emergency (ER) | payer MEDICARE, SELFPAY ==
[2024-04-23] VITALS (12 sets, daily range): BP systolic 107–122; BP diastolic 51–76; PULSE 67–75; RESP 18; TEMP 36.8; O2SAT 92–97; BMI 40.2
--- OUTSIDE RECORDS SUMMARY | 2024-04-23 16:13 | XMS_ITS | Patient Health Record ---
Author Organization [facility] Billing Info Address [address] [place] [id number] Care Team Providers Care Force Variation Equipment Tender Name Role Phone DERRICK WHITING Unavailable [phone] Allergies Allergen (clinical drug ingredient) Drug/Non Drug [...] Problem Status W/U Status Risk Notes Problem 27720289 Type 2 diabetes mellitus with other specified complication (E11.69) Active confirmed Problem 590388352 Morbid (severe) obesity due to excess calories (E66.01) Active confirmed Problem 804389013 Obesity, unspeci fied (E66.9) Active confirmed Problem 504144399 Chronic pain syn drome (G89.4) Active confirmed Problem Localized, primary osteoarthritis of the shoulder region (648423319) Primary osteoarthritis, left shoulder (M19.012) Active confirmed Problem Full thickness rotator cuff tear (620118484) Complete rotator cuff tear or rupture of unspecified shoulder, not specified as traumatic (M75.120) Active confirmed Problem Impingement syndrome of left shoulder region (365404373206537) Impingement syndrome of left shoulder (M75.42) Active confirmed Problem 328985699 Dietary counseli ng and surveillance (Z71.3) Active confirmed Problem 342433876 Body mass index [BMI] 40.0-44.9, adult (Z68.41) Active confirmed Problem 71194036 Parkinsons disea se (G20) Active confirmed Problem 482927538 Morbid obesity (E66.01) Active confirmed Problem 61755338 Essential hypert ension (I10) Active confirmed Problem Pre-procedure evaluation check (652717586) Pre-operative clearance (Z01.818) Active confirmed Problem Right shoulder pain (2331823979) Right shoulder pain (M25.511) Active confirmed Problem Left shoulder pain (8160865505) Left shoulder pain (M25.512) Active confirmed Problem 021960060820896 Trochanteric bur sitis of right hip (M70.61) Active confirmed Problem 31874098 Tobacco dependen ce (F17.200) Active confirmed Problem 6936659548583 S/P cervical spi nal fusion (Z98.1) Active confirmed Problem 06011966 Cervical spinal stenosis (M48.02) Active confirmed Problem 945909026751150 Gluteal tendinit is of right buttock (M76.01) Active confirmed Problem 300716450 Adult general me dical exam (Z00.00) Active confirmed Problem Long-term current use of 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 (827903954) 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) Active confirmed Problem 35251156 Thoracic spinal stenosis (M48.04) Active confirmed Problem 559039393 Disorder of left rotator cuff (M67.912) Active confirmed Problem 240608819 Biceps tendiniti s of left shoulder (M75.22) Active confirmed Problem 31947466 Iliotibial band tendinitis of right side (M76.31) Active confirmed Problem 0316213777386072 Osteoarthritis of left acromioclavicular joint (M19.012) Active confirmed Problem 683773659 Rotator cuff impingement syndrome of left shoulder (M75.42) Active confirmed Problem 69239650 Hypercholesterol emia (E78.00) Active confirmed Problem 064680204 Aftercare (Z51.89) Active confirmed Problem 659662955 Status post left rotator cuff repair (Z98.890) Active confirmed Problem 2385598358471833 Nontraumatic co mplete tear of left rotator cuff (M75.122) Active confirmed Problem 914629296 Frequent headach es (R51.9) Active confirmed Problem 726039586 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 [id number] Emilee Boyer Self - patient is the insured 2 2 Medications Administered Medication Instructions Date of Administration Dosage Notes MethylPREDNISolone Acetate 12/25/2021 80 mg Xylocaine 12/25/2021 2 mL Medical (General) History Medical History History ICD Code Anxiety/Depression Diabetes Mellitus Insomnia Parkinsons Disease- neurolog ist diagnosed in [facility] with [facility] on for 15 years Essential hypertension Poor wound healing from surgeries Morbid obesity Surgical History Surgery Date(Month/Year) LT RCR 01/31/2022 Colonoscopy 06/15/2020 Mammogram 2020 (R) CTR C5,C6,C7 fusion and replacment Hysterectomy-Full Uterine Ablation x2
--- OUTSIDE RECORDS SUMMARY | 2024-04-23 16:13 | XMS_ITS ---
Author Organization [facility] Billing Info Address [address] [place] [address] Care Team Providers Care Pouncer Name Role Phone DERRICK WHITING Unavailable [phone] NONA ROTHMAN II [phone] REASON FOR VISIT refill Medications Medication SIG (Take, Route, Fr equency, Duration) Notes Start Date End Date Status Ondansetron HCl 4 MG 1 tablet Orally thr ee times a day prn for 90 days 02/06/2022 Active Nicotrol 10 MG 1 cartridge as neede d Inhalation 16 time(s) a day for 90 days 10/25/2020 Active Encounters Encounter Location Date Provider Diagnosis [id number] [address] [place] [address] [id number] 01/06/2023 NONA ROTHMAN II Dietary counseling and surveillance Z71.3 Assessments Encounter Date Diagnosis (ICD Code) Assessment Notes Treatment Notes Treatment Clinical Notes Section Notes 01/06/2023 Dietary counseling and surveillance (ICD-10 - Z71.3) Plan Of Treatment Medication Medication Name Sig Start Date Stop Date Notes Ondansetron HCl 4 MG 1 tablet Orally thr ee times a day prn for 90 days 02/06/2022 Nicotrol 10 MG 1 cartridge as neede d Inhalation 16 time(s) a day for 90 days 10/25/2020 Progress Notes * Emilee TORREZ :1965 (57 yo F)Acc No.[id number]:01/06/2023 Patient: B Emilee Hadley :1965 A ge:57 Y S ex:Female Address:[address], [place], [address] * Refills Refill Ondansetron HCl Tablet, 4 MG, Orally, 270, 1 tablet, three times a day prn, 90 days, Refills=3 Refill Nicotrol Inhaler, 10 MG, Inhalation, 1, 1 cartridge as needed, 16 time(s) a day, 90 days, Refills=3 * true * Date: Generated for Ruddy vera/Blanca/Avril on: 0 04/23/2024 05:13 PM EDT
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
--- OUTSIDE RECORDS SUMMARY | 2024-04-23 16:13 | XMS_ITS ---
Author Organization [facility] Billing Info Address [address] [place] [address] Care Team Providers Care Easement Man Name Role Phone VERONICAPRINCESS LopezHIR Unavailable [phone] NONA ROTHMAN II Unavailable [phone] REASON FOR VISIT refill Medications Medication SIG (Take, Route, Frequency, Duration) Notes Start Date End Date Status Albuterol Sulfate (2.5 MG/3ML) 0.083% 3 ml as needed Inhalation 4 times a day for 30 days Active Encounters Encounter Location Date Provider Diagnosis [id number] [id number] 04/07/2023 NONA ROTHMAN II Dietary counseling and surveillance Z71.3 Assessments Encounter Date Diagnosis (ICD Code) Assessment Notes Treatment Notes Treatment Clinical Notes Section Notes 04/07/2023 Dietary counseling and surveillance (ICD-10 - Z71.3) Plan Of Treatment Medication Medication Name Sig Start Date Stop Date Notes Albuterol Sulfate (2.5 MG/3ML) 0.083% 3 ml as needed Inhalation 4 times a day for 30 days Progress Notes * CLEVEAshley Emilee HO :1965 (57 yo F)Acc No.[id number]:04/07/2023 Patient: Robert VANEGASLETTYEmilee SHEIKH :1965 A ge:57 Y S ex:Female Address:[address], [place], [address] * Refills Refill Albuterol Sulfate Nebulization Solution, (2.5 MG/3ML) 0.083%, Inhalation, 360 ML, 3 ml as needed, 4 times a day, 30 days, Refills=0 * true * Date: Generated for Ruddy vera/Blanca/Avril on: 0 04/23/2024 05:13 PM EDT
--- OUTSIDE RECORDS SUMMARY | 2024-04-23 16:13 | XMS_ITS ---
Author Organization [facility] Billing Info Address [address] [place] [address] Care Team Providers Care Senior Network Systems Engineer Name Role Phone DERRICK WHITING Unavailable [phone] NONA ROTHMAN II [phone] REASON FOR VISIT refill Medications Medication SIG (Take, Route, Fr equency, Duration) Notes Start Date End Date Status Budesonide 3 MG 1 capsules Orally ev jose d 8 hrs for 90 days Active Trazodone HCl 100 MG 1 tablet at bedtime Orally Once a day for 90 days Active Mirtazapine 7.5 MG 1 tablet at bedtime Orally Once a day for 90 days Active Metformin HCl 1000 MG 1 tablet with a me al Orally BID for 90 days Active Encounters Encounter Location Date Provider Diagnosis [id number] [place] [id number] 11/04/2022 NONA ROTHMAN II Dietary counseling and surveillance Z71.3 Assessments Encounter Date Diagnosis (ICD Code) Assessment Notes Treatment Notes Treatment Clinical Notes Section Notes 11/04/2022 Dietary counseling and surveillance (ICD-10 - Z71.3) Plan Of Treatment Medication Medication Name Sig Start Date Stop Date Notes Budesonide 3 MG 1 capsules Orally ev jose d 8 hrs for 90 days Trazodone HCl 100 MG 1 tablet at bedtime Orally Once a day for 90 days Mirtazapine 7.5 MG 1 tablet at bedtime Orally Once a day for 90 days Metformin HCl 1000 MG 1 tablet with a me al Orally BID for 90 days Progress Notes * Emilee TORREZ :1965 (57 yo F)Acc No.[id number]:11/04/2022 Patient: Emilee Ferrer :1965 A ge:57 Y S ex:Female Address:[address], [facility] [address] * Refills Refill Metformin HCl Tablet, 1000 MG, Orally, 180, 1 tablet with a meal, BID, 90 days, Refills=3 Refill Trazodone HCl Tablet, 100 MG, Orally, 90, 1 tablet at bedtime, Once a day, 90 days, Refills=1 Refill Mirtazapine Tablet, 7.5 MG, Orally, 90, 1 tablet at bedtime, Once a day, 90 days, Refills=3 Refill Budesonide Capsule Delayed Release Particles, 3 MG, Orally, 270, 1 capsules, every 8 hrs, 90 days, Refills=1 * true * Date: Generated for Ruddy vera/Blanac/Kaylaitting on: 0 04/23/2024 05:13 PM EDT
--- NOTE | 2024-04-23 16:50 | CRLHL7_ITS ---
For Patients: As a result of the Cures Act, medical imaging exams and procedure reports are released immediately into your electronic medical record. You may view this report before your referring provider. If you have questions, please contact your health care provider. INDICATION: Chest pain. Right rib injury. TECHNIQUE: Chest/right ribs, 4 views. COMPARISON: None. FINDINGS: Cardiovascular and mediastinum: Heart size and vasculature are normal in caliber and appearance. Lungs and pleural spaces: Low lung volumes. No sign of infiltrate or mass. No sign of pleural effusion. No pneumothorax. Bones and soft tissues: Acute minimally displaced right 5th rib fracture. IMPRESSION: Acute minimally displaced right 5th rib fracture. Dictated by Renato Florez MD @ 04/23/2024 6:01:14 PM (Electronically Signed)
--- NOTE | 2024-04-23 16:51 | ED_ITS ---
HPI - Fall General Chief Complaint: Fall/Minor Trauma Stated Complaint: Fall Friday--head, back, R side pain Time Seen by Provider: 04/23/24 16:29 History of Present Illness HPI Narrative: This 58-year-old female comes in with right rib pain and upper right back pain because of a fall that occurred a couple days ago. She did not have loss of consciousness. She does not report any significant headache or midline neck pain. She has chronic pain and takes New Riegel and Flexeril and gabapentin daily. She reports pain in her right ribs that extends toward midline of her chest and around to the midline of her back. She arrives here with normal vital signs. Related Data Home Medications ?Medication ?Instructions ?Recorded ?Confirmed mesalamine 1.2 gram tablet,delayed 4.8 g PO DAILY 12/25/23 04/23/24 release omeprazole 40 mg capsule,delayed 40 mg PO DAILY 12/25/23 04/23/24 release ondansetron HCl 4 mg tablet 4 mg PO Q8H PRN 03/31/24 04/23/24 Previous Rx's ?Medication ?Instructions ?Recorded albuterol sulfate 2.5 mg/3 mL 2.5 mg (3 mL) continuous 06/19/23 (0.083 %) solution for nebulization nebulization QID PRN shortness of breath or wheezing #90 mL aspirin 81 mg chewable tablet 1 tab PO DAILY #90 tabs 06/19/23 docusate sodium 100 mg capsule 100 mg PO 3XD PRN diarrhea #30 caps 06/19/23 duloxetine 60 mg capsule,delayed 60 mg PO DAILY #90 caps 06/19/23 release epinephrine 0.3 mg/0.3 mL 0.3 mg (0.3 mL) IM ONCE #2 ea 06/19/23 injection, auto-injector mirtazapine 7.5 mg tablet 7.5 mg PO QPM #90 tabs 06/19/23 nebulizers #1 ea 06/19/23 pravastatin 40 mg tablet 40 mg PO DAILY #90 tabs 06/19/23 propranolol 60 mg capsule,24 60 mg PO DAILY #90 caps 06/19/23 hr,extended release sennosides 8.6 mg capsule (senna) 8.6 mg PO QHS #30 caps 07/28/23 albuterol sulfate 90 mcg/actuation 2 puff inhalation Q6H PRN 07/29/23 aerosol inhaler bronchospasm #8.5 grams budesonide 3 mg 9 mg (3 x 3 mg) PO DAILY #60 ea 09/22/23 capsule,delayed,extended release nystatin 100,000 unit/gram topical 1 applic topical TID #30 grams 10/18/23 powder cholecalciferol (vitamin D3) 1,250 1,250 mcg PO QWEEK #13 caps 01/21/24 mcg (50,000 unit) capsule cyclobenzaprine 10 mg tablet 10 mg PO BID PRN for muscle spasm 02/06/24 #30 tabs buspirone 15 mg tablet 15 mg PO BID #90 tabs 02/16/24 metformin 1,000 mg tablet 1,000 mg PO BID #90 tabs 02/16/24 trazodone 100 mg tablet 100 mg PO QPM #90 tabs 02/16/24 topiramate 100 mg tablet 100 mg PO BID #60 tabs 02/18/24 lorazepam 0.5 mg tablet (Ativan) 0.5 mg PO BID PRN anxiety #60 tabs 03/16/24 hydrocodone 5 mg-acetaminophen 325 1 tab PO Q4-6H pain #60 tabs 03/30/24 mg tablet ondansetron HCl 4 mg tablet 4 mg PO Q8H #30 tabs 03/31/24 gabapentin 600 mg tablet 600 mg PO 3XD #90 tabs 04/06/24 meloxicam 15 mg tablet 15 mg PO DAILY Pain #90 tabs 04/06/24 Allergies Allergy/AdvReac Type Severity Reaction Status Date / Time latex Allergy Intermediate Hives Verified 04/23/24 16:27 adhesive Allergy Mild Rash Verified 04/23/24 16:27 bee venom protein (honey bee) Allergy Verified 04/23/24 16:27 Epideral Allergy Intermediate severe Uncoded 03/24/24 13:58 hives Erythromycin Allergy Intermediate severe Uncoded 03/24/24 13:58 rash, diarrhea Review of Systems Status of ROS: Reports: 10 or more systems reviewed and unremarkable except as noted in History and below Narrative: Constitutional: No fevers, no weight gain or loss. Eyes: No discharge. No vision changes. HENT: No congestion, no sore throat, no ear pain. Cardiovascular: No palpitations. Respiratory: No shortness of breath, no wheezes, no cough. Gastrointestinal: No abdominal pain, no vomiting, no diarrhea. Genitourinary: No dysuria, no hematuria. Musculoskeletal: Normal range of motion. Skin: No rashes, no pruritis. Neurological: No dizziness, weakness, sensory change, speech change. Endo/Heme/Allergies: No bruising or bleeding. No polydipsia. Pysch: no suicidality, no anxiety, no insomnia. All other systems reviewed and are negative. [facility] Medical History (Updated 04/23/24 @ 18:23 by Dino Floyd MD) COPD (chronic obstructive pulmonary disease) ?J44.9 - Chronic obstructive pulmonary disease, unspecified (ICD-10) Fibromyalgia ?M79.7 - Fibromyalgia (ICD-10) Bipolar II disorder ?F31.81 - Bipolar II disorder (ICD-10) Restless legs syndrome ?G25.81 - Restless legs syndrome (ICD-10) Recurrent falls ?R29.6 - Repeated falls (ICD-10) Obstructive sleep apnea syndrome ?G47.33 - Obstructive sleep apnea (adult) (pediatric) (ICD-10) Morbid obesity ?E66.01 - Morbid (severe) obesity due to excess calories (ICD-10) Type 2 diabetes mellitus, without long-term current use of insulin ?E11.9 - Type 2 diabetes mellitus without complications (ICD-10) Primary hypertension ?I10 - Essential (primary) hypertension (ICD-10) Mixed hyperlipidemia ?E78.2 - Mixed hyperlipidemia (ICD-10) Ulcerative colitis ?K51.90 - Ulcerative colitis, unspecified, without complications (ICD-10) Kidney stone ?N20.0 - Calculus of kidney (ICD-10) Myocardial infarction ?I21.9 - Acute myocardial infarction, unspecified (ICD-10) Surgical History History of total hysterectomy with bilateral salpingo-oophorectomy (BSO) (09/21/14) ?Z90.710 - Acquired absence of both cervix and uterus (ICD-10) ?Z90.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, bilateral (ICD-10) ?Z90.79 - Acquired absence of other genital organ(s) (ICD-10) History of section ?Z98.891 - History of uterine scar from previous surgery (ICD-10) History of cervical spinal arthrodesis (08/04/17) ?Z98.1 - Arthrodesis status (ICD-10) History of carpal tunnel release (08/2018) ?Z98.890 - Other specified postprocedural states (ICD-10) Family History Other Colon cancer Social History Narrative: lives with son and ex-. Has home health. Disabled. Smoking Status: Current some day smoker What tobacco products do you use: cigarettes Do you use any of these nicotine containing products: None Second hand tobacco smoke exposure: No How often do you have a drink containing alcohol: monthly or less How many standard drinks containing alcohol do you have on a typical day: 1 or 2 How often do you have six or more drinks on one occasion: Never AUDIT-C Alcohol total score: 1 Non-prescribed substance use: denies use Caffeine: Yes service: No Exam Narrative: Exam Narrative: Constitutional: Well-developed, well-nourished, no acute distress. HEENT: Normocephalic, atraumatic. Neck: Normal range of motion. Nontender. Supple. Heart: Regular. No murmurs. Normal rate. Intact distal pulses. Lungs: Clear to auscultation. No wheezes, rhonchi, or rales. Chest: Right-sided chest wall discomfort which is significantly worse when taking a deep breath or with certain movements. Abdomen: Normal bowel sounds. Nontender. No rebound tenderness. Genitalia: Deferred. Back: No midline tenderness. Normal range of motion. Extremities: Normal range of motion. No injury. Skin: Intact. No rash. Warm. No erythema or pallor. Neurologic: No altered sensation. No weakness. Alert and oriented. Psychiatric: No suicidality. No anxiety or depression. No insomnia. Nursing notes and vitals signs are reviewed. Const: Vital Signs, click to edit/add: Vital Signs - 24 hr 04/23/24 16:17 04/23/24 16:37 04/23/24 16:38 Temperature 98.2 F Pulse Rate 67 69 Pulse Rate [Right Pulse Oximeter] 75 Respiratory Rate 18 Blood Pressure 107/74 Blood Pressure [Ri ght Upper Arm] 122/76 Pulse Oximetry 97 96 94 Oxygen Delivery Me thod Room Air 04/23/24 16:45 04/23/24 16:46 04/23/24 17:00 Temperature Pulse Rate 70 70 70 Pulse Rate [Right Pulse Oximeter] Respiratory Rate Blood Pressure 116/67 Blood Pressure [Ri ght Upper Arm] Pulse Oximetry 97 96 95 Oxygen Delivery Me thod 04/23/24 17:02 04/23/24 17:28 04/23/24 17:30 Temperature Pulse Rate 70 68 68 Pulse Rate [Right Pulse Oximeter] Respiratory Rate Blood Pressure 114/55 L Blood Pressure [Ri ght Upper Arm] Pulse Oximetry 95 93 92 Oxygen Delivery Me thod 04/23/24 17:32 04/23/24 17:45 04/23/24 17:47 Temperature Pulse Rate 69 69 70 Pulse Rate [Right Pulse Oximeter] Respiratory Rate Blood Pressure 110/54 L 108/51 L Blood Pressure [Ri ght Upper Arm] Pulse Oximetry 93 94 95 Oxygen Delivery Me thod Course Vital Signs Vital signs: Initial Vital Signs Temperature 98.2 F 04/23/24 16:17 Temperature Source Temporal Artery Scan 04/23/24 16:17 Pulse Rate 75 04/23/24 16:17 Pulse Rhythm Regular 04/23/24 16:17 Pulse Strength 3+ Normal 04/23/24 16:17 Respiratory Rate 18 04/23/24 16:17 Blood Pressure 122/76 04/23/24 16:17 Blood Pressure Mean 91 04/23/24 16:17 Blood Pressure Position Sitting 04/23/24 16:17 Pulse Oximetry 97 04/23/24 16:17 Oxygen Delivery Method Room Air 04/23/24 16:17 Vital Signs Temperature 98.2 F 04/23/24 16:17 Pulse Rate 75 04/23/24 16:17 Respiratory Rate 18 04/23/24 16:17 Blood Pressure 122/76 04/23/24 16:17 Pulse Oximetry 97 04/23/24 16:17 Oxygen Delivery Method Room Air 04/23/24 16:17 Temperature 98.2 F 04/23/24 16:17 Pulse Rate 70 04/23/24 17:47 Respiratory Rate 18 04/23/24 16:17 Blood Pressure 108/51 L 04/23/24 17:47 Pulse Oximetry 95 04/23/24 17:47 Oxygen Delivery Method Room Air 04/23/24 16:17 MDM - Fall MDM Narrative Medical decision making narrative: This patient comes in because of pain in her right ribs from a fall that occurred a couple days ago. Chest x-ray with rib detail is obtained and does show a non displaced fracture of the 5th rib. There is no sign of pneumothorax or other injury. The patient does take New Riegel and Flexeril and gabapentin for chronic pain. She did receive an intramuscular injection of Toradol 30 mg. I did also provide a prescription for tablet form of Toradol. Imaging Data Chest x-ray: Radiologist's impression: Acute minimally displaced right 5th rib fracture. Discharge Plan Discharge Clinical Impression: Fracture of rib Patient Disposition: Home, Self-Care Condition: Stable Additional Instructions: Continue current medications and take the newly prescribed medicine also as needed and directed. Follow up with MD return if worsening. Prescriptions: No Action omeprazole 40 mg capsule,delayed release(DR/EC) 40 mg PO DAILY mesalamine 1.2 gram tablet,delayed release (DR/EC) 4.8 g PO DAILY albuterol sulfate 2.5 mg /3 mL (0.083 %) solution for nebulization 2.5 mg continuous nebulization QID PRN (Reason: shortness of breath or wheezing) Qty: 90 2RF aspirin 81 mg tablet,chewable 1 tab PO DAILY Qty: 90 2RF docusate sodium 100 mg capsule 100 mg PO 3XD PRN (Reason: diarrhea) Qty: 30 2RF duloxetine 60 mg capsule,delayed release(DR/EC) 60 mg PO DAILY Qty: 90 3RF epinephrine 0.3 mg/0.3 mL auto-injector 0.3 mg IM ONCE Qty: 2 0RF Rx Instructions: as a single dose; may repeat once mirtazapine 7.5 mg tablet 7.5 mg PO QPM Qty: 90 3RF Rx Instructions: 90 Day Supply (DME) ne[place]izers [facility] [place] .Route Qty: 1 3RF Rx Instructions: As directed pravastatin 40 mg tablet 40 mg PO DAILY Qty: 90 3RF propranolol 60 mg capsule,extended release 24 hr 60 mg PO DAILY Qty: 90 3RF senna 8.6 mg capsule 8.6 mg PO QHS Qty: 30 0RF albuterol sulfate 90 mcg/actuation HFA aerosol inhaler 2 puff INHALATION Q6H PRN (Reason: bronchospasm) Qty: 8.5 3RF budesonide 3 mg capsule,delayed,extend.release 9 mg PO DAILY Qty: 60 3RF nystatin 100,000 unit/gram powder 1 applic topical TID Qty: 30 0RF cholecalciferol (vitamin D3) 1,250 mcg (50,000 unit) capsule 1,250 mcg PO QWEEK Qty: 13 3RF cyclobenzaprine 10 mg tablet 10 mg PO BID PRN (Reason: for muscle spasm) Qty: 30 0RF trazodone 100 mg tablet 100 mg PO QPM Qty: 90 3RF metformin 1,000 mg tablet 1,000 mg PO BID Qty: 90 3RF buspirone 15 mg tablet 15 mg PO BID Qty: 90 3RF topiramate 100 mg tablet 100 mg PO BID Qty: 60 2RF lorazepam [Ativan] 0.5 mg tablet 0.5 mg PO BID PRN (Reason: anxiety) Qty: 60 0RF hydrocodone-acetaminophen 5-325 mg tablet 1 tab PO Q4-6H Qty: 60 0RF ondansetron HCl 4 mg tablet 4 mg PO Q8H PRN ondansetron HCl 4 mg tablet 4 mg PO Q8H Qty: 30 0RF meloxicam 15 mg tablet 15 mg PO DAILY Qty: 90 2RF gabapentin 600 mg tablet 600 mg PO 3XD Qty: 90 3RF Follow Up/Referrals: Manan Beaulieu MD [Primary Care Provider] - Stand Alone Forms: [facility] Info Instructions
--- OUTSIDE RECORDS SUMMARY | 2024-04-23 17:09 | XMS_ITS | Clinical Summary ---
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 DDD (degenerative disc disease), cervical 2016 Overview (11/08/2016): Oct 2016: epidural steroid injection left interlaminar, Cervical Spine at [facility]. Oct 2016: 3rd epidural steroid injection to Cervical Spine at [facility]. 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 Gender Identity Not on file Sexual Orientation [...] 36.9 C (98.5 F) 04/02/2019 10:55 AM 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 Respiratory Rate 18 04/02/2019 10:55 AM 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 Oxygen Saturation 94% 08/21/2023 7:59 AM CDT [...] 05/12/2014, 08/28/2009 Medical Devices Implanted Type Area Route Jumper Device Identifier Shelf Expiration Date Model / Serial / Lot Bone Matrix 1cc [employer] Puttydbm - [id number] Implanted:Qty: 1 on 08/04/2017 by J Carlos Donohue MD at [facility] N/A: Cervical Vertebrae Medtronic Spine/Ortho 12/30/2018 [id number]# / / [id number] Bone [id number] Cornerstone Lasr Spacer - [id number] Implanted:Qty: 1 on 08/04/2017 by J Carlos Donohue MD at [facility] N/A: Cervical Vertebrae Medtronic Spine/Ortho 04/03/2020 [id number]# / / [id number] Bone [id number] Cornerstone Lasr Spacer - [id number] Implanted:Qty: 1 on 08/04/2017 by J Carlos Donohue MD at [facility] N/A: Cervical Vertebrae Medtronic Spine/Ortho 10/30/2019 [id number]# / [id number] / [id number] 2 Plate Cerv 2lvl 37.5mm [place] [employer] Elite Ant - [id number] Implanted:Qty: 1 on 08/04/2017 by J Carlos Donohue MD at [facility] N/A: Cervical Vertebrae Medtronic Spine/Ortho [id number] / / - Screw Cerv Ant 4x12mm [employer] Va Slf Drill - [id number] Implanted:Qty: 6 on 08/04/2017 by J Carlos Donohue MD at [facility] N/A: Cervical Vertebrae Medtronic Spine/Ortho [id number] / / - Procedures Procedure Name Priority Date/Time Associated Diagnosis Comments XR MAMMO BILAT SCREENING Routine 03/26/2016 11:44 AM 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 Visit for screening mammogram LIPID PANEL Routine 03/06/2015 9:54 AM 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 Hyperlipidemia ANTI HIV 1/2 Routine 05/12/2014 10:16 AM CDT Screen for STD (sexually transmitted disease) ANTI HCV Routine 05/12/2014 10:16 AM CDT Screen for STD (sexually transmitted disease) RESTORATIVE COORDINATOR THIN PREP PAP SCREEN IMAGED Routine 05/12/2014 10:16 AM CDT Pap smear for cervical cancer screening from Last 3 Months or Most Recently Relevant to Health Maintenance Results * XR MAMMO BILAT SCREENING (03/26/2016 11:44 AM 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) Anatomical Region Laterality Modality BREASTS, Breast Left, Breast Right Bilateral Mammography Impressions 03/27/2016 12:29 PM 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 There is no radiographic evidence for malignancy. Recommend annual mammograms. A lay language report of this examination will be provided to the patient. MAMMOGRAM ASSESSMENT: ACR 2 Benign Narrative 03/27/2016 12:29 PM 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 XR MAMMO BILAT SCREENING [[id number]] CLINICAL HISTORY: This is an asymptomatic 50 y.o. patient. INDICATION FOR EXAM: Mammogram Screening. TECHNIQUE: CC & MLO views were obtained. This digital study was evaluated with the assistance of Computer-Aided Detection. COMPARISON FILMS: Yes 06/30/12 [facility] 05/15/11 [facility] FINDINGS: Mammographically, the breast tissue has scattered fibroglandular densities. No suspicious masses or microcalcifications. Benign appearing calcifications within both breasts. us Arnel Peck MD MAMMO Final Result * (ABNORMAL) LIPID PANEL (03/06/2015 9:54 AM 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) CHOLESTEROL,TOTAL 237(H) 100 - 199 mg/dL 03/06/2015 10:25 AM 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 [facility] TRIGLYCERIDES 184(H) <150 mg/dL 03/06/2015 10:25 AM 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 [facility] HDL CHOLESTEROL 57 >40 mg/dL 03/06/2015 10:25 AM 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 [facility] NON-HDL CHOLESTEROL 180(H) <145 mg/dl 03/06/2015 10:25 AM [facility] CHOL/HDL RATIO 4.16 <4.50 03/06/2015 10:25 AM [facility] LDL CHOLESTEROL 143(H) <=130 mg/dL 03/06/2015 10:25 AM [facility] PATIENT STATUS NON-FASTI NG 03/06/2015 10:25 AM 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 [facility] Blood specimen (specimen) BLOOD SPECIMEN / Unknown Venipuncture / Unknown 03/06/2015 9:54 AM 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 03/06/2015 9:54 AM 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 us Arnel Peck MD CHEMISTRY Final Result [facility] [address] [place] [address], * RESTORATIVE COORDINATOR THIN PREP PAP SCREEN IMAGED (05/12/2014 10:16 AM CDT) RESTORATIVE COORDINATOR CYTOLOGY See Anatomic Pathology case 05/17/2014 11:00 AM CDT [facility] Specimen (specimen) (Cervical/Vagina l) Non-Blood / Unknown 05/12/2014 10:16 AM CDT 05/12/2014 10:16 AM CDT us Arnel Peck MD PATHOLOGY/CYTOLOGY Final Res ult [facility] [address] [place] [address], * ANTI HCV (05/12/2014 10:16 AM CDT) HEPATITIS C ANTIBODY Non-Reacti ve Non-Reacti ve 05/12/2014 4:59 PM CDT [facility] Blood specimen (specimen) BLOOD SPECIMEN / Unknown Venipuncture / Unknown 05/12/2014 10:16 AM CDT 05/12/2014 10:16 AM CDT Narrative [facility] - 05/12/2014 4:59 PM CDT Antibodies to HCV not detected; does not exclude the possibility of exposure to HCV. Arnel Peck MD SEND OUTS Final Result Performing Organization Address [facility]/ZIP Co de Phone Number [facility] [address] [place] [address], * ANTI HIV 1/2 (05/12/2014 10:16 AM CDT) Pathologist [facility] HIV-1/HIV-2 ANTIBODY Non-Reacti ve Non-Reacti ve 05/12/2014 3:27 PM CDT [facility] Blood specimen (specimen) BLOOD SPECIMEN / Unknown Venipuncture / Unknown 05/12/2014 10:16 AM CDT 05/12/2014 10:16 AM CDT Narrative [facility] - 05/12/2014 3:27 PM CDT HIV-1 p24 and HIV-1/HIV-2 Ab not detected Arnel Peck MD SEND OUTS Final Result [facility] [address] [place] [address], from Last 3 Months or Most Recently Relevant to Health Maintenance Insurance MEDICARE PART A HB ONLY [facility] MEDICAID * Guarantor: BALJEET GUAMAN Account Type Relation to Patient Date of Phone Billing Address [facility] Employer ATTN JUSTIN PEREZ [address] [facility] [address] [id number] * Guarantor: DONY [place] Account Type Relation to Patient Date of Phone Billing Address [facility] [address] [phone] Advance Directives * Full Code (Latest Code Status on File) Date Activated Date Inactivated Comments 08/04/2017 1:43 PM 08/05/2017 3:46 PM Question Answer Comments Code Status Discussion: Per Existing Order Care Teams Web Worker Relationship Specialty Start Date End Date Manan Beaulieu MD [address] [place] [id number] PCP - General Internal Medicine 07/30/17
[2024-04-23] MEDS: KETOROLAC 30 MG/ML inj IM (18:30)
== END 2024-04-23 18:36 | disposition home or self-care (01) ==
PROVIDERS: Emergency Provider Emergency Medicine Emergency Medical Services; PCP Internal Medicine
DX: S22.31XA Fracture of one rib, right side, initial encounter for closed fracture (principal); W19.XXXA Unspecified fall, initial encounter
CPT/HCPCS: 71101; 96372; 99284; J1885

== ENCOUNTER 2024-05-03 15:04 | Outpatient (CLI) | payer MEDICARE, MEDICAID, SELFPAY | END 2024-05-03 15:05 | disposition home or self-care (01) | LOC: AMB 05-05 12:06 | PROVIDERS: PCP Internal Medicine; Visit Provider Emergency Medicine | DX: S09.90XA Unspecified injury of head, initial encounter (principal); W18.39XA Other fall on same level, initial encounter; Y93.89 Activity, other specified; Y92.008 Other place in unspecified non-institutional (private) residence as the place of occurrence of the external cause | CPT/HCPCS: A0425; A0427 ==

== ENCOUNTER 2024-05-03 15:42 | Emergency (ER) | payer MEDICARE, SELFPAY ==
--- OUTSIDE RECORDS SUMMARY | 2024-05-03 15:44 | XMS_ITS ---
Author Organization [facility] Billing Info Address [address] [place] [address] Care Team Providers Care Acute Care Registered Nurse Name Role Phone VERONICAPRINCESS LopezHIR Unavailable [phone] NONA ROTHMAN II Unavailable [phone] REASON FOR VISIT refill Medications Medication SIG (Take, Route, Frequency, Duration) Notes Start Date End Date Status Albuterol Sulfate (2.5 MG/3ML) 0.083% 3 ml as needed Inhalation 4 times a day for 30 days Active Encounters Encounter Location Date Provider Diagnosis [id number] [id number] 04/07/2023 NONA ROTHMAN II Dietary counseling and [...] CLEVEAshley Emilee HO :1965 (57 yo F)Acc No.[id number]:04/07/2023 Patient: Robert VANEGASLETTYEmilee SHEIKH :1965 A ge:57 Y S ex:Female Address:[address] [facility] [facility] [facility], [address], [place], [address] * Refills Refill Albuterol Sulfate Nebulization Solution, (2.5 MG/3ML) 0.083%, Inhalation, 360 ML, 3 ml as needed, 4 times a day, 30 days, Refills=0 * true * Date: Generated for Ruddy vera/Blanca/Avril on: 0 05/03/2024 04:44 PM EDT
--- OUTSIDE RECORDS SUMMARY | 2024-05-03 15:45 | XMS_ITS ---
Author Organization [facility] Billing Info Address [address] [place] [address] Care Team Providers Care Abrasive Coating Machine Operator Name Role Phone DERRICK WHITING Unavailable [phone] NONA ROTHMAN II [phone] REASON FOR VISIT refill Medications Medication SIG (Take, Route, Fr equency, Duration) Notes Start Date End Date Status Ondansetron HCl 4 MG 1 tablet Orally thr ee times a day prn for 90 days 02/06/2022 Active Nicotrol 10 MG 1 cartridge as neede d Inhalation 16 time(s) a day for 90 days 10/25/2020 Active Encounters Encounter Location Date Provider Diagnosis [id number] [address] [place] [id number] 01/06/2023 NONA ROTHMAN II Dietary counseling and [...] * Emilee TORREZ :1965 (57 yo F)Acc No.[id number]:01/06/2023 Patient: B Emilee Hadley :1965 A ge:57 Y S ex:Female Address:[address] [facility], [place], [address] * Refills Refill Ondansetron HCl Tablet, 4 MG, Orally, 270, 1 tablet, three times a day prn, 90 days, Refills=3 Refill Nicotrol Inhaler, 10 MG, Inhalation, 1, 1 cartridge as needed, 16 time(s) a day, 90 days, Refills=3 * true * Date: Generated for Ruddy vera/Blanca/Avril on: 0 05/03/2024 04:44 PM EDT
--- OUTSIDE RECORDS SUMMARY | 2024-05-03 15:45 | XMS_ITS | Patient Health Record ---
Author Organization [facility] Billing Info Address [address] [place] [id number] Care Team Providers Care Professor Of Forest Planning Name Role Phone DERRICK WHITING Unavailable [phone] Allergies Allergen (clinical drug ingredient) Drug/Non Drug [...] Problem Status W/U Status Risk Notes Problem 52880260 Type 2 diabetes mellitus with other specified complication (E11.69) Active confirmed Problem 934712162 Morbid (severe) obesity due to excess calories (E66.01) Active confirmed Problem 008503698 Obesity, unspeci fied (E66.9) Active confirmed Problem 740793862 Chronic pain syn drome (G89.4) Active confirmed Problem Localized, primary osteoarthritis of the shoulder region (392574439) Primary osteoarthritis, left shoulder (M19.012) Active confirmed Problem Full thickness rotator cuff tear (785830260) Complete rotator cuff tear or rupture of unspecified shoulder, not specified as traumatic (M75.120) Active confirmed Problem Impingement syndrome of left shoulder region (360775656707157) Impingement syndrome of left shoulder (M75.42) Active confirmed Problem 534581699 Dietary counseli ng and surveillance (Z71.3) Active confirmed Problem 412705428 Body mass index [BMI] 40.0-44.9, adult (Z68.41) Active confirmed Problem 00288423 Parkinsons disea se (G20) Active confirmed Problem 030423796 Morbid obesity (E66.01) Active confirmed Problem 26217158 Essential hypert ension (I10) Active confirmed Problem Pre-procedure evaluation check (971240444) Pre-operative clearance (Z01.818) Active confirmed Problem Right shoulder pain (7444088492) Right shoulder pain (M25.511) Active confirmed Problem Left shoulder pain (1543938833) Left shoulder pain (M25.512) Active confirmed Problem 340789170446216 Trochanteric bur sitis of right hip (M70.61) Active confirmed Problem 59349191 Tobacco dependen ce (F17.200) Active confirmed Problem 3442446935563 S/P cervical spi nal fusion (Z98.1) Active confirmed Problem 19306035 Cervical spinal stenosis (M48.02) Active confirmed Problem 035014006333855 Gluteal tendinit is of right buttock (M76.01) Active confirmed Problem 365092244 Adult general me dical exam (Z00.00) Active confirmed Problem Long-term current use of 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 (383743268) 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) Active confirmed Problem 83816403 Thoracic spinal stenosis (M48.04) Active confirmed Problem 231331094 Disorder of left rotator cuff (M67.912) Active confirmed Problem 065088186 Biceps tendiniti s of left shoulder (M75.22) Active confirmed Problem 31554317 Iliotibial band tendinitis of right side (M76.31) Active confirmed Problem 8239569604004122 Osteoarthritis of left acromioclavicular joint (M19.012) Active confirmed Problem 302561376 Rotator cuff impingement syndrome of left shoulder (M75.42) Active confirmed Problem 40377159 Hypercholesterol emia (E78.00) Active confirmed Problem 806635562 Aftercare (Z51.89) Active confirmed Problem 145729899 Status post left rotator cuff repair (Z98.890) Active confirmed Problem 0622566633705442 Nontraumatic co mplete tear of left rotator cuff (M75.122) Active confirmed Problem 870750166 Frequent headach es (R51.9) Active confirmed Problem 855095380 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) Active confirm ed Plan Of Treatment Pending Test Test Name Order Date HEPATIC FUNCTION PANEL (98359) LIPID PANEL (89667) 03/16/2020 HEMOGLOBIN A1C (C114) 03/16/2020 Basic Metabolic Panel (8) 03/16/2020 Insurance Providers Payer Name Payer Address Payer Phone Subscriber Number Group Number Insured Name Patient Relationship to Insured Coverage Start Date Coverage End Date [facility] D[employer]PLETE [address] [address] [facility] [place] [place] [id number] Emilee Boyer Self - patient is the insured 2 2 Medications Administered Medication Instructions Date of Administration Dosage Notes MethylPREDNISolone Acetate 12/25/2021 80 mg Xylocaine 12/25/2021 2 mL Medical (General) History Medical History History ICD Code Anxiety/Depression Diabetes Mellitus Insomnia Parkinsons Disease- neurolog ist diagnosed in [facility] with [facility] on for 15 years Essential hypertension Poor wound healing from surgeries Morbid obesity Surgical History Surgery Date(Month/Year) LT RCR 01/31/2022 Colonoscopy 06/15/2020 Mammogram 2020 (R) CTR C5,C6,C7 fusion and replacment Hysterectomy-Full Uterine Ablation x2
--- OUTSIDE RECORDS SUMMARY | 2024-05-03 15:45 | XMS_ITS ---
Author Organization [facility] Billing Info Address [address] [place] [address] Care Team Providers Care Online Advertising Director Name Role Phone DERRICK WHITING Unavailable [phone] NONA ROTHMAN II [phone] REASON FOR VISIT refill Medications Medication SIG [...] Active Encounters Encounter Location Date Provider Diagnosis [id number] [address] [place] [address] [id number] 11/04/2022 NONA ROTHMAN II Dietary counseling and [...] * Emilee TORREZ :1965 (57 yo F)Acc No.[id number]:11/04/2022 Patient: Emilee Ferrer :1965 A ge:57 Y S ex:Female Address:[address] [facility], [facility] [address] * Refills Refill Metformin HCl Tablet, 1000 [...] * true * Date: Generated for Ruddy vera/Blanca/Kaylaitting on: 0 05/03/2024 04:45 PM EDT
--- OUTSIDE RECORDS SUMMARY | 2024-05-03 15:45 | XMS_ITS | Clinical Summary ---
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 DDD (degenerative disc disease), cervical 2016 Overview (11/08/2016): Oct 2016: epidural steroid injection left interlaminar, Cervical Spine at [facility]. Oct 2016: 3rd epidural steroid injection to Cervical Spine at [facility]. Obesity, Class II, BMI 35-39.9 [...] on file Legal Sex Female 5:23 AM AUTO CLAIM REPRESENTATIVE Gender Identity Not on file Sexual Orientation [...] 36.9 C (98.5 F) 04/02/2019 10:55 AM AUTO CLAIM REPRESENTATIVE Respiratory Rate 18 04/02/2019 10:55 AM AUTO CLAIM REPRESENTATIVE Oxygen Saturation 94% 08/21/2023 7:59 AM CDT [...] 05/12/2014, 08/28/2009 Medical Devices Implanted Type Area Cupola Tapper Device Identifier Shelf Expiration Date Model / Serial / Lot Bone Matrix 1cc [employer] Puttydbm - [id number] Implanted:Qty: 1 on 08/04/2017 by J Carlos Donohue MD at [facility] N/A: Cervical Vertebrae Medtronic Spine/Ortho 12/30/2018 [id number]# / / [id number] Bone [id number] Cornerstone Lasr Spacer - [id number] Implanted:Qty: 1 on 08/04/2017 by J Carlos Donohue MD at [facility] N/A: Cervical Vertebrae Medtronic Spine/Ortho 04/03/2020 [id number]# / / [id number] Bone [id number] Cornerstone Lasr Spacer - [id number] Implanted:Qty: 1 on 08/04/2017 by J Carlos Donohue MD at [facility] N/A: Cervical Vertebrae Medtronic Spine/Ortho 10/30/2019 [id number]# / [id number] / [id number] 2 Plate Cerv 2lvl 37.5mm Crimora Vision Elite Ant - [id number] Implanted:Qty: 1 on 08/04/2017 by J Carlos Donohue MD at [facility] N/A: Cervical Vertebrae Medtronic Spine/Ortho [id number]# / / - Screw Cerv Ant 4x12mm Atlantistransl[employer] Va Slf Drill - [id number] Implanted:Qty: 6 on 08/04/2017 by J Carlos Donohue MD at [facility] N/A: Cervical Vertebrae Medtronic Spine/Ortho [id number]# / / - Procedures Procedure Name Priority Date/Time Associated Diagnosis Comments XR MAMMO BILAT SCREENING Routine 03/26/2016 11:44 AM AUTO CLAIM REPRESENTATIVE Visit for screening mammogram LIPID PANEL Routine 03/06/2015 9:54 AM AUTO CLAIM REPRESENTATIVE Hyperlipidemia ANTI HIV 1/2 Routine 05/12/2014 10:16 AM CDT Screen for STD (sexually transmitted disease) ANTI HCV Routine 05/12/2014 10:16 AM CDT Screen for STD (sexually transmitted disease) OCULAR CARE TECHNOLOGIST THIN PREP PAP SCREEN IMAGED Routine 05/12/2014 10:16 AM CDT Pap smear for cervical cancer screening from Last 3 Months or Most Recently Relevant to Health Maintenance Results * XR MAMMO BILAT SCREENING (03/26/2016 11:44 AM AUTO CLAIM REPRESENTATIVE) Anatomical Region Laterality Modality BREASTS, Breast Left, Breast Right Bilateral Mammography Impressions 03/27/2016 12:29 PM AUTO CLAIM REPRESENTATIVE There is no radiographic evidence for malignancy. Recommend annual mammograms. A lay language report of this examination will be provided to the patient. MAMMOGRAM ASSESSMENT: ACR 2 Benign Narrative 03/27/2016 12:29 PM AUTO CLAIM REPRESENTATIVE XR MAMMO BILAT SCREENING [[id number]] CLINICAL HISTORY: This is an asymptomatic 50 y.o. patient. INDICATION FOR EXAM: Mammogram Screening. TECHNIQUE: CC & MLO views were obtained. This digital study was evaluated with the assistance of Computer-Aided Detection. COMPARISON FILMS: Yes 06/30/12 [facility] 05/15/11 [facility] FINDINGS: Mammographically, the breast tissue has scattered fibroglandular densities. No suspicious masses or microcalcifications. Benign appearing calcifications within both breasts. us Arnel Peck MD MAMMO Final Result * (ABNORMAL) LIPID PANEL (03/06/2015 9:54 AM AUTO CLAIM REPRESENTATIVE) CHOLESTEROL,TOTAL 237(H) 100 - 199 mg/dL 03/06/2015 10:25 AM AUTO CLAIM REPRESENTATIVE [facility] TRIGLYCERIDES 184(H) <150 mg/dL 03/06/2015 10:25 AM AUTO CLAIM REPRESENTATIVE [facility] HDL CHOLESTEROL 57 >40 mg/dL 03/06/2015 10:25 AM AUTO CLAIM REPRESENTATIVE [facility] NON-HDL CHOLESTEROL 180(H) <145 mg/dl 03/06/2015 10:25 AM [facility] CHOL/HDL RATIO 4.16 <4.50 03/06/2015 10:25 AM [facility] LDL CHOLESTEROL 143(H) <=130 mg/dL 03/06/2015 10:25 AM [facility] PATIENT STATUS NON-FASTI NG 03/06/2015 10:25 AM AUTO CLAIM REPRESENTATIVE [facility] Blood specimen (specimen) BLOOD SPECIMEN / Unknown Venipuncture / Unknown 03/06/2015 9:54 AM AUTO CLAIM REPRESENTATIVE 03/06/2015 9:54 AM AUTO CLAIM REPRESENTATIVE us Arnel Peck MD CHEMISTRY Final Result [facility] [address] [place] [address], * OCULAR CARE TECHNOLOGIST THIN PREP PAP SCREEN IMAGED (05/12/2014 10:16 AM CDT) OCULAR CARE TECHNOLOGIST CYTOLOGY See Anatomic Pathology case 05/17/2014 11:00 AM CDT [facility] Specimen (specimen) (Cervical/Vagina l) Non-Blood / Unknown 05/12/2014 10:16 AM CDT 05/12/2014 10:16 AM CDT us Arnel Peck MD PATHOLOGY/CYTOLOGY Final Res ult [facility] [address] [place] [address], * ANTI HCV (05/12/2014 10:16 AM CDT) HEPATITIS C ANTIBODY Non-Reacti ve Non-Reacti ve 05/12/2014 4:59 PM CDT [facility] Blood specimen (specimen) BLOOD SPECIMEN / Unknown Venipuncture / Unknown 05/12/2014 10:16 AM CDT 05/12/2014 10:16 AM CDT Narrative [facility] - 05/12/2014 4:59 PM CDT Antibodies to HCV not detected; does not exclude the possibility of exposure to HCV. Arnel Peck MD SEND OUTS Final Result Performing Organization Address [facility]/ZIP Co de Phone Number [facility] [address] [place] [address], * ANTI HIV 1/2 (05/12/2014 10:16 AM CDT) Pathologist [facility] HIV-1/HIV-2 ANTIBODY Non-Reacti ve Non-Reacti ve 05/12/2014 3:27 PM CDT [facility] Blood specimen (specimen) BLOOD SPECIMEN / Unknown Venipuncture / Unknown 05/12/2014 10:16 AM CDT 05/12/2014 10:16 AM CDT Narrative [facility] - 05/12/2014 3:27 PM CDT HIV-1 p24 and HIV-1/HIV-2 Ab not detected Arnel Peck MD SEND OUTS Final Result [facility] [address] [place] [address], from Last 3 Months or Most Recently Relevant to Health Maintenance Insurance MEDICARE PART A HB ONLY [facility] MEDICAID * Guarantor: BALJEET GUAMAN Account Type Relation to Patient Date of Phone Billing Address [facility]er ATTN JUSTIN PEREZ [id number] [facility] [place] [id number] * Guarantor: DONY [place] Account Type Relation to Patient Date of Phone Billing Address [facility] [address] [id number] Advance Directives * Full Code (Latest Code Status on File) Date Activated Date Inactivated Comments 08/04/2017 1:43 PM 08/05/2017 3:46 PM Question Answer Comments Code Status Discussion: Per Existing Order Care Teams Lard Maker Relationship Specialty Start Date End Date Manan Beaulieu MD [address] [place] [id number] PCP - General Internal Medicine 07/30/17
[2024-05-03 15:49] VITALS: BP 120/65; PULSE 68; RESP 16; TEMP 36.7; O2SAT 97; BMI 39.1
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
--- OUTSIDE RECORDS SUMMARY | 2024-05-03 17:27 | XMS_ITS | Clinical Summary ---
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 DDD (degenerative disc disease), cervical 2016 Overview (11/08/2016): Oct 2016: epidural steroid injection left interlaminar, Cervical Spine at [facility]. Oct 2016: 3rd epidural steroid injection to Cervical Spine at [facility]. Obesity, Class II, BMI 35-39.9 [...] on file Legal Sex Female 5:23 AM STORAGE ARCHITECT Gender Identity Not on file Sexual Orientation [...] 36.9 C (98.5 F) 04/02/2019 10:55 AM STORAGE ARCHITECT Respiratory Rate 18 04/02/2019 10:55 AM STORAGE ARCHITECT Oxygen Saturation 94% 08/21/2023 7:59 AM CDT [...] 05/12/2014, 08/28/2009 Medical Devices Implanted Type Area Medical Service Technician Device Identifier Shelf Expiration Date Model / Serial / Lot Bone Matrix 1cc [employer] Puttydbm - [id number] Implanted:Qty: 1 on 08/04/2017 by J Carlos Donohue MD at [facility] N/A: Cervical Vertebrae Medtronic Spine/Ortho 12/30/2018 [id number]# / / [id number] Bone [id number] Cornerstone Lasr Spacer - [id number] Implanted:Qty: 1 on 08/04/2017 by J Carlos Donohue MD at [facility] N/A: Cervical Vertebrae Medtronic Spine/Ortho 04/03/2020 [id number]# / / [id number] Bone [id number] Cornerstone Lasr Spacer - [id number] Implanted:Qty: 1 on 08/04/2017 by J Carlos Donohue MD at [facility] N/A: Cervical Vertebrae Medtronic Spine/Ortho 10/30/2019 [id number]# / [id number] / [id number] 2 Plate Cerv 2lvl 37.5mm [employer]itt[employer] Vision Elite Ant - [id number] Implanted:Qty: 1 on 08/04/2017 by J Carlos Donohue MD at [facility] N/A: Cervical Vertebrae Medtronic Spine/Ortho [id number]# / / - Screw Cerv Ant 4x12mm [employer]f [employer] - [id number] Implanted:Qty: 6 on 08/04/2017 by J Carlos Donohue MD at [facility] N/A: Cervical Vertebrae Medtronic Spine/Ortho [id number] / / - Procedures Procedure Name Priority Date/Time Associated Diagnosis Comments XR MAMMO BILAT SCREENING Routine 03/26/2016 11:44 AM STORAGE ARCHITECT Visit for screening mammogram LIPID PANEL Routine 03/06/2015 9:54 AM STORAGE ARCHITECT Hyperlipidemia ANTI HIV 1/2 Routine 05/12/2014 10:16 AM CDT Screen for STD (sexually transmitted disease) ANTI HCV Routine 05/12/2014 10:16 AM CDT Screen for STD (sexually transmitted disease) WATER MAIN INSPECTOR THIN PREP PAP SCREEN IMAGED Routine 05/12/2014 10:16 AM CDT Pap smear for cervical cancer screening from Last 3 Months or Most Recently Relevant to Health Maintenance Results * XR MAMMO BILAT SCREENING (03/26/2016 11:44 AM STORAGE ARCHITECT) Anatomical Region Laterality Modality BREASTS, Breast Left, Breast Right Bilateral Mammography Impressions 03/27/2016 12:29 PM STORAGE ARCHITECT There is no radiographic evidence for malignancy. Recommend annual mammograms. A lay language report of this examination will be provided to the patient. MAMMOGRAM ASSESSMENT: ACR 2 Benign Narrative 03/27/2016 12:29 PM STORAGE ARCHITECT XR MAMMO BILAT SCREENING [[id number]] CLINICAL HISTORY: This is an asymptomatic 50 y.o. patient. INDICATION FOR EXAM: Mammogram Screening. TECHNIQUE: CC & MLO views were obtained. This digital study was evaluated with the assistance of Computer-Aided Detection. COMPARISON FILMS: Yes 06/30/12 [facility] 05/15/11 [facility] FINDINGS: Mammographically, the breast tissue has scattered fibroglandular densities. No suspicious masses or microcalcifications. Benign appearing calcifications within both breasts. us Arnel Peck MD MAMMO Final Result * (ABNORMAL) LIPID PANEL (03/06/2015 9:54 AM STORAGE ARCHITECT) CHOLESTEROL,TOTAL 237(H) 100 - 199 mg/dL 03/06/2015 10:25 AM STORAGE ARCHITECT [facility] TRIGLYCERIDES 184(H) <150 mg/dL 03/06/2015 10:25 AM STORAGE ARCHITECT [facility] HDL CHOLESTEROL 57 >40 mg/dL 03/06/2015 10:25 AM STORAGE ARCHITECT [facility] NON-HDL CHOLESTEROL 180(H) <145 mg/dl 03/06/2015 10:[address] [facility] CHOL/HDL RATIO 4.16 <4.50 03/06/2015 10:[address] [facility] LDL CHOLESTEROL 143(H) <=130 mg/dL 03/06/2015 10:[address] [facility] PATIENT STATUS NON-FASTI NG 03/06/2015 10:25 AM STORAGE ARCHITECT [facility] Blood specimen (specimen) BLOOD SPECIMEN / Unknown Venipuncture / Unknown 03/06/2015 9:54 AM STORAGE ARCHITECT 03/06/2015 9:54 AM STORAGE ARCHITECT us Arnel Peck MD CHEMISTRY Final Result [facility] [address] [place] [address], * WATER MAIN INSPECTOR THIN PREP PAP SCREEN IMAGED (05/12/2014 10:16 AM CDT) WATER MAIN INSPECTOR CYTOLOGY See Anatomic Pathology case 05/17/2014 11:00 AM CDT [facility] Specimen (specimen) (Cervical/Vagina l) Non-Blood / Unknown 05/12/2014 10:16 AM CDT 05/12/2014 10:16 AM CDT us Arnel Peck MD PATHOLOGY/CYTOLOGY Final Res ult [facility] [address] [place] [address], * ANTI HCV (05/12/2014 10:16 AM CDT) HEPATITIS C ANTIBODY Non-Reacti ve Non-Reacti ve 05/12/2014 4:59 PM CDT [facility] Blood specimen (specimen) BLOOD SPECIMEN / Unknown Venipuncture / Unknown 05/12/2014 10:16 AM CDT 05/12/2014 10:16 AM CDT Narrative [facility] - 05/12/2014 4:59 PM CDT Antibodies to HCV not detected; does not exclude the possibility of exposure to HCV. Arnel Peck MD SEND OUTS Final Result Performing Organization Address [facility]/ZIP Co de Phone Number [facility] [address] [place] [address], * ANTI HIV 1/2 (05/12/2014 10:16 AM CDT) Pathologist [facility] HIV-1/HIV-2 ANTIBODY Non-Reacti ve Non-Reacti ve 05/12/2014 3:27 PM CDT [facility] Blood specimen (specimen) BLOOD SPECIMEN / Unknown Venipuncture / Unknown 05/12/2014 10:16 AM CDT 05/12/2014 10:16 AM CDT Narrative [facility] - 05/12/2014 3:27 PM CDT HIV-1 p24 and HIV-1/HIV-2 Ab not detected Arnel Peck MD SEND OUTS Final Result [facility] [address] [place] [address], from Last 3 Months or Most Recently Relevant to Health Maintenance Insurance MEDICARE PART A HB ONLY [employer] MEDICAID * Guarantor: BALJEET GUAMAN Account Type Relation to Patient Date of Phone Billing Address [facility] Employer ATTN JUSTIN PEREZ [address] [facility] [place] [phone] * Guarantor: DONY [place] Account Type Relation to Patient Date of Phone Billing Address [facility] [address] [place] [address] [phone] Advance Directives * Full Code (Latest Code Status on File) Date Activated Date Inactivated Comments 08/04/2017 1:43 PM 08/05/2017 3:46 PM Question Answer Comments Code Status Discussion: Per Existing Order Care Teams Metal Products Fabricator Assembler Relationship Specialty Start Date End Date Manan Beaulieu MD [address] [place] [id number] PCP - General Internal Medicine 07/30/17
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
[2024-05-03 17:46] VITALS: BP 133/118; PULSE 72; RESP 16; O2SAT 96
[2024-05-03 18:23] LABS: Glucose, Point-of-Care* 113 mg/dl (60-115)
[2024-05-03 19:26] VITALS: BP 101/71; PULSE 74; RESP 18; O2SAT 95
[2024-05-03] MEDS: KETOROLAC 30 MG/ML inj IM (19:27)
== END 2024-05-03 19:48 | disposition home or self-care (01) ==
PROVIDERS: Emergency Provider Family Medicine; PCP Internal Medicine
DX: S06.9XAA Unspecified intracranial injury with loss of consciousness status unknown, initial encounter (principal); S22.31XA Fracture of one rib, right side, initial encounter for closed fracture; S40.011A Contusion of right shoulder, initial encounter; E11.9 Type 2 diabetes mellitus without complications; W01.198A Fall on same level from slipping, tripping and stumbling with subsequent striking against other object, initial encounter; Y93.89 Activity, other specified; Y92.524 Gas station as the place of occurrence of the external cause
CPT/HCPCS: 70450; 71046; 71100; 71101; 72125; 73030; 82947; 82962; 96372; 99284; 99285; J1885

== ENCOUNTER 2024-08-04 08:13 | Outpatient (CLI) | payer MEDICARE, MEDICAID, SELFPAY | END 2024-08-04 08:14 | disposition home or self-care (01) | LOC: NFLDREF 08-06 09:42 | PROVIDERS: PCP Internal Medicine; Referring Provider Internal Medicine; Visit Provider Internal Medicine | DX: E11.9 Type 2 diabetes mellitus without complications (principal); I10 Essential (primary) hypertension; E78.2 Mixed hyperlipidemia; Z79.899 Other long term (current) 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; Z79.84 Long term (current) use of oral hypoglycemic drugs | CPT/HCPCS: 80053; 80061; 82043; 82570 ==

== ENCOUNTER 2024-09-15 11:48 | Outpatient (CLI) | payer MEDICARE, MEDICAID, SELFPAY ==
[2024-09-15 16:59] LABS: Blood Urea Nitrogen* 19 mg/dL (7-30); Creatinine* 0.8 mg/dL (0.5-1.5); Estimated Glomerular Filt Rate 85 ml/min
== END 2024-09-15 11:49 | disposition home or self-care (01) ==
LOC: NPINS 11:50
PROVIDERS: PCP Internal Medicine; Visit Provider Internal Medicine Gastroenterology
DX: K51.919 Ulcerative colitis, unspecified with unspecified complications (principal)
CPT/HCPCS: 82565; 84520; 86140

== ENCOUNTER 2024-11-26 14:25 | Outpatient (CLI) | payer MEDICARE, MEDICAID, SELFPAY ==
--- NOTE | 2024-11-26 15:00 | CRLHL7_ITS ---
For Patients: As a result of the Century Cures Act, medical imaging exams and procedure reports are released immediately into your electronic medical record. You may view this report before your referring provider. If you have questions, please contact your health care provider. INDICATION: BILATERAL SCREENING MAMMOGRAM, ASYMPTOMATIC 59 Y/O FEMALE COMPARISON: 10/06/2018, 06/17/2017, 03/26/2016 TECHNIQUE: Digital mammogram in CC and MLO projections including computer-aided detection (CAD) and tomosynthesis. BREAST COMPOSITION: There are scattered areas of fibroglandular density. FINDINGS: No suspicious findings. ASSESSMENT: BI-RADS 1 Negative RECOMMENDATION: Annual screening mammogram. A lay language report of this examination will be provided to the patient. Dictated by: Wayne Urbina MD @ 11/29/2024 09:15:05 (Electronically Signed)
== END 2024-11-26 14:26 | disposition home or self-care (01) ==
LOC: MAMMO 14:25
PROVIDERS: PCP Internal Medicine; Visit Provider Internal Medicine
DX: Z12.31 Encounter for screening mammogram for malignant neoplasm of breast (principal)
CPT/HCPCS: 77063; 77067

== ENCOUNTER 2025-01-04 14:14 | Outpatient (CLI) | payer MEDICARE, MEDICAID, SELFPAY | END 2025-01-04 14:15 | disposition home or self-care (01) | LOC: NFLDREF 01-09 19:43 | PROVIDERS: PCP Internal Medicine; Referring Provider Internal Medicine; Visit Provider Internal Medicine | DX: R39.89 Other symptoms and signs involving the genitourinary system (principal) | CPT/HCPCS: 87086; 87186 ==

== ENCOUNTER 2025-01-10 21:12 | Emergency (ER) | payer MEDICARE, MEDICAID, SELFPAY ==
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
--- OUTSIDE RECORDS SUMMARY | 2025-01-10 21:15 | XMS_ITS | Clinical Summary ---
Author Organization [facility] Address [address] [place] [id number] Care Team Providers Care Armature Winder Repairer Name Role Phone Manan Beaulieu MD Primary Care Provider [phone] Allergies Active Allergy Reactions Criticality Noted Date [...] (NORCO) per tabletIndicatio ns:Cervical spondylosis with radiculopathy,H MAT CUTTER (herniated nucleus pulposus), cervical,Cervic al spinal stenosis [...] terminated 2016 Overview (01/27/2017): Patient terminated from [facility]. DDD (degenerative disc disease), cervical 2016 Overview (11/08/2016): Oct 2016: epidural steroid injection left interlaminar, Cervical Spine at [facility]. Oct 2016: 3rd epidural steroid injection to Cervical Spine at [facility]. Obesity, Class II, BMI 35-39.9 07/12/2016 Alteration [...] on file Legal Sex Female 5:23 AM HEALTH SCIENCE INSTRUCTOR Gender Identity Not on file Sexual Orientation [...] 36.9 C (98.5 F) 04/02/2019 10:55 AM HEALTH SCIENCE INSTRUCTOR Respiratory Rate 18 04/02/2019 10:55 AM HEALTH SCIENCE INSTRUCTOR Oxygen Saturation 94% 08/21/2023 7:59 AM CDT [...] PCV) 1985 Colonoscopy through age 75 06/17/2011 Hepatitis B series for 19+ ( 2 of 3 - Hep B Twinrix 3-dose series) 01/18/2014 12/21/2013 RSV vaccine for adults or (1 - Risk 50-74 years 1-dose series) 2016 Zoster (shingles) series for age 50+ (1 of 2) 2016 Mammogram for age 45-75 03/26/2017 03/26/19 17, 06/30/2012, 06/30/2012, Additional history exists Pap test for age 21-65 05/12/2017 5, 08/22/2010, 09/28/2009, Additional history exists Depression screening for age 12+ 02/11/2018 02/11/2017, 09/16/2016, 06/14/2016, Additional history exists Lipids for age 45-75 03/06/2020 03/06/2015, 08/18/2014, 05/12/2014, Additional history exists Tetanus booster 07/10/2023 07/09/2013 BMI (ht and wt on same day) for age 18+ 08/20/2024 08/21/2023, 10/01/2016, 08/06/2016, Additional history exists COVID-19 vaccine series ( - 2024- season) 2024 01/21/2023 Influenza Vaccine (#1) 2024 5, 12/21/2013, 02/09/2013, Additional history exists HIV for age 15-65 Completed 05/12/2014, 08/28/2009 Hepatitis C screening for ag e 18-79 Completed 05/12/2014, 08/28/2009 Medical Devices Implanted Type Area Advertising Material Distributor Device Identifier Shelf Expiration Date Model / Serial / Lot Bone Matrix 1cc [employer] Puttydbm - [id number] Implanted:Qty: 1 on 08/04/2017 by J Carlos Donohue MD at [facility] N/A: Cervical Vertebrae Medtronic Spine/Ortho 12/30/2018 [id number]# / / [id number] Bone [id number] Cornerstone Lasr Spacer - [id number] Implanted:Qty: 1 on 08/04/2017 by J Carlos Donohue MD at [facility] N/A: Cervical Vertebrae Medtronic Spine/Ortho 04/03/2020 [id number]# / / [id number] Cornerstone Lasr Spacer - [id number] Implanted:Qty: 1 on 08/04/2017 by J Carlos Donohue MD at [facility] N/A: Cervical Vertebrae Medtronic Spine/Ortho 10/30/2019 [id number]# / [id number] / [id number] 2 Plate Cerv 2lvl 37.5mm Novinger Vision Elite Ant - [id number] Implanted:Qty: 1 on 08/04/2017 by J Carlos Donohue MD at [facility] N/A: Cervical Vertebrae Medtronic Spine/Ortho [id number] / / - Screw Cerv Ant 4x12mm [employer] Va [employer]f [employer] - [id number] Implanted:Qty: 6 on 08/04/2017 by J Carlos Donohue MD at [facility] N/A: Cervical Vertebrae Medtronic Spine/Ortho [id number] / / - Procedures Procedure Name Priority Date/Time Associated Diagnosis Comments XR MAMMO BILAT SCREENING Routine 03/26/2016 11:44 AM HEALTH SCIENCE INSTRUCTOR Visit for screening mammogram LIPID PANEL Routine 03/06/2015 9:54 AM HEALTH SCIENCE INSTRUCTOR Hyperlipidemia ANTI HIV 1/2 Routine 05/12/2014 10:16 AM CDT Screen for STD (sexually transmitted disease) ANTI HCV Routine 05/12/2014 10:16 AM CDT Screen for STD (sexually transmitted disease) MORTGAGE LOAN REVIEWER THIN PREP PAP SCREEN IMAGED Routine 05/12/2014 10:16 AM CDT Pap smear for cervical cancer screening from Last 3 Months or Most Recently Relevant to Health Maintenance Results * XR MAMMO BILAT SCREENING (03/26/2016 11:44 AM HEALTH SCIENCE INSTRUCTOR) Anatomical Region Laterality Modality BREASTS, Breast Left, Breast Right Bilateral Mammography Impressions 03/27/2016 12:29 PM HEALTH SCIENCE INSTRUCTOR There is no radiographic evidence for malignancy. Recommend annual mammograms. A lay language report of this examination will be provided to the patient. MAMMOGRAM ASSESSMENT: ACR 2 Benign Narrative 03/27/2016 12:29 PM HEALTH SCIENCE INSTRUCTOR XR MAMMO BILAT SCREENING [[id number]] CLINICAL HISTORY: This is an asymptomatic 50 y.o. patient. INDICATION FOR EXAM: Mammogram Screening. TECHNIQUE: CC & MLO views were obtained. This digital study was evaluated with the assistance of Computer-Aided Detection. COMPARISON FILMS: Yes 06/30/12 [facility] 05/15/11 [facility] FINDINGS: Mammographically, the breast tissue has scattered fibroglandular densities. No suspicious masses or microcalcifications. Benign appearing calcifications within both breasts. us Arnel Peck MD MAMMO Final Result * (ABNORMAL) LIPID PANEL (03/06/2015 9:54 AM HEALTH SCIENCE INSTRUCTOR) CHOLESTEROL,TOTAL 237(H) 100 - 199 mg/dL 03/06/2015 10:25 AM HEALTH SCIENCE INSTRUCTOR [facility] TRIGLYCERIDES 184(H) <150 mg/dL 03/06/2015 10:25 AM HEALTH SCIENCE INSTRUCTOR [facility] HDL CHOLESTEROL 57 >40 mg/dL 03/06/2015 10:25 AM HEALTH SCIENCE INSTRUCTOR [facility] NON-HDL CHOLESTEROL 180(H) <145 mg/dl 03/06/2015 10:25 AM HEALTH SCIENCE INSTRUCTOR [facility] CHOL/HDL RATIO 4.16 <4.50 03/06/2015 10:25 AM HEALTH SCIENCE INSTRUCTOR [facility] LDL CHOLESTEROL 143(H) <=130 mg/dL 03/06/2015 10:25 AM HEALTH SCIENCE INSTRUCTOR [facility] PATIENT STATUS NON-FASTI NG 03/06/2015 10:25 AM HEALTH SCIENCE INSTRUCTOR [facility] Blood specimen (specimen) BLOOD SPECIMEN / Unknown Venipuncture / Unknown 03/06/2015 9:54 AM HEALTH SCIENCE INSTRUCTOR 03/06/2015 9:54 AM HEALTH SCIENCE INSTRUCTOR us Arnel Peck MD CHEMISTRY Final Result [facility] [address] [place] [address], * MORTGAGE LOAN REVIEWER THIN PREP PAP SCREEN IMAGED (05/12/2014 10:16 AM CDT) MORTGAGE LOAN REVIEWER CYTOLOGY See Anatomic Pathology case 05/17/2014 11:00 AM CDT [facility] Specimen (specimen) (Cervical/Vagina l) Non-Blood / Unknown 05/12/2014 10:16 AM CDT 05/12/2014 10:16 AM CDT Arnel Peck MD PATHOLOGY/CYTOLOGY Final Res ult [facility] [address] [place] [address], * ANTI HCV (05/12/2014 10:16 AM CDT) HEPATITIS C ANTIBODY Non-Reacti ve Non-Reacti ve 05/12/2014 4:59 PM CDT [facility] Blood specimen (specimen) BLOOD SPECIMEN / Unknown Venipuncture / Unknown 05/12/2014 10:16 AM CDT 05/12/2014 10:16 AM CDT Narrative [facility] - 05/12/2014 4:59 PM CDT Antibodies to HCV not detected; does not exclude the possibility of exposure to HCV. Arnel Peck MD SEND OUTS Final Result [facility] [address] [place] [address], [place] * ANTI HIV 1/2 (05/12/2014 10:16 AM CDT) Pathologist [facility] HIV-1/HIV-2 ANTIBODY Non-Reacti ve Non-Reacti ve 05/12/2014 3:27 PM CDT [facility] Blood specimen (specimen) BLOOD SPECIMEN / Unknown Venipuncture / Unknown 05/12/2014 10:16 AM CDT 05/12/2014 10:16 AM CDT Narrative [facility] - 05/12/2014 3:27 PM CDT HIV-1 p24 and HIV-1/HIV-2 Ab not detected Arnel Peck MD SEND OUTS Final Result [facility] [address] [place] [address], from Last 3 Months or Most Recently Relevant to Health Maintenance Insurance MEDICARE PART A HB ONLY [facility] MEDICAID * Guarantor: DONY TEJEDA DS & BATS ONLY Account Type Relation to Patient Date of Phone Billing Address [facility] [address] [place] [id number] ATTN: ANGELICA ROBERSON [address] [place] [address] Advance Directives * Full Code (Latest Code Status on File) Date Activated Date Inactivated Comments 08/04/2017 1:43 PM 08/05/2017 3:46 PM Question Answer Comments Code Status Discussion: Per Existing Order Care Teams Armature Winder Repairer Relationship Specialty Start Date End Date Manan Beaulieu MD [address] [place] [address] PCP - General Internal Medicine 07/30/17
[2025-01-10 21:26] VITALS: BP 148/78; PULSE 79; RESP 18; TEMP 36.6; O2SAT 94; BMI 38.8
[2025-01-10 21:36] LABS: Appearance Urine Clear (Clear)
--- NOTE | 2025-01-10 21:46 | ED.GENADULT ---
HPI - General Adult General Time Seen by Provider: 21:46 <Helen Nieto MD - Last Filed: 01/11/25 01:42> Date Seen: 01/10/25 <Helen Nieto MD - Last Filed: 01/11/25 01:42> Chief complaint: Flank Pain <Helen Nieto MD - Last Filed: 01/11/25 01:42> Stated complaint: back pain radiates to front <Helen Nieto MD - Last Filed: 01/11/25 01:42> Time Seen by Provider: 01/10/25 21:31 <Helen Nieto MD - Last Filed: 01/11/25 01:42> Source: patient, RN notes reviewed and old records reviewed <Helen Nieto MD - Last Filed: 01/11/25 01:42> Mode of arrival: ambulatory <Helen Nieto MD - Last Filed: 01/11/25 01:42> Limitations: no limitations <Helen Nieto MD - Last Filed: 01/11/25 01:42> History of Present Illness HPI narrative: Emilee is a 59-year-old female with recent treatment for UTI, right flank and right upper quadrant abdominal pain x1 month, [place] x2, history of polypharmacy, history of COPD and chronic pain who comes into the emergency room for evaluation regarding increasing right upper quadrant and back pain since 1700 hours. She notes the onset of this pain about a month ago and assumed it was from her he history of kidney stones. Recently she had a UTI and she has been on an antibiotic which finished within the last 24 hours. She has not had fever or chills but notes her pain is quite significant and is requesting something for pain at this time. She denies diarrhea, blood in her stool. She has not been vomiting. She takes hydrocodone and Flexeril at home for the pain but it is not working. According to records patient was placed on Cipro on 01/05/2025. Her urine culture grew out Staph Lugdunesis sensitive to everything except tetracycline. <Helen Nieto MD - Last Filed: 01/11/25 01:42> Related Data Home medications: Home Medications ?Medication ?Instructions ?Recorded ?Confirmed mesalamine 1.2 gram tablet,delayed 4.8 g PO DAILY 12/25/23 01/05/25 release Previous Rx's ?Medication ?Instructions ?Recorded docusate sodium 100 mg capsule 100 mg PO 3XD PRN diarrhea #30 caps 06/19/23 nebulizers #1 ea 06/19/23 sennosides 8.6 mg capsule (senna) 8.6 mg PO QHS #30 caps 07/28/23 hydrocodone 5 mg-acetaminophen 325 1 tab PO Q4-6H pain #60 tabs 08/18/24 mg tablet albuterol sulfate 2.5 mg/3 mL 2.5 mg (3 mL) continuous 12/04/24 (0.083 %) solution for nebulization nebulization QID PRN shortness of breath or wheezing #90 mL albuterol sulfate 90 mcg/actuation 2 puff inhalation Q6H PRN 12/04/24 aerosol inhaler bronchospasm #8.5 grams aspirin 81 mg chewable tablet 1 tab PO DAILY #90 tabs 12/04/24 budesonide 3 mg 9 mg (3 x 3 mg) PO DAILY #60 ea 12/04/24 capsule,delayed,extended release buspirone 15 mg tablet 15 mg PO BID #90 tabs 12/04/24 cholecalciferol (vitamin D3) 1,250 1,250 mcg PO QWEEK #13 caps 12/04/24 mcg (50,000 unit) capsule duloxetine 60 mg capsule,delayed 60 mg PO BID #180 caps 12/04/24 release epinephrine 0.3 mg/0.3 mL 0.3 mg (0.3 mL) IM ONCE #2 ea 12/04/24 injection, auto-injector meloxicam 15 mg tablet 15 mg PO DAILY Pain #90 tabs 12/04/24 metformin 1,000 mg tablet 1,000 mg PO BID #90 tabs 12/04/24 mirtazapine 7.5 mg tablet 7.5 mg PO QPM #90 tabs 12/04/24 nystatin 100,000 unit/gram topical 1 applic topical TID #30 grams 12/04/24 powder omeprazole 40 mg capsule,delayed 40 mg PO DAILY #90 caps 12/04/24 release pravastatin 40 mg tablet 40 mg PO DAILY #90 tabs 12/04/24 propranolol 60 mg capsule,24 60 mg PO DAILY #90 caps 12/04/24 hr,extended release topiramate 100 mg tablet 100 mg PO BID #60 tabs 12/04/24 trazodone 100 mg tablet 100 mg PO QPM #90 tabs 12/04/24 gabapentin 600 mg tablet 600 mg PO 3XD #90 tabs 12/10/24 lorazepam 0.5 mg tablet (Ativan) 0.5 mg PO BID PRN anxiety #60 tabs 12/21/24 cyclobenzaprine 10 mg tablet 10 mg PO BID PRN for muscle spasm 12/23/24 #30 tabs ketorolac 10 mg tablet 10 mg PO Q8H 5 days #15 tabs 12/23/24 ondansetron HCl 4 mg tablet 4 mg PO Q8H #90 tabs 12/28/24 ciprofloxacin HCl 250 mg tablet 250 mg PO BID #10 tabs 01/05/25 <Helen Nieto MD - Last Filed: 01/11/25 01:42> Allergies/adverse reactions: Allergies Allergy/AdvReac Type Severity Reaction Status Date / Time latex Allergy Intermediate Hives Verified 01/10/25 23:01 adhesive Allergy Mild Rash Verified 01/10/25 23:01 bee venom protein (honey bee) Allergy Verified 01/10/25 23:01 Epideral Allergy Intermediate severe Uncoded 01/10/25 23:01 hives Erythromycin Allergy Intermediate severe Uncoded 01/10/25 23:01 rash, diarrhea <Helen Nieto MD - Last Filed: 01/11/25 01:42> Review of Systems Status of ROS: Reports: 10 or more systems reviewed and unremarkable except as noted in History and below <Helen Nieto MD - Last Filed: 01/11/25 01:42> Const: Denies: fever or chills <Helen Nieto MD - Last Filed: 01/11/25 01:42> Eyes: Denies: change in vision <Helen Nieto MD - Last Filed: 01/11/25 01:42> ENMT: Reports: neck pain; Denies: nasal congestion <Helen Nieto MD - Last Filed: 01/11/25 01:42> Cardio: Denies: chest pain, palpitations, swelling of feet/ankles or shortness of breath with exertion <Helen Nieto MD - Last Filed: 01/11/25 01:42> Resp: Denies: shortness of breath or cough <Helen Nieto MD - Last Filed: 01/11/25 01:42> GI: Reports: abdominal pain and nausea; Denies: vomiting, diarrhea or blood in stool <Helen Nieto MD - Last Filed: 01/11/25 01:42> : Denies: painful urination or urinary frequency <Helen Nieto MD - Last Filed: 01/11/25 01:42> Musculo: Reports: back pain and neck pain; Denies: extremity pain <Helen Nieto MD - Last Filed: 01/11/25 01:42> [facility] Medical History: Medical History Bladder infection ?N30.90 - Cystitis, unspecified without hematuria (ICD-10) Other specified cardiac arrhythmias ?I49.8 - Other specified cardiac arrhythmias (ICD-10) GERD (gastroesophageal reflux disease) ?K21.9 - Gastro-esophageal reflux disease without esophagitis (ICD-10) COPD (chronic obstructive pulmonary disease) ?J44.9 - Chronic obstructive pulmonary disease, unspecified (ICD-10) Fibromyalgia ?M79.7 - Fibromyalgia (ICD-10) Bipolar II disorder ?F31.81 - Bipolar II disorder (ICD-10) Restless legs syndrome ?G25.81 - Restless legs syndrome (ICD-10) Obstructive sleep apnea syndrome ?G47.33 - Obstructive sleep apnea (adult) (pediatric) (ICD-10) Morbid obesity ?E66.01 - Morbid (severe) obesity due to excess calories (ICD-10) Type 2 diabetes mellitus, without long-term current use of insulin ?E11.9 - Type 2 diabetes mellitus without complications (ICD-10) Primary hypertension ?I10 - Essential (primary) hypertension (ICD-10) Mixed hyperlipidemia ?E78.2 - Mixed hyperlipidemia (ICD-10) Ulcerative colitis ?K51.90 - Ulcerative colitis, unspecified, without complications (ICD-10) Kidney stone ?N20.0 - Calculus of kidney (ICD-10) Myocardial infarction ?I21.9 - Acute myocardial infarction, unspecified (ICD-10) <Helen Nieto MD - Last Filed: 01/11/25 01:42> Surgical History: Surgical History History of total hysterectomy with bilateral salpingo-oophorectomy (BSO) (09/21/14) ?Z90.710 - Acquired absence of both cervix and uterus (ICD-10) ?Z90.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, bilateral (ICD-10) ?Z90.79 - Acquired absence of other genital organ(s) (ICD-10) History of section ?Z98.891 - History of uterine scar from previous surgery (ICD-10) History of cervical spinal arthrodesis (08/04/17) ?Z98.1 - Arthrodesis status (ICD-10) History of carpal tunnel release (08/2018) ?Z98.890 - Other specified postprocedural states (ICD-10) <Helen Nieto MD - Last Filed: 01/11/25 01:42> Family History: Family History Other Colon cancer <Helen Nieto MD - Last Filed: 01/11/25 01:42> Social History: Social History Narrative: lives with son and ex-. Has home health. Disabled. What is your current living situation?: I presently have a place to live Problems where you live: declined to answer In the past 12 months, utilities in danger of being shut off: unable to answer In past 12 months, lack of transportation kept you from medical appts, meetings, work, or getting things needed for daily living: no In the past 12 mos, have been you worried that your food would run out before you had money to buy more?: sometimes true In the past 12 mos, the food you bought just didn't last and you didn't have money to buy more?: sometimes true Smoking Status: Current some day smoker What tobacco products do you use: cigarettes Do you use any of these nicotine containing products: None Second hand tobacco smoke exposure: No How often do you have a drink containing alcohol: monthly or less How many standard drinks containing alcohol do you have on a typical day: 1 or 2 How often do you have six or more drinks on one occasion: Never AUDIT-C Alcohol total score: 1 Non-prescribed substance use: denies use Caffeine: Yes How often does anyone, including family, friends and others, physically hurt you: never How often does anyone, including family, friends and others, insult or talk down to you: rarely How often does anyone, including family, friends and others, threaten you with harm: never How often does anyone, including family, friends and others, scream or curse at you: rarely service: No Health Related Social Needs: food insecurity (Z59.41) and Other personal risk factors, not elsewhere classified (Z91.89) <Helen Nieto MD - Last Filed: 01/11/25 01:42> Exam Narrative: Exam Narrative: Alert and oriented. Mentation and speech normal. Does seem frustrated that I need to do exam prior to medication administration. External ears eyes nose clear. Patient noted to have resolving ecchymosis along the right cheek bone. No step-offs palpated in this area. Head is with some tenderness along the left superior parietal scalp. Neck is supple. Heart with regular rate and rhythm and lungs are clear. Abdomen shows minimal tenderness right upper quadrant. Positive right CVA tenderness. Lower extremities without edema. Moving all extremities. Resolving bruises along the dorsal aspect of both wrists. Patient able to move wrists without difficulty. <Helen Nieto MD - Last Filed: 01/11/25 01:42> Const: Vital Signs, click to edit/add: Vital Signs - 24 hr 01/10/25 21:26 01/10/25 23:00 Temperature 97.9 F Pulse Rate [Pulse Oximeter] 79 74 Respiratory Rate 18 18 Blood Pressure [Ri ght Upper Arm] 148/78 H 135/67 Pulse Oximetry 94 96 Oxygen Delivery Me thod Room Air Room Air <Helen Nieto MD - Last Filed: 01/11/25 01:42> Vital Signs, click to edit/add: Vital Signs - 24 hr 01/10/25 21:26 01/10/25 23:00 Temperature 97.9 F Pulse Rate [Pulse Oximeter] 79 74 Respiratory Rate 18 18 Blood Pressure [Ri ght Upper Arm] 148/78 H 135/67 Pulse Oximetry 94 96 Oxygen Delivery Me thod Room Air Room Air <Arnel Carmichael MD - Last Filed: 01/11/25 01:57> Documenting provider has reviewed patient's vital signs: yes <Helen Nieto MD - Last Filed: 01/11/25 01:42> Course Course ED Course: Differential diagnosis includes but is not limited to pyelonephritis, nephrolithiasis/ureteral colic, colitis, musculoskeletal pain, exacerbation of chronic pain. At this time will place IV, pain medication will be morphine 4 mg Zofran 4 mg. Will give 500 mL normal saline. CBC, comprehensive, lipase, lactate, CRP, urinalysis currently pending. Abdominal and pelvic CT with contrast ordered. <Helen Nieto MD - Last Filed: 01/11/25 01:42> Reevaluation(s) Reevaluation #1: Nursing staff tells me that Martine has told him that she has been experiencing frequent falls. She is worried that something is going on and is requesting head CT. When I do talk to her she also has neck pain since the falls. Will obtain head CT cervical spine CT and will do a recon of the abdominal and pelvic CT. <Helen Nieto MD - Last Filed: 01/11/25 01:42> Reevaluation #2: Patient did not feel that morphine worked for her and is requesting Toradol. She does take Toradol in pill form but dropped it on the floor. We will give her Toradol 15 mg IV. <Helen Nieto MD - Last Filed: 01/11/25 01:42> Reevaluation #3: Patient noted to have continued normal vital signs. She is afebrile with normal pulse and blood pressure. Unfortunately it is noted that she has a 3 mm stone in the right UVJ with superimposed UTI. She will need to be transferred to outside facility as she is at high risk for sepsis given elevated white count and lactate. <Helen Nieto MD - Last Filed: 01/11/25 01:42> Additional Reevaluation(s): Org 1 =Staphylococcus lugdunensis Collected: 01/04/25 14:14 Source: Urine,Clean Catch ANTIBIOTIC ORG 1 Ciprofloxacin S Doxycycline S Gentamicin S Levofloxacin S Nitrofurantoin S Oxacillin Surinder S Rifampin S Tetracycline R Vancomycin S <Helen Nieto MD - Last Filed: 01/11/25 01:42> Consultations Consultation #1: Care discussed with Urology Dr. Martinez who agrees with plan. <Arnel Carmichael MD - Last Filed: 01/11/25 01:57> Vital Signs Vital signs: Initial Vital Signs Temperature 97.9 F 01/10/25 21:26 Temperature Source Temporal Artery Scan 01/10/25 21:26 Pulse Rate 79 01/10/25 21:26 Respiratory Rate 18 01/10/25 21:26 Blood Pressure 148/78 H 01/10/25 21:26 Blood Pressure Mean 101 01/10/25 21:26 Blood Pressure Position Supine 01/10/25 21:26 Pulse Oximetry 94 01/10/25 21:26 Oxygen Delivery Method Room Air 01/10/25 21:26 Vital Signs Temperature 97.9 F 01/10/25 21:26 Pulse Rate 79 01/10/25 21:26 Respiratory Rate 18 01/10/25 21:26 Blood Pressure 148/78 H 01/10/25 21:26 Pulse Oximetry 94 01/10/25 21:26 Oxygen Delivery Method Room Air 01/10/25 21:26 Temperature 97.9 F 01/10/25 21:26 Pulse Rate 74 01/10/25 23:00 Respiratory Rate 18 01/10/25 23:00 Blood Pressure 135/67 01/10/25 23:00 Pulse Oximetry 96 01/10/25 23:00 Oxygen Delivery Method Room Air 01/10/25 23:00 <Helen Nieto MD - Last Filed: 01/11/25 01:42> Initial Vital Signs Temperature 97.9 F 01/10/25 21:26 Temperature Source Temporal Artery Scan 01/10/25 21:26 Pulse Rate 79 01/10/25 21:26 Respiratory Rate 18 01/10/25 21:26 Blood Pressure 148/78 H 01/10/25 21:26 Blood Pressure Mean 101 01/10/25 21:26 Blood Pressure Position Supine 01/10/25 21:26 Pulse Oximetry 94 01/10/25 21:26 Oxygen Delivery Method Room Air 01/10/25 21:26 Vital Signs Temperature 97.9 F 01/10/25 21:26 Pulse Rate 79 01/10/25 21:26 Respiratory Rate 18 01/10/25 21:26 Blood Pressure 148/78 H 01/10/25 21:26 Pulse Oximetry 94 01/10/25 21:26 Oxygen Delivery Method Room Air 01/10/25 21:26 Temperature 97.9 F 01/10/25 21:26 Pulse Rate 74 01/10/25 23:00 Respiratory Rate 18 01/10/25 23:00 Blood Pressure 135/67 01/10/25 23:00 Pulse Oximetry 96 01/10/25 23:00 Oxygen Delivery Method Room Air 01/10/25 23:00 <Arnel Carmichael MD - Last Filed: 01/11/25 01:57> Medications Administered Medications: Discontinued Medications Generic Name Dose Route Start Last Admin Trade Name Freq PRN Reason Stop Dose Admin Hydromorphone HCl 0.5 mg 01/11/25 00:24 01/11/25 00:36 Hydromorphone 0.5 Mg/0.5 Ml Inj IVP 01/11/25 00:25 0.5 mg ONCE ONE Administration Sodium Chloride 500 mls @ 500 mls/hr 01/10/25 21:58 01/11/25 00:39 0.9 % Sodium Chloride 500 Ml IV 01/10/25 22:57 Infused .Q1H LETTY Infusion Sodium Chloride 500 mls @ 500 mls/hr 01/10/25 22:58 01/11/25 00:04 0.9 % Sodium Chloride 500 Ml IV 01/10/25 23:57 Infused .Q1H LETTY Infusion Sodium Chloride 1,000 mls @ 1,000 mls/hr 01/11/25 00:25 01/11/25 00:38 0.9 % Sodium Chloride 1000 Ml IV 01/11/25 01:24 1,000 mls/hr .Q1H LETTY Administration Piperacillin Sod/Tazobactam 100 mls @ 200 mls/hr 01/11/25 00:25 01/11/25 01:32 Sod 3.375 gm/ Sodium Chloride IVPB 01/11/25 00:26 Infused ONCE ONE Infusion Ketorolac Tromethamine 15 mg 01/10/25 23:19 01/10/25 23:27 Ketorolac 15 Mg/Ml Inj IVP 01/10/25 23:20 15 mg ONCE ONE Administration Morphine Sulfate 4 mg 01/10/25 21:55 01/10/25 22:19 Morphine 4 Mg/Ml Inj IVP 01/10/25 21:56 4 mg ONCE ONE Administration Ondansetron HCl 4 mg 01/10/25 21:55 01/10/25 22:19 Ondansetron 2 Mg/Ml Inj IVP 01/10/25 21:56 4 mg ONCE ONE Administration <Helen Nieto MD - Last Filed: 01/11/25 01:42> Discontinued Medications Generic Name Dose Route Start Last Admin Trade Name Freq PRN Reason Stop Dose Admin Hydromorphone HCl 0.5 mg 01/11/25 00:24 01/11/25 00:36 Hydromorphone 0.5 Mg/0.5 Ml Inj IVP 01/11/25 00:25 0.5 mg ONCE ONE Administration Sodium Chloride 500 mls @ 500 mls/hr 01/10/25 21:58 01/11/25 00:39 0.9 % Sodium Chloride 500 Ml IV 01/10/25 22:57 Infused .Q1H LETTY Infusion Sodium Chloride 500 mls @ 500 mls/hr 01/10/25 22:58 01/11/25 00:04 0.9 % Sodium Chloride 500 Ml IV 01/10/25 23:57 Infused .Q1H LETTY Infusion Sodium Chloride 1,000 mls @ 1,000 mls/hr 01/11/25 00:25 01/11/25 00:38 0.9 % Sodium Chloride 1000 Ml IV 01/11/25 01:24 1,000 mls/hr .Q1H LETTY Administration Piperacillin Sod/Tazobactam 100 mls @ 200 mls/hr 01/11/25 00:25 01/11/25 01:32 Sod 3.375 gm/ Sodium Chloride IVPB 01/11/25 00:26 Infused ONCE ONE Infusion Ketorolac Tromethamine 15 mg 01/10/25 23:19 01/10/25 23:27 Ketorolac 15 Mg/Ml Inj IVP 01/10/25 23:20 15 mg ONCE ONE Administration Morphine Sulfate 4 mg 01/10/25 21:55 01/10/25 22:19 Morphine 4 Mg/Ml Inj IVP 01/10/25 21:56 4 mg ONCE ONE Administration Ondansetron HCl 4 mg 01/10/25 21:55 01/10/25 22:19 Ondansetron 2 Mg/Ml Inj IVP 01/10/25 21:56 4 mg ONCE ONE Administration <Arnel Carmichael MD - Last Filed: 01/11/25 01:57> Medical Decision Making [facility] Narrative Medical decision making narrative: 1. Right ureteral stone with superimposed pyelonephritis-patient noted the onset of right flank pain 1 month ago. She was seen in the clinic approximately a week ago for new onset dysuria. At that time she was treated for a UTI with Cipro. Her culture grows out Staph Lugdunesis sensitive to Cipro as well as other medications. It is resistant to tetracycline. Unfortunately this evening she had sudden increased rate flank and right upper quadrant pain. Unfortunately this CT does show a 3 mm stone in the right UVJ with associated hydronephrosis and stranding suggestive of superimposed infection. Patient is given Zosyn 3.375 g in the ED. unfortunately she does need urology and we will need to transfer her to outside facility as we do not have that specialty here at our hospital. At this time patient has 1 sirs criteria with elevated white count of 12.92. She does have elevated lactate at 2.3 and thus does have 1 criteria for organ dysfunction. She may qualify for sepsis but she certainly does not have severe sepsis at this point. However, she is at high risk for developing severe sepsis. Patient received 2 L IV fluids in the ED. Currently waiting on repeat lactate. 2. Right flank pain-patient noted to have history of chronic pain, polypharmacy. She had been using Flexeril and hydrocodone at home for treatment of her pain. Here in the ER we initially use morphine 4 mg which she stated did not really help. She then received Toradol and continues to complain of pain. Will give her dose of Dilaudid 0.5 mg IV x1. 3. Frequent falls-patient noted to have been experiencing frequent falls. The most recent fall was on January 07. She stated that she gets dizzy and then could not move her arms and leg and fell to the ground. She notes her did not want to call the ambulance. She had the laid there for a period of time until she was able to move once again. She notes that she has bumps on her head from where she has fallen. She also has bruising on her face. Fortunately CT did not show any evidence of intracranial bleed, skull fracture, facial fracture. She may need MRI but we are unable to do that here in the emergency room tonight. A wreak con of her thoracic and lumbar spine did not show any fractures. Note patient does have a history of seizures but she felt these were different from what she has experienced in the past. She denies loss of bowel or bladder control or vomiting. 4. Disposition-patient will be transferred to outside facility for urological consultation. Dr. Nichols, hospitalist at [facility] accepts this patient for transfer as long as Urology gives the okay. Currently waiting on urology to call here. Unfortunately there is up to an 8 hour wait for bedside Gao. Patient will have continued pain medications, IV fluids and antibiotics as needed. Next dose of Zosyn would be scheduled for 629. This patient is signed out to my colleague Dr. Carmichael. Addendum: Repeat lactate 1.5. Will continue IV fluids at 150ml/hr of normal saline. <Helen Nieto MD - Last Filed: 01/11/25 01:42> Medical Records Medical records reviewed: Yes I reviewed the patient's medical records <Helen Nieto MD - Last Filed: 01/11/25 01:42> Lab Data Lab results reviewed: Yes I reviewed the patient's lab results <Helen Nieto MD - Last Filed: 01/11/25 01:42> Labs: Lab Results 01/10/25 01/10/25 01/10/25 Range/Units 21:30 22:10 22:29 WBC 12.92 H (4.50-11.00) K/uL RBC 4.19 (4.00-5.20) m/uL Hgb 13.6 (12.0-16.0) gm/dL Hct 42.8 (33.0-51.0) % MCV 102 H (80-100) fL MCH 33 (26-34) pg MCHC 32 (32-36) gm/dL RDW Coeff of Maurice 12.5 (11.5-15.5) % Plt Count 195 (140-440) K/uL Neut % (Auto) 63.6 (42.0-72.0) % Lymph % (Auto) 24.4 (20-44) % [place] % (Auto) 10.6 (0.0-11.0) % Eos % (Auto) 0.9 (0.0-7.0) % Baso % (Auto) 0.3 (0.0-3.0) % Neut # (Auto) 8.20 H (1.7-7.0) K/uL Lymph # (Auto) 3.20 H (0.90-2.90) K/uL [place] # (Auto) 1.40 H (0.00-0.90) K/UL Eos # (Auto) 0.10 (0.00-0.50) K/uL Baso # (Auto) 0.00 (0.00-0.30) K/uL Abs Immat Gran (auto) 0.00 (0.00-0.30) K/uL Imm/Tot Granulo (auto) 0.2 % Sodium 136 (135-149) mmol/L Potassium 4.3 (3.6-5.1) mmol/L Chloride 102 (96-114) mmol/L Carbon Dioxide 24 (20-32) mmol/L Anion Gap 10 (7-15) mEq/L BUN 22 (7-30) mg/dL Creatinine 1.2 (0.5-1.5) mg/dL Estimated Creat Clear 40.42 Estimated GFR 52 ml/min Glucose 119 H (60-115) mg/dL Lactate 2.3 H (0.5-1.9) mmol/L Calcium 9.1 (8.4-10.6) mg/dL Total Bilirubin 0.4 (0.1-1.5) mg/dL AST 27 (12-35) U/L ALT 32 (4-35) U/L Alkaline Phosphatase 59 (40-150) U/L C-Reactive Protein < 0.5 L (0.5-1.0) mg/dL Total Protein 6.3 (6.0-8.3) g/dL Albumin 3.8 (3.3-5.0) g/dL Lipase 101 (23-300) U/L Urine Color Yellow (Yellow) Urine Appearance Clear (Clear) Urine pH 6.5 (5.0-8.5) Ur Specific [place] 1.015 (1.000-1.030) Urine Protein Negative (Negative) Urine Glucose (UA) Negative (Negative) Urine Ketones Negative (Negative) Urine Blood Trace-lysed A (Negative) Urine Nitrite Negative (Negative) Urine Bilirubin Negative (Negative) Urine Urobilinogen 0.2 (0.2-1.0) Ur Leukocyte Esterase Negative (Negative) Urine RBC 2-5 A (0-2) Urine WBC 5-10 A (0-5) Ur Squamous Epith Cells Moderate A (None-Few) Urine Bacteria Moderate A (None) POC Creatinine 1.3 (0.6-1.3) mg/dl 01/11/25 Range/Units 01:00 WBC (4.50-11.00) K/uL RBC (4.00-5.20) m/uL Hgb (12.0-16.0) gm/dL Hct (33.0-51.0) % MCV (80-100) fL MCH (26-34) pg MCHC (32-36) gm/dL RDW Coeff of Maurice (11.5-15.5) % Plt Count (140-440) K/uL Neut % (Auto) (42.0-72.0) % Lymph % (Auto) (20-44) % [place] % (Auto) (0.0-11.0) % Eos % (Auto) (0.0-7.0) % Baso % (Auto) (0.0-3.0) % Neut # (Auto) (1.7-7.0) K/uL Lymph # (Auto) (0.90-2.90) K/uL [place] # (Auto) (0.00-0.90) K/UL Eos # (Auto) (0.00-0.50) K/uL Baso # (Auto) (0.00-0.30) K/uL Abs Immat Gran (auto) (0.00-0.30) K/uL Imm/Tot Granulo (auto) % Sodium (135-149) mmol/L Potassium (3.6-5.1) mmol/L Chloride (96-114) mmol/L Carbon Dioxide (20-32) mmol/L Anion Gap (7-15) mEq/L BUN (7-30) mg/dL Creatinine (0.5-1.5) mg/dL Estimated Creat Clear Estimated GFR ml/min Glucose (60-115) mg/dL Lactate 1.5 (0.5-1.9) mmol/L Calcium (8.4-10.6) mg/dL Total Bilirubin (0.1-1.5) mg/dL AST (12-35) U/L ALT (4-35) U/L Alkaline Phosphatase (40-150) U/L C-Reactive Protein (0.5-1.0) mg/dL Total Protein (6.0-8.3) g/dL Albumin (3.3-5.0) g/dL Lipase (23-300) U/L Urine Color (Yellow) Urine Appearance (Clear) Urine pH (5.0-8.5) Ur Specific [place] (1.000-1.030) Urine Protein (Negative) Urine Glucose (UA) (Negative) Urine Ketones (Negative) Urine Blood (Negative) Urine Nitrite (Negative) Urine Bilirubin (Negative) Urine Urobilinogen (0.2-1.0) Ur Leukocyte Esterase (Negative) Urine RBC (0-2) Urine WBC (0-5) Ur Squamous Epith Cells (None-Few) Urine Bacteria (None) POC Creatinine (0.6-1.3) mg/dl <Helen Nieto MD - Last Filed: 01/11/25 01:42> Lab Results 01/10/25 01/10/25 01/10/25 Range/Units 21:30 22:10 22:29 WBC 12.92 H (4.50-11.00) K/uL RBC 4.19 (4.00-5.20) m/uL Hgb 13.6 (12.0-16.0) gm/dL Hct 42.8 (33.0-51.0) % MCV 102 H (80-100) fL MCH 33 (26-34) pg MCHC 32 (32-36) gm/dL RDW Coeff of Maurice 12.5 (11.5-15.5) % Plt Count 195 (140-440) K/uL Neut % (Auto) 63.6 (42.0-72.0) % Lymph % (Auto) 24.4 (20-44) % [place] % (Auto) 10.6 (0.0-11.0) % Eos % (Auto) 0.9 (0.0-7.0) % Baso % (Auto) 0.3 (0.0-3.0) % Neut # (Auto) 8.20 H (1.7-7.0) K/uL Lymph # (Auto) 3.20 H (0.90-2.90) K/uL [place] # (Auto) 1.40 H (0.00-0.90) K/UL Eos # (Auto) 0.10 (0.00-0.50) K/uL Baso # (Auto) 0.00 (0.00-0.30) K/uL Abs Immat Gran (auto) 0.00 (0.00-0.30) K/uL Imm/Tot Granulo (auto) 0.2 % Sodium 136 (135-149) mmol/L Potassium 4.3 (3.6-5.1) mmol/L Chloride 102 (96-114) mmol/L Carbon Dioxide 24 (20-32) mmol/L Anion Gap 10 (7-15) mEq/L BUN 22 (7-30) mg/dL Creatinine 1.2 (0.5-1.5) mg/dL Estimated Creat Clear 40.42 Estimated GFR 52 ml/min Glucose 119 H (60-115) mg/dL Lactate 2.3 H (0.5-1.9) mmol/L Calcium 9.1 (8.4-10.6) mg/dL Total Bilirubin 0.4 (0.1-1.5) mg/dL AST 27 (12-35) U/L ALT 32 (4-35) U/L Alkaline Phosphatase 59 (40-150) U/L C-Reactive Protein < 0.5 L (0.5-1.0) mg/dL Total Protein 6.3 (6.0-8.3) g/dL Albumin 3.8 (3.3-5.0) g/dL Lipase 101 (23-300) U/L Urine Color Yellow (Yellow) Urine Appearance Clear (Clear) Urine pH 6.5 (5.0-8.5) Ur Specific [place] 1.015 (1.000-1.030) Urine Protein Negative (Negative) Urine Glucose (UA) Negative (Negative) Urine Ketones Negative (Negative) Urine Blood Trace-lysed A (Negative) Urine Nitrite Negative (Negative) Urine Bilirubin Negative (Negative) Urine Urobilinogen 0.2 (0.2-1.0) Ur Leukocyte Esterase Negative (Negative) Urine RBC 2-5 A (0-2) Urine WBC 5-10 A (0-5) Ur Squamous Epith Cells Moderate A (None-Few) Urine Bacteria Moderate A (None) POC Creatinine 1.3 (0.6-1.3) mg/dl 01/11/25 Range/Units 01:00 WBC (4.50-11.00) K/uL RBC (4.00-5.20) m/uL Hgb (12.0-16.0) gm/dL Hct (33.0-51.0) % MCV (80-100) fL MCH (26-34) pg MCHC (32-36) gm/dL RDW Coeff of [place] (11.5-15.5) % Plt Count (140-440) K/uL Neut % (Auto) (42.0-72.0) % Lymph % (Auto) (20-44) % [place] % (Auto) (0.0-11.0) % Eos % (Auto) (0.0-7.0) % Baso % (Auto) (0.0-3.0) % Neut # (Auto) (1.7-7.0) K/uL Lymph # (Auto) (0.90-2.90) K/uL [place] # (Auto) (0.00-0.90) K/UL Eos # (Auto) (0.00-0.50) K/uL Baso # (Auto) (0.00-0.30) K/uL Abs Immat Gran (auto) (0.00-0.30) K/uL Imm/Tot Granulo (auto) % Sodium (135-149) mmol/L Potassium (3.6-5.1) mmol/L Chloride (96-114) mmol/L Carbon Dioxide (20-32) mmol/L Anion Gap (7-15) mEq/L BUN (7-30) mg/dL Creatinine (0.5-1.5) mg/dL Estimated Creat Clear Estimated GFR ml/min Glucose (60-115) mg/dL Lactate 1.5 (0.5-1.9) mmol/L Calcium (8.4-10.6) mg/dL Total Bilirubin (0.1-1.5) mg/dL AST (12-35) U/L ALT (4-35) U/L Alkaline Phosphatase (40-150) U/L C-Reactive Protein (0.5-1.0) mg/dL Total Protein (6.0-8.3) g/dL Albumin (3.3-5.0) g/dL Lipase (23-300) U/L Urine Color (Yellow) Urine Appearance (Clear) Urine pH (5.0-8.5) Ur Specific [place] (1.000-1.030) Urine Protein (Negative) Urine Glucose (UA) (Negative) Urine Ketones (Negative) Urine Blood (Negative) Urine Nitrite (Negative) Urine Bilirubin (Negative) Urine Urobilinogen (0.2-1.0) Ur Leukocyte Esterase (Negative) Urine RBC (0-2) Urine WBC (0-5) Ur Squamous Epith Cells (None-Few) Urine Bacteria (None) POC Creatinine (0.6-1.3) mg/dl <Arnel Carmichael MD - Last Filed: 01/11/25 01:57> Imaging Data CT scan - head: Attestation: I have reviewed the pertinent imaging results. <Helen Nieto MD - Last Filed: 01/11/25 01:42> My impression: I do not note any acute intracranial bleed. <Helen Nieto MD - Last Filed: 01/11/25 01:42> Radiologist's impression: Brain: No acute hemorrhage. No acute infarct. No significant mass effect or midline shift. No gross evidence of a mass lesion or cerebral edema. 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 Mild chronic senescent disease. Ventricles: No acute abnormality appreciated. Orbits, sinuses, mastoids: No acute abnormality appreciated. Calvarium and soft tissues: Left facial scalp contusion, otherwise unremarkable. Impression: Left facial scalp contusion, no other acute abnormality appreciated. <Helen Nieto MD - Last Filed: 01/11/25 01:42> Cervical spine CT: Attestation: I have reviewed the pertinent imaging results. <Helen Nieto MD - Last Filed: 01/11/25 01:42> My impression: I do not note any acute fracture <Helen Nieto MD - Last Filed: 01/11/25 01:42> Radiologist's impression: Alignment: Mild junctional spondylolisthesis. No acute malalignment appreciated. Bones: No acute fracture. C5-7 ACDF. Cervical levels: No acute abnormality appreciated. Mild spondylosis at the unfused levels. Soft tissues: No acute abnormality appreciated. Impression: No acute abnormality appreciated. <Helen Nieto MD - Last Filed: 01/11/25 01:42> CT scan - abdomen: Attestation: I have reviewed the pertinent imaging results. <Helen Nieto MD - Last Filed: 01/11/25 01:42> My impression: Hydronephrosis of the right kidney in with surrounded stranding. <Helen Nieto MD - Last Filed: 01/11/25 01:42> Radiologist's impression: Lower chest: No acute abnormality appreciated. Hepatobiliary: No significant parenchymal abnormality is appreciated. Cholecystectomy. Spleen: Calcified granulomata. Pancreas: No acute abnormality appreciated. Adrenal glands: No acute abnormality appreciated. Kidneys: Nonobstructing right renal stone. Moderate hydronephrosis with significant perinephric stranding. Delayed right nephrogram. Bowel: No obstruction. No focal perienteric or pericolonic stranding is appreciated. The appendix is visualized and appears unremarkable. Vascular: No acute abnormality appreciated. Mild atherosclerosis. Lymph nodes: No gross lymphadenopathy. Peritoneum: No free air. No free fluid. : There is a 3 millimeter obstructing right UVJ stone. Significant bladder wall thickening and adjacent stranding. Soft tissues: No acute abnormality appreciated. Bones: No acute fracture. No lytic or blastic lesion. Degenerative changes of the spine and pelvis. Impression: 1. Obstructing 3 millimeter right UVJ stone with moderate hydronephrosis and delayed right nephrogram. The degree of bladder wall thickening pericystic/perinephric stranding raises the concern for superimposed infection. 2. Additional nonobstructing right renal stone present. <Helen Nieto MD - Last Filed: 01/11/25 01:42> Thoracic and lumbar spine: Attestation: I have reviewed the pertinent imaging results. <Helen Nieto MD - Last Filed: 01/11/25 01:42> My impression: Do not note any fractures. <Helen Nieto MD - Last Filed: 01/11/25 01:42> Radiologist's impression: Thoracic spine: Alignment: No acute malalignment appreciated. Bones: T1 and out of field of view of this examination, better seen on cervical spine CT. T7 vertebral body hemangioma. No acute fracture. Thoracic levels: No acute abnormality appreciated. Soft tissues: No acute paraspinal abnormality appreciated. Calcified nodes. Mild apical pulmonary scarring. Impression: No acute thoracic vertebral abnormality appreciated. Lumbar spine: Alignment: No acute malalignment appreciated. Bones: No acute fracture. No lytic or blastic lesion. Lumbar levels: No acute abnormality appreciated. Mild degenerative changes. Soft tissues: No acute paraspinal abnormality appreciated. Impression: No acute lumbar vertebral abnormality appreciated. <Helen Nieto MD - Last Filed: 01/11/25 01:42> Critical Care Time Critical Care Time Critical Care Time: Yes Attestation: The patient required my highest level preparedness to intervene emergently and I personally spent this critical care time directly and personally managing the patient. This critical care time included: Obtaining a history; Examining the patient; Pulse oximetry; Ordering and reviewing of studies; Arranging urgent treatment with development of a management plan; Evaluation of patients response to treatment; Frequent reassessment discussions with other providers. This critical care time was performed to assess and manage the high probability of imminent life-threatening deterioration that could result in multiorgan failure. It was exclusive of separate billable procedures and treating other patients and teaching time. <Helen Nieto MD - Last Filed: 01/11/25 01:42> Total Critical Care Time in Minutes: 60 <Helen Nieto MD - Last Filed: 01/11/25 01:42> Discharge Plan Discharge Clinical Impression: Hydronephrosis concurrent with and due to calculi of kidney and ureter, Colic, ureteral, Pyelonephritis, Falls frequently <Helen Nieto MD - Last Filed: 01/11/25 01:42> Prescriptions: No Action mesalamine 1.2 gram tablet,delayed release (DR/EC) 4.8 g PO DAILY docusate sodium 100 mg capsule 100 mg PO 3XD PRN (Reason: diarrhea) Qty: 30 2RF (DME) nebulizers Misc See Rx Instructions .Route Qty: 1 3RF Rx Instructions: As directed ciprofloxacin HCl 250 mg tablet 250 mg PO BID Qty: 10 0RF senna 8.6 mg capsule 8.6 mg PO QHS Qty: 30 0RF hydrocodone-acetaminophen 5-325 mg tablet 1 tab PO Q4-6H Qty: 60 0RF duloxetine 60 mg capsule,delayed release(DR/EC) 60 mg PO BID Qty: 180 3RF albuterol sulfate 90 mcg/actuation HFA aerosol inhaler 2 puff INHALATION Q6H PRN (Reason: bronchospasm) Qty: 8.5 2RF mirtazapine 7.5 mg tablet 7.5 mg PO QPM Qty: 90 1RF Rx Instructions: 90 Day Supply albuterol sulfate 2.5 mg /3 mL (0.083 %) solution for nebulization 2.5 mg continuous nebulization QID PRN (Reason: shortness of breath or wheezing) Qty: 90 2RF nystatin 100,000 unit/gram powder 1 applic topical TID Qty: 30 0RF omeprazole 40 mg capsule,delayed release(DR/EC) 40 mg PO DAILY Qty: 90 0RF meloxicam 15 mg tablet 15 mg PO DAILY Qty: 90 2RF trazodone 100 mg tablet 100 mg PO QPM Qty: 90 3RF aspirin 81 mg tablet,chewable 1 tab PO DAILY Qty: 90 2RF pravastatin 40 mg tablet 40 mg PO DAILY Qty: 90 1RF propranolol 60 mg capsule,extended release 24 hr 60 mg PO DAILY Qty: 90 1RF metformin 1,000 mg tablet 1,000 mg PO BID Qty: 90 2RF topiramate 100 mg tablet 100 mg PO BID Qty: 60 2RF epinephrine 0.3 mg/0.3 mL auto-injector 0.3 mg IM ONCE Qty: 2 1RF Rx Instructions: as a single dose; may repeat once budesonide 3 mg capsule,delayed,extend.release 9 mg PO DAILY Qty: 60 3RF buspirone 15 mg tablet 15 mg PO BID Qty: 90 2RF cholecalciferol (vitamin D3) 1,250 mcg (50,000 unit) capsule 1,250 mcg PO QWEEK Qty: 13 3RF gabapentin 600 mg tablet 600 mg PO 3XD Qty: 90 2RF lorazepam [Ativan] 0.5 mg tablet 0.5 mg PO BID PRN (Reason: anxiety) Qty: 60 0RF cyclobenzaprine 10 mg tablet 10 mg PO BID PRN (Reason: for muscle spasm) Qty: 30 0RF ketorolac 10 mg tablet 10 mg PO Q8H 5 Days Qty: 15 0RF ondansetron HCl 4 mg tablet 4 mg PO Q8H Qty: 90 0RF <Helen Nieto MD - Last Filed: 01/11/25 01:42> Follow Up/Referrals: Manan Beaulieu MD [Primary Care Provider, Internal Medicine] <Helen Nieto MD - Last Filed: 01/11/25 01:42>
--- NOTE | 2025-01-10 21:55 | CRLHL7_ITS ---
For Patients: As a result of the Century Cures Act, medical imaging exams and procedure reports are released immediately into your electronic medical record. You may view this report before your referring provider. If you have questions, please contact your health care provider. Indication: Frequent falls, back pain Technique: CT through the abdomen and pelvis following 100 mL Isovue 370 IV contrast Comparison: CT abdomen pelvis performed 11/13/2022 Findings: Lower chest: No acute abnormality appreciated. Hepatobiliary: No significant parenchymal abnormality is appreciated. Cholecystectomy. Spleen: Calcified granulomata. Pancreas: No acute abnormality appreciated. Adrenal glands: No acute abnormality appreciated. Kidneys: Nonobstructing right renal stone. Moderate hydronephrosis with significant perinephric stranding. Delayed right nephrogram. Bowel: No obstruction. No focal perienteric or pericolonic stranding is appreciated. The appendix is visualized and appears unremarkable. Vascular: No acute abnormality appreciated. Mild atherosclerosis. Lymph nodes: No gross lymphadenopathy. Peritoneum: No free air. No free fluid. : There is a 3 millimeter obstructing right UVJ stone. Significant bladder wall thickening and adjacent stranding. Soft tissues: No acute abnormality appreciated. Bones: No acute fracture. No lytic or blastic lesion. Degenerative changes of the spine and pelvis. Impression: 1. Obstructing 3 millimeter right UVJ stone with moderate hydronephrosis and delayed right nephrogram. The degree of bladder wall thickening pericystic/perinephric stranding raises the concern for superimposed infection. 2. Additional nonobstructing right renal stone present. Please note that all CT scans at this facility use dose modulation, iterative reconstruction, and/or weight-based dosing when appropriate to reduce radiation dose to as low as reasonably achievable. Dictated by Jr Lazo MD @ 01/11/2025 12:05:53 AM (Electronically Signed)
--- NOTE | 2025-01-10 22:13 | CRLHL7_ITS ---
For Patients: As a result of the Century Cures Act, medical imaging exams and procedure reports are released immediately into your electronic medical record. You may view this report before your referring provider. If you have questions, please contact your health care provider. Indication: Frequent falls Technique: Noncontrast CT through the head with multiplanar reformats Comparison: CT head performed 05/03/2024 Findings: Brain: No acute hemorrhage. No acute infarct. No significant mass effect or midline shift. No gross evidence of a mass lesion or cerebral edema. 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 Mild chronic senescent disease. Ventricles: No acute abnormality appreciated. Orbits, sinuses, mastoids: No acute abnormality appreciated. Calvarium and soft tissues: Left facial scalp contusion, otherwise unremarkable. Impression: Left facial scalp contusion, no other acute abnormality appreciated. Please note that all CT scans at this facility use dose modulation, iterative reconstruction, and/or weight-based dosing when appropriate to reduce radiation dose to as low as reasonably achievable. Dictated by Jr Lazo MD @ 01/10/2025 11:49:28 PM (Electronically Signed)
--- NOTE | 2025-01-10 22:13 | CRLHL7_ITS ---
For Patients: As a result of the Century Cures Act, medical imaging exams and procedure reports are released immediately into your electronic medical record. You may view this report before your referring provider. If you have questions, please contact your health care provider. Indication: Frequent falls Technique: Noncontrast CT through the cervical spine with multiplanar reformats Comparison: Cervical spine CT performed 05/03/2024 Findings: Alignment: Mild junctional spondylolisthesis. No acute malalignment appreciated. Bones: No acute fracture. C5-7 ACDF. Cervical levels: No acute abnormality appreciated. Mild spondylosis at the unfused levels. Soft tissues: No acute abnormality appreciated. Impression: No acute abnormality appreciated. Please note that all CT scans at this facility use dose modulation, iterative reconstruction, and/or weight-based dosing when appropriate to reduce radiation dose to as low as reasonably achievable. Dictated by Jr Lazo MD @ 01/10/2025 11:53:18 PM (Electronically Signed)
--- NOTE | 2025-01-10 22:13 | CRLHL7_ITS ---
For Patients: As a result of the Century Cures Act, medical imaging exams and procedure reports are released immediately into your electronic medical record. You may view this report before your referring provider. If you have questions, please contact your health care provider. Indication: Frequent falls, back pain Technique: Noncontrast CT through the lumbar spine with multiplanar reformats Comparison: Lumbar spine CT performed 09/20/2023 Findings: Alignment: No acute malalignment appreciated. Bones: No acute fracture. No lytic or blastic lesion. Lumbar levels: No acute abnormality appreciated. Mild degenerative changes. Soft tissues: No acute paraspinal abnormality appreciated. Impression: No acute lumbar vertebral abnormality appreciated. Please note that all CT scans at this facility use dose modulation, iterative reconstruction, and/or weight-based dosing when appropriate to reduce radiation dose to as low as reasonably achievable. Dictated by Jr Lazo MD @ 01/11/2025 12:01:07 AM (Electronically Signed)
--- NOTE | 2025-01-10 22:13 | CRLHL7_ITS ---
For Patients: As a result of the Century Cures Act, medical imaging exams and procedure reports are released immediately into your electronic medical record. You may view this report before your referring provider. If you have questions, please contact your health care provider. Indication: Frequent falls, back pain Technique: Noncontrast CT through the thoracic spine with multiplanar reformats Comparison: None Findings: Alignment: No acute malalignment appreciated. Bones: T1 and out of field of view of this examination, better seen on cervical spine CT. T7 vertebral body hemangioma. No acute fracture. Thoracic levels: No acute abnormality appreciated. Soft tissues: No acute paraspinal abnormality appreciated. Calcified nodes. Mild apical pulmonary scarring. Impression: No acute thoracic vertebral abnormality appreciated. Please note that all CT scans at this facility use dose modulation, iterative reconstruction, and/or weight-based dosing when appropriate to reduce radiation dose to as low as reasonably achievable. Dictated by Jr Lazo MD @ 01/10/2025 11:56:50 PM (Electronically Signed)
[2025-01-10] MEDS: ONDANSETRON 2 MG/ML inj 4 MG IVP (22:19)
[2025-01-10] MEDS: MORPHINE 4 MG/ML INJ IVP (22:19)
[2025-01-10] MEDS: 0.9 % SODIUM CHLORIDE 500 ML 500 ML IV ×2 (22:19→23:27)
[2025-01-10 22:24] LABS: Lactate Sepsis w/Reflex* 2.3 mmol/L (0.5-1.9)
[2025-01-10 22:28] LABS: Hematocrit* 42.8 % (33.0-51.0); Hemoglobin* 13.6 gm/dL (12.0-16.0); Immature Granulocytes Pct Auto 0.2 %; Mean Corpuscular HGB Conc 32 gm/dL (32-36); Mean Corpuscular Hemoglobin 33 pg (26-34); Mean Corpuscular Volume 102 fL (80-100); RDW Coefficient of Variation % 12.5 % (11.5-15.5); Red Blood Count* 4.19 m/uL (4.00-5.20); White Blood Count* 12.92 K/uL (4.50-11.00)
[2025-01-10 22:29] LABS: Immature Granulocytes Abs Auto 0.00 K/uL (0.00-0.30); Lymphocytes Absolute Auto 3.20 K/uL (0.90-2.90); Slide Review Reflex No
[2025-01-10 22:30] LABS: Creatinine, Point-of-Care* 1.3 mg/dl (0.6-1.3)
[2025-01-10 22:45] LABS: Albumin* 3.8 g/dL (3.3-5.0); Chloride* 102 mmol/L (96-114)
[2025-01-10 22:46] LABS: Potassium* 4.3 mmol/L (3.6-5.1); Sodium* 136 mmol/L (135-149)
[2025-01-10 22:48] LABS: Blood Urea Nitrogen* 22 mg/dL (7-30); Creatinine* 1.2 mg/dL (0.5-1.5); Est. Creatinine Clearance* 40.42; Estimated Glomerular Filt Rate 52 ml/min
[2025-01-10 22:49] LABS: Alanine Aminotransferase* 32 U/L (4-35); Alkaline Phosphatase* 59 U/L (40-150); Anion Gap 10 mEq/L (7-15); Aspartate Amino Transferase* 27 U/L (12-35); Bilirubin Total* 0.4 mg/dL (0.1-1.5); Calcium* 9.1 mg/dL (8.4-10.6); Carbon Dioxide* 24 mmol/L (20-32); Glucose* 119 mg/dL (60-115); Total Protein* 6.3 g/dL (6.0-8.3)
[2025-01-10 23:00] VITALS: BP 135/67; PULSE 74; RESP 18; O2SAT 96
[2025-01-11] VITALS (9 sets, daily range): BP systolic 100–126; BP diastolic 51–76; PULSE 66–73; RESP 16–18; TEMP 36.9; O2SAT 92–98
[2025-01-11] MEDS: PIPERACILLIN/TAZOBACTAM 3.375 GM in 0.9 % SODIUM CHLORIDE Mini-bag 100 ML IVPB ×2 (00:38→06:30)
[2025-01-11 01:04] LABS: Lactate Sepsis 2 Hour 1.5 mmol/L (0.5-1.9)
== END 2025-01-11 07:29 | disposition short-term general hospital (02) ==
PROVIDERS: Emergency Provider Family Medicine; PCP Internal Medicine
DX: N13.2 Hydronephrosis with renal and ureteral calculous obstruction (principal); N10 Acute pyelonephritis; Z91.81 History of falling
CPT/HCPCS: 36415; 70450; 72125; 72128; 72131; 74177; 80053; 81001; 82565; 83605; 83690; 85025; 86140; 87086; 94761; 96365; 96366; 96375; 96376; 99285; 99291; J1171; J1885; J2270; J2405; J2543; J7030; Q9967; S4990

== ENCOUNTER 2025-01-11 07:15 | Outpatient (CLI) | payer MEDICARE, MEDICAID, SELFPAY | END 2025-01-11 07:16 | disposition home or self-care (01) | LOC: AMB 01-14 13:33 | PROVIDERS: PCP Internal Medicine; Visit Provider Family Medicine | DX: N20.0 Calculus of kidney (principal) | CPT/HCPCS: A0425; A0427 ==